=== PATIENT | male | born 1955 | race Caucasian/White ===

== ENCOUNTER 2017-11-06 11:06 | Emergency (ER) | payer OTHER ==
[~2017-11-06] VITALS: Ht 172.7 cm; Wt 99.8 kg
[2017-11-06 11:22] VITALS: BP 114/72
[2017-11-06] MEDS ORDERED: Ketorolac 30mg Inj IM ONE (11:45)
[2017-11-06] MEDS ORDERED: Methocarbamol 750mg tab ORAL ONE (11:45)
[2017-11-06] MEDS ORDERED: ROBAXIN-750750 MG PO (12:21)
[2017-11-06] MEDS ORDERED: IBUPROFEN600 MG ORAL (12:21)
[2017-11-06 12:30] VITALS: BP 113/74
--- NOTE | 2017-11-06 14:11 | Diagnostic Imaging Report ---
Indication: Knee pain Technique: 3 views of the right knee Comparison: None Findings: There are medial osteophytes. Air is minimal degenerative medial compartmental degenerative joint space narrowing. No acute fractures. No dislocations. No suprapatellar effusion. There are vascular calcifications Impression: Minimal degenerative changes. No acute bony trauma
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
== END 2017-11-06 12:42 | disposition home or self-care (01) ==
LOC: EDBD 11:06 → EMR 12:20
DX: S39.012A Strain of muscle, fascia and tendon of lower back, initial encounter (principal); S80.01XA Contusion of right knee, initial encounter; I10 Essential (primary) hypertension; E11.9 Type 2 diabetes mellitus without complications; V79.9XXA Bus occupant (driver) (passenger) injured in unspecified traffic accident, initial encounter; Y92.410 Unspecified street and highway as the place of occurrence of the external cause
CPT/HCPCS: 73562; 96372; 99284; J1885

== ENCOUNTER 2020-01-09 14:44 | Inpatient (IN) | payer MEDICARE, OTHER ==
[~2020-01-09] VITALS: Ht 177.8 cm; Wt 103.9 kg
[~2020-01-09 14:44] MED LIST: IBUPROFEN600 MG ORAL; ROBAXIN-750750 MG PO
--- NOTE | 2020-01-09 15:13 | Emergency Room Report ---
History of Present Illness General Chief Complaint: Chest Pain Source: Patient Present Illness HPI Patient presents with initially complaints of trauma with a fall 2 days ago onto the right side complaining of pain to the right upper chest and lower extremity Patient is relatively a poor historian initially complained mainly of His traumatic injury with a fall However later patient complains of continued shortness of breath and cough Continued swelling to both lower extremities patient now reports that his symptoms have been ongoing for the past month and now seem to have worsened since his fall Patient complaining of right knee and ankle pain as well Reports that he might have remote history of asthma Allergies: Coded Allergies: No Known Allergies (Unverified , 11/06/17) COVID-19 Screening Contact w/high risk pt: No Recent Travel to affected area: No Experienced COVID-19 symptoms?: No COVID-19 Testing performed HUMAN RESOURCES SPECIALIST: No Patient History Past Medical History: see triage record Reviewed Nursing Documentation: PMH: Agreed; PSxH: Agreed Nursing Documentation-PMH Past Medical History: No History, Except For Hx Hypertension: Yes Hx Diabetes: Yes Review of Systems All Other Systems: negative except mentioned in HPI Physical Exam Vital Signs Date Time Temp Pulse Resp B/P (MAP) Pulse Ox O2 Delivery O2 Flow Rate FiO2 01/09/20 14:50 98.1 87 20 130/64 (86) 94 Room Air Sp02 EP Interpretation: reviewed, normal General Appearance: moderate distress - Patient appears short of breath and using accessory muscles upon arrival Head: normocephalic, atraumatic Eyes: bilateral eye PERRL, bilateral eye EOMI ENT: EOM grossly intact, normal pharynx Neck: supple, no meningismus Respiratory: other - Patient is tachypneic and initially showed signs of mild retraction crackles bilaterally Cardiovascular #1: regular rate, rhythm Gastrointestinal: other - Obese with difficult evaluation nontender on lower abdomen Genitourinary: no CVA tenderness Musculoskeletal: other - Significant swelling to the right knee and lower extremity, patient is tender on palpation of that area, also has ecchymosis at the right upper chest but moving both upper extremities equally, Neurologic: alert, oriented Psychiatric: normal inspection Skin: other - As above with obvious traumatic ecchymosis to the right upper chest, swelling to the right knee and edema to the lower ankle region Lymphatic: no adenopathy Procedures Critical Care Time Critical Care Time 50 minutes for initial critical presentation respiratory distress concern for respiratory failure not including any procedural time Medical Decision Making Diagnostic Impression: Primary Impression: Dyspnea Additional Impressions: CHF (congestive heart failure) Sternal fracture Chest wall contusion Knee contusion ER Course Patient is complex with multiple differentials upon arrival Consideration for traumatic injury such as rib fractures, pneumothorax is made Consideration for medical emergencies such as pulmonary embolism, covid-19, CHF patient has multiple imaging and blood work initiated CT does not show any obvious fracture There is no obvious pneumothorax Patient sodium is significantly low There is concern for CHF as well patient provided with diuretic Breathing has improved General surgery and medicine are contacted and patient admitted for further care Labs Test 01/09/20 15:10 01/09/20 15:51 White Blood Count 10.1 K/UL (4.8-10.8) Red Blood Count 4.59 M/UL (4.70-6.10) Hemoglobin 12.8 G/DL (14.2-18.0) Hematocrit 37.4 % (42.0-52.0) Mean Corpuscular Volume 81 FL (80-99) Mean Corpuscular Hemoglobin 27.8 PG (27.0-31.0) Mean Corpuscular Hemoglobin Concent 34.2 G/DL (32.0-36.0) Red Cell Distribution Width 13.7 % (11.6-14.8) Platelet Count 299 K/UL (150-450) Mean Platelet Volume 7.1 FL (6.5-10.1) Neutrophils (%) (Auto) 83.5 % (45.0-75.0) Lymphocytes (%) (Auto) 9.3 % (20.0-45.0) Monocytes (%) (Auto) 4.6 % (1.0-10.0) Eosinophils (%) (Auto) 1.7 % (0.0-3.0) Basophils (%) (Auto) 0.9 % (0.0-2.0) Prothrombin Time 11.5 SEC (9.30-11.50) Prothromb Time International Ratio 1.0 (0.9-1.1) Activated Partial Thromboplast Time 28 SEC (23-33) Sodium Level 120 MMOL/L (136-145) Potassium Level 4.1 MMOL/L (3.5-5.1) Chloride Level 83 MMOL/L (98-107) Carbon Dioxide Level 29 MMOL/L (21-32) Anion Gap 9 mmol/L (5-15) Blood Urea Nitrogen 10 mg/dL (7-18) Creatinine 1.1 MG/DL (0.55-1.30) Estimat Glomerular Filtration Rate > 60 mL/min (>60) Glucose Level 133 MG/DL (74-106) Calcium Level 8.2 MG/DL (8.5-10.1) Total Bilirubin 1.0 MG/DL (0.2-1.0) Aspartate Amino Transf (AST/SGOT) 19 U/L (15-37) Alanine Aminotransferase (ALT/SGPT) 25 U/L (12-78) Alkaline Phosphatase 110 U/L (46-116) Total Creatine Kinase 160 U/L (26-308) Troponin I 0.025 ng/mL (0.000-0.056) Pro-B-Type Natriuretic Peptide 1164 pg/mL (0-125) Total Protein 6.3 G/DL (6.4-8.2) Albumin 3.3 G/DL (3.4-5.0) Globulin 3.0 g/dL Albumin/Globulin Ratio 1.1 (1.0-2.7) Lipase 69 U/L (73-393) Arterial Blood pH 7.417 (7.350-7.450) Arterial Blood Partial Pressure CO2 38.1 mmHg (35.0-45.0) Arterial Blood Partial Pressure O2 64.3 mmHg (75.0-100.0) Arterial Blood HCO3 24.0 mmol/L (22.0-26.0) Arterial Blood Oxygen Saturation 91.5 % (95-100) Arterial Blood Base Excess -0.3 (-2-2) Flash Test Positive EKG Diagnostic Results Rate: normal Rhythm: NSR ST Segments: other - Nonspecific ST and T wave changes Rhythm Strip Diag. Results EP Interpretation: yes Rate: 88 Rhythm: NSR, no PVC's, no ectopy Chest X-Ray Diagnostic Results Chest X-Ray Diagnostic Results : Chest X-Ray Ordered: Yes # of Views/Limited/Complete: 1 View Indication: Chest Pain EP Interpretation: Yes Interpretation: no pneumothorax, other - Cardiomegaly, Other X-Ray Diagnostic Results Other X-Ray Diagnostic Results #1: X-Ray ordered: Right knee # of Views/Limited Vs Complete: 3 View Indication: Pain EP Interpretation: Yes Interpretation: no dislocation, no fractures, other - Tissue swelling Impression: Other - Soft tissue swelling Electronically Signed by: Praveen Looney DO Other X-Ray Diagnostic Results #2: X-Ray ordered: Right ankle # of Views/Limited Vs Complete: 3 View Indication: Pain EP Interpretation: Yes Interpretation: no dislocation, no fractures, other Impression: Other - Soft tissue swelling Electronically Signed by: Praveen Looney DO CT/MRI/US Diagnostic Results CT/MRI/US Diagnostic Results : Impression CT chest abdomen pelvis no contrastIMPRESSION: Limited exam, due to respiratory motion artifact. Apparent buckling of the anterior and posterior mid body sternal cortex. This could be due to respiratory motion artifact, but could be real and represent a fracture. Correlate with clinical findings. No evidence of retrosternal hematoma, but there is some evidence of contusion of the superficial fat Evidence of right chest wall contusion Pulmonary atelectatic changes. Other acute/significant pulmonary pathology impossible to exclude due to the motion artifact. No evidence of pneumothorax. Considerable edema of the abdominal and right flank subcutaneous fat. Suspect that this is hemodynamic in origin, but the asymmetric findings of the right flank could also represent contusion No evidence of solid organ trauma. Note, however, assessment is limited due to lack of IV contrast Borderline cardiomegaly Mildly atrophic left kidney CT angios chestIMPRESSION: 1. Cardiomegaly. 2. Very small bilateral pleural effusions. 3. Clinical correlation is advised to assess for the possibility of incipient congestive heart failure. 4. ASCVD. 5. No central or peripheral pulmonary embolism is detected. 6. Atherosclerotic disease of the thoracic aorta. Last Vital Signs Date Time Temp Pulse Resp B/P (MAP) Pulse Ox O2 Delivery O2 Flow Rate FiO2 01/09/20 14:50 98.1 87 20 130/64 (86) 94 Room Air Status: improved Disposition: ADMITTED INPATIENT Condition: Critical Praveen Looney DO Jan 09, 2020 15:13
[2020-01-09] MEDS ORDERED: Albuterol ud Inhalation HHN ONE (15:15)
--- NOTE | 2020-01-09 15:25 | NUR ---
ED Nurse Note:pt. came from home due to SOB and chest tightness, pt. is ambulatory, A/Ox4 VSS, skin is intact, blood sent to labs
[2020-01-09 15:33] LABS: BASOPHILS % (AUTO) 0.9 % (0.0-2.0); EOSINOPHILS % (AUTO) 1.7 % (0.0-3.0); HEMATOCRIT 37.4 % (42.0-52.0); HEMOGLOBIN 12.8 G/DL (14.2-18.0); LYMPHOCYTES % (AUTO) 9.3 % (20.0-45.0); MEAN CORPUSCULAR VOLUME 81 FL (80-99); MONOCYTES % (AUTO) 4.6 % (1.0-10.0); NEUTROPHILS % (AUTO) 83.5 % (45.0-75.0); PLATELET COUNT 299 K/UL (150-450); RED BLOOD COUNT 4.59 M/UL (4.70-6.10); RED CELL DISTRIBUTION WIDTH 13.7 % (11.6-14.8); WHITE BLOOD COUNT 10.1 K/UL (4.8-10.8)
[2020-01-09 15:41] VITALS: BP 130/64
--- NOTE | 2020-01-09 15:43 | NUR ---
ED Nurse Note:chest x-ray and CT scan done, pt. placed on patient monitor, VSS
[2020-01-09 15:45] LABS: ANION GAP 9 mmol/L (5-15); BLOOD UREA NITROGEN 10 mg/dL (7-18); CALCIUM 8.2 MG/DL (8.5-10.1); CARBON DIOXIDE 29 MMOL/L (21-32); CHLORIDE 83 MMOL/L (98-107); CREATININE 1.1 MG/DL (0.55-1.30); POTASSIUM 4.1 MMOL/L (3.5-5.1); SODIUM 120 MMOL/L (136-145)
[2020-01-09 15:56] LABS: ALANINE AMINOTRANSFERASE 25 U/L (12-78); ALBUMIN 3.3 G/DL (3.4-5.0); ALBUMIN/GLOBULIN RATIO 1.1 (1.0-2.7); ALKALINE PHOSPHATASE 110 U/L (46-116); ASPARTATE AMINO TRANSFERASE 19 U/L (15-37); CREATINE KINASE 160 U/L (26-308)
--- NOTE | 2020-01-09 15:59 | Diagnostic Imaging Report ---
CLINICAL INDICATION:Trauma to chest and abdomen with pain TECHNIQUE: No oral contrast, per emergency room physician request no IV contrast, per referring physician request. Spiral acquisitions obtained through the chest, abdomen, and pelvis. Multiplanar reconstructions were generated. Total dose length product 1715 mGycm. CTDIvol(s) 22 mGy. Radiation dose was minimized using automated exposure control COMPARISON: none FINDINGS Chest: There is considerable image degradation due to respiratory motion. No fractures are demonstrated. There is infiltration of the subcutaneous fat of the right pectoral region. There is some apparent buckling of the cortex of the mid sternal body as well as some overlying contusion changes, although discrete fracture line is not demonstrated. No other acute fractures. The lungs are poorly visualized due to the motion artifact. There are some linear atelectatic changes at the lung bases. There are also posterior dependent atelectatic changes. No definite acute abnormality elsewhere although significant pathology could be missed due to the poor visualization of the lungs. The heart is borderline enlarged. No pericardial effusion. No mediastinal or hilar mass or adenopathy. The included thyroid appears unremarkable. No axillary or chest wall mass or adenopathy. Abdomen pelvis: There is likewise image degradation due to respiratory motion artifact. There is diffuse edema of the subcutaneous fat of the anterior abdominal wall. There is also thickening of the skin. There is considerable edema of the right flank subcutaneous fat which is asymmetric. There is also considerable edema posteriorly. The bones demonstrate degenerative spondylosis changes. No acute fractures. There are are mild degenerative changes of the thoracic and lumbar spine Lack of IV contrast limits assessment of the solid organs. The liver there is mildly hypoattenuating. No evidence of injury. The gallbladder, bile ducts, are unremarkable. The pancreas is atrophic. The spleen is unremarkable. The adrenals are unremarkable. The left kidney is mildly atrophic. No pelvic mass or adenopathy. No evidence of diverticulosis or diverticulitis. The appendix is normal. No small bowel distention. No free or loculated intraperitoneal gas or fluid is evident. The esophagus, stomach, duodenum are all unremarkable. IMPRESSION: Limited exam, due to respiratory motion artifact. Apparent buckling of the anterior and posterior mid body sternal cortex. This could be due to respiratory motion artifact, but could be real and represent a fracture. Correlate with clinical findings. No evidence of retrosternal hematoma, but there is some evidence of contusion of the superficial fat Evidence of right chest wall contusion Pulmonary atelectatic changes. Other acute/significant pulmonary pathology impossible to exclude due to the motion artifact. No evidence of pneumothorax. Considerable edema of the abdominal and right flank subcutaneous fat. Suspect that this is hemodynamic in origin, but the asymmetric findings of the right flank could also represent contusion No evidence of solid organ trauma. Note, however, assessment is limited due to lack of IV contrast Borderline cardiomegaly Mildly atrophic left kidney The CT scanner at [facility] is accredited by the [employer] and the scans are performed using protocols designed to limit radiation exposure to as low as reasonably achievable to attain images of sufficient resolution adequate for diagnostic evaluation.
--- NOTE | 2020-01-09 15:59 | NUR ---
HAND-OFF: Report given to Savage.
--- NOTE | 2020-01-09 16:00 | NUR ---
ED Nurse Note: Received patient from calista alfaro rn. Upon visual inspection patient resting in bed with no acute distress. opens eyes spontaneously and tracks movements with eyes. attached to monitor; vitals stable to baseline. will continue to monitor.
[2020-01-09] MEDS ORDERED: Morphine Sulfate 4mg/ml Inj (IV USE ONLY) IVP ONE ×2 (16:15→16:45)
[2020-01-09 16:30] VITALS: BP 128/64
[2020-01-09] MEDS ORDERED: Solu-MEDROL 125mg Inj IVP ONE (16:30)
[2020-01-09] MEDS ORDERED: Omnipaque 350 100ml vial INJ PRN (16:30)
--- NOTE | 2020-01-09 16:30 | NUR ---
ED Nurse Note: Patient reports pain 10/10; ERMD aware. Medicated patient as prescribed. Patient AO4. nad. aware of pending admission. Patient on placed on NC 2L. audible wheezes noted. abdomen round and distended. IV flushed and patent. belongings list completed with patient.
--- NOTE | 2020-01-09 16:53 | Consultation ---
History of Present Illness General Chief Complaint: Chest Pain Present Illness HPI This is a 64 year old male with the past medical history of hypertension, hld and obesity who presents with severe chest pain s/p fall. He notes that he was walking as he tripped and landed on his chest. He notes severe pain on inspiration. On presentation he was noted to be markedly hyponatremia. Given hypoxia he was placed on bipap with improvement in respiratory status. IMPRESSION: 1. Cardiomegaly. 2. Very small bilateral pleural effusions. 3. Clinical correlation is advised to assess for the possibility of incipient congestive heart failure. 4. ASCVD. 5. No central or peripheral pulmonary embolism is detected. 6. Atherosclerotic disease of the thoracic aorta. Allergies: Coded Allergies: No Known Allergies (Unverified , 11/06/17) Medication History Scheduled Amlodipine Besylate* (Amlodipine Besylate*), 10 MG ORAL DAILY, (Reported) Aspirin* (Aspir 81*), 81 MG ORAL DAILY, (Reported) Atorvastatin Calcium* (Atorvastatin Calcium*), 40 MG ORAL BEDTIME, (Reported) Lisinopril* (Lisinopril*), 40 MG ORAL DAILY, (Reported) Methocarbamol* (Robaxin-750*), 750 MG PO TID Pantoprazole* (Pantoprazole*), 40 MG ORAL DAILY, (Reported) Quetiapine Fumarate* (Quetiapine Fumarate*), 200 MG ORAL DAILY, (Reported) Sertraline Hcl* (Zoloft*), 100 MG PO DAILY, (Reported) Scheduled PRN Ibuprofen (Motrin), 600 MG ORAL Q8H PRN for For Pain Miscellaneous Medications Metformin Hcl (Metformin Hydrochloride), 1,000 GM , (Reported) Patient History Healthcare decision maker Resuscitation status Advanced Directive on File Review of Systems All Other Systems: negative except mentioned in HPI Physical Exam General Appearance: WD/WN, no apparent distress Lines, tubes and drains: peripheral HEENT: normocephalic, atraumatic Neck: non-tender Respiratory/Chest: decreased breath sounds, accessory muscle use, rhonchi - bilaterally, inspiratory wheezing Cardiovascular/Chest: normal peripheral pulses Abdomen: normal bowel sounds, non tender Neurologic: alert, oriented x 3, responsive Last 24 Hour Vital Signs Date Time Temp Pulse Resp B/P (MAP) Pulse Ox O2 Delivery O2 Flow Rate FiO2 01/09/20 16:20 73 18 100 Nasal Cannula 2.0 28 81 19 97 01/09/20 15:41 87 20 Room Air 01/09/20 15:41 98.1 87 20 130/64 97 Room Air 01/09/20 14:50 98.1 87 20 130/64 (86) 94 Room Air Laboratory Tests Test 01/09/20 15:10 01/09/20 15:51 White Blood Count 10.1 K/UL (4.8-10.8) Red Blood Count 4.59 M/UL (4.70-6.10) L Hemoglobin 12.8 G/DL (14.2-18.0) L Hematocrit 37.4 % (42.0-52.0) L Mean Corpuscular Volume 81 FL (80-99) Mean Corpuscular Hemoglobin 27.8 PG (27.0-31.0) Mean Corpuscular Hemoglobin Concent 34.2 G/DL (32.0-36.0) Red Cell Distribution Width 13.7 % (11.6-14.8) Platelet Count 299 K/UL (150-450) Mean Platelet Volume 7.1 FL (6.5-10.1) Neutrophils (%) (Auto) 83.5 % (45.0-75.0) H Lymphocytes (%) (Auto) 9.3 % (20.0-45.0) L Monocytes (%) (Auto) 4.6 % (1.0-10.0) Eosinophils (%) (Auto) 1.7 % (0.0-3.0) Basophils (%) (Auto) 0.9 % (0.0-2.0) Prothrombin Time 11.5 SEC (9.30-11.50) Prothromb Time International Ratio 1.0 (0.9-1.1) Activated Partial Thromboplast Time 28 SEC (23-33) Sodium Level 120 MMOL/L (136-145) L Potassium Level 4.1 MMOL/L (3.5-5.1) Chloride Level 83 MMOL/L (98-107) L Carbon Dioxide Level 29 MMOL/L (21-32) Anion Gap 9 mmol/L (5-15) Blood Urea Nitrogen 10 mg/dL (7-18) Creatinine 1.1 MG/DL (0.55-1.30) Estimat Glomerular Filtration Rate > 60 mL/min (>60) Glucose Level 133 MG/DL (74-106) H Calcium Level 8.2 MG/DL (8.5-10.1) L Total Bilirubin 1.0 MG/DL (0.2-1.0) Aspartate Amino Transf (AST/SGOT) 19 U/L (15-37) Alanine Aminotransferase (ALT/SGPT) 25 U/L (12-78) Alkaline Phosphatase 110 U/L (46-116) Total Creatine Kinase 160 U/L (26-308) Troponin I 0.025 ng/mL (0.000-0.056) Pro-B-Type Natriuretic Peptide 1164 pg/mL (0-125) H Total Protein 6.3 G/DL (6.4-8.2) L Albumin 3.3 G/DL (3.4-5.0) L Globulin 3.0 g/dL Albumin/Globulin Ratio 1.1 (1.0-2.7) Lipase 69 U/L (73-393) L Arterial Blood pH 7.417 (7.350-7.450) Arterial Blood Partial Pressure CO2 38.1 mmHg (35.0-45.0) Arterial Blood Partial Pressure O2 64.3 mmHg (75.0-100.0) L Arterial Blood HCO3 24.0 mmol/L (22.0-26.0) Arterial Blood Oxygen Saturation 91.5 % (95-100) L Arterial Blood Base Excess -0.3 (-2-2) Flash Test Positive Height (Feet): 5 Height (Inches): 10.00 Weight (Pounds): 260 Medications Current Medications Medications (Trade) Dose Ordered Sig/Anjel Route PRN Reason Start Time Stop Time Status Last Admin Dose Admin Iohexol (Omnipaque 350 100ml) 100 ml NOW PRN INJ Radiology Procedure 01/09/20 16:30 01/11/20 16:29 Assessment/Plan Diagnosis [facility] I: #SOB possible CHF #r/o COVID #Hypervolumic hyponatremia #chest pain #HTN #HLD - admit to step down unit - pulm consulted - cardiology consult - lasix 40 Iv BID - 2d echo - check TSH - check am cortisol - Gen surgery consulted - continue lisinopril 40mg daily - amlodipine 10mg daily - monitor BMP, mag and phos daily - replete Jone Tsang M.D. Jan 09, 2020 16:53
[2020-01-09] MEDS ORDERED: PANTOPRAZOLE SO40 MG ORAL (17:24)
[2020-01-09] MEDS ORDERED: ATORVASTATIN CA40 MG ORAL (17:24)
[2020-01-09] MEDS ORDERED: SERTRALINE HCL100 MG PO (17:24)
[2020-01-09] MEDS ORDERED: LISINOPRIL40 MG ORAL (17:24)
[2020-01-09] MEDS ORDERED: QUETIAPINE FUM400 MG ORAL (17:24)
[2020-01-09] MEDS ORDERED: METFORMIN HYD1000 GM MC (17:24)
[2020-01-09] MEDS ORDERED: AMLODIPINE BESY10 MG ORAL (17:26)
[2020-01-09] MEDS ORDERED: ASPIR 8181 MG ORAL (17:26)
--- NOTE | 2020-01-09 17:27 | Diagnostic Imaging Report ---
EXAM: CT Chest With Intravenous Contrast CLINICAL HISTORY: SOB TECHNIQUE: Axial computed tomographic images of the chest with intravenous contrast. CTDI is 138.8 mGy and DLP is 602.9 mGy-cm. One or more of the following dose reduction techniques were used: automated exposure control, adjustment of the mA and/or kV according to patient size, use of iterative reconstruction technique. COMPARISON: 01/09/2020. FINDINGS: Artifacts: Minimal motion artifact which limits evaluation peered Pulmonary arteries: No central pulmonary embolism. Limited evaluation of the peripheral branch of the pulmonary arteries. Aorta: Atherosclerotic disease of the thoracic aorta is noted. No thoracic aortic aneurysm. Lungs: Presumed subsegmental atelectasis posteriorly at the lung bases. The airways patent. No mass. Pleural space: No pneumothorax. No pleural effusion. Tiny bilateral pleural effusions, right side slightly greater than left side. The ribs are grossly unremarkable. Heart: Cardiomegaly and ASCVD. No significant pericardial effusion. No evidence of RV dysfunction. Mediastinum: Small hiatal hernia. Bones/joints: Probable old healed fracture of the sternum. Moderate degenerative disc disease of the thoracic spine. Mild kyphosis. Minimal anterior wedging of midthoracic vertebral body of indeterminate age. No dislocation. Soft tissues: Unremarkable. Lymph nodes: Unremarkable. No enlarged lymph nodes. Liver: Diffuse fatty infiltration of the liver. Other findings: Hypoaeration. IMPRESSION: 1. Cardiomegaly. 2. Very small bilateral pleural effusions. 3. Clinical correlation is advised to assess for the possibility of incipient congestive heart failure. 4. ASCVD. 5. No central or peripheral pulmonary embolism is detected. 6. Atherosclerotic disease of the thoracic aorta.
--- NOTE | 2020-01-09 18:06 | NUR ---
ED Nurse Note: RT at bedside; placed patient on biPAP 07/07 30%
[2020-01-09 18:13] VITALS: BP 117/67
--- NOTE | 2020-01-09 18:44 | Consultation ---
History of Present Illness General Date patient seen: Jan 10, 2020 Time patient seen: 22:58 Chief Complaint: Chest Pain Present Illness HPI 64 year old male poor historian presents with chest pain post fall, cardiology consulted for evaluation, CT scan showed CAD, CXR clear, Echo with normal LV function EKg with no ischemia. Allergies: Coded Allergies: No Known Allergies (Unverified , 11/06/17) Medication History Scheduled Amlodipine Besylate* (Amlodipine Besylate*), 10 MG ORAL DAILY, (Reported) Aspirin* (Aspir 81*), 81 MG ORAL DAILY, (Reported) Atorvastatin Calcium* (Atorvastatin Calcium*), 40 MG ORAL BEDTIME, (Reported) Lisinopril* (Lisinopril*), 40 MG ORAL DAILY, (Reported) Methocarbamol* (Robaxin-750*), 750 MG PO TID Pantoprazole* (Pantoprazole*), 40 MG ORAL DAILY, (Reported) Quetiapine Fumarate* (Quetiapine Fumarate*), 200 MG ORAL DAILY, (Reported) Sertraline Hcl* (Zoloft*), 100 MG PO DAILY, (Reported) Scheduled PRN Ibuprofen (Motrin), 600 MG ORAL Q8H PRN for For Pain Miscellaneous Medications Metformin Hcl (Metformin Hydrochloride), 1,000 GM MC, (Reported) Patient History Healthcare decision maker Resuscitation status Advanced Directive on File Review of Systems Constitutional: Reports: no symptoms Eye: Reports: no symptoms ENT: Reports: no symptoms Respiratory: Reports: no symptoms Cardiovascular: Reports: chest pain Gastrointestinal: Reports: no symptoms Genitourinary: Reports: no symptoms Musculoskeletal: Reports: no symptoms Skin: Reports: no symptoms Psychiatric: Reports: no symptoms Neurological: Reports: no symptoms Endocrine: Reports: no symptoms Hematologic/Lymphatic: Reports: no symptoms Physical Exam General Appearance: no apparent distress, confused Lines, tubes and drains: peripheral HEENT: normocephalic, atraumatic, anicteric, mucous membranes moist, PERRL Neck: normal alignment, supple, abnormal alignment Respiratory/Chest: chest wall non-tender, rhonchi - bilaterally, rhonchi - left Cardiovascular/Chest: normal peripheral pulses, normal rate, regular rhythm Abdomen: non tender, no mass Extremities: non-tender, normal inspection, no calf tenderness Skin Exam: normal pigmentation, warm/dry, cyanotic Neurologic: salt manager II-XII grossly normal, no motor/sensory deficits Last 24 Hour Vital Signs Date Time Temp Pulse Resp B/P (MAP) Pulse Ox O2 Delivery O2 Flow Rate FiO2 01/09/20 18:13 98.1 80 15 117/67 96 Bi-pap 30 01/09/20 18:07 30 01/09/20 18:06 79 15 97 30 01/09/20 17:12 98.1 01/09/20 16:52 98.1 01/09/20 16:30 98.1 83 18 128/64 100 Nasal Cannula 2.0 01/09/20 16:20 73 18 100 Nasal Cannula 2.0 28 81 19 97 01/09/20 15:41 87 20 Room Air 01/09/20 15:41 98.1 87 20 130/64 97 Room Air 01/09/20 14:50 98.1 87 20 130/64 (86) 94 Room Air Laboratory Tests Test 01/09/20 15:10 01/09/20 15:51 White Blood Count 10.1 K/UL (4.8-10.8) Red Blood Count 4.59 M/UL (4.70-6.10) L Hemoglobin 12.8 G/DL (14.2-18.0) L Hematocrit 37.4 % (42.0-52.0) L Mean Corpuscular Volume 81 FL (80-99) Mean Corpuscular Hemoglobin 27.8 PG (27.0-31.0) Mean Corpuscular Hemoglobin Concent 34.2 G/DL (32.0-36.0) Red Cell Distribution Width 13.7 % (11.6-14.8) Platelet Count 299 K/UL (150-450) Mean Platelet Volume 7.1 FL (6.5-10.1) Neutrophils (%) (Auto) 83.5 % (45.0-75.0) H Lymphocytes (%) (Auto) 9.3 % (20.0-45.0) L Monocytes (%) (Auto) 4.6 % (1.0-10.0) Eosinophils (%) (Auto) 1.7 % (0.0-3.0) Basophils (%) (Auto) 0.9 % (0.0-2.0) Prothrombin Time 11.5 SEC (9.30-11.50) Prothromb Time International Ratio 1.0 (0.9-1.1) Activated Partial Thromboplast Time 28 SEC (23-33) Sodium Level 120 MMOL/L (136-145) L Potassium Level 4.1 MMOL/L (3.5-5.1) Chloride Level 83 MMOL/L (98-107) L Carbon Dioxide Level 29 MMOL/L (21-32) Anion Gap 9 mmol/L (5-15) Blood Urea Nitrogen 10 mg/dL (7-18) Creatinine 1.1 MG/DL (0.55-1.30) Estimat Glomerular Filtration Rate > 60 mL/min (>60) Glucose Level 133 MG/DL (74-106) H Calcium Level 8.2 MG/DL (8.5-10.1) L Total Bilirubin 1.0 MG/DL (0.2-1.0) Aspartate Amino Transf (AST/SGOT) 19 U/L (15-37) Alanine Aminotransferase (ALT/SGPT) 25 U/L (12-78) Alkaline Phosphatase 110 U/L (46-116) Total Creatine Kinase 160 U/L (26-308) Troponin I 0.025 ng/mL (0.000-0.056) Pro-B-Type Natriuretic Peptide 1164 pg/mL (0-125) H Total Protein 6.3 G/DL (6.4-8.2) L Albumin 3.3 G/DL (3.4-5.0) L Globulin 3.0 g/dL Albumin/Globulin Ratio 1.1 (1.0-2.7) Lipase 69 U/L (73-393) L Arterial Blood pH 7.417 (7.350-7.450) Arterial Blood Partial Pressure CO2 38.1 mmHg (35.0-45.0) Arterial Blood Partial Pressure O2 64.3 mmHg (75.0-100.0) L Arterial Blood HCO3 24.0 mmol/L (22.0-26.0) Arterial Blood Oxygen Saturation 91.5 % (95-100) L Arterial Blood Base Excess -0.3 (-2-2) Flash Test Positive Height (Feet): 5 Height (Inches): 10.00 Weight (Pounds): 260 Medications Current Medications Medications (Trade) Dose Ordered Sig/Anjel Route PRN Reason Start Time Stop Time Status Last Admin Dose Admin Iohexol (Omnipaque 350 100ml) 100 ml NOW PRN INJ Radiology Procedure 01/09/20 16:30 01/11/20 16:29 Assessment/Plan Status: stable Assessment/Plan: Assessment/Plan Problem List: (1) Contusion, knee ICD Codes: S80.00XA - Contusion of unspecified knee, initial encounter SNOMED: 63731171 (2) CHF (congestive heart failure) ICD Codes: I50.9 - Heart failure, unspecified SNOMED: 09272714 (3) Sternal fracture ICD Codes: S22.20XA - Unspecified fracture of sternum, initial encounter for closed fracture SNOMED: 99891345 (4) Knee contusion ICD Codes: S80.00XA - Contusion of unspecified knee, initial encounter SNOMED: 20383278 (5) Dyspnea ICD Codes: R06.00 - Dyspnea, unspecified SNOMED: 829129173 (6) Chest wall contusion ICD Codes: S20.219A - Contusion of unspecified front wall of thorax, initial encounter SNOMED: 93346308 Status: stable Serial EKG/Troponin Monitor on telemetry Echcoardiogram with normal LV function, no WMA, no significant valvular disease Pain control IV fluids Aspirin Statin therapy Maintain lisinopril Chest pain unlikely ACS - defer fruther cardiac work up at this time, no indication for cath/stress test Otilio Lyn MD Jan 09, 2020 18:44
--- NOTE | 2020-01-09 20:45 | Diagnostic Imaging Report ---
Indication: Chest pain Technique: One view of the chest Comparison: none Findings: Body habitus limits evaluation. The heart is upper limits normal in size. No definite infiltrates, effusions, congestion. There is some atelectasis at both lung bases. Impression: No definite acute process. Findings as noted
--- NOTE | 2020-01-09 21:59 | Diagnostic Imaging Report ---
Indication: Pain, trauma Technique: 3 views of the right knee Comparison: None Findings: There is probably some narrowing of the medial joint compartment. There are medial osteophytes. No acute fractures. No dislocations. No suprapatellar effusion Impression: Degenerative changes. No acute bony trauma
--- NOTE | 2020-01-09 22:00 | Diagnostic Imaging Report ---
Indication: Reason For Exam: TRAUMA Technique: 3 views of the right ankle Comparison: none Findings: No acute fractures. No dislocations. Joint spaces are preserved. Normal mineralization. No radiopaque foreign body. Impression: Negative
--- NOTE | 2020-01-09 22:01 | NUR ---
ED Nurse Note: received report from Coral MCFADDEN. Will continue to monitor patient.
[2020-01-09 22:02] VITALS: BP 159/79
[2020-01-10 00:44] VITALS: BP 151/82
[2020-01-10 01:13] LABS: ANION GAP 6 mmol/L (5-15); BLOOD UREA NITROGEN 12 mg/dL (7-18); CALCIUM 8.6 MG/DL (8.5-10.1); CARBON DIOXIDE 32 MMOL/L (21-32); CHLORIDE 83 MMOL/L (98-107); CREATININE 1.4 MG/DL (0.55-1.30); SODIUM 121 MMOL/L (136-145)
[2020-01-10 03:53] VITALS: BP 119/57
--- NOTE | 2020-01-10 04:00 | NUR ---
ED Nurse Note: pt home med placed in safe. #[id number]
--- NOTE | 2020-01-10 04:14 | NUR ---
ED Nurse Note: GAVE REPORT TO TEMITOPE MCFADDEN.
--- NOTE | 2020-01-10 04:17 | NUR ---
NURSE NOTES: Heriberto GUZMAN RN called to give report. awaiting pt to arrive.
--- NOTE | 2020-01-10 04:30 | NUR ---
TRANSFER TO FLOOR: Patient transferred to [facility] via [facility] in stable condition via transport 19 protocol as ordered, per dr. García. Report given to Fer MCFADDEN. Belongings sent with patient.
--- NOTE | 2020-01-10 04:30 | NUR ---
NURSE NOTES: pt received form Heriberto Sampson RN. pt remains stable. pt is alert and oriented times 4, able to follow commands, no abnormalities to neuro. pt is on BIPAP able to sat at 99%, no further/ acute resp distress. pt is on conveyor monitor showing NSR, no acute cardiac abnormalities noted. pt bed is low, locked, armed, call light within reach, will establish plan of care.
[2020-01-10 04:45] VITALS: BP 148/81
--- NOTE | 2020-01-10 07:40 | NUR ---
HAND-OFF: Report given to María MCFADDEN. Pt remains stable.
--- NOTE | 2020-01-10 07:42 | NUR ---
NURSE NOTES: Received report from Fer Garrison RN.
[2020-01-10 08:00] VITALS: BP 135/77
[2020-01-10] MEDS ORDERED: HYDROcodone/Acetamin 5/325 tab ORAL PRN (08:00)
[2020-01-10] MEDS ORDERED: HYDROcodone/Acetamin 10/325 tab ORAL PRN (08:00)
[2020-01-10] MEDS: Sertraline 100mg tab ORAL SCH (08:53)
[2020-01-10] MEDS: Aspirin EC 81mg tab ORAL SCH (08:53)
[2020-01-10] MEDS ORDERED: Lisinopril 20mg tab ORAL SCH (09:00)
[2020-01-10 09:02] LABS: PHOSPHORUS 4.5 MG/DL (2.5-4.9)
--- NOTE | 2020-01-10 09:13 | NUR ---
NURSE NOTES: Pt. in bed, awake, having 2D echo test at present. No sign of distress. On Bipap 15/2 and Fi O2 of 30%. No grimacing noted. IV at right FA #20g. in placed S.L. Bed in low position, locked. Call light within reach. Will cont. to monitor.
[2020-01-10 09:18] LABS: HEMATOCRIT 34.7 % (42.0-52.0); HEMOGLOBIN 12.9 G/DL (14.2-18.0); MEAN CORPUSCULAR VOLUME 76 FL (80-99); PLATELET COUNT 299 K/UL (150-450); RED BLOOD COUNT 4.55 M/UL (4.70-6.10); RED CELL DISTRIBUTION WIDTH 12.1 % (11.6-14.8); WHITE BLOOD COUNT 9.1 K/UL (4.8-10.8)
[2020-01-10] MEDS: QUEtiapine 200mg tab ORAL SCH (09:35)
[2020-01-10] MEDS: Methocarbamol 750mg tab ORAL SCH ×4 (09:36→19:41)
[2020-01-10] MEDS: NovoLOG Insulin Flexpen SUBQ SCH ×3 (12:37→20:43)
--- NOTE | 2020-01-10 15:25 | History and Physical ---
History of Present Illness General Date patient seen: Jan 10, 2020 Reason for Hospitalization: Chest Pain Present Illness HPI Mr. Anderson is a 64 year old male with no clear PMHx, presenting 2 days after a fall onto his right side, complaining of chest pain. Also reports chronically worsening swelling, SOB. Allergies: Coded Allergies: No Known Allergies (Unverified , 11/06/17) COVID-19 Screening Contact w/high risk pt: No Recent Travel to affected area: No Experienced COVID-19 symptoms?: No COVID-19 symptoms experienced: Shortness of Breath Medication History Scheduled Amlodipine Besylate* (Amlodipine Besylate*), 10 MG ORAL DAILY, (Reported) Aspirin* (Aspir 81*), 81 MG ORAL DAILY, (Reported) Atorvastatin Calcium* (Atorvastatin Calcium*), 40 MG ORAL BEDTIME, (Reported) Lisinopril* (Lisinopril*), 40 MG ORAL DAILY, (Reported) Methocarbamol* (Robaxin-750*), 750 MG PO TID Pantoprazole* (Pantoprazole*), 40 MG ORAL DAILY, (Reported) Quetiapine Fumarate* (Quetiapine Fumarate*), 200 MG ORAL DAILY, (Reported) Sertraline Hcl* (Zoloft*), 100 MG PO DAILY, (Reported) Scheduled PRN Ibuprofen (Motrin), 600 MG ORAL Q8H PRN for For Pain Miscellaneous Medications Metformin Hcl (Metformin Hydrochloride), 1,000 GM MC, (Reported) Patient History Healthcare decision maker Resuscitation status Advanced Directive on File Review of Systems Constitutional: Denies: no symptoms, see HPI, chills, sweats, fever, malaise, weakness, other Eye: Denies: no symptoms, see HPI, eye pain, blurred vision, tearing, double vision, nose pain, nose congestion, acuity changes, discharge, other ENT: Denies: no symptoms, see HPI, ear pain, ear discharge, nose pain, nose congestion, throat pain, throat swelling, mouth pain, hearing loss, nasal discharge, other Respiratory: Reports: cough, shortness of breath Cardiovascular: Denies: no symptoms, see HPI, chest pain, edema, palpitations, syncope, PND, other Gastrointestinal: Denies: no symptoms, see HPI, abdominal pain, constipation, diarrhea, nausea, vomiting, melena, hematemesis, other Genitourinary: Denies: no symptoms, see HPI, discharge, dysuria, frequency, hematuria, pain, retention, incontinence, urgency, vag bleed/dc, other Musculoskeletal: Reports: other - sternal pain Skin: Denies: no symptoms, see HPI, rash, change in color, change in hair/nails , dryness, lesions, other Psychiatric: Denies: no symptoms, see HPI, prior hx, anxiety, depressed feelings, emotional problems, SI, HI, hallucinations, other Neurological: Denies: no symptoms, see HPI, headache, numbness, paresthesia, seizure, tingling, tremors, focal weakness, syncope, dizziness, other Endocrine: Denies: no symptoms, see HPI, excessive sweating, flushing, intolerance to temperature, increased thirst, increased urine, unexplained weight loss, other Hematologic/Lymphatic: Denies: no symptoms, see HPI, anemia, blood clots, easy bleeding, easy bruising, swollen glands, diathesis, other Physical Exam General Appearance: no apparent distress, alert HEENT: normocephalic, atraumatic Neck: supple Cardiovascular/Chest: normal rate, regular rhythm Abdomen: non tender, soft Extremities: moderate edema Last 24 Hour Vital Signs Date Time Temp Pulse Resp B/P (MAP) Pulse Ox O2 Delivery O2 Flow Rate FiO2 01/10/20 12:00 2.0 01/10/20 12:00 Bi-pap 01/10/20 11:58 86 01/10/20 11:01 95 Nasal Cannula 4.0 36 01/10/20 11:00 95 01/10/20 09:35 87 135/77 01/10/20 08:00 Bi-pap 01/10/20 08:00 87 01/10/20 08:00 97.7 84 18 135/77 (96) 96 01/10/20 08:00 30 01/10/20 08:00 97.7 84 18 135/77 (96) 96 01/10/20 07:22 89 23 98 30 01/10/20 04:45 98.4 92 23 148/81 (103) 97 01/10/20 04:42 Bi-Pap 01/10/20 04:30 98.6 82 20 119/57 95 Bi-pap 2.0 30 74 01/10/20 03:53 98.6 74 20 119/57 95 Bi-pap 01/10/20 03:24 82 14 95 30 01/10/20 00:44 82 20 151/82 96 Bi-pap 01/10/20 00:07 85 20 96 30 01/09/20 22:02 98.3 83 16 159/79 96 Bi-pap 01/09/20 21:09 74 16 96 30 01/09/20 18:13 98.1 80 15 117/67 96 Bi-pap 30 01/09/20 18:07 30 01/09/20 18:06 79 15 97 30 01/09/20 17:12 98.1 01/09/20 16:52 98.1 01/09/20 16:30 98.1 83 18 128/64 100 Nasal Cannula 2.0 01/09/20 16:20 73 18 100 Nasal Cannula 2.0 28 81 19 97 01/09/20 15:41 87 20 Room Air 01/09/20 15:41 98.1 87 20 130/64 97 Room Air Laboratory Tests Test 01/09/20 15:51 01/09/20 20:05 01/10/20 00:30 01/10/20 05:00 Arterial Blood pH 7.417 (7.350-7.450) 7.342 (7.350-7.450) Arterial Blood Partial Pressure CO2 38.1 mmHg (35.0-45.0) 50.2 mmHg (35.0-45.0) H Arterial Blood Partial Pressure O2 64.3 mmHg (75.0-100.0) L 66.6 mmHg (75.0-100.0) L Arterial Blood HCO3 24.0 mmol/L (22.0-26.0) 26.5 mmol/L (22.0-26.0) H Arterial Blood Oxygen Saturation 91.5 % (95-100) L 91.6 % (95-100) L Arterial Blood Base Excess -0.3 (-2-2) 0.2 (-2-2) Flash Test Positive Positive Sodium Level 121 MMOL/L (136-145) L Potassium Level 4.0 MMOL/L (3.5-5.1) Chloride Level 83 MMOL/L (98-107) L Carbon Dioxide Level 32 MMOL/L (21-32) Anion Gap 6 mmol/L (5-15) Blood Urea Nitrogen 12 mg/dL (7-18) Creatinine 1.4 MG/DL (0.55-1.30) H Estimat Glomerular Filtration Rate 50.7 mL/min (>60) Glucose Level 198 MG/DL (74-106) H Osmolality 264 mOsm/kg (297-317) L Calcium Level 8.6 MG/DL (8.5-10.1) Thyroid Stimulating Hormone (TSH) 2.944 uiU/mL (0.358-3.740) Cortisol AM Sample Pending Urine Osmolality 266 mOsm/kg (429-449) L Urine Random Sodium < 20 mmol/L (20-110) L Test 01/10/20 08:25 01/10/20 08:30 White Blood Count 9.1 K/UL (4.8-10.8) Red Blood Count 4.55 M/UL (4.70-6.10) L Hemoglobin 12.9 G/DL (14.2-18.0) L Hematocrit 34.7 % (42.0-52.0) L Mean Corpuscular Volume 76 FL (80-99) L Mean Corpuscular Hemoglobin 28.2 PG (27.0-31.0) Mean Corpuscular Hemoglobin Concent 37.0 G/DL (32.0-36.0) H Red Cell Distribution Width 12.1 % (11.6-14.8) Platelet Count 299 K/UL (150-450) Mean Platelet Volume 5.9 FL (6.5-10.1) L Neutrophils (%) (Auto) % (45.0-75.0) Lymphocytes (%) (Auto) % (20.0-45.0) Monocytes (%) (Auto) % (1.0-10.0) Eosinophils (%) (Auto) % (0.0-3.0) Basophils (%) (Auto) % (0.0-2.0) Differential Total Cells Counted 100 Neutrophils % (Manual) 93 % (45-75) H Lymphocytes % (Manual) 6 % (20-45) L Monocytes % (Manual) 1 % (1-10) Eosinophils % (Manual) 0 % (0-3) Basophils % (Manual) 0 % (0-2) Band Neutrophils 0 % (0-8) Platelet Estimate Adequate Platelet Morphology Normal Red Blood Cell Morphology Normal Phosphorus Level 4.5 MG/DL (2.5-4.9) Magnesium Level 1.5 MG/DL (1.8-2.4) L Pro-B-Type Natriuretic Peptide 1258 pg/mL (0-125) H Arterial Blood pH 7.375 (7.350-7.450) Arterial Blood Partial Pressure CO2 48.7 mmHg (35.0-45.0) H Arterial Blood Partial Pressure O2 70.7 mmHg (75.0-100.0) L Arterial Blood HCO3 27.8 mmol/L (22.0-26.0) H Arterial Blood Oxygen Saturation 93.0 % (95-100) L Arterial Blood Base Excess 1.9 (-2-2) Flash Test Positive Height (Feet): 5 Height (Inches): 10.00 Weight (Pounds): 260 Medications Current Medications Medications (Trade) Dose Ordered Sig/Anjel Route PRN Reason Start Time Stop Time Status Last Admin Dose Admin Acetaminophen (Tylenol) 650 mg Q6H PRN ORAL For Headache 01/10/20 08:00 02/09/20 07:59 Acetaminophen/ Hydrocodone Bitart ([place] 10/325) 1 tab Q6HR PRN ORAL Severe Pain (Pain Scale 7-10) 01/10/20 08:00 01/17/20 07:59 Acetaminophen/ Hydrocodone Bitart ([place] 5/325) 1 tab Q6H PRN ORAL Moderate Pain (Pain Scale 4-6) 01/10/20 08:00 01/17/20 07:59 Amlodipine Besylate (Norvasc) 10 mg DAILY ORAL 01/10/20 09:00 02/09/20 08:59 01/10/20 09:35 Aspirin (Ecotrin) 81 mg DAILY ORAL 01/10/20 09:00 02/24/20 08:59 01/10/20 08:53 Atorvastatin Calcium (Lipitor) 40 mg BEDTIME ORAL 01/10/20 21:00 04/09/20 20:59 Dextrose (Dextrose 50%) 25 ml Q30M PRN IV Hypoglycemia 01/10/20 08:00 04/09/20 07:59 Dextrose (Dextrose 50%) 50 ml Q30M PRN IV Hypoglycemia 01/10/20 08:00 04/09/20 07:59 Ibuprofen (Motrin) 600 mg Q8H PRN ORAL For Pain 01/10/20 08:00 02/09/20 07:59 Insulin Aspart (NovoLOG) BEFORE MEALS AND HS SUBQ 01/10/20 11:30 04/09/20 11:29 01/10/20 12:37 Iohexol (Omnipaque 350 100ml) 100 ml NOW PRN INJ Radiology Procedure 01/09/20 16:30 01/11/20 16:29 Magnesium Sulfate 100 ml @ 100 mls/hr Q1H IVPB 01/10/20 13:30 01/10/20 16:29 01/10/20 14:12 Methocarbamol (Robaxin) 750 mg TID ORAL 01/10/20 09:00 02/09/20 08:59 01/10/20 12:37 Pantoprazole (Protonix) 40 mg DAILY ORAL 01/10/20 09:00 02/09/20 08:59 01/10/20 08:53 Quetiapine Fumarate (SEROqueL) 200 mg DAILY ORAL 01/10/20 09:00 02/24/20 08:59 01/10/20 09:35 Sertraline HCl (Zoloft) 100 mg DAILY ORAL 01/10/20 09:00 02/09/20 08:59 01/10/20 08:53 Assessment/Plan Problem List: (1) Contusion, knee ICD Codes: S80.00XA - Contusion of unspecified knee, initial encounter SNOMED: 37243223 (2) CHF (congestive heart failure) ICD Codes: I50.9 - Heart failure, unspecified SNOMED: 56443655 (3) Sternal fracture ICD Codes: S22.20XA - Unspecified fracture of sternum, initial encounter for closed fracture SNOMED: 46121856 (4) Knee contusion ICD Codes: S80.00XA - Contusion of unspecified knee, initial encounter SNOMED: 05141686 (5) Dyspnea ICD Codes: R06.00 - Dyspnea, unspecified SNOMED: 495371470 (6) Chest wall contusion ICD Codes: S20.219A - Contusion of unspecified front wall of thorax, initial encounter SNOMED: 12200800 Status: stable Assessment/Plan: Mr. Anderson is a 64 year old male with unclear PMHx, here with 2 days of chest pain after fall, and chronic swelling, SOB #S/p fall #Suspected sternal fracture -imaging likely + for sternal fx. -pain control. #Severe hyponatremia #Metabolic acidosis #PAULINE -nephro following -IVF -BMP #Swelling #SOB #Suspected CHF #HTN -cardiology on board -contionue lisinopril -s/p TTE, pending read -pneindg COVID #Hypomagnesemina -s/p repletion Time spent on encounter 71 mins, 37 mins spent on counbseling and coordination of care Extra 32 mins spent on chart review of EMR records, including physician documentation, labs, imaging, medications. Time of note doesn't reflect time of encounter. Marcel Ortiz MD Jan 10, 2020 15:25
[2020-01-10 16:00] VITALS: BP 104/66
--- NOTE | 2020-01-10 16:44 | NUR ---
INTERQUAL CRITERIA MET
--- NOTE | 2020-01-10 16:45 | Consultation ---
DATE OF CONSULTATION: 01/10/2020 PULMONARY CONSULTATION CONSULTING PHYSICIAN: Delfin Degroot MD. HISTORY OF PRESENT ILLNESS: This is a 64-year-old male who came to the hospital with complaining of chest pain. Apparently, he had a fall several days ago. He is a poor historian. He reports currently he is also short of breath as well. The patient reports a history of asthma. PAST MEDICAL HISTORY: Notable for hypertension, diabetes mellitus, asthma, and recent fall. CURRENT MEDICATIONS: Include Tylenol, Norvasc, aspirin, Lipitor, [place], Motrin, Robaxin, and Seroquel. REVIEW OF SYSTEMS: Denies any headaches, hematemesis, melena, hematochezia, night sweats, or weight loss. PHYSICAL EXAMINATION: GENERAL: Reveals a 64-year-old male. VITAL SIGNS: Blood pressure is 130/60, heart rate 82, respirations 18, he is afebrile, and O2 saturation 96% on 30% FiO2. He is currently on BiPAP. CHEST: Decreased breath sounds bilaterally with normal heart sounds. ABDOMEN: Soft. EXTREMITIES: There is no edema. LABORATORY AND DIAGNOSTIC DATA: The patient underwent a CT of chest yesterday, which shows cardiomegaly, small bilateral effusions. Other lab testing is notable for hemoglobin of 12.9, otherwise normal CBC and BMP. Sodium is notably low at 121. ABG shows pH 7.37, pCO2 of 48, pO2 of 70; this is on 30% FiO2 on BiPAP. IMPRESSION: 1. Respiratory acidosis/respiratory failure. 2. Status post fall/chest wall trauma. 3. Mild pulmonary edema. 4. Asthma. 5. Hypertension. 6. Diabetes. DISCUSSION: Admit to the hospital. We will wean off BiPAP. Continue current medications and care. Correction of hyponatremia. Exclude SIADH. We will follow carefully. Priscilla Rivas JOB#: [id number] CC:
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
--- NOTE | 2020-01-10 17:32 | NUR ---
CASE MANAGEMENT: REVIEW 64 YEAR OLD MALE PRESENTED TO ED FROM HOME CC: CHEST PAIN . RIGHT FOOT PAIN X2 DAYS S/P FALL SI: CHF . RIGHT KNEE CONTUSION . CHEST WALL CONTUSION . STERNAL FRACTURE T 98.1 HR 87 RR 20 BP 130/64 SAT 97% NC/2L H/H 12.8/37.4 NEUT 83.5 LYMPH 9.3 IS: MORPHINE IV X1 SOLU MEDROL IV X1 ZOFRAN IV X1 LASIX 60MG IV X1 ALBUTEROL HHN X1 PATIENT ADMITTED TO STEP DOWN UNIT 01/09/2020 DCP: PATIENT IS FROM HOME
--- NOTE | 2020-01-10 19:21 | NUR ---
HAND-OFF: Report given to Fer Llanes RN. Pt. remain stable. Cont. to collect 24hrs. urine.
--- NOTE | 2020-01-10 19:25 | NUR ---
NURSE NOTES: Pt report received from María MCFADDEN. pt remains stable. pt is alert and oriented times 4, able to follow to commands. pt is on science analyst showing NSR, no acute signs symptoms of cardiac abnormalities noted. pt is on nasal canula sating at 99% O2, no acute signs symptoms of acute resp distress noted. pt bed is low, locked, armed, call light within reach, will follow plan of care.
--- NOTE | 2020-01-10 19:32 | Nephrology Progress Note ---
Assessment/Plan Plan #SOB possible CHF #r/o COVID #Hypervolumic hyponatremia #chest pain #HTN #HLD - admit to step down unit - pulm consulted - cardiology consult - lasix 40 Iv BID - 2d echo - check TSH - check am cortisol - Gen surgery consulted - continue lisinopril 40mg daily - amlodipine 10mg daily - monitor BMP, mag and phos daily - replete lytes Subjective ROS Limited/Unobtainable: No Subjective weaned off bipap chest pain controlled sodium 121 overnight Objective Objective Last 24 Hour Vital Signs Date Time Temp Pulse Resp B/P (MAP) Pulse Ox O2 Delivery O2 Flow Rate FiO2 01/10/20 19:15 100 Nasal Cannula 4.0 36 01/10/20 16:00 Bi-pap 01/10/20 16:00 97.7 87 20 104/66 (79) 99 01/10/20 16:00 2.0 01/10/20 15:42 93 01/10/20 15:30 94 01/10/20 12:00 2.0 01/10/20 12:00 Bi-pap 01/10/20 11:58 86 01/10/20 11:01 95 Nasal Cannula 4.0 36 01/10/20 11:00 95 01/10/20 09:35 87 135/77 01/10/20 08:00 Bi-pap 01/10/20 08:00 87 01/10/20 08:00 97.7 84 18 135/77 (96) 96 01/10/20 08:00 30 01/10/20 08:00 97.7 84 18 135/77 (96) 96 01/10/20 07:22 89 23 98 30 01/10/20 04:45 98.4 92 23 148/81 (103) 97 01/10/20 04:42 Bi-Pap 01/10/20 04:30 98.6 82 20 119/57 95 Bi-pap 2.0 30 74 01/10/20 03:53 98.6 74 20 119/57 95 Bi-pap 01/10/20 03:24 82 14 95 30 01/10/20 00:44 82 20 151/82 96 Bi-pap 01/10/20 00:07 85 20 96 30 01/09/20 22:02 98.3 83 16 159/79 96 Bi-pap 01/09/20 21:09 74 16 96 30 Intake and Output 01/09/20 01/10/20 19:00 07:00 # Voids 1 Laboratory Tests 01/09/20 20:05: Arterial Blood pH 7.342L, Arterial Blood Partial Pressure CO2 50.2H, Arterial Blood Partial Pressure O2 66.6L, Arterial Blood HCO3 26.5H, Arterial Blood Oxygen Saturation 91.6L, Arterial Blood Base Excess 0.2, Flash Test Positive 01/10/20 00:30: Sodium Level 121L, Potassium Level 4.0, Chloride Level 83L, Carbon Dioxide Level 32, Anion Gap 6, Blood Urea Nitrogen 12, Creatinine 1.4H, Estimat Glomerular Filtration Rate 50.7, Glucose Level 198H, Osmolality 264L, Calcium Level 8.6, Thyroid Stimulating Hormone (TSH) 2.944, Cortisol AM Sample [Pending] 01/10/20 05:00: Urine Osmolality 266L, Urine Random Sodium < 20L 01/10/20 08:25: White Blood Count 9.1, Red Blood Count 4.55L, Hemoglobin 12.9L, Hematocrit 34.7L , Mean Corpuscular Volume 76L, Mean Corpuscular Hemoglobin 28.2, Mean Corpuscular Hemoglobin Concent 37.0H, Red Cell Distribution Width 12.1, Platelet Count 299, Mean Platelet Volume 5.9L, Neutrophils (%) (Auto) , Lymphocytes (%) (Auto) , Monocytes (%) (Auto) , Eosinophils (%) (Auto) , Basophils (%) (Auto) , Differential Total Cells Counted 100, Neutrophils % ( Manual) 93H, Lymphocytes % (Manual) 6L, Monocytes % (Manual) 1, Eosinophils % ( Manual) 0, Basophils % (Manual) 0, Band Neutrophils 0, Platelet Estimate Adequate, Platelet Morphology Normal, Red Blood Cell Morphology Normal, Phosphorus Level 4.5, Magnesium Level 1.5L, Pro-B-Type Natriuretic Peptide 1258H 01/10/20 08:30: Arterial Blood pH 7.375, Arterial Blood Partial Pressure CO2 48.7H, Arterial Blood Partial Pressure O2 70.7L, Arterial Blood HCO3 27.8H, Arterial Blood Oxygen Saturation 93.0L, Arterial Blood Base Excess 1.9, Flash Test Positive Height (Feet): 5 Height (Inches): 10.00 Weight (Pounds): 260 General Appearance: no apparent distress EENT: PERRL/EOMI Neck: non-tender Cardiovascular: normal peripheral pulses Respiratory/Chest: crackles/rales Abdomen: normal bowel sounds, non tender, soft Extremities: non-tender Neurologic: alert, oriented x 3 Jone García M.D. Jan 10, 2020 19:32
[2020-01-10 20:00] VITALS: BP 125/70
[2020-01-10] MEDS: Atorvastatin 20mg tab ORAL SCH (20:46)
[2020-01-10 21:31] LABS: ANION GAP 6 mmol/L (5-15); BLOOD UREA NITROGEN 22 mg/dL (7-18); CALCIUM 8.3 MG/DL (8.5-10.1); CARBON DIOXIDE 31 MMOL/L (21-32); CHLORIDE 86 MMOL/L (98-107); CREATININE 1.8 MG/DL (0.55-1.30); POTASSIUM 4.1 MMOL/L (3.5-5.1); SODIUM 123 MMOL/L (136-145)
--- NOTE | 2020-01-10 23:22 | NUR ---
NURSE NOTES: called Doctor Rodriguez, stated pt has been on A FIB since 4PM, pt is asymptomatic, vital signs are stable. doctor Michael stated to continue to monitor pt. he will review pts chart for new orders. will continue to monitor pt.
[2020-01-11] VITALS: BP 112/63
[2020-01-11 04:00] VITALS: BP 119/72
--- NOTE | 2020-01-11 05:10 | NUR ---
NURSE NOTES: Pts 24 hr urine collect sent down to lab.
[2020-01-11 06:10] LABS: BASOPHILS % (AUTO) 0.6 % (0.0-2.0); EOSINOPHILS % (AUTO) 0.7 % (0.0-3.0); HEMATOCRIT 33.7 % (42.0-52.0); HEMOGLOBIN 12.5 G/DL (14.2-18.0); MEAN CORPUSCULAR VOLUME 78 FL (80-99); MONOCYTES % (AUTO) 5.7 % (1.0-10.0); NEUTROPHILS % (AUTO) 81.1 % (45.0-75.0); PLATELET COUNT 294 K/UL (150-450); RED BLOOD COUNT 4.35 M/UL (4.70-6.10); RED CELL DISTRIBUTION WIDTH 12.6 % (11.6-14.8); WHITE BLOOD COUNT 10.9 K/UL (4.8-10.8)
[2020-01-11] MEDS: NovoLOG Insulin Flexpen SUBQ SCH ×4 (06:22→21:00)
[2020-01-11 06:46] LABS: PHOSPHORUS 3.6 MG/DL (2.5-4.9)
--- NOTE | 2020-01-11 07:28 | NUR ---
HAND-OFF: endorsed plan of care to Jewell MCFADDEN. Pt remains stable.
--- NOTE | 2020-01-11 07:29 | NUR ---
NURSE NOTES: Received patient in bed. Awake, verbal, able to make needs known. In no apparent distress. Call light within reach. Bed in lowest position. Bed Alarm on. Fall risk implemented. Re-educated patient not to get up by himself. Contact and droplet isolation observed. Will continue plan of care.
[2020-01-11 08:00] VITALS: BP 127/67
--- NOTE | 2020-01-11 08:21 | NUR ---
NURSE NOTES: Dr. García at bedside.
[2020-01-11 08:36] LABS: ANION GAP 8 mmol/L (5-15); BLOOD UREA NITROGEN 24 mg/dL (7-18); CALCIUM 8.2 MG/DL (8.5-10.1); CARBON DIOXIDE 30 MMOL/L (21-32); CHLORIDE 86 MMOL/L (98-107); CREATININE 1.6 MG/DL (0.55-1.30); POTASSIUM 3.7 MMOL/L (3.5-5.1); SODIUM 124 MMOL/L (136-145)
[2020-01-11] MEDS: guaiFENesin w/Codeine 5ml Liq ud ORAL PRN ×2 (09:32→17:48)
[2020-01-11] MEDS: Aspirin EC 81mg tab ORAL SCH (09:33)
[2020-01-11] MEDS: QUEtiapine 200mg tab ORAL SCH (09:33)
[2020-01-11] MEDS: Methocarbamol 750mg tab ORAL SCH ×3 (09:33→17:48)
[2020-01-11] MEDS: Sertraline 100mg tab ORAL SCH (09:34)
[2020-01-11] MEDS: Heparin 5000 units/ml inj SUBQ SCH ×2 (09:42→22:00)
--- NOTE | 2020-01-11 10:31 | NUR ---
NURSE NOTES: Informed Dr. García made aware regarding BMP results today via telephone. No new order at this time.
--- NOTE | 2020-01-11 10:57 | Pulmonology Progress Note ---
Subjective ROS Limited/Unobtainable: No Interval Events: None new Constitutional: Reports: no symptoms HEENT: Repors: no symptoms Respiratory: Reports: no symptoms Cardiovascular: Reports: no symptoms Gastrointestinal/Abdominal: Reports: no symptoms Allergies: Coded Allergies: No Known Allergies (Unverified , 11/06/17) Objective Last 24 Hour Vital Signs Date Time Temp Pulse Resp B/P (MAP) Pulse Ox O2 Delivery O2 Flow Rate FiO2 01/11/20 09:34 82 127/67 01/11/20 08:16 84 01/11/20 08:00 97.0 82 25 127/67 (87) 95 01/11/20 08:00 Nasal Cannula 5.0 01/11/20 07:46 99 Nasal Cannula 4.0 36 01/11/20 04:00 Nasal Cannula 3.0 01/11/20 04:00 98.0 89 23 119/72 (88) 99 01/11/20 04:00 2.0 01/11/20 04:00 81 01/11/20 00:00 89 01/11/20 00:00 Nasal Cannula 3.0 01/11/20 00:00 97.5 94 20 112/63 (79) 99 01/11/20 00:00 2.0 01/10/20 20:00 Nasal Cannula 3.0 01/10/20 20:00 2.0 01/10/20 20:00 89 01/10/20 20:00 98.7 90 20 125/70 (88) 99 01/10/20 19:15 100 Nasal Cannula 4.0 36 01/10/20 16:00 Bi-pap 01/10/20 16:00 97.7 87 20 104/66 (79) 99 01/10/20 16:00 2.0 01/10/20 15:42 93 01/10/20 15:30 94 01/10/20 12:00 2.0 01/10/20 12:00 Bi-pap 01/10/20 11:58 86 01/10/20 11:01 95 Nasal Cannula 4.0 36 01/10/20 11:00 95 Intake and Output 01/10/20 01/11/20 19:00 07:00 Intake Total 1000 ml Output Total 800 ml Balance 200 ml Intake Oral 1000 ml Output Urine Total 800 ml General Appearance: no acute distress HEENT: normocephalic Respiratory: chest wall non-tender, lungs clear Cardiovascular: normal peripheral pulses Abdomen: normal bowel sounds Microbiology Date/Time Source Procedure Growth Status 01/09/20 16:30 Nasopharynx Coronavirus COVID-19 PCR ([facility]) - Final Complete Laboratory Tests 01/10/20 21:00: Sodium Level 123L, Potassium Level 4.1, Chloride Level 86L, Carbon Dioxide Level 31, Anion Gap 6, Blood Urea Nitrogen 22H, Creatinine 1.8H, Estimat Glomerular Filtration Rate 37.9, Glucose Level 141H, Calcium Level 8.3L 01/11/20 05:40: Sodium Level 124L, Potassium Level 3.7, Chloride Level 86L, Carbon Dioxide Level 30, Anion Gap 8, Blood Urea Nitrogen 24H, Creatinine 1.6H, Estimat Glomerular Filtration Rate 43.5, Glucose Level 152H, Calcium Level 8.2L, White Blood Count 10.9H, Red Blood Count 4.35L, Hemoglobin 12.5L, Hematocrit 33.7L, Mean Corpuscular Volume 78L, Mean Corpuscular Hemoglobin 28.6, Mean Corpuscular Hemoglobin Concent 36.9H, Red Cell Distribution Width 12.6, Platelet Count 294, Mean Platelet Volume 5.4L, Neutrophils (%) (Auto) 81.1H, Lymphocytes (%) (Auto) 12.0L, Monocytes (%) (Auto) 5.7, Eosinophils (%) (Auto) 0.7, Basophils (%) (Auto ) 0.6, Phosphorus Level 3.6, Magnesium Level 2.2, Pro-B-Type Natriuretic Peptide 1015H Current Medications Medications (Trade) Dose Ordered Sig/Anjel Route PRN Reason Start Time Stop Time Status Last Admin Dose Admin Acetaminophen (Tylenol) 650 mg Q6H PRN ORAL For Headache 01/10/20 08:00 02/09/20 07:59 Acetaminophen/ Hydrocodone Bitart ([place] 10/325) 1 tab Q6HR PRN ORAL Severe Pain (Pain Scale 7-10) 01/10/20 08:00 01/17/20 07:59 Acetaminophen/ Hydrocodone Bitart ([place] 5/325) 1 tab Q6H PRN ORAL Moderate Pain (Pain Scale 4-6) 01/10/20 08:00 01/17/20 07:59 01/11/20 02:26 Amlodipine Besylate (Norvasc) 10 mg DAILY ORAL 01/10/20 09:00 02/09/20 08:59 01/11/20 09:34 Aspirin (Ecotrin) 81 mg DAILY ORAL 01/10/20 09:00 02/24/20 08:59 01/11/20 09:33 Atorvastatin Calcium (Lipitor) 40 mg BEDTIME ORAL 01/10/20 21:00 04/09/20 20:59 01/10/20 20:46 Dextrose (Dextrose 50%) 25 ml Q30M PRN IV Hypoglycemia 01/10/20 08:00 04/09/20 07:59 Dextrose (Dextrose 50%) 50 ml Q30M PRN IV Hypoglycemia 01/10/20 08:00 04/09/20 07:59 Furosemide (Lasix) 40 mg EVERY 12 HOURS IV 01/11/20 09:00 02/10/20 08:59 01/11/20 09:33 Guaifenesin/ Codeine Phosphate (Robitussin with codeine) 5 ml Q6H PRN ORAL For Cough 01/11/20 08:30 02/10/20 08:29 01/11/20 09:32 Heparin Sodium (Porcine) (Heparin 5000 units/ml) 5,000 units EVERY 12 HOURS SUBQ 01/11/20 09:00 02/25/20 08:59 01/11/20 09:42 Ibuprofen (Motrin) 600 mg Q8H PRN ORAL For Pain 01/10/20 08:00 02/09/20 07:59 Insulin Aspart (NovoLOG) BEFORE MEALS AND HS SUBQ 01/10/20 11:30 04/09/20 11:29 01/11/20 06:22 Iohexol (Omnipaque 350 100ml) 100 ml NOW PRN INJ Radiology Procedure 01/09/20 16:30 01/11/20 16:29 Methocarbamol (Robaxin) 750 mg TID ORAL 01/10/20 09:00 02/09/20 08:59 01/11/20 09:33 Pantoprazole (Protonix) 40 mg DAILY ORAL 01/10/20 09:00 02/09/20 08:59 01/11/20 09:34 Quetiapine Fumarate (SEROqueL) 200 mg DAILY ORAL 01/10/20 09:00 02/24/20 08:59 01/11/20 09:33 Sertraline HCl (Zoloft) 100 mg DAILY ORAL 01/10/20 09:00 02/09/20 08:59 01/11/20 09:34 Assessment/Plan Assessment/Plan IMPRESSION: 1. Respiratory acidosis/respiratory failure. 2. Status post fall/chest wall trauma. 3. Mild pulmonary edema. 4. Asthma. 5. Hypertension. 6. Diabetes. DISCUSSION: Doing well on nasal O2 Continue current medications and care. Correction of hyponatremia. Exclude SIADH. I will follow carefully. Priscilla Rivas Omar Syed MD Jan 11, 2020 10:57
[2020-01-11 12:00] VITALS: BP 93/65
--- NOTE | 2020-01-11 12:00 | NUR ---
CASE MANAGEMENT: REVIEW SI: CHF . RIGHT KNEE & CHEST WALL CONTUSION . STERNAL FRACTURE . r/o COVID ISOLATION PRECAUTIONS T 97.0 HR 82 RR 25 BP 112/63 SAT 95% NC/5L WBC 10.9 H/H 12.5/33.7 NA 124 CHLORIDE 86 BUN 24 CR 1.6 2D ECHO PENDING IS: LASIX IV Q12HR HEPARIN SUBQ Q12HR NOVOLOG SUBQ AC+HR GUAIFENESIN w/CODEINE Q6HR PRN WEANED OFF BIPAP STEP DOWN UNIT STATUS DCP: PATIENT IS FROM HOME
--- NOTE | 2020-01-11 13:53 | Infectious Diseases Prog Note ---
Assessment/Plan Assessment/Plan Asked by Dr. García to see patient for possible covid-19 infection with sob A) 1) sob, no fevers, covid testing negative x 1 2) clinically doubt pna 3) imaging noted P) 1) 2nd covid-19 test ordered - if negative then remove isolation 2) monitor labs 3) d/w RN 4) thank you Subjective Allergies: Coded Allergies: No Known Allergies (Unverified , 11/06/17) Objective Vital Signs Last 24 Hour Vital Signs Date Time Temp Pulse Resp B/P (MAP) Pulse Ox O2 Delivery O2 Flow Rate FiO2 01/11/20 12:00 97.5 86 21 93/65 (74) 94 01/11/20 12:00 Nasal Cannula 5.0 01/11/20 11:36 82 01/11/20 09:34 82 127/67 01/11/20 08:16 84 01/11/20 08:00 97.0 82 25 127/67 (87) 95 01/11/20 08:00 Nasal Cannula 5.0 01/11/20 07:46 99 Nasal Cannula 4.0 36 01/11/20 04:00 Nasal Cannula 3.0 01/11/20 04:00 98.0 89 23 119/72 (88) 99 01/11/20 04:00 2.0 01/11/20 04:00 81 01/11/20 00:00 89 01/11/20 00:00 Nasal Cannula 3.0 01/11/20 00:00 97.5 94 20 112/63 (79) 99 01/11/20 00:00 2.0 01/10/20 20:00 Nasal Cannula 3.0 01/10/20 20:00 2.0 01/10/20 20:00 89 01/10/20 20:00 98.7 90 20 125/70 (88) 99 01/10/20 19:15 100 Nasal Cannula 4.0 36 01/10/20 16:00 Bi-pap 01/10/20 16:00 97.7 87 20 104/66 (79) 99 01/10/20 16:00 2.0 01/10/20 15:42 93 01/10/20 15:30 94 Height (Feet): 5 Height (Inches): 10.00 Weight (Pounds): 229 Microbiology Date/Time Source Procedure Growth Status 01/09/20 16:30 Nasopharynx Coronavirus COVID-19 PCR ([facility]) - Final Complete Laboratory Tests Test 01/10/20 21:00 01/11/20 05:40 Sodium Level 123 MMOL/L (136-145) L 124 MMOL/L (136-145) L Potassium Level 4.1 MMOL/L (3.5-5.1) 3.7 MMOL/L (3.5-5.1) Chloride Level 86 MMOL/L (98-107) L 86 MMOL/L (98-107) L Carbon Dioxide Level 31 MMOL/L (21-32) 30 MMOL/L (21-32) Anion Gap 6 mmol/L (5-15) 8 mmol/L (5-15) Blood Urea Nitrogen 22 mg/dL (7-18) H 24 mg/dL (7-18) H Creatinine 1.8 MG/DL (0.55-1.30) H 1.6 MG/DL (0.55-1.30) H Estimat Glomerular Filtration Rate 37.9 mL/min (>60) 43.5 mL/min (>60) Glucose Level 141 MG/DL (74-106) H 152 MG/DL (74-106) H Calcium Level 8.3 MG/DL (8.5-10.1) L 8.2 MG/DL (8.5-10.1) L White Blood Count 10.9 K/UL (4.8-10.8) H Red Blood Count 4.35 M/UL (4.70-6.10) L Hemoglobin 12.5 G/DL (14.2-18.0) L Hematocrit 33.7 % (42.0-52.0) L Mean Corpuscular Volume 78 FL (80-99) L Mean Corpuscular Hemoglobin 28.6 PG (27.0-31.0) Mean Corpuscular Hemoglobin Concent 36.9 G/DL (32.0-36.0) H Red Cell Distribution Width 12.6 % (11.6-14.8) Platelet Count 294 K/UL (150-450) Mean Platelet Volume 5.4 FL (6.5-10.1) L Neutrophils (%) (Auto) 81.1 % (45.0-75.0) H Lymphocytes (%) (Auto) 12.0 % (20.0-45.0) L Monocytes (%) (Auto) 5.7 % (1.0-10.0) Eosinophils (%) (Auto) 0.7 % (0.0-3.0) Basophils (%) (Auto) 0.6 % (0.0-2.0) Phosphorus Level 3.6 MG/DL (2.5-4.9) Magnesium Level 2.2 MG/DL (1.8-2.4) Pro-B-Type Natriuretic Peptide 1015 pg/mL (0-125) H Current Medications Medications (Trade) Dose Ordered Sig/Anjel Route PRN Reason Start Time Stop Time Status Last Admin Dose Admin Acetaminophen (Tylenol) 650 mg Q6H PRN ORAL For Headache 01/10/20 08:00 02/09/20 07:59 Acetaminophen/ Hydrocodone Bitart ([place] 10/325) 1 tab Q6HR PRN ORAL Severe Pain (Pain Scale 7-10) 01/10/20 08:00 01/17/20 07:59 Acetaminophen/ Hydrocodone Bitart ([place] 5/325) 1 tab Q6H PRN ORAL Moderate Pain (Pain Scale 4-6) 01/10/20 08:00 01/17/20 07:59 01/11/20 02:26 Amlodipine Besylate (Norvasc) 10 mg DAILY ORAL 01/10/20 09:00 02/09/20 08:59 01/11/20 09:34 Aspirin (Ecotrin) 81 mg DAILY ORAL 01/10/20 09:00 02/24/20 08:59 01/11/20 09:33 Atorvastatin Calcium (Lipitor) 40 mg BEDTIME ORAL 01/10/20 21:00 04/09/20 20:59 01/10/20 20:46 Dextrose (Dextrose 50%) 25 ml Q30M PRN IV Hypoglycemia 01/10/20 08:00 04/09/20 07:59 Dextrose (Dextrose 50%) 50 ml Q30M PRN IV Hypoglycemia 01/10/20 08:00 04/09/20 07:59 Furosemide (Lasix) 40 mg EVERY 12 HOURS IV 01/11/20 09:00 02/10/20 08:59 01/11/20 09:33 Guaifenesin/ Codeine Phosphate (Robitussin with codeine) 5 ml Q6H PRN ORAL For Cough 01/11/20 08:30 02/10/20 08:29 01/11/20 09:32 Heparin Sodium (Porcine) (Heparin 5000 units/ml) 5,000 units EVERY 12 HOURS SUBQ 01/11/20 09:00 02/25/20 08:59 01/11/20 09:42 Ibuprofen (Motrin) 600 mg Q8H PRN ORAL For Pain 01/10/20 08:00 02/09/20 07:59 Insulin Aspart (NovoLOG) BEFORE MEALS AND HS SUBQ 01/10/20 11:30 04/09/20 11:29 01/11/20 12:41 Iohexol (Omnipaque 350 100ml) 100 ml NOW PRN INJ Radiology Procedure 01/09/20 16:30 01/11/20 16:29 Methocarbamol (Robaxin) 750 mg TID ORAL 01/10/20 09:00 02/09/20 08:59 01/11/20 12:41 Pantoprazole (Protonix) 40 mg DAILY ORAL 01/10/20 09:00 02/09/20 08:59 01/11/20 09:34 Quetiapine Fumarate (SEROqueL) 200 mg DAILY ORAL 01/10/20 09:00 02/24/20 08:59 01/11/20 09:33 Sertraline HCl (Zoloft) 100 mg DAILY ORAL 01/10/20 09:00 02/09/20 08:59 01/11/20 09:34 Rodrigo Raygoza MD Jan 11, 2020 13:52
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
--- NOTE | 2020-01-11 14:57 | General Progress Note ---
Assessment/Plan Problem List: (1) Contusion, knee ICD Codes: S80.00XA - Contusion of unspecified knee, initial encounter SNOMED: 43030364 (2) CHF (congestive heart failure) ICD Codes: I50.9 - Heart failure, unspecified SNOMED: 42971170 (3) Sternal fracture ICD Codes: S22.20XA - Unspecified fracture of sternum, initial encounter for closed fracture SNOMED: 43970231 (4) Knee contusion ICD Codes: S80.00XA - Contusion of unspecified knee, initial encounter SNOMED: 40655768 (5) Dyspnea ICD Codes: R06.00 - Dyspnea, unspecified SNOMED: 233081541 (6) Chest wall contusion ICD Codes: S20.219A - Contusion of unspecified front wall of thorax, initial encounter SNOMED: 71356642 Status: stable Assessment/Plan: Mr. Anderson is a 64 year old male with unclear PMHx, here with 2 days of chest pain after fall, and chronic swelling, SOB #S/p fall #Suspected sternal fracture -imaging likely + for sternal fx. -appreciate surgery input. -pain control. #Severe hyponatremia #Metabolic acidosis #PAULINE -nephro following -IVF -BMP #Swelling #SOB #Suspected CHF #HTN -cardiology on board -contionue lisinopril -s/p TTE, pending read -pneindg COVID #Hypomagnesemina -s/p repletion Time spent on encounter 37 mins, 20mins on counseling, coordination of care. Time of note doesn't reflect time of encounter. Subjective Date patient seen: Jan 11, 2020 ROS Limited/Unobtainable: No Constitutional: Denies: no symptoms, chills, diaphoresis, fever, malaise, weakness, other HEENT: Denies: no symptoms, eye pain, blurred vision, tearing, double vision, ear pain, ear discharge, nose pain, nose congestion, throat pain, throat swelling, mouth pain, mouth swelling, other Cardiovascular: Denies: no symptoms, chest pain, edema, irregular heart rate, lightheadedness, palpitations, syncope, other Respiratory: Reports: no symptoms, cough, orthopnea, shortness of breath, SOB with excertion, SOB at rest, sputum, stridor, wheezing, other Gastrointestinal/Abdominal: Denies: no symptoms, abdomen distended, abdominal pain, black stools, tarry stools, blood in stool, constipated, diarrhea, difficulty swallowing, nausea, poor appetite, poor fluid intake, rectal bleeding , vomiting, other Genitourinary: Denies: no symptoms, burning, discharge, frequency, flank pain, hematuria, incontinence, pain, urgency, other Neurologic/Psychiatric: Denies: no symptoms, anxiety, depressed, emotional problems, headache, numbness, paresthesia, pre-existing deficit, seizure, tingling, tremors, weakness, other Endocrine: Denies: no symptoms, excessive sweating, flushing, intolerance to cold, intolerance to heat, increased hunger, increased thirst, increased urine, unexplained weight gain, unexplained weight loss, other Hematologic/Lymphatic: Denies: no symptoms, anemia, easy bleeding, easy bruising, other Allergies: Coded Allergies: No Known Allergies (Unverified , 11/06/17) Subjective resting in bed. SOB, leg swelling better. chest pain from sternal fx still there. Objective Last 24 Hour Vital Signs Date Time Temp Pulse Resp B/P (MAP) Pulse Ox O2 Delivery O2 Flow Rate FiO2 01/11/20 12:00 97.5 86 21 93/65 (74) 94 01/11/20 12:00 Nasal Cannula 5.0 01/11/20 11:36 82 01/11/20 09:34 82 127/67 01/11/20 08:16 84 01/11/20 08:00 97.0 82 25 127/67 (87) 95 01/11/20 08:00 Nasal Cannula 5.0 01/11/20 07:46 99 Nasal Cannula 4.0 36 01/11/20 04:00 Nasal Cannula 3.0 01/11/20 04:00 98.0 89 23 119/72 (88) 99 01/11/20 04:00 2.0 01/11/20 04:00 81 01/11/20 00:00 89 01/11/20 00:00 Nasal Cannula 3.0 01/11/20 00:00 97.5 94 20 112/63 (79) 99 01/11/20 00:00 2.0 01/10/20 20:00 Nasal Cannula 3.0 01/10/20 20:00 2.0 01/10/20 20:00 89 01/10/20 20:00 98.7 90 20 125/70 (88) 99 01/10/20 19:15 100 Nasal Cannula 4.0 36 01/10/20 16:00 Bi-pap 01/10/20 16:00 97.7 87 20 104/66 (79) 99 01/10/20 16:00 2.0 01/10/20 15:42 93 01/10/20 15:30 94 Intake and Output 01/10/20 01/11/20 19:00 07:00 Intake Total 1000 ml Output Total 800 ml Balance 200 ml Intake Oral 1000 ml Output Urine Total 800 ml Laboratory Tests 01/10/20 21:00: Sodium Level 123L, Potassium Level 4.1, Chloride Level 86L, Carbon Dioxide Level 31, Anion Gap 6, Blood Urea Nitrogen 22H, Creatinine 1.8H, Estimat Glomerular Filtration Rate 37.9, Glucose Level 141H, Calcium Level 8.3L 01/11/20 05:40: Sodium Level 124L, Potassium Level 3.7, Chloride Level 86L, Carbon Dioxide Level 30, Anion Gap 8, Blood Urea Nitrogen 24H, Creatinine 1.6H, Estimat Glomerular Filtration Rate 43.5, Glucose Level 152H, Calcium Level 8.2L, White Blood Count 10.9H, Red Blood Count 4.35L, Hemoglobin 12.5L, Hematocrit 33.7L, Mean Corpuscular Volume 78L, Mean Corpuscular Hemoglobin 28.6, Mean Corpuscular Hemoglobin Concent 36.9H, Red Cell Distribution Width 12.6, Platelet Count 294, Mean Platelet Volume 5.4L, Neutrophils (%) (Auto) 81.1H, Lymphocytes (%) (Auto) 12.0L, Monocytes (%) (Auto) 5.7, Eosinophils (%) (Auto) 0.7, Basophils (%) (Auto ) 0.6, Phosphorus Level 3.6, Magnesium Level 2.2, Pro-B-Type Natriuretic Peptide 1015H Height (Feet): 5 Height (Inches): 10.00 Weight (Pounds): 229 General Appearance: no apparent distress, alert, obese EENT: PERRL/EOMI Neck: supple Cardiovascular: normal rate, regular rhythm Respiratory/Chest: lungs clear, normal breath sounds Abdomen: non tender, soft Edema: moderate edema Neurologic: alert, oriented x 3 Marcel Ortiz MD Jan 11, 2020 14:57
--- NOTE | 2020-01-11 15:00 | NUR ---
NURSE NOTES: Bed bath provided. Patient cooperate with ADL's. Assisted to get up from bed. Kept clean and dry. Remains on nasal cannula at 5LPM.
--- NOTE | 2020-01-11 15:29 | Cardiology Progress Note ---
Assessment/Plan Status: stable Assessment/Plan Assessment/Plan Problem List: (1) Contusion, knee ICD Codes: S80.00XA - Contusion of unspecified knee, initial encounter SNOMED: 87646167 (2) CHF (congestive heart failure) ICD Codes: I50.9 - Heart failure, unspecified SNOMED: 70939231 (3) Sternal fracture ICD Codes: S22.20XA - Unspecified fracture of sternum, initial encounter for closed fracture SNOMED: 47131773 (4) Knee contusion ICD Codes: S80.00XA - Contusion of unspecified knee, initial encounter SNOMED: 32930607 (5) Dyspnea ICD Codes: R06.00 - Dyspnea, unspecified SNOMED: 309789620 (6) Chest wall contusion ICD Codes: S20.219A - Contusion of unspecified front wall of thorax, initial encounter SNOMED: 70790600 Status: stable Serial EKG/Troponin Monitor on telemetry Echcoardiogram with normal LV function, no WMA, no significant valvular disease Pain control IV fluids Aspirin Statin therapy Maintain lisinopril Chest pain unlikely ACS - defer fruther cardiac work up at this time, no indication for cath/stress test Subjective Cardiovascular: Reports: no symptoms Respiratory: Reports: no symptoms Gastrointestinal/Abdominal: Reports: no symptoms Genitourinary: Reports: no symptoms Subjective No acute events, pain controlled, poor historian, no acute events TTE with normal LV function Objective Last 24 Hour Vital Signs Date Time Temp Pulse Resp B/P (MAP) Pulse Ox O2 Delivery O2 Flow Rate FiO2 01/11/20 12:00 97.5 86 21 93/65 (74) 94 01/11/20 12:00 Nasal Cannula 5.0 01/11/20 11:36 82 01/11/20 09:34 82 127/67 01/11/20 08:16 84 01/11/20 08:00 97.0 82 25 127/67 (87) 95 01/11/20 08:00 Nasal Cannula 5.0 01/11/20 07:46 99 Nasal Cannula 4.0 36 01/11/20 04:00 Nasal Cannula 3.0 01/11/20 04:00 98.0 89 23 119/72 (88) 99 01/11/20 04:00 2.0 01/11/20 04:00 81 01/11/20 00:00 89 01/11/20 00:00 Nasal Cannula 3.0 01/11/20 00:00 97.5 94 20 112/63 (79) 99 01/11/20 00:00 2.0 01/10/20 20:00 Nasal Cannula 3.0 01/10/20 20:00 2.0 01/10/20 20:00 89 01/10/20 20:00 98.7 90 20 125/70 (88) 99 01/10/20 19:15 100 Nasal Cannula 4.0 36 01/10/20 16:00 Bi-pap 01/10/20 16:00 97.7 87 20 104/66 (79) 99 01/10/20 16:00 2.0 01/10/20 15:42 93 01/10/20 15:30 94 General Appearance: no apparent distress, alert EENT: PERRL/EOMI, TMs normal, pharynx normal Neck: non-tender, normal alignment, supple, no JVD Rhythm: NSR Cardiovascular: normal peripheral pulses, normal rate Respiratory/Chest: chest wall non-tender, lungs clear, normal breath sounds Abdomen: normal bowel sounds, non tender, soft, no organomegaly Extremities: normal range of motion, non-tender, normal inspection, no calf tenderness, no swelling 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 grossly normal, no motor/sensory deficits Intake and Output 01/10/20 01/11/20 19:00 07:00 Intake Total 1000 ml Output Total 800 ml Balance 200 ml Intake Oral 1000 ml Output Urine Total 800 ml Laboratory Tests Test 01/10/20 21:00 01/11/20 05:40 Sodium Level 123 MMOL/L (136-145) L 124 MMOL/L (136-145) L Potassium Level 4.1 MMOL/L (3.5-5.1) 3.7 MMOL/L (3.5-5.1) Chloride Level 86 MMOL/L (98-107) L 86 MMOL/L (98-107) L Carbon Dioxide Level 31 MMOL/L (21-32) 30 MMOL/L (21-32) Anion Gap 6 mmol/L (5-15) 8 mmol/L (5-15) Blood Urea Nitrogen 22 mg/dL (7-18) H 24 mg/dL (7-18) H Creatinine 1.8 MG/DL (0.55-1.30) H 1.6 MG/DL (0.55-1.30) H Estimat Glomerular Filtration Rate 37.9 mL/min (>60) 43.5 mL/min (>60) Glucose Level 141 MG/DL (74-106) H 152 MG/DL (74-106) H Calcium Level 8.3 MG/DL (8.5-10.1) L 8.2 MG/DL (8.5-10.1) L White Blood Count 10.9 K/UL (4.8-10.8) H Red Blood Count 4.35 M/UL (4.70-6.10) L Hemoglobin 12.5 G/DL (14.2-18.0) L Hematocrit 33.7 % (42.0-52.0) L Mean Corpuscular Volume 78 FL (80-99) L Mean Corpuscular Hemoglobin 28.6 PG (27.0-31.0) Mean Corpuscular Hemoglobin Concent 36.9 G/DL (32.0-36.0) H Red Cell Distribution Width 12.6 % (11.6-14.8) Platelet Count 294 K/UL (150-450) Mean Platelet Volume 5.4 FL (6.5-10.1) L Neutrophils (%) (Auto) 81.1 % (45.0-75.0) H Lymphocytes (%) (Auto) 12.0 % (20.0-45.0) L Monocytes (%) (Auto) 5.7 % (1.0-10.0) Eosinophils (%) (Auto) 0.7 % (0.0-3.0) Basophils (%) (Auto) 0.6 % (0.0-2.0) Phosphorus Level 3.6 MG/DL (2.5-4.9) Magnesium Level 2.2 MG/DL (1.8-2.4) Pro-B-Type Natriuretic Peptide 1015 pg/mL (0-125) H Microbiology Date/Time Source Procedure Growth Status 01/09/20 16:30 Nasopharynx Coronavirus COVID-19 PCR ([facility]) - Final Complete Filsoof,Otilio Langford MD Jan 11, 2020 15:29
[2020-01-11 16:00] VITALS: BP 101/67
[2020-01-11] MEDS ORDERED: Tubing IV Secondary IV ONE (18:40)
[2020-01-11] MEDS ORDERED: NS 275ml ONE (18:40)
--- NOTE | 2020-01-11 19:04 | NUR ---
HAND-OFF: Report given to William Guidry RN. Second Covid-19 swab order received from Dr. Raygoza. William Guidry RN made aware and will swab patient. Patient remains in stable condition. No signs and symptoms of hypoglycemia. Kept Clean and dry. Bed in lowest position, Bed alarm on. Fall risk implemented and endorsed.
--- NOTE | 2020-01-11 19:05 | NUR ---
NURSE NOTES: Received patient from BOGDAN Corcoran. Patient is aaox4, vss, with no acute distress. Patient is cooperative, clean, on a campus monitor and stands with a steady gait to use the urinal. Patient tolerates a 4L nasal canula saturating at 98%. Iv sites are left forearm 20g, left hand 22g, and right hand 20g all patent with no signs of infection. Bed is at its lowest position, bed is locked, call light in reach, and x3 bed rails are up. Will continue to monitor.
[2020-01-11 20:00] VITALS: BP 137/76
--- NOTE | 2020-01-11 20:33 | Nephrology Progress Note ---
Assessment/Plan Plan #SOB possible CHF #r/o COVID #Hypervolumic hyponatremia #chest pain #HTN #HLD - pulm consulted - cardiology consult - lasix 40 Iv BID - 2d echo - check TSH - check am cortisol - Gen surgery consulted - continue lisinopril 40mg daily - amlodipine 10mg daily - monitor BMP, mag and phos daily - replete lytes Subjective ROS Limited/Unobtainable: No Constitutional: Denies: no symptoms, chills, diaphoresis, fever, malaise, weakness, other HEENT: Denies: no symptoms, eye pain, blurred vision, tearing, double vision, ear pain, ear discharge, nose pain, nose congestion, throat pain, throat swelling, mouth pain, mouth swelling, other Genitourinary: Denies: no symptoms, burning, discharge, frequency, flank pain, hematuria, incontinence, pain, urgency, other Neurologic/Psychiatric: Denies: no symptoms, anxiety, depressed, emotional problems, headache, numbness, paresthesia, pre-existing deficit, seizure, tingling, tremors, weakness, other Subjective breathing improving chest pain controlled sodium 123 today Objective Objective Last 24 Hour Vital Signs Date Time Temp Pulse Resp B/P (MAP) Pulse Ox O2 Delivery O2 Flow Rate FiO2 01/11/20 20:00 98.2 86 22 137/76 (96) 96 01/11/20 18:48 97 Nasal Cannula 4.0 36 01/11/20 16:00 Nasal Cannula 5.0 01/11/20 16:00 97.5 85 22 101/67 (78) 96 01/11/20 15:24 98 01/11/20 12:00 97.5 86 21 93/65 (74) 94 01/11/20 12:00 Nasal Cannula 5.0 01/11/20 11:36 82 01/11/20 09:34 82 127/67 01/11/20 08:16 84 01/11/20 08:00 97.0 82 25 127/67 (87) 95 01/11/20 08:00 Nasal Cannula 5.0 01/11/20 07:46 99 Nasal Cannula 4.0 36 01/11/20 04:00 Nasal Cannula 3.0 01/11/20 04:00 98.0 89 23 119/72 (88) 99 01/11/20 04:00 2.0 01/11/20 04:00 81 01/11/20 00:00 89 01/11/20 00:00 Nasal Cannula 3.0 01/11/20 00:00 97.5 94 20 112/63 (79) 99 01/11/20 00:00 2.0 Intake and Output 01/10/20 01/11/20 19:00 07:00 Intake Total 1000 ml Output Total 800 ml Balance 200 ml Intake Oral 1000 ml Output Urine Total 800 ml Laboratory Tests 01/10/20 21:00: Sodium Level 123L, Potassium Level 4.1, Chloride Level 86L, Carbon Dioxide Level 31, Anion Gap 6, Blood Urea Nitrogen 22H, Creatinine 1.8H, Estimat Glomerular Filtration Rate 37.9, Glucose Level 141H, Calcium Level 8.3L 01/11/20 05:40: Sodium Level 124L, Potassium Level 3.7, Chloride Level 86L, Carbon Dioxide Level 30, Anion Gap 8, Blood Urea Nitrogen 24H, Creatinine 1.6H, Estimat Glomerular Filtration Rate 43.5, Glucose Level 152H, Calcium Level 8.2L, White Blood Count 10.9H, Red Blood Count 4.35L, Hemoglobin 12.5L, Hematocrit 33.7L, Mean Corpuscular Volume 78L, Mean Corpuscular Hemoglobin 28.6, Mean Corpuscular Hemoglobin Concent 36.9H, Red Cell Distribution Width 12.6, Platelet Count 294, Mean Platelet Volume 5.4L, Neutrophils (%) (Auto) 81.1H, Lymphocytes (%) (Auto) 12.0L, Monocytes (%) (Auto) 5.7, Eosinophils (%) (Auto) 0.7, Basophils (%) (Auto ) 0.6, Phosphorus Level 3.6, Magnesium Level 2.2, Pro-B-Type Natriuretic Peptide 1015H Height (Feet): 5 Height (Inches): 10.00 Weight (Pounds): 229 General Appearance: WD/WN, no apparent distress EENT: PERRL/EOMI Neck: non-tender, normal alignment Cardiovascular: normal peripheral pulses, normal rate, regular rhythm Respiratory/Chest: chest wall non-tender, lungs clear, normal breath sounds, crackles/rales Abdomen: normal bowel sounds, non tender Extremities: non-tender Neurologic: alert, oriented x 3, responsive Jone García M.D. 10, 2020 20:33
[2020-01-11 21:35] LABS: ANION GAP 4 mmol/L (5-15); BLOOD UREA NITROGEN 23 mg/dL (7-18); CARBON DIOXIDE 33 MMOL/L (21-32); CHLORIDE 89 MMOL/L (98-107); CREATININE 1.4 MG/DL (0.55-1.30); POTASSIUM 3.7 MMOL/L (3.5-5.1); SODIUM 126 MMOL/L (136-145)
[2020-01-11] MEDS: Atorvastatin 20mg tab ORAL SCH (21:59)
[2020-01-12] VITALS: BP 140/81
[2020-01-12 04:00] VITALS: BP 120/74
[2020-01-12 05:02] LABS: BASOPHILS % (AUTO) 0.7 % (0.0-2.0); EOSINOPHILS % (AUTO) 0.6 % (0.0-3.0); HEMATOCRIT 35.5 % (42.0-52.0); MEAN CORPUSCULAR VOLUME 78 FL (80-99); MONOCYTES % (AUTO) 5.2 % (1.0-10.0); NEUTROPHILS % (AUTO) 82.5 % (45.0-75.0); PLATELET COUNT 345 K/UL (150-450); RED BLOOD COUNT 4.56 M/UL (4.70-6.10); RED CELL DISTRIBUTION WIDTH 12.5 % (11.6-14.8); WHITE BLOOD COUNT 11.4 K/UL (4.8-10.8)
[2020-01-12 05:38] LABS: ANION GAP 6 mmol/L (5-15); BLOOD UREA NITROGEN 22 mg/dL (7-18); CALCIUM 8.4 MG/DL (8.5-10.1); CARBON DIOXIDE 32 MMOL/L (21-32); CHLORIDE 87 MMOL/L (98-107); CREATININE 1.5 MG/DL (0.55-1.30); PHOSPHORUS 3.5 MG/DL (2.5-4.9); POTASSIUM 3.8 MMOL/L (3.5-5.1); SODIUM 125 MMOL/L (136-145)
[2020-01-12] MEDS: NovoLOG Insulin Flexpen SUBQ SCH ×4 (05:47→20:58)
--- NOTE | 2020-01-12 07:10 | NUR ---
NURSE NOTES: Received handoff report from William MCFADDEN. Patient AxO x 4, no s/s of of acute distress. Patient on the electronic device monitor, urinal at bedside. On nasal canula at 4L O2 sat of 97%. Patient IV in left forearm 20 g, left hand 22 g. Bed lock in lowest position, bed alarm on, call light within reach. Will continue to monitor
--- NOTE | 2020-01-12 07:22 | NUR ---
HAND-OFF: Report given to BOGDAN Mcleod.
[2020-01-12 08:00] VITALS: BP 118/70
[2020-01-12] MEDS: Heparin 5000 units/ml inj SUBQ SCH ×2 (09:00→20:58)
--- NOTE | 2020-01-12 09:26 | NUR ---
NURSE NOTES: Patient c/o constipation. Received verbal order from Dr García for Miralax 17 g QD and Docusate 100 mg BID. Confirmed orders by read-back.
[2020-01-12] MEDS ORDERED: Miralax 17gm pkt ORAL PRN (09:30)
[2020-01-12] MEDS: Aspirin EC 81mg tab ORAL SCH (09:53)
[2020-01-12] MEDS: QUEtiapine 200mg tab ORAL SCH (09:53)
[2020-01-12] MEDS: Sertraline 100mg tab ORAL SCH (09:54)
[2020-01-12] MEDS: Methocarbamol 750mg tab ORAL SCH ×3 (09:54→18:44)
--- NOTE | 2020-01-12 10:33 | Pulmonology Progress Note ---
Subjective ROS Limited/Unobtainable: No Interval Events: None new Constitutional: Reports: no symptoms HEENT: Repors: no symptoms Respiratory: Reports: no symptoms Cardiovascular: Reports: no symptoms Gastrointestinal/Abdominal: Reports: no symptoms Allergies: Coded Allergies: No Known Allergies (Unverified , 11/06/17) Objective Last 24 Hour Vital Signs Date Time Temp Pulse Resp B/P (MAP) Pulse Ox O2 Delivery O2 Flow Rate FiO2 01/12/20 09:55 87 118/70 01/12/20 08:30 96 Nasal Cannula 4.0 36 01/12/20 04:00 97.7 94 22 120/74 (89) 94 01/12/20 03:47 Nasal Cannula 5.0 01/12/20 03:32 81 01/12/20 00:00 97.7 90 20 140/81 (100) 98 01/12/20 00:00 75 01/12/20 00:00 Nasal Cannula 5.0 01/11/20 20:00 98.2 86 22 137/76 (96) 96 01/11/20 20:00 Nasal Cannula 5.0 01/11/20 19:33 87 01/11/20 18:48 97 Nasal Cannula 4.0 36 01/11/20 16:00 Nasal Cannula 5.0 01/11/20 16:00 97.5 85 22 101/67 (78) 96 01/11/20 15:24 98 01/11/20 12:00 97.5 86 21 93/65 (74) 94 01/11/20 12:00 Nasal Cannula 5.0 01/11/20 11:36 82 Intake and Output 01/11/20 01/12/20 19:00 07:00 Intake Total 850 ml Output Total 1050 ml 1400 ml Balance -200 ml -1400 ml Intake Oral 850 ml Output Urine Total 1050 ml 1400 ml # Voids 5 # Bowel Movements 2 General Appearance: no acute distress HEENT: normocephalic Respiratory: chest wall non-tender, lungs clear Cardiovascular: normal peripheral pulses Abdomen: normal bowel sounds Microbiology Date/Time Source Procedure Growth Status 01/09/20 16:30 Nasopharynx Coronavirus COVID-19 PCR ([facility]) - Final Complete Laboratory Tests 01/11/20 21:12: Sodium Level 126L, Potassium Level 3.7, Chloride Level 89L, Carbon Dioxide Level 33H, Anion Gap 4L, Blood Urea Nitrogen 23H, Creatinine 1.4H, Estimat Glomerular Filtration Rate 50.7, Glucose Level 143H, Calcium Level 8.0L 01/12/20 02:45: Sodium Level 125L, Potassium Level 3.8, Chloride Level 87L, Carbon Dioxide Level 32, Anion Gap 6, Blood Urea Nitrogen 22H, Creatinine 1.5H, Estimat Glomerular Filtration Rate 46.8, Glucose Level 153H, Calcium Level 8.4L, White Blood Count 11.4H, Red Blood Count 4.56L, Hemoglobin 13.0L, Hematocrit 35.5L, Mean Corpuscular Volume 78L, Mean Corpuscular Hemoglobin 28.6, Mean Corpuscular Hemoglobin Concent 36.8H, Red Cell Distribution Width 12.5, Platelet Count 345, Mean Platelet Volume 5.4L, Neutrophils (%) (Auto) 82.5H, Lymphocytes (%) (Auto) 11.0L, Monocytes (%) (Auto) 5.2, Eosinophils (%) (Auto) 0.6, Basophils (%) (Auto ) 0.7, Phosphorus Level 3.5, Magnesium Level 1.9 Current Medications Medications (Trade) Dose Ordered Sig/Anjel Route PRN Reason Start Time Stop Time Status Last Admin Dose Admin Acetaminophen (Tylenol) 650 mg Q6H PRN ORAL For Headache 01/10/20 08:00 02/09/20 07:59 Acetaminophen/ Hydrocodone Bitart ([place] 10/325) 1 tab Q6HR PRN ORAL Severe Pain (Pain Scale 7-10) 01/10/20 08:00 01/17/20 07:59 Acetaminophen/ Hydrocodone Bitart ([place] 5/325) 1 tab Q6H PRN ORAL Moderate Pain (Pain Scale 4-6) 01/10/20 08:00 01/17/20 07:59 01/11/20 02:26 Amlodipine Besylate (Norvasc) 10 mg DAILY ORAL 01/10/20 09:00 02/09/20 08:59 01/12/20 09:55 Aspirin (Ecotrin) 81 mg DAILY ORAL 01/10/20 09:00 02/24/20 08:59 01/12/20 09:53 Atorvastatin Calcium (Lipitor) 40 mg BEDTIME ORAL 01/10/20 21:00 04/09/20 20:59 01/11/20 21:59 Dextrose (Dextrose 50%) 25 ml Q30M PRN IV Hypoglycemia 01/10/20 08:00 04/09/20 07:59 Dextrose (Dextrose 50%) 50 ml Q30M PRN IV Hypoglycemia 01/10/20 08:00 04/09/20 07:59 Docusate Sodium (Colace) 100 mg TWICE A DAY ORAL 01/12/20 18:00 02/11/20 17:59 Furosemide (Lasix) 40 mg EVERY 12 HOURS IV 01/11/20 09:00 02/10/20 08:59 01/12/20 09:55 Guaifenesin/ Codeine Phosphate (Robitussin with codeine) 5 ml Q6H PRN ORAL For Cough 01/11/20 08:30 02/10/20 08:29 01/11/20 17:48 Heparin Sodium (Porcine) (Heparin 5000 units/ml) 5,000 units EVERY 12 HOURS SUBQ 01/11/20 09:00 02/25/20 08:59 01/12/20 09:00 Ibuprofen (Motrin) 600 mg Q8H PRN ORAL For Pain 01/10/20 08:00 02/09/20 07:59 Insulin Aspart (NovoLOG) BEFORE MEALS AND HS SUBQ 01/10/20 11:30 04/09/20 11:29 01/12/20 05:47 Methocarbamol (Robaxin) 750 mg TID ORAL 01/10/20 09:00 02/09/20 08:59 01/12/20 09:54 Pantoprazole (Protonix) 40 mg DAILY ORAL 01/10/20 09:00 02/09/20 08:59 01/12/20 09:55 Polyethylene Glycol (Miralax) 17 gm DAILY PRN ORAL Constipation 01/12/20 09:30 02/11/20 09:29 Quetiapine Fumarate (SEROqueL) 200 mg DAILY ORAL 01/10/20 09:00 02/24/20 08:59 01/12/20 09:53 Sertraline HCl (Zoloft) 100 mg DAILY ORAL 01/10/20 09:00 02/09/20 08:59 01/12/20 09:54 Assessment/Plan Assessment/Plan IMPRESSION: 1. Respiratory acidosis/respiratory failure. Much improved 2. Status post fall/chest wall trauma. 3. Mild pulmonary edema. 4. Asthma. 5. Hypertension. 6. Diabetes. DISCUSSION: Doing well on nasal O2; SaO2 96% on 4L/min Continue current medications and care. I will follow carefully. Delfin Degroot M.D. Delfin Degroot MD Jan 12, 2020 10:33
--- NOTE | 2020-01-12 11:07 | Cardiology Progress Note ---
Assessment/Plan Status: stable Assessment/Plan Assessment/Plan Problem List: (1) Contusion, knee ICD Codes: S80.00XA - Contusion of unspecified knee, initial encounter SNOMED: 20352341 (2) CHF (congestive heart failure) ICD Codes: I50.9 - Heart failure, unspecified SNOMED: 21854395 (3) Sternal fracture ICD Codes: S22.20XA - Unspecified fracture of sternum, initial encounter for closed fracture SNOMED: 45684042 (4) Knee contusion ICD Codes: S80.00XA - Contusion of unspecified knee, initial encounter SNOMED: 76036827 (5) Dyspnea ICD Codes: R06.00 - Dyspnea, unspecified SNOMED: 959166449 (6) Chest wall contusion ICD Codes: S20.219A - Contusion of unspecified front wall of thorax, initial encounter SNOMED: 50996476 Status: stable Serial EKG/Troponin Monitor on telemetry Echcoardiogram with normal LV function, no WMA, no significant valvular disease Pain control IV fluids Aspirin Statin therapy Maintain lisinopril Chest pain unlikely ACS - defer fruther cardiac work up at this time, no indication for cath/stress test Subjective Cardiovascular: Reports: no symptoms Respiratory: Reports: no symptoms Gastrointestinal/Abdominal: Reports: no symptoms Genitourinary: Reports: no symptoms Subjective No acute events, pain controlled, poor historian, no acute events TTE with normal LV function Stable on minimal oxygen, SOB improved Objective Last 24 Hour Vital Signs Date Time Temp Pulse Resp B/P (MAP) Pulse Ox O2 Delivery O2 Flow Rate FiO2 01/12/20 09:55 87 118/70 01/12/20 08:30 96 Nasal Cannula 4.0 36 01/12/20 08:00 97.9 90 26 118/70 (86) 97 01/12/20 04:00 97.7 94 22 120/74 (89) 94 01/12/20 03:47 Nasal Cannula 5.0 01/12/20 03:32 81 01/12/20 00:00 97.7 90 20 140/81 (100) 98 01/12/20 00:00 75 01/12/20 00:00 Nasal Cannula 5.0 01/11/20 20:00 98.2 86 22 137/76 (96) 96 01/11/20 20:00 Nasal Cannula 5.0 01/11/20 19:33 87 01/11/20 18:48 97 Nasal Cannula 4.0 36 01/11/20 16:00 Nasal Cannula 5.0 01/11/20 16:00 97.5 85 22 101/67 (78) 96 01/11/20 15:24 98 01/11/20 12:00 97.5 86 21 93/65 (74) 94 01/11/20 12:00 Nasal Cannula 5.0 01/11/20 11:36 82 General Appearance: no apparent distress, alert EENT: PERRL/EOMI, normal ENT inspection, TMs normal Neck: non-tender, normal alignment, supple Rhythm: NSR Cardiovascular: normal peripheral pulses, normal rate, regular rhythm Respiratory/Chest: chest wall non-tender, lungs clear, normal breath sounds, no respiratory distress, no accessory muscle use Abdomen: normal bowel sounds, non tender, soft Extremities: normal range of motion, non-tender, normal inspection, no calf tenderness 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, no motor/sensory deficits Intake and Output 01/11/20 01/12/20 19:00 07:00 Intake Total 850 ml Output Total 1050 ml 1400 ml Balance -200 ml -1400 ml Intake Oral 850 ml Output Urine Total 1050 ml 1400 ml # Voids 5 # Bowel Movements 2 Laboratory Tests Test 01/11/20 21:12 01/12/20 02:45 Sodium Level 126 MMOL/L (136-145) L 125 MMOL/L (136-145) L Potassium Level 3.7 MMOL/L (3.5-5.1) 3.8 MMOL/L (3.5-5.1) Chloride Level 89 MMOL/L (98-107) L 87 MMOL/L (98-107) L Carbon Dioxide Level 33 MMOL/L (21-32) H 32 MMOL/L (21-32) Anion Gap 4 mmol/L (5-15) L 6 mmol/L (5-15) Blood Urea Nitrogen 23 mg/dL (7-18) H 22 mg/dL (7-18) H Creatinine 1.4 MG/DL (0.55-1.30) H 1.5 MG/DL (0.55-1.30) H Estimat Glomerular Filtration Rate 50.7 mL/min (>60) 46.8 mL/min (>60) Glucose Level 143 MG/DL (74-106) H 153 MG/DL (74-106) H Calcium Level 8.0 MG/DL (8.5-10.1) L 8.4 MG/DL (8.5-10.1) L White Blood Count 11.4 K/UL (4.8-10.8) H Red Blood Count 4.56 M/UL (4.70-6.10) L Hemoglobin 13.0 G/DL (14.2-18.0) L Hematocrit 35.5 % (42.0-52.0) L Mean Corpuscular Volume 78 FL (80-99) L Mean Corpuscular Hemoglobin 28.6 PG (27.0-31.0) Mean Corpuscular Hemoglobin Concent 36.8 G/DL (32.0-36.0) H Red Cell Distribution Width 12.5 % (11.6-14.8) Platelet Count 345 K/UL (150-450) Mean Platelet Volume 5.4 FL (6.5-10.1) L Neutrophils (%) (Auto) 82.5 % (45.0-75.0) H Lymphocytes (%) (Auto) 11.0 % (20.0-45.0) L Monocytes (%) (Auto) 5.2 % (1.0-10.0) Eosinophils (%) (Auto) 0.6 % (0.0-3.0) Basophils (%) (Auto) 0.7 % (0.0-2.0) Phosphorus Level 3.5 MG/DL (2.5-4.9) Magnesium Level 1.9 MG/DL (1.8-2.4) Microbiology Date/Time Source Procedure Growth Status 01/09/20 16:30 Nasopharynx Coronavirus COVID-19 PCR ([facility]) - Final Complete Filsoof,Otilio Langford MD Jan 12, 2020 11:07
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
[2020-01-12 11:47] VITALS: BP 128/65
--- NOTE | 2020-01-12 13:03 | General Progress Note ---
Assessment/Plan Problem List: (1) Contusion, knee ICD Codes: S80.00XA - Contusion of unspecified knee, initial encounter SNOMED: 92925899 (2) CHF (congestive heart failure) ICD Codes: I50.9 - Heart failure, unspecified SNOMED: 24822143 (3) Sternal fracture ICD Codes: S22.20XA - Unspecified fracture of sternum, initial encounter for closed fracture SNOMED: 89663219 (4) Knee contusion ICD Codes: S80.00XA - Contusion of unspecified knee, initial encounter SNOMED: 28295077 (5) Dyspnea ICD Codes: R06.00 - Dyspnea, unspecified SNOMED: 086046121 (6) Chest wall contusion ICD Codes: S20.219A - Contusion of unspecified front wall of thorax, initial encounter SNOMED: 62848251 Status: stable Assessment/Plan: Mr. Anderson is a 64 year old male with unclear PMHx, here with 2 days of chest pain after fall, and chronic swelling, SOB #S/p fall #Suspected sternal fracture -imaging likely + for sternal fx. -appreciate surgery input. -pain control. #Severe hyponatremia #Metabolic acidosis #PAULINE - improving #?CKD -nephro following -IVF -BMP #Swelling #SOB #Suspected CHF #HTN #Acute hypoxic respiratory failure -cardiology on board -contionue lisinopril -s/p TTE. -pneindg COVID repeat. first one negative. -may need O2 on d/c. -H&H entered #Hypomagnesemina -s/p repletion Time spent on encounter 40 mins, 20mins on counseling, coordination of care, d/ w RN, CM, consultants. Time of note doesn't reflect time of encounter. Subjective Date patient seen: Jan 12, 2020 ROS Limited/Unobtainable: No Constitutional: Denies: no symptoms, chills, diaphoresis, fever, malaise, weakness, other HEENT: Denies: no symptoms, eye pain, blurred vision, tearing, double vision, ear pain, ear discharge, nose pain, nose congestion, throat pain, throat swelling, mouth pain, mouth swelling, other Cardiovascular: Denies: no symptoms, chest pain, edema, irregular heart rate, lightheadedness, palpitations, syncope, other Respiratory: Reports: orthopnea, shortness of breath, SOB with excertion Gastrointestinal/Abdominal: Denies: no symptoms, abdomen distended, abdominal pain, black stools, tarry stools, blood in stool, constipated, diarrhea, difficulty swallowing, nausea, poor appetite, poor fluid intake, rectal bleeding , vomiting, other Genitourinary: Denies: no symptoms, burning, discharge, frequency, flank pain, hematuria, incontinence, pain, urgency, other Neurologic/Psychiatric: Denies: no symptoms, anxiety, depressed, emotional problems, headache, numbness, paresthesia, pre-existing deficit, seizure, tingling, tremors, weakness, other Endocrine: Denies: no symptoms, excessive sweating, flushing, intolerance to cold, intolerance to heat, increased hunger, increased thirst, increased urine, unexplained weight gain, unexplained weight loss, other Hematologic/Lymphatic: Denies: no symptoms, anemia, easy bleeding, easy bruising, other Allergies: Coded Allergies: No Known Allergies (Unverified , 11/06/17) Subjective resting in bed, still short of breath and legs swollen, but improved. wants to go home Objective Last 24 Hour Vital Signs Date Time Temp Pulse Resp B/P (MAP) Pulse Ox O2 Delivery O2 Flow Rate FiO2 01/12/20 12:00 Nasal Cannula 4.0 01/12/20 11:47 97.8 90 24 128/65 (86) 96 01/12/20 09:55 87 118/70 01/12/20 08:30 96 Nasal Cannula 4.0 36 01/12/20 08:00 97.9 90 26 118/70 (86) 97 01/12/20 08:00 90 01/12/20 08:00 Nasal Cannula 5.0 01/12/20 04:00 97.7 94 22 120/74 (89) 94 01/12/20 03:47 Nasal Cannula 5.0 01/12/20 03:32 81 01/12/20 00:00 97.7 90 20 140/81 (100) 98 01/12/20 00:00 75 01/12/20 00:00 Nasal Cannula 5.0 01/11/20 20:00 98.2 86 22 137/76 (96) 96 01/11/20 20:00 Nasal Cannula 5.0 01/11/20 19:33 87 01/11/20 18:48 97 Nasal Cannula 4.0 36 01/11/20 16:00 Nasal Cannula 5.0 01/11/20 16:00 97.5 85 22 101/67 (78) 96 01/11/20 15:24 98 Intake and Output 01/11/20 01/12/20 19:00 07:00 Intake Total 850 ml Output Total 1050 ml 1400 ml Balance -200 ml -1400 ml Intake Oral 850 ml Output Urine Total 1050 ml 1400 ml # Voids 5 # Bowel Movements 2 Laboratory Tests 01/11/20 21:12: Sodium Level 126L, Potassium Level 3.7, Chloride Level 89L, Carbon Dioxide Level 33H, Anion Gap 4L, Blood Urea Nitrogen 23H, Creatinine 1.4H, Estimat Glomerular Filtration Rate 50.7, Glucose Level 143H, Calcium Level 8.0L 01/12/20 02:45: Sodium Level 125L, Potassium Level 3.8, Chloride Level 87L, Carbon Dioxide Level 32, Anion Gap 6, Blood Urea Nitrogen 22H, Creatinine 1.5H, Estimat Glomerular Filtration Rate 46.8, Glucose Level 153H, Calcium Level 8.4L, White Blood Count 11.4H, Red Blood Count 4.56L, Hemoglobin 13.0L, Hematocrit 35.5L, Mean Corpuscular Volume 78L, Mean Corpuscular Hemoglobin 28.6, Mean Corpuscular Hemoglobin Concent 36.8H, Red Cell Distribution Width 12.5, Platelet Count 345, Mean Platelet Volume 5.4L, Neutrophils (%) (Auto) 82.5H, Lymphocytes (%) (Auto) 11.0L, Monocytes (%) (Auto) 5.2, Eosinophils (%) (Auto) 0.6, Basophils (%) (Auto ) 0.7, Phosphorus Level 3.5, Magnesium Level 1.9 Height (Feet): 5 Height (Inches): 10.00 Weight (Pounds): 229 General Appearance: no apparent distress, alert EENT: PERRL/EOMI Neck: supple Cardiovascular: normal rate, regular rhythm Respiratory/Chest: lungs clear, normal breath sounds Abdomen: non tender, soft Edema: moderate edema Neurologic: alert, oriented x 3 Marcel Ortiz MD Jan 12, 2020 13:03
--- NOTE | 2020-01-12 14:11 | Nephrology Progress Note ---
Assessment/Plan Plan #SOB possible CHF #r/o COVID #Hypervolumic hyponatremia #chest pain #HTN #HLD - pulm consulted - cardiology consult - lasix 40 Iv BID - hold NSAID - check am cortisol - Gen surgery consulted - hold lisinopril 40mg daily - amlodipine 10mg daily - monitor BMP, mag and phos daily - replete lytes Subjective ROS Limited/Unobtainable: No Constitutional: Denies: no symptoms, chills, diaphoresis, fever, malaise, weakness, other HEENT: Denies: no symptoms, eye pain, blurred vision, tearing, double vision, ear pain, ear discharge, nose pain, nose congestion, throat pain, throat swelling, mouth pain, mouth swelling, other Genitourinary: Denies: no symptoms, burning, discharge, frequency, flank pain, hematuria, incontinence, pain, urgency, other Neurologic/Psychiatric: Denies: no symptoms, anxiety, depressed, emotional problems, headache, numbness, paresthesia, pre-existing deficit, seizure, tingling, tremors, weakness, other Subjective breathing improving chest pain controlled sodium slowly improving DC motrin holding lisinopril Objective Objective Last 24 Hour Vital Signs Date Time Temp Pulse Resp B/P (MAP) Pulse Ox O2 Delivery O2 Flow Rate FiO2 01/12/20 12:00 Nasal Cannula 4.0 01/12/20 12:00 78 01/12/20 11:47 97.8 90 24 128/65 (86) 96 01/12/20 09:55 87 118/70 01/12/20 08:30 96 Nasal Cannula 4.0 36 01/12/20 08:00 97.9 90 26 118/70 (86) 97 01/12/20 08:00 90 01/12/20 08:00 Nasal Cannula 5.0 01/12/20 04:00 97.7 94 22 120/74 (89) 94 01/12/20 03:47 Nasal Cannula 5.0 01/12/20 03:32 81 01/12/20 00:00 97.7 90 20 140/81 (100) 98 01/12/20 00:00 75 01/12/20 00:00 Nasal Cannula 5.0 01/11/20 20:00 98.2 86 22 137/76 (96) 96 01/11/20 20:00 Nasal Cannula 5.0 01/11/20 19:33 87 01/11/20 18:48 97 Nasal Cannula 4.0 36 01/11/20 16:00 Nasal Cannula 5.0 01/11/20 16:00 97.5 85 22 101/67 (78) 96 01/11/20 15:24 98 Intake and Output 01/11/20 01/12/20 19:00 07:00 Intake Total 850 ml Output Total 1050 ml 1400 ml Balance -200 ml -1400 ml Intake Oral 850 ml Output Urine Total 1050 ml 1400 ml # Voids 5 # Bowel Movements 2 Laboratory Tests 01/11/20 21:12: Sodium Level 126L, Potassium Level 3.7, Chloride Level 89L, Carbon Dioxide Level 33H, Anion Gap 4L, Blood Urea Nitrogen 23H, Creatinine 1.4H, Estimat Glomerular Filtration Rate 50.7, Glucose Level 143H, Calcium Level 8.0L 01/12/20 02:45: Sodium Level 125L, Potassium Level 3.8, Chloride Level 87L, Carbon Dioxide Level 32, Anion Gap 6, Blood Urea Nitrogen 22H, Creatinine 1.5H, Estimat Glomerular Filtration Rate 46.8, Glucose Level 153H, Calcium Level 8.4L, White Blood Count 11.4H, Red Blood Count 4.56L, Hemoglobin 13.0L, Hematocrit 35.5L, Mean Corpuscular Volume 78L, Mean Corpuscular Hemoglobin 28.6, Mean Corpuscular Hemoglobin Concent 36.8H, Red Cell Distribution Width 12.5, Platelet Count 345, Mean Platelet Volume 5.4L, Neutrophils (%) (Auto) 82.5H, Lymphocytes (%) (Auto) 11.0L, Monocytes (%) (Auto) 5.2, Eosinophils (%) (Auto) 0.6, Basophils (%) (Auto ) 0.7, Phosphorus Level 3.5, Magnesium Level 1.9 Height (Feet): 5 Height (Inches): 10.00 Weight (Pounds): 229 Jone García M.D. Jan 12, 2020 14:11
--- NOTE | 2020-01-12 14:45 | NUR ---
DISCHARGE PLANNING PATIENT REFERRED TO [facility] T:[phone] F:[phone] CM WILL F/U
[2020-01-12 16:00] VITALS: BP 125/64
--- NOTE | 2020-01-12 16:31 | NUR ---
FACE BURLER NOTE SW met w/ pt and assessed home safety evaluation. Pt presents as A&O 4x and cooperative. PT resides alone at [address] [address], [place], [id number]. Pt is single, never and has no children. Pt has no family/friend in contact. PT's apartment is located on the first floor. Pt uses a walker. Pt reports he is independent w/ ADLs and IADLs. Pt also reports he takes bath very slowly without shower chair or grab bars. SW addressed possible fall risk. Pt shares he fell once last month and has hx of multiple falls. SW recommended shower chair and grab bars. PT does not want to consider SNF placement. Pt wants to return home upon DC. Pt provided consent to contact his building carpenter helper, Troy Golden [phone] SW spoke w/ Ms. Golden and confirmed that she checks on him every day. Pt has a small dog and she is taking care of pt's dog at this time. Ms. Golden reports his neighbors are also checking on him. Ms. Golden did not share any safety concern/needs of pt. Home Health referral has been made. HH can further evaluate pt's safety.
[2020-01-12] MEDS: Docusate 100mg cap ORAL SCH (18:44)
--- NOTE | 2020-01-12 19:04 | NUR ---
HAND-OFF: Report given to William MCFADDEN. Patient VSS. Titrated down to 1L O2, tolerating well. Plan of care communicated.
--- NOTE | 2020-01-12 19:05 | NUR ---
NURSE NOTES: Received patient from BOGDAN Zuluaga. Patient is aaox4, vss, with no acute distress. Patient is cooperative, clean, on a surveillance monitor and stands with a steady gait to use the urinal. Reeducated patient on the need to call a nurse before ambulation. Patient stated that he understood. Patient tolerates a 1L nasal canula saturating at 94%. Iv sites are left forearm 20g, and left hand 22g; all sites are patent with no signs of infection. Bed is at its lowest position, bed is locked, call light in reach, and x3 bed rails are up. Will continue to monitor.
--- NOTE | 2020-01-12 19:06 | Infectious Diseases Prog Note ---
Assessment/Plan Assessment/Plan Full consult dictated: A) 1) sob, no fevers, covid testing negative x 1, mild leukocytosis 2) clinically doubt pna 3) imaging noted P) 1) await 2nd covid-19 test - if negative then remove isolation 2) monitor labs 3) monitor wbc 4) will f/u Subjective Allergies: Coded Allergies: No Known Allergies (Unverified , 11/06/17) Objective Vital Signs Last 24 Hour Vital Signs Date Time Temp Pulse Resp B/P (MAP) Pulse Ox O2 Delivery O2 Flow Rate FiO2 01/12/20 16:00 85 01/12/20 16:00 Nasal Cannula 1.0 01/12/20 16:00 97.9 80 22 125/64 (84) 96 01/12/20 12:00 Nasal Cannula 4.0 01/12/20 12:00 78 01/12/20 11:47 97.8 90 24 128/65 (86) 96 01/12/20 09:55 87 118/70 01/12/20 08:30 96 Nasal Cannula 4.0 36 01/12/20 08:00 97.9 90 26 118/70 (86) 97 01/12/20 08:00 90 01/12/20 08:00 Nasal Cannula 5.0 01/12/20 04:00 97.7 94 22 120/74 (89) 94 01/12/20 03:47 Nasal Cannula 5.0 01/12/20 03:32 81 01/12/20 00:00 97.7 90 20 140/81 (100) 98 01/12/20 00:00 75 01/12/20 00:00 Nasal Cannula 5.0 01/11/20 20:00 98.2 86 22 137/76 (96) 96 01/11/20 20:00 Nasal Cannula 5.0 01/11/20 19:33 87 Height (Feet): 5 Height (Inches): 10.00 Weight (Pounds): 229 Laboratory Tests Test 01/11/20 21:12 01/12/20 02:45 Sodium Level 126 MMOL/L (136-145) L 125 MMOL/L (136-145) L Potassium Level 3.7 MMOL/L (3.5-5.1) 3.8 MMOL/L (3.5-5.1) Chloride Level 89 MMOL/L (98-107) L 87 MMOL/L (98-107) L Carbon Dioxide Level 33 MMOL/L (21-32) H 32 MMOL/L (21-32) Anion Gap 4 mmol/L (5-15) L 6 mmol/L (5-15) Blood Urea Nitrogen 23 mg/dL (7-18) H 22 mg/dL (7-18) H Creatinine 1.4 MG/DL (0.55-1.30) H 1.5 MG/DL (0.55-1.30) H Estimat Glomerular Filtration Rate 50.7 mL/min (>60) 46.8 mL/min (>60) Glucose Level 143 MG/DL (74-106) H 153 MG/DL (74-106) H Calcium Level 8.0 MG/DL (8.5-10.1) L 8.4 MG/DL (8.5-10.1) L White Blood Count 11.4 K/UL (4.8-10.8) H Red Blood Count 4.56 M/UL (4.70-6.10) L Hemoglobin 13.0 G/DL (14.2-18.0) L Hematocrit 35.5 % (42.0-52.0) L Mean Corpuscular Volume 78 FL (80-99) L Mean Corpuscular Hemoglobin 28.6 PG (27.0-31.0) Mean Corpuscular Hemoglobin Concent 36.8 G/DL (32.0-36.0) H Red Cell Distribution Width 12.5 % (11.6-14.8) Platelet Count 345 K/UL (150-450) Mean Platelet Volume 5.4 FL (6.5-10.1) L Neutrophils (%) (Auto) 82.5 % (45.0-75.0) H Lymphocytes (%) (Auto) 11.0 % (20.0-45.0) L Monocytes (%) (Auto) 5.2 % (1.0-10.0) Eosinophils (%) (Auto) 0.6 % (0.0-3.0) Basophils (%) (Auto) 0.7 % (0.0-2.0) Phosphorus Level 3.5 MG/DL (2.5-4.9) Magnesium Level 1.9 MG/DL (1.8-2.4) Current Medications Medications (Trade) Dose Ordered Sig/Anjel Route PRN Reason Start Time Stop Time Status Last Admin Dose Admin Acetaminophen (Tylenol) 650 mg Q6H PRN ORAL For Headache 01/10/20 08:00 02/09/20 07:59 Acetaminophen/ Hydrocodone Bitart ([place] 10/325) 1 tab Q6HR PRN ORAL Severe Pain (Pain Scale 7-10) 01/10/20 08:00 01/17/20 07:59 Acetaminophen/ Hydrocodone Bitart ([place] 5/325) 1 tab Q6H PRN ORAL Moderate Pain (Pain Scale 4-6) 01/10/20 08:00 01/17/20 07:59 01/11/20 02:26 Amlodipine Besylate (Norvasc) 10 mg DAILY ORAL 01/10/20 09:00 02/09/20 08:59 01/12/20 09:55 Aspirin (Ecotrin) 81 mg DAILY ORAL 01/10/20 09:00 02/24/20 08:59 01/12/20 09:53 Atorvastatin Calcium (Lipitor) 40 mg BEDTIME ORAL 01/10/20 21:00 04/09/20 20:59 01/11/20 21:59 Dextrose (Dextrose 50%) 25 ml Q30M PRN IV Hypoglycemia 01/10/20 08:00 04/09/20 07:59 Dextrose (Dextrose 50%) 50 ml Q30M PRN IV Hypoglycemia 01/10/20 08:00 04/09/20 07:59 Docusate Sodium (Colace) 100 mg TWICE A DAY ORAL 01/12/20 18:00 02/11/20 17:59 01/12/20 18:44 Furosemide (Lasix) 40 mg EVERY 12 HOURS IV 01/11/20 09:00 02/10/20 08:59 01/12/20 09:55 Guaifenesin/ Codeine Phosphate (Robitussin with codeine) 5 ml Q6H PRN ORAL For Cough 01/11/20 08:30 02/10/20 08:29 01/11/20 17:48 Heparin Sodium (Porcine) (Heparin 5000 units/ml) 5,000 units EVERY 12 HOURS SUBQ 01/11/20 09:00 02/25/20 08:59 01/12/20 09:00 Insulin Aspart (NovoLOG) BEFORE MEALS AND HS SUBQ 01/10/20 11:30 04/09/20 11:29 01/12/20 16:52 Methocarbamol (Robaxin) 750 mg TID ORAL 01/10/20 09:00 02/09/20 08:59 01/12/20 18:44 Pantoprazole (Protonix) 40 mg DAILY ORAL 01/10/20 09:00 02/09/20 08:59 01/12/20 09:55 Polyethylene Glycol (Miralax) 17 gm DAILY PRN ORAL Constipation 01/12/20 09:30 02/11/20 09:29 01/12/20 13:49 Quetiapine Fumarate (SEROqueL) 200 mg DAILY ORAL 01/10/20 09:00 02/24/20 08:59 01/12/20 09:53 Sertraline HCl (Zoloft) 100 mg DAILY ORAL 01/10/20 09:00 02/09/20 08:59 01/12/20 09:54 Rodrigo Raygoza MD Jan 12, 2020 19:06
[2020-01-12 20:00] VITALS: BP 121/69
[2020-01-12] MEDS: Atorvastatin 20mg tab ORAL SCH (20:56)
--- NOTE | 2020-01-12 22:30 | Consultation ---
DATE OF CONSULTATION: 01/12/2020 INFECTIOUS DISEASE CONSULTATION CONSULTING PHYSICIAN: Rodrigo Raygoza MD. ATTENDING PHYSICIAN: Jone García MD. REFERRING PHYSICIAN: Jone García MD. REASON FOR CONSULTATION: Possible COVID-19 virus infection. Patient with shortness of breath, mild leukocytosis. CHIEF COMPLAINT: Patient's chief complaint into the hospital is dyspnea and chest contusion. HISTORY OF PRESENT ILLNESS: This is a very pleasant 64-year-old male who comes in with cough, congestion, and dyspnea to [facility]. Patient had a CT scan of the chest and thorax and CT angio, which showed effusions, but no guillaume pneumonia. Patient has been afebrile. He has a mild leukocytosis. COVID testing is negative x1. He also has hyponatremia. Infectious Disease consultation requested for the possibly patient could have COVID infection. Patient is under investigation with 1 negative test by PCR. Followup nasopharyngeal testing is pending. He currently is in COVID-19 virus isolation. Again, he has no fevers at this time. Imaging showed no obvious pneumonia. MAR was noted. Orders were noted. Notes and records reviewed. He has had symptoms for at least several days. REVIEW OF SYSTEMS: CONSTITUTIONAL: Patient is in isolation for COVID-19 virus infection. Patient has currently no fever, chills, or night sweats. HEAD AND NECK: No head pain or neck pain. CARDIAC: No chest pain at this time. GASTROINTESTINAL: No nausea, vomiting, or diarrhea. GENITOURINARY: No CVA tenderness. He does have a Quinones catheter. PULMONARY: He came in with congestion, shortness of breath, but no congestion or shortness of breath currently. SKIN: No rash. EXTREMITIES: No pain. NEUROLOGIC: No seizures. Denies fatigue. No focal weakness. PAST MEDICAL HISTORY: Patient has a past medical history of following. Patient has a past medical history looks like hypertension and hyperlipidemia. He has history of CHF. Looks like he also has diabetes. He has elevated creatinine. He has hyponatremia, anemia. ALLERGIES: No known drug allergies. No antibiotic allergies. SOCIAL HISTORY: Negative for smoking, alcohol, or drug abuse. FAMILY HISTORY: Noncontributory. Negative for exposure to tuberculosis or cancer. MEDICATIONS: Upon reviewing the MAR, he is on following medications. He is on docusate, heparin, furosemide, atorvastatin, insulin, amlodipine, aspirin, methocarbamol, pantoprazole, quetiapine, sertraline, acetaminophen, hydrocodone. Outside medications reviewed and reconciliated. PHYSICAL EXAMINATION: VITAL SIGNS: Temperature 97.9, pulse rate 80, respiratory rate 22, blood pressure 125/64, saturation 96%. He was on 4 liters, now he is on 1 liter O2. GENERAL: Alert, responsive. No distress. He said he has less shortness of breath. HEAD AND NECK: Oral exam, no thrush. Eye exam, no icterus. Normocephalic. Neck is supple. No JVD. HEART: Regular. Possible gallop. No obvious friction rub. No murmur. ABDOMEN: Soft. Positive bowel sounds. Nontender. LUNGS: Bilateral rhonchi. Possible crackles. No obvious rales. SKIN: No rash. MUSCULOSKELETAL: No effusion. Legs are without cellulitis. PERIPHERAL VASCULAR: No cyanosis. No gangrene. No septic arthritis. GENITOURINARY: He has a Quinones. Urine is clear. No CVA tenderness. LINE SITES: Without phlebitis. NEUROLOGIC: Intact, nonfocal. Alert and oriented. LABORATORY DATA: As follows. Patient had a CT angio, which showed no pulmonary embolism. Showed no obvious consolidation. Chest x-ray showed no acute disease. No acute process. CT scan of the abdomen and pelvis showed atelectasis as well as chest CT showed atelectasis. No abscess mentioned. COVID PCR testing is negative x1 from nasopharyngeal. I believe a followup nasopharyngeal testing is pending at this time. Urinalysis not done. ASSESSMENT AND PLAN: 1. Possible COVID-19 virus infection with dyspnea. Clinically does not seem to have COVID-19 virus infections. His nasopharyngeal swab for PCR is -x1. Continue isolation for COVID-19 virus infection and check second nasopharyngeal test. If negative, then remove isolation. Because of clinical suspicion, I believe 2 tests should be sufficient if negative to remove isolation. Patient does have mild leukocytosis. We will monitor cultures. 2. Elevated creatinine. 3. Anemia. 4. Diabetes. 5. Hypertension. 6. Blood sugar and blood pressure treatment per primary care team for diabetes and hypertension. 7. Hyperlipidemia. 8. CHF. 9. Continue treatment per primary consultants. 10. No known drug allergies. 11. Social history negative. 12. Family history noncontributory. 13. MAR was noted. 14. Case discussed with RN. 15. BONILLA care. 16. COVID-19 isolation. Rodrigo Raygoza M.D. DR: MYRANDA JOB#: [id number] CC:
[2020-01-13] VITALS: BP 125/74
--- NOTE | 2020-01-13 02:13 | NUR ---
NURSE NOTES: Patient needs continuous education on fall risks and personal hygiene. Patient refuses bed bath and linen changes. Will attempt to bath later.
[2020-01-13 04:00] VITALS: BP 122/76
[2020-01-13] MEDS: NovoLOG Insulin Flexpen SUBQ SCH ×4 (05:35→21:00)
[2020-01-13 05:51] LABS: BASOPHILS % (AUTO) 0.8 % (0.0-2.0); EOSINOPHILS % (AUTO) 1.9 % (0.0-3.0); HEMATOCRIT 36.6 % (42.0-52.0); HEMOGLOBIN 12.9 G/DL (14.2-18.0); LYMPHOCYTES % (AUTO) 13.6 % (20.0-45.0); MEAN CORPUSCULAR VOLUME 83 FL (80-99); MONOCYTES % (AUTO) 5.5 % (1.0-10.0); NEUTROPHILS % (AUTO) 78.2 % (45.0-75.0); PLATELET COUNT 275 K/UL (150-450); RED CELL DISTRIBUTION WIDTH 11.9 % (11.6-14.8); WHITE BLOOD COUNT 10.7 K/UL (4.8-10.8)
[2020-01-13 06:03] LABS: ALANINE AMINOTRANSFERASE 28 U/L (12-78); ALBUMIN 3.3 G/DL (3.4-5.0); ALKALINE PHOSPHATASE 101 U/L (46-116); ANION GAP 7 mmol/L (5-15); ASPARTATE AMINO TRANSFERASE 23 U/L (15-37); BILIRUBIN,TOTAL 0.8 MG/DL (0.2-1.0); BLOOD UREA NITROGEN 25 mg/dL (7-18); CALCIUM 8.5 MG/DL (8.5-10.1); CARBON DIOXIDE 33 MMOL/L (21-32); CHLORIDE 85 MMOL/L (98-107); CREATININE 1.8 MG/DL (0.55-1.30); POTASSIUM 3.4 MMOL/L (3.5-5.1); SODIUM 125 MMOL/L (136-145)
[2020-01-13 06:08] LABS: PHOSPHORUS 3.9 MG/DL (2.5-4.9)
--- NOTE | 2020-01-13 07:00 | NUR ---
NURSE NOTES: 0700 Received report BOGDAN Thomas patient on 2 L NC breathing eating,sitting side bed,verbalize feeling better not short of breath,eating breakfast
--- NOTE | 2020-01-13 07:00 | NUR ---
HAND-OFF: Report given to BOGDAN Galicia.
[2020-01-13 08:00] VITALS: BP 133/81
[2020-01-13] MEDS: Docusate 100mg cap ORAL SCH ×2 (08:27→18:25)
[2020-01-13] MEDS: QUEtiapine 200mg tab ORAL SCH (08:29)
[2020-01-13] MEDS: Methocarbamol 750mg tab ORAL SCH ×3 (08:32→18:25)
[2020-01-13] MEDS: Sertraline 100mg tab ORAL SCH ×2 (08:33→18:25)
[2020-01-13] MEDS: Aspirin EC 81mg tab ORAL SCH (08:35)
[2020-01-13] MEDS: Heparin 5000 units/ml inj SUBQ SCH ×2 (08:37→21:18)
--- NOTE | 2020-01-13 09:00 | NUR ---
NURSE NOTES: Patient denies shortness breath,no pain,on tolerating 2 liters nasal cannula tolerating,gets short of breath on exertion,and room air,and while on 1 L nasal cannula,took medications without problem,refused colace -had BM previous shift,refuse zoloft-takes it at night,makes sleepy,called pharmacist to change schedule this PM
--- NOTE | 2020-01-13 10:02 | Diagnostic Imaging Report ---
Indication: Shortness of breath Technique: One view of the chest Comparison: 01/09/2020 Findings: Body habitus limits evaluation. There is mild interstitial prominence, probably exaggerated by body habitus. The heart is borderline enlarged. No infiltrates. No definite effusions Impression: Equivocal mild interstitial congestion. Correlate with clinical findings. No acute process otherwise
--- NOTE | 2020-01-13 10:35 | NUR ---
RADIOLOGY DEPT., CHEST X-RAY DONE.-P.DYE
--- NOTE | 2020-01-13 11:16 | Pulmonology Progress Note ---
Subjective ROS Limited/Unobtainable: No Interval Events: None new Constitutional: Reports: no symptoms HEENT: Repors: no symptoms Respiratory: Reports: no symptoms Cardiovascular: Reports: no symptoms Gastrointestinal/Abdominal: Reports: no symptoms Allergies: Coded Allergies: No Known Allergies (Unverified , 11/06/17) Objective Last 24 Hour Vital Signs Date Time Temp Pulse Resp B/P (MAP) Pulse Ox O2 Delivery O2 Flow Rate FiO2 01/13/20 08:45 22 91 01/13/20 08:36 95 133/81 01/13/20 08:30 22 87 01/13/20 08:00 97.7 95 23 133/81 (98) 95 01/13/20 06:50 97 Nasal Cannula 1.0 24 01/13/20 04:00 Nasal Cannula 1.0 01/13/20 04:00 97.9 85 24 122/76 (91) 92 01/13/20 03:53 97 01/13/20 00:00 79 01/13/20 00:00 97.5 80 22 125/74 (91) 94 01/13/20 00:00 Nasal Cannula 1.0 01/12/20 20:05 92 Nasal Cannula 1.0 24 01/12/20 20:00 Nasal Cannula 1.0 01/12/20 20:00 97.7 73 18 121/69 (86) 93 01/12/20 19:38 77 01/12/20 16:00 85 01/12/20 16:00 Nasal Cannula 1.0 01/12/20 16:00 97.9 80 22 125/64 (84) 96 01/12/20 12:00 Nasal Cannula 4.0 01/12/20 12:00 78 01/12/20 11:47 97.8 90 24 128/65 (86) 96 Intake and Output 01/12/20 01/13/20 19:00 07:00 Intake Total 850 ml Output Total 1000 ml 1300 ml Balance -150 ml -1300 ml Intake Oral 850 ml Output Urine Total 1000 ml 1300 ml # Voids 7 # Bowel Movements 2 7 General Appearance: no acute distress HEENT: normocephalic Respiratory: chest wall non-tender, lungs clear Cardiovascular: normal peripheral pulses Abdomen: normal bowel sounds Microbiology Date/Time Source Procedure Growth Status 01/11/20 22:00 Nasopharynx Coronavirus COVID-19 PCR ([facility]) - Final Complete Laboratory Tests 01/13/20 02:40: White Blood Count 10.7, Red Blood Count 4.40L, Hemoglobin 12.9L, Hematocrit 36.6L, Mean Corpuscular Volume 83, Mean Corpuscular Hemoglobin 29.3, Mean Corpuscular Hemoglobin Concent 35.2, Red Cell Distribution Width 11.9, Platelet Count 275, Mean Platelet Volume 6.1L, Neutrophils (%) (Auto) 78.2H, Lymphocytes (%) (Auto) 13.6L, Monocytes (%) (Auto) 5.5, Eosinophils (%) (Auto) 1.9, Basophils (%) (Auto) 0.8, Sodium Level 125L, Potassium Level 3.4L, Chloride Level 85L, Carbon Dioxide Level 33H, Anion Gap 7, Blood Urea Nitrogen 25H, Creatinine 1.8H, Estimat Glomerular Filtration Rate 37.9, Glucose Level 199H, Calcium Level 8.5, Phosphorus Level 3.9, Magnesium Level 1.7L, Total Bilirubin 0.8, Aspartate Amino Transf (AST/SGOT) 23, Alanine Aminotransferase (ALT/SGPT) 28, Alkaline Phosphatase 101, Total Protein 6.5, Albumin 3.3L, Globulin 3.2, Albumin/Globulin Ratio 1.0 Current Medications Medications (Trade) Dose Ordered Sig/Anjel Route PRN Reason Start Time Stop Time Status Last Admin Dose Admin Acetaminophen (Tylenol) 650 mg Q6H PRN ORAL For Headache 01/10/20 08:00 02/09/20 07:59 Acetaminophen/ Hydrocodone Bitart ([place] 10/325) 1 tab Q6HR PRN ORAL Severe Pain (Pain Scale 7-10) 01/10/20 08:00 01/17/20 07:59 Acetaminophen/ Hydrocodone Bitart ([place] 5/325) 1 tab Q6H PRN ORAL Moderate Pain (Pain Scale 4-6) 01/10/20 08:00 01/17/20 07:59 01/11/20 02:26 Amlodipine Besylate (Norvasc) 10 mg DAILY ORAL 01/10/20 09:00 02/09/20 08:59 01/13/20 08:36 Aspirin (Ecotrin) 81 mg DAILY ORAL 01/10/20 09:00 02/24/20 08:59 01/13/20 08:35 Atorvastatin Calcium (Lipitor) 40 mg BEDTIME ORAL 01/10/20 21:00 04/09/20 20:59 01/12/20 20:56 Dextrose (Dextrose 50%) 25 ml Q30M PRN IV Hypoglycemia 01/10/20 08:00 04/09/20 07:59 Dextrose (Dextrose 50%) 50 ml Q30M PRN IV Hypoglycemia 01/10/20 08:00 04/09/20 07:59 Docusate Sodium (Colace) 100 mg TWICE A DAY ORAL 01/12/20 18:00 02/11/20 17:59 01/12/20 18:44 Furosemide (Lasix) 40 mg EVERY 12 HOURS IV 01/11/20 09:00 02/10/20 08:59 01/13/20 08:27 Guaifenesin/ Codeine Phosphate (Robitussin with codeine) 5 ml Q6H PRN ORAL For Cough 01/11/20 08:30 02/10/20 08:29 01/11/20 17:48 Heparin Sodium (Porcine) (Heparin 5000 units/ml) 5,000 units EVERY 12 HOURS SUBQ 01/11/20 09:00 02/25/20 08:59 01/13/20 08:37 Insulin Aspart (NovoLOG) BEFORE MEALS AND HS SUBQ 01/10/20 11:30 04/09/20 11:29 01/13/20 05:35 Methocarbamol (Robaxin) 750 mg TID ORAL 01/10/20 09:00 02/09/20 08:59 01/13/20 08:32 Pantoprazole (Protonix) 40 mg DAILY ORAL 01/10/20 09:00 02/09/20 08:59 01/13/20 08:29 Polyethylene Glycol (Miralax) 17 gm DAILY PRN ORAL Constipation 01/12/20 09:30 02/11/20 09:29 01/12/20 13:49 Quetiapine Fumarate (SEROqueL) 200 mg DAILY ORAL 01/10/20 09:00 02/24/20 08:59 01/13/20 08:29 Sertraline HCl (Zoloft) 100 mg DAILY@1800 ORAL 01/13/20 18:00 02/12/20 17:59 Assessment/Plan Assessment/Plan IMPRESSION: 1. Respiratory acidosis/respiratory failure. Much improved 2. Status post fall/chest wall trauma. 3. Mild pulmonary edema. 4. Asthma. 5. Hypertension. 6. Diabetes. DISCUSSION: Doing well on nasal O2; SaO2 96% on 1L/min Continue current medications and care. I will follow carefully. Priscilla Rivas Omar Syed MD Jan 13, 2020 11:16
[2020-01-13 11:30] VITALS: BP 112/74
--- NOTE | 2020-01-13 11:35 | NUR ---
NURSE NOTES: 1100 Patient notified for transfer to telemetry 1135 Transferred to telemetry by bed stable,sleeping but arousable ,on 2 liters nasal cannula,high fowlers position
--- NOTE | 2020-01-13 11:45 | NUR ---
NURSE NOTES: Belongings and Money-counted with Stuart telemarketer supervisor Report Given to Stuart
--- NOTE | 2020-01-13 12:29 | NUR ---
CASE MANAGEMENT: REVIEW 01/13/2020 SI:Respiratory acidosis/respiratory failure VS: T 97.7 HR 95 RR 22 B/P 133/81 SATS 97% ON 1L/NC LABS: NA 125 K 3.4 CL 85 CO2 33 BUN 25 CR 1.8 GLU 199 MG 1.7 IS:LASIX IV Q12H LIPITOR PO QHS NORVASC PO QD ASA PO QD INSULIN ASPART SUBQ AC/HS TELE PLAN OF CARE: DOWNGRADED FROM SDU
--- NOTE | 2020-01-13 12:37 | NUR ---
DISCHARGE PLANNING: NOTE S/W YUDITH OF [facility] SHE IS ACCEPTING THIS PATIENT INTO SERVICE UPON [facility] T:[phone] F:[phone] Addendum: 01/13/20 at 1606 by Barbara Dorman CM PT IS SATTING 97% ON RA- NURSING TO DOCUMENT NA 125 DC PENDING
[2020-01-13] MEDS ORDERED: HYDROcodone/Acetamin 10/325 tab ORAL PRN (13:00)
[2020-01-13] MEDS ORDERED: guaiFENesin w/Codeine 5ml Liq ud ORAL PRN (13:00)
[2020-01-13] MEDS ORDERED: Miralax 17gm pkt ORAL PRN (13:00)
[2020-01-13] MEDS ORDERED: HYDROcodone/Acetamin 5/325 tab ORAL PRN (13:00)
--- NOTE | 2020-01-13 13:04 | Cardiology Progress Note ---
Assessment/Plan Status: progressing Assessment/Plan Assessment/Plan Problem List: (1) Contusion, knee ICD Codes: S80.00XA - Contusion of unspecified knee, initial encounter SNOMED: 42227489 (2) CHF (congestive heart failure) ICD Codes: I50.9 - Heart failure, unspecified SNOMED: 14240558 (3) Sternal fracture ICD Codes: S22.20XA - Unspecified fracture of sternum, initial encounter for closed fracture SNOMED: 83752489 (4) Knee contusion ICD Codes: S80.00XA - Contusion of unspecified knee, initial encounter SNOMED: 01678280 (5) Dyspnea ICD Codes: R06.00 - Dyspnea, unspecified SNOMED: 735086911 (6) Chest wall contusion ICD Codes: S20.219A - Contusion of unspecified front wall of thorax, initial encounter SNOMED: 92972635 Status: stable Serial EKG/Troponin Monitor on telemetry Echcoardiogram with normal LV function, no WMA, no significant valvular disease Pain control IV fluids Aspirin Statin therapy Maintain lisinopril Chest pain unlikely ACS - defer further cardiac work up at this time, no indication for cath/stress test Subjective Cardiovascular: Reports: no symptoms Respiratory: Reports: no symptoms Gastrointestinal/Abdominal: Reports: no symptoms Genitourinary: Reports: no symptoms Subjective No acute events, pain controlled, poor historian, no acute events TTE with normal LV function Stable on minimal oxygen, SOB improved Objective Last 24 Hour Vital Signs Date Time Temp Pulse Resp B/P (MAP) Pulse Ox O2 Delivery O2 Flow Rate FiO2 01/13/20 11:30 97.8 86 20 112/74 (87) 95 01/13/20 08:45 22 91 01/13/20 08:36 95 133/81 01/13/20 08:30 94 01/13/20 08:30 Nasal Cannula 2.0 01/13/20 08:30 22 87 01/13/20 08:00 97.7 95 23 133/81 (98) 95 01/13/20 06:50 97 Nasal Cannula 1.0 24 01/13/20 04:00 Nasal Cannula 1.0 01/13/20 04:00 97.9 85 24 122/76 (91) 92 01/13/20 03:53 97 01/13/20 00:00 79 01/13/20 00:00 97.5 80 22 125/74 (91) 94 01/13/20 00:00 Nasal Cannula 1.0 01/12/20 20:05 92 Nasal Cannula 1.0 24 01/12/20 20:00 Nasal Cannula 1.0 01/12/20 20:00 97.7 73 18 121/69 (86) 93 01/12/20 19:38 77 01/12/20 16:00 85 01/12/20 16:00 Nasal Cannula 1.0 01/12/20 16:00 97.9 80 22 125/64 (84) 96 General Appearance: no apparent distress, alert EENT: PERRL/EOMI, normal ENT inspection, TMs normal, pharynx normal Neck: non-tender, normal alignment, supple, normal inspection Rhythm: NSR Cardiovascular: normal peripheral pulses, normal rate Respiratory/Chest: chest wall non-tender, normal breath sounds Abdomen: normal bowel sounds, non tender, soft Extremities: normal range of motion, non-tender, normal inspection, no calf tenderness, no swelling 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, no motor/sensory deficits Intake and Output 01/12/20 01/13/20 18:59 06:59 Intake Total 850 ml Output Total 1000 ml 1300 ml Balance -150 ml -1300 ml Intake Oral 850 ml Output Urine Total 1000 ml 1300 ml # Voids 7 # Bowel Movements 2 7 Laboratory Tests Test 01/13/20 02:40 White Blood Count 10.7 K/UL (4.8-10.8) Red Blood Count 4.40 M/UL (4.70-6.10) L Hemoglobin 12.9 G/DL (14.2-18.0) L Hematocrit 36.6 % (42.0-52.0) L Mean Corpuscular Volume 83 FL (80-99) Mean Corpuscular Hemoglobin 29.3 PG (27.0-31.0) Mean Corpuscular Hemoglobin Concent 35.2 G/DL (32.0-36.0) Red Cell Distribution Width 11.9 % (11.6-14.8) Platelet Count 275 K/UL (150-450) Mean Platelet Volume 6.1 FL (6.5-10.1) L Neutrophils (%) (Auto) 78.2 % (45.0-75.0) H Lymphocytes (%) (Auto) 13.6 % (20.0-45.0) L Monocytes (%) (Auto) 5.5 % (1.0-10.0) Eosinophils (%) (Auto) 1.9 % (0.0-3.0) Basophils (%) (Auto) 0.8 % (0.0-2.0) Sodium Level 125 MMOL/L (136-145) L Potassium Level 3.4 MMOL/L (3.5-5.1) L Chloride Level 85 MMOL/L (98-107) L Carbon Dioxide Level 33 MMOL/L (21-32) H Anion Gap 7 mmol/L (5-15) Blood Urea Nitrogen 25 mg/dL (7-18) H Creatinine 1.8 MG/DL (0.55-1.30) H Estimat Glomerular Filtration Rate 37.9 mL/min (>60) Glucose Level 199 MG/DL (74-106) H Calcium Level 8.5 MG/DL (8.5-10.1) Phosphorus Level 3.9 MG/DL (2.5-4.9) Magnesium Level 1.7 MG/DL (1.8-2.4) L Total Bilirubin 0.8 MG/DL (0.2-1.0) Aspartate Amino Transf (AST/SGOT) 23 U/L (15-37) Alanine Aminotransferase (ALT/SGPT) 28 U/L (12-78) Alkaline Phosphatase 101 U/L (46-116) Total Protein 6.5 G/DL (6.4-8.2) Albumin 3.3 G/DL (3.4-5.0) L Globulin 3.2 g/dL Albumin/Globulin Ratio 1.0 (1.0-2.7) Microbiology Date/Time Source Procedure Growth Status 01/11/20 22:00 Nasopharynx Coronavirus COVID-19 PCR ([facility]) - Final Complete Filsoof,Otilio Langford MD Jan 13, 2020 13:04
--- NOTE | 2020-01-13 14:29 | Nephrology Progress Note ---
Assessment/Plan Plan #SOB possible CHF #r/o COVID #Hypervolumic hyponatremia #chest pain #HTN #HLD - pulm consulted - cardiology consult - lasix 40 Iv daily - hold NSAID - Gen surgery consulted - hold lisinopril 40mg daily - amlodipine 10mg daily - monitor BMP, mag and phos daily - replete lytes Subjective ROS Limited/Unobtainable: No Constitutional: Denies: no symptoms, chills, diaphoresis, fever, malaise, weakness, other HEENT: Denies: no symptoms, eye pain, blurred vision, tearing, double vision, ear pain, ear discharge, nose pain, nose congestion, throat pain, throat swelling, mouth pain, mouth swelling, other Genitourinary: Denies: no symptoms, burning, discharge, frequency, flank pain, hematuria, incontinence, pain, urgency, other Neurologic/Psychiatric: Denies: no symptoms, anxiety, depressed, emotional problems, headache, numbness, paresthesia, pre-existing deficit, seizure, tingling, tremors, weakness, other Subjective breathing improving chest pain controlled sodium slowly improving holding lisinopril Objective Objective Last 24 Hour Vital Signs Date Time Temp Pulse Resp B/P (MAP) Pulse Ox O2 Delivery O2 Flow Rate FiO2 01/13/20 12:00 83 01/13/20 11:30 97.8 86 20 112/74 (87) 95 01/13/20 08:45 22 91 01/13/20 08:36 95 133/81 01/13/20 08:30 94 01/13/20 08:30 Nasal Cannula 2.0 01/13/20 08:30 22 87 01/13/20 08:00 97.7 95 23 133/81 (98) 95 01/13/20 06:50 97 Nasal Cannula 1.0 24 01/13/20 04:00 Nasal Cannula 1.0 01/13/20 04:00 97.9 85 24 122/76 (91) 92 01/13/20 03:53 97 01/13/20 00:00 79 01/13/20 00:00 97.5 80 22 125/74 (91) 94 01/13/20 00:00 Nasal Cannula 1.0 01/12/20 20:05 92 Nasal Cannula 1.0 24 01/12/20 20:00 Nasal Cannula 1.0 01/12/20 20:00 97.7 73 18 121/69 (86) 93 01/12/20 19:38 77 01/12/20 16:00 85 01/12/20 16:00 Nasal Cannula 1.0 01/12/20 16:00 97.9 80 22 125/64 (84) 96 Intake and Output 01/12/20 01/13/20 19:00 07:00 Intake Total 850 ml Output Total 1000 ml 1300 ml Balance -150 ml -1300 ml Intake Oral 850 ml Output Urine Total 1000 ml 1300 ml # Voids 7 # Bowel Movements 2 7 Laboratory Tests 01/13/20 02:40: White Blood Count 10.7, Red Blood Count 4.40L, Hemoglobin 12.9L, Hematocrit 36.6L, Mean Corpuscular Volume 83, Mean Corpuscular Hemoglobin 29.3, Mean Corpuscular Hemoglobin Concent 35.2, Red Cell Distribution Width 11.9, Platelet Count 275, Mean Platelet Volume 6.1L, Neutrophils (%) (Auto) 78.2H, Lymphocytes (%) (Auto) 13.6L, Monocytes (%) (Auto) 5.5, Eosinophils (%) (Auto) 1.9, Basophils (%) (Auto) 0.8, Sodium Level 125L, Potassium Level 3.4L, Chloride Level 85L, Carbon Dioxide Level 33H, Anion Gap 7, Blood Urea Nitrogen 25H, Creatinine 1.8H, Estimat Glomerular Filtration Rate 37.9, Glucose Level 199H, Calcium Level 8.5, Phosphorus Level 3.9, Magnesium Level 1.7L, Total Bilirubin 0.8, Aspartate Amino Transf (AST/SGOT) 23, Alanine Aminotransferase (ALT/SGPT) 28, Alkaline Phosphatase 101, Total Protein 6.5, Albumin 3.3L, Globulin 3.2, Albumin/Globulin Ratio 1.0 Height (Feet): 5 Height (Inches): 10.00 Weight (Pounds): 229 Jone García M.D. Jan 13, 2020 14:29
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
--- NOTE | 2020-01-13 15:36 | General Progress Note ---
Assessment/Plan Problem List: (1) Contusion, knee ICD Codes: S80.00XA - Contusion of unspecified knee, initial encounter SNOMED: 86589703 (2) CHF (congestive heart failure) ICD Codes: I50.9 - Heart failure, unspecified SNOMED: 18399527 (3) Sternal fracture ICD Codes: S22.20XA - Unspecified fracture of sternum, initial encounter for closed fracture SNOMED: 45425685 (4) Knee contusion ICD Codes: S80.00XA - Contusion of unspecified knee, initial encounter SNOMED: 67057307 (5) Dyspnea ICD Codes: R06.00 - Dyspnea, unspecified SNOMED: 873116855 (6) Chest wall contusion ICD Codes: S20.219A - Contusion of unspecified front wall of thorax, initial encounter SNOMED: 98936220 Status: progressing Assessment/Plan: Mr. Anderson is a 64 year old male with unclear PMHx, here with 2 days of chest pain after fall, and chronic swelling, SOB #S/p fall #Suspected sternal fracture -imaging likely + for sternal fx. -appreciate surgery input. -pain control. #Severe hyponatremia #Metabolic acidosis #PAULINE - improving #?CKD -nephro following -Diuresis as below -BMP #Swelling #SOB #Acute on chronic diastolic CHF #HTN #Acute hypoxic respiratory failure -cardiology on board -contionue lisinopril -s/p TTE, EF 55-60%, did not comment on diastolic dysfunction. Clinically meets criteria for CHF. -pneindg COVID repeat. first one negative. -may need O2 on d/c, pending titration. currently satting high 80's on RA. -H&H entered #Hypomagnesemina -s/p repletion Time spent on encounter 40 mins, 20mins on counseling, coordination of care, d/ w RN, CM, consultants. Time of note doesn't reflect time of encounter. Subjective Date patient seen: Jan 13, 2020 ROS Limited/Unobtainable: No Constitutional: Denies: no symptoms, chills, diaphoresis, fever, malaise, weakness, other HEENT: Denies: no symptoms, eye pain, blurred vision, tearing, double vision, ear pain, ear discharge, nose pain, nose congestion, throat pain, throat swelling, mouth pain, mouth swelling, other Cardiovascular: Denies: no symptoms, chest pain, edema, irregular heart rate, lightheadedness, palpitations, syncope, other Respiratory: Reports: cough, shortness of breath Gastrointestinal/Abdominal: Denies: no symptoms, abdomen distended, abdominal pain, black stools, tarry stools, blood in stool, constipated, diarrhea, difficulty swallowing, nausea, poor appetite, poor fluid intake, rectal bleeding , vomiting, other Genitourinary: Denies: no symptoms, burning, discharge, frequency, flank pain, hematuria, incontinence, pain, urgency, other Neurologic/Psychiatric: Denies: no symptoms, anxiety, depressed, emotional problems, headache, numbness, paresthesia, pre-existing deficit, seizure, tingling, tremors, weakness, other Endocrine: Denies: no symptoms, excessive sweating, flushing, intolerance to cold, intolerance to heat, increased hunger, increased thirst, increased urine, unexplained weight gain, unexplained weight loss, other Hematologic/Lymphatic: Denies: no symptoms, anemia, easy bleeding, easy bruising, other Allergies: Coded Allergies: No Known Allergies (Unverified , 11/06/17) Subjective resting in bed, still short of breath and legs swollen, improved. wants to go home. Objective Last 24 Hour Vital Signs Date Time Temp Pulse Resp B/P (MAP) Pulse Ox O2 Delivery O2 Flow Rate FiO2 01/13/20 12:00 83 01/13/20 11:30 97.8 86 20 112/74 (87) 95 01/13/20 08:45 22 91 01/13/20 08:36 95 133/81 01/13/20 08:30 94 01/13/20 08:30 Nasal Cannula 2.0 01/13/20 08:30 22 87 01/13/20 08:00 97.7 95 23 133/81 (98) 95 01/13/20 06:50 97 Nasal Cannula 1.0 24 01/13/20 04:00 Nasal Cannula 1.0 01/13/20 04:00 97.9 85 24 122/76 (91) 92 01/13/20 03:53 97 01/13/20 00:00 79 01/13/20 00:00 97.5 80 22 125/74 (91) 94 01/13/20 00:00 Nasal Cannula 1.0 01/12/20 20:05 92 Nasal Cannula 1.0 24 01/12/20 20:00 Nasal Cannula 1.0 01/12/20 20:00 97.7 73 18 121/69 (86) 93 01/12/20 19:38 77 01/12/20 16:00 85 01/12/20 16:00 Nasal Cannula 1.0 01/12/20 16:00 97.9 80 22 125/64 (84) 96 Intake and Output 01/12/20 01/13/20 19:00 07:00 Intake Total 850 ml Output Total 1000 ml 1300 ml Balance -150 ml -1300 ml Intake Oral 850 ml Output Urine Total 1000 ml 1300 ml # Voids 7 # Bowel Movements 2 7 Laboratory Tests 01/13/20 02:40: White Blood Count 10.7, Red Blood Count 4.40L, Hemoglobin 12.9L, Hematocrit 36.6L, Mean Corpuscular Volume 83, Mean Corpuscular Hemoglobin 29.3, Mean Corpuscular Hemoglobin Concent 35.2, Red Cell Distribution Width 11.9, Platelet Count 275, Mean Platelet Volume 6.1L, Neutrophils (%) (Auto) 78.2H, Lymphocytes (%) (Auto) 13.6L, Monocytes (%) (Auto) 5.5, Eosinophils (%) (Auto) 1.9, Basophils (%) (Auto) 0.8, Sodium Level 125L, Potassium Level 3.4L, Chloride Level 85L, Carbon Dioxide Level 33H, Anion Gap 7, Blood Urea Nitrogen 25H, Creatinine 1.8H, Estimat Glomerular Filtration Rate 37.9, Glucose Level 199H, Calcium Level 8.5, Phosphorus Level 3.9, Magnesium Level 1.7L, Total Bilirubin 0.8, Aspartate Amino Transf (AST/SGOT) 23, Alanine Aminotransferase (ALT/SGPT) 28, Alkaline Phosphatase 101, Total Protein 6.5, Albumin 3.3L, Globulin 3.2, Albumin/Globulin Ratio 1.0 Height (Feet): 5 Height (Inches): 10.00 Weight (Pounds): 229 General Appearance: no apparent distress, alert EENT: PERRL/EOMI Neck: supple Cardiovascular: normal rate, regular rhythm Respiratory/Chest: lungs clear, normal breath sounds Abdomen: soft Edema: moderate edema Neurologic: alert, oriented x 3 Marcel Ortiz MD Jan 13, 2020 15:36
[2020-01-13 16:00] VITALS: BP 131/69
[2020-01-13] MEDS ORDERED: Sertraline 100mg tab ORAL SCH (18:00)
--- NOTE | 2020-01-13 19:10 | NUR ---
NURSE NOTES: Received hand-off report from BOGDAN Davidson. Patient is resting in bed, semi-fowlers position on RA. No acute signs of distress noted, patient in stable condition. Provided stand-by assist while patient ambulated safely to the toilet. Assisted patient back to the bed safely. IV site is clean, dry, intact, flushing well, no redness, no swelling, no leaking, running prescribed fluids at prescribed rate. Patient is resting in semi-fowlers, cardiac leads in place, slasher operator working, bed in lowest and locked position, bed alarm activated, call light within reach. Discarded 200 mL of urine from the urinal into the toilet. Urine is yellow and clear.
[2020-01-13 20:00] VITALS: BP 136/69
[2020-01-13] MEDS: Atorvastatin 20mg tab ORAL SCH (21:17)
[2020-01-14] VITALS: BP 142/74
--- NOTE | 2020-01-14 03:06 | Diagnostic Imaging Report ---
EXAM: US Duplex Bilateral Lower Extremities Veins CLINICAL HISTORY: Images Study Description: VENOUS DUPLEX SCAN BILAT LEG BOTH LEFT AND RIGHT Body Part: <none> r/o dvt TECHNIQUE: Real-time duplex ultrasound scan of the bilateral lower extremity veins integrating B-mode two-dimensional vascular structure, Doppler spectral analysis, color flow Doppler imaging and compression. COMPARISON: None. FINDINGS: Right deep veins: Imaging of the lower extremity venous systems reveals no deep venous thrombosis including the common femoral veins, superficial femoral veins, the popliteal veins, and the calf veins. Right superficial veins: Unremarkable. No thrombus in the visualized right great saphenous vein. Left deep veins: See above. Left superficial veins: Unremarkable. No thrombus in the visualized left great saphenous vein. Soft tissues: Soft tissues are unremarkable. No popliteal cyst. IMPRESSION: No deep venous thrombosis either lower extremity deep venous system.
[2020-01-14 04:00] VITALS: BP 149/73
[2020-01-14 05:49] LABS: ANION GAP 4 mmol/L (5-15); BLOOD UREA NITROGEN 25 mg/dL (7-18); CALCIUM 8.3 MG/DL (8.5-10.1); CARBON DIOXIDE 36 MMOL/L (21-32); CHLORIDE 88 MMOL/L (98-107); CREATININE 1.6 MG/DL (0.55-1.30); PHOSPHORUS 3.3 MG/DL (2.5-4.9); POTASSIUM 3.2 MMOL/L (3.5-5.1); SODIUM 128 MMOL/L (136-145)
[2020-01-14] MEDS: NovoLOG Insulin Flexpen SUBQ SCH ×4 (06:01→21:00)
--- NOTE | 2020-01-14 07:01 | Pulmonology Progress Note ---
Subjective ROS Limited/Unobtainable: No Interval Events: None new Constitutional: Reports: no symptoms HEENT: Repors: no symptoms Respiratory: Reports: no symptoms Cardiovascular: Reports: no symptoms Gastrointestinal/Abdominal: Reports: no symptoms Allergies: Coded Allergies: No Known Allergies (Unverified , 11/06/17) Objective Last 24 Hour Vital Signs Date Time Temp Pulse Resp B/P (MAP) Pulse Ox O2 Delivery O2 Flow Rate FiO2 01/14/20 04:00 97.5 89 20 149/73 (98) 94 01/14/20 04:00 89 01/14/20 00:00 97.9 79 20 142/74 (96) 95 01/14/20 00:00 79 01/13/20 21:00 Room Air 01/13/20 20:00 75 01/13/20 20:00 97.6 80 18 136/69 (91) 98 01/13/20 19:28 97 Nasal Cannula 1.0 24 01/13/20 16:00 75 01/13/20 16:00 97.7 75 20 131/69 (89) 93 01/13/20 12:00 83 01/13/20 11:30 97.8 86 20 112/74 (87) 95 01/13/20 08:45 22 91 01/13/20 08:36 95 133/81 01/13/20 08:30 94 01/13/20 08:30 Nasal Cannula 2.0 01/13/20 08:30 22 87 01/13/20 08:00 97.7 95 23 133/81 (98) 95 Intake and Output 01/13/20 01/14/20 19:00 07:00 Intake Total 700 ml 650 ml Output Total 500 ml Balance 700 ml 150 ml Intake Oral 700 ml 650 ml Output Urine Total 500 ml # Voids 4 2 # Bowel Movements 3 4 General Appearance: no acute distress HEENT: normocephalic Respiratory: chest wall non-tender, lungs clear Cardiovascular: normal peripheral pulses Abdomen: normal bowel sounds Microbiology Date/Time Source Procedure Growth Status 01/11/20 22:00 Nasopharynx Coronavirus COVID-19 PCR ([facility]) - Final Complete Laboratory Tests 01/14/20 05:02: Sodium Level 128L, Potassium Level 3.2L, Chloride Level 88L, Carbon Dioxide Level 36H, Anion Gap 4L, Blood Urea Nitrogen 25H, Creatinine 1.6H, Estimat Glomerular Filtration Rate 43.5, Glucose Level 162H, Calcium Level 8.3L, Phosphorus Level 3.3, Magnesium Level 1.9 Current Medications Medications (Trade) Dose Ordered Sig/Anjel Route PRN Reason Start Time Stop Time Status Last Admin Dose Admin Acetaminophen (Tylenol) 650 mg Q6H PRN ORAL For Headache 01/13/20 13:00 02/09/20 12:59 Acetaminophen/ Hydrocodone Bitart ([place] 10/325) 1 tab Q6H PRN ORAL Severe Pain (Pain Scale 7-10) 01/13/20 13:00 01/20/20 12:59 Acetaminophen/ Hydrocodone Bitart ([place] 5/325) 1 tab Q6H PRN ORAL Moderate Pain (Pain Scale 4-6) 01/13/20 13:00 01/17/20 12:59 Amlodipine Besylate (Norvasc) 10 mg DAILY ORAL 01/14/20 09:00 02/09/20 08:59 Aspirin (Ecotrin) 81 mg DAILY ORAL 01/14/20 09:00 02/24/20 08:59 Atorvastatin Calcium (Lipitor) 40 mg BEDTIME ORAL 01/13/20 21:00 04/09/20 20:59 01/13/20 21:17 Dextrose (Dextrose 50%) 25 ml Q30M PRN IV Hypoglycemia 01/13/20 12:30 04/09/20 07:59 Dextrose (Dextrose 50%) 50 ml Q30M PRN IV Hypoglycemia 01/13/20 12:30 04/09/20 07:59 Docusate Sodium (Colace) 100 mg TWICE A DAY ORAL 01/13/20 18:00 02/11/20 17:59 01/13/20 18:25 Guaifenesin/ Codeine Phosphate (Robitussin with codeine) 5 ml Q6H PRN ORAL For Cough 01/13/20 13:00 02/10/20 12:59 Heparin Sodium (Porcine) (Heparin 5000 units/ml) 5,000 units EVERY 12 HOURS SUBQ 01/13/20 21:00 02/25/20 08:59 01/13/20 21:18 Insulin Aspart (NovoLOG) BEFORE MEALS AND HS SUBQ 01/13/20 16:30 04/09/20 11:29 01/13/20 16:46 Methocarbamol (Robaxin) 750 mg TID ORAL 01/13/20 13:00 02/09/20 08:59 01/13/20 18:25 Pantoprazole (Protonix) 40 mg DAILY ORAL 01/14/20 09:00 02/09/20 08:59 Polyethylene Glycol (Miralax) 17 gm DAILYPRN PRN ORAL Constipation 01/13/20 13:00 02/12/20 12:59 Quetiapine Fumarate (SEROqueL) 200 mg DAILY ORAL 01/14/20 09:00 02/24/20 08:59 Sertraline HCl (Zoloft) 100 mg DAILY@1800 ORAL 01/13/20 18:00 02/12/20 17:59 01/13/20 18:25 Assessment/Plan Assessment/Plan IMPRESSION: 1. Respiratory acidosis/respiratory failure. Much improved 2. Status post fall/chest wall trauma. 3. Mild pulmonary edema. 4. Asthma. 5. Hypertension. 6. Diabetes. DISCUSSION: Doing well on nasal O2; SaO2 96% on 1L/min Continue current medications and care. I will follow carefully. Priscilla Rivas Omar Syed MD Jan 14, 2020 07:01
--- NOTE | 2020-01-14 07:34 | NUR ---
NURSE NOTES: Pt awake/alert in bed, breathing easily on room air, denies SOB denies pain at this time. Vital signs stable with SR 1st deg @ 93 on monitor. IV access RH and RFA, both flushed with 10 ml NS and locked. Bed left in low position, side rails up x 2 and call light left near pt's hand.
[2020-01-14 08:19] VITALS: BP 148/80
[2020-01-14] MEDS: Docusate 100mg cap ORAL SCH ×2 (08:48→18:00)
[2020-01-14] MEDS: QUEtiapine 200mg tab ORAL SCH (08:49)
[2020-01-14] MEDS: Methocarbamol 750mg tab ORAL SCH ×3 (08:49→18:00)
[2020-01-14] MEDS: Heparin 5000 units/ml inj SUBQ SCH ×2 (08:54→22:37)
[2020-01-14] MEDS ORDERED: Aspirin EC 81mg tab ORAL SCH (09:00)
--- NOTE | 2020-01-14 11:06 | Internal Med Progress Note ---
Subjective Physician Name Gabby Nam Attending Physician Jone García M.D. Current Medications Medications (Trade) Dose Ordered Sig/Anjel Route PRN Reason Start Time Stop Time Status Last Admin Dose Admin Acetaminophen (Tylenol) 650 mg Q6H PRN ORAL For Headache 01/13/20 13:00 02/09/20 12:59 Acetaminophen/ Hydrocodone Bitart ([place] 10/325) 1 tab Q6H PRN ORAL Severe Pain (Pain Scale 7-10) 01/13/20 13:00 01/20/20 12:59 Acetaminophen/ Hydrocodone Bitart ([place] 5/325) 1 tab Q6H PRN ORAL Moderate Pain (Pain Scale 4-6) 01/13/20 13:00 01/17/20 12:59 Amlodipine Besylate (Norvasc) 10 mg DAILY ORAL 01/14/20 09:00 02/09/20 08:59 01/14/20 08:49 Aspirin (Ecotrin) 81 mg DAILY ORAL 01/14/20 09:00 02/24/20 08:59 01/14/20 08:48 Atorvastatin Calcium (Lipitor) 40 mg BEDTIME ORAL 01/13/20 21:00 04/09/20 20:59 01/13/20 21:17 Dextrose (Dextrose 50%) 25 ml Q30M PRN IV Hypoglycemia 01/13/20 12:30 04/09/20 07:59 Dextrose (Dextrose 50%) 50 ml Q30M PRN IV Hypoglycemia 01/13/20 12:30 04/09/20 07:59 Docusate Sodium (Colace) 100 mg TWICE A DAY ORAL 01/13/20 18:00 02/11/20 17:59 01/13/20 18:25 Guaifenesin/ Codeine Phosphate (Robitussin with codeine) 5 ml Q6H PRN ORAL For Cough 01/13/20 13:00 02/10/20 12:59 Heparin Sodium (Porcine) (Heparin 5000 units/ml) 5,000 units EVERY 12 HOURS SUBQ 01/13/20 21:00 02/25/20 08:59 01/14/20 08:54 Insulin Aspart (NovoLOG) BEFORE MEALS AND HS SUBQ 01/13/20 16:30 04/09/20 11:29 01/13/20 16:46 Methocarbamol (Robaxin) 750 mg TID ORAL 01/13/20 13:00 02/09/20 08:59 01/14/20 08:49 Pantoprazole (Protonix) 40 mg DAILY ORAL 01/14/20 09:00 02/09/20 08:59 01/14/20 08:49 Polyethylene Glycol (Miralax) 17 gm DAILYPRN PRN ORAL Constipation 01/13/20 13:00 02/12/20 12:59 Quetiapine Fumarate (SEROqueL) 200 mg DAILY ORAL 01/14/20 09:00 02/24/20 08:59 01/14/20 08:49 Sertraline HCl (Zoloft) 100 mg DAILY@1800 ORAL 01/13/20 18:00 02/12/20 17:59 01/13/20 18:25 Allergies: Coded Allergies: No Known Allergies (Unverified , 11/06/17) Objective Last Vital Signs Date Time Temp Pulse Resp B/P (MAP) Pulse Ox O2 Delivery O2 Flow Rate FiO2 01/14/20 08:49 97 148/80 01/14/20 08:31 Room Air 01/14/20 08:19 96.6 20 91 01/13/20 19:28 1.0 24 Laboratory Tests Test 01/14/20 05:02 Sodium Level 128 MMOL/L (136-145) L Potassium Level 3.2 MMOL/L (3.5-5.1) L Chloride Level 88 MMOL/L (98-107) L Carbon Dioxide Level 36 MMOL/L (21-32) H Anion Gap 4 mmol/L (5-15) L Blood Urea Nitrogen 25 mg/dL (7-18) H Creatinine 1.6 MG/DL (0.55-1.30) H Estimat Glomerular Filtration Rate 43.5 mL/min (>60) Glucose Level 162 MG/DL (74-106) H Calcium Level 8.3 MG/DL (8.5-10.1) L Phosphorus Level 3.3 MG/DL (2.5-4.9) Magnesium Level 1.9 MG/DL (1.8-2.4) Microbiology Date/Time Source Procedure Growth Status 01/11/20 22:00 Nasopharynx Coronavirus COVID-19 PCR ([facility]) - Final Complete Intake and Output 01/13/20 01/14/20 19:00 07:00 Intake Total 700 ml 650 ml Output Total 500 ml Balance 700 ml 150 ml Intake Oral 700 ml 650 ml Output Urine Total 500 ml # Voids 4 2 # Bowel Movements 3 4 Assessment/Plan Assessment/Plan Assessment #Sternal Fx , no surgical intervention #Systolic CHF w/ Pulmonary Congestion #Hypervolemic Hyponatremia #PAULINE on CKD Gabby Nam D.O. Jan 14, 2020 11:06
[2020-01-14 11:57] VITALS: BP 143/85
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
--- NOTE | 2020-01-14 13:59 | Cardiology Progress Note ---
Assessment/Plan Status: stable Assessment/Plan Assessment/Plan Problem List: (1) Contusion, knee ICD Codes: S80.00XA - Contusion of unspecified knee, initial encounter SNOMED: 85939836 (2) CHF (congestive heart failure) ICD Codes: I50.9 - Heart failure, unspecified SNOMED: 01824143 (3) Sternal fracture ICD Codes: S22.20XA - Unspecified fracture of sternum, initial encounter for closed fracture SNOMED: 23312171 (4) Knee contusion ICD Codes: S80.00XA - Contusion of unspecified knee, initial encounter SNOMED: 19866786 (5) Dyspnea ICD Codes: R06.00 - Dyspnea, unspecified SNOMED: 071997201 (6) Chest wall contusion ICD Codes: S20.219A - Contusion of unspecified front wall of thorax, initial encounter SNOMED: 63962899 Status: stable Serial EKG/Troponin Monitor on telemetry Echcoardiogram with normal LV function, no WMA, no significant valvular disease Pain control IV fluids Aspirin Statin therapy Maintain lisinopril Chest pain unlikely ACS - defer further cardiac work up at this time, no indication for cath/stress test Subjective Cardiovascular: Reports: no symptoms Respiratory: Reports: no symptoms Gastrointestinal/Abdominal: Reports: no symptoms Genitourinary: Reports: no symptoms Subjective No acute events, pain controlled, poor historian, no acute events TTE with normal LV function Stable on minimal oxygen, SOB improved Objective Last 24 Hour Vital Signs Date Time Temp Pulse Resp B/P (MAP) Pulse Ox O2 Delivery O2 Flow Rate FiO2 01/14/20 12:00 79 01/14/20 11:57 96.9 96 18 143/85 (104) 92 01/14/20 08:49 97 148/80 01/14/20 08:43 97 01/14/20 08:31 Room Air 01/14/20 08:19 96.6 98 20 148/80 (102) 91 01/14/20 04:00 97.5 89 20 149/73 (98) 94 01/14/20 04:00 89 01/14/20 00:00 97.9 79 20 142/74 (96) 95 01/14/20 00:00 79 01/13/20 21:00 Room Air 01/13/20 20:00 75 01/13/20 20:00 97.6 80 18 136/69 (91) 98 01/13/20 19:28 97 Nasal Cannula 1.0 24 01/13/20 16:00 75 01/13/20 16:00 97.7 75 20 131/69 (89) 93 General Appearance: no apparent distress, alert EENT: PERRL/EOMI, normal ENT inspection, TMs normal Neck: non-tender, normal alignment, supple Rhythm: NSR Cardiovascular: normal peripheral pulses, normal rate, regular rhythm Respiratory/Chest: chest wall non-tender, lungs clear, no respiratory distress Abdomen: normal bowel sounds, non tender Extremities: normal range of motion, non-tender, normal inspection, no calf tenderness, no swelling Neurologic: implementation director II-XII grossly normal, no motor/sensory deficits Intake and Output 01/13/20 01/14/20 19:00 07:00 Intake Total 700 ml 650 ml Output Total 500 ml Balance 700 ml 150 ml Intake Oral 700 ml 650 ml Output Urine Total 500 ml # Voids 4 2 # Bowel Movements 3 4 Laboratory Tests Test 01/14/20 05:02 Sodium Level 128 MMOL/L (136-145) L Potassium Level 3.2 MMOL/L (3.5-5.1) L Chloride Level 88 MMOL/L (98-107) L Carbon Dioxide Level 36 MMOL/L (21-32) H Anion Gap 4 mmol/L (5-15) L Blood Urea Nitrogen 25 mg/dL (7-18) H Creatinine 1.6 MG/DL (0.55-1.30) H Estimat Glomerular Filtration Rate 43.5 mL/min (>60) Glucose Level 162 MG/DL (74-106) H Calcium Level 8.3 MG/DL (8.5-10.1) L Phosphorus Level 3.3 MG/DL (2.5-4.9) Magnesium Level 1.9 MG/DL (1.8-2.4) Microbiology Date/Time Source Procedure Growth Status 01/11/20 22:00 Nasopharynx Coronavirus COVID-19 PCR ([facility]) - Final Complete Filsoof,Otilio Langford MD Jan 14, 2020 13:59
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
[2020-01-14 15:41] VITALS: BP 141/76
--- NOTE | 2020-01-14 16:33 | Internal Med Progress Note ---
Subjective Date of Service: Jan 14, 2020 Physician Name Gabby Nam Attending Physician Jone García M.D. Current Medications Medications (Trade) Dose Ordered Sig/Anjel Route PRN Reason Start Time Stop Time Status Last Admin Dose Admin Acetaminophen (Tylenol) 650 mg Q6H PRN ORAL For Headache 01/13/20 13:00 02/09/20 12:59 Acetaminophen/ Hydrocodone Bitart ([place] 10/325) 1 tab Q6H PRN ORAL Severe Pain (Pain Scale 7-10) 01/13/20 13:00 01/20/20 12:59 Acetaminophen/ Hydrocodone Bitart ([place] 5/325) 1 tab Q6H PRN ORAL Moderate Pain (Pain Scale 4-6) 01/13/20 13:00 01/17/20 12:59 Amlodipine Besylate (Norvasc) 10 mg DAILY ORAL 01/14/20 09:00 02/09/20 08:59 01/14/20 08:49 Aspirin (Ecotrin) 81 mg DAILY ORAL 01/14/20 09:00 02/24/20 08:59 01/14/20 08:48 Atorvastatin Calcium (Lipitor) 40 mg BEDTIME ORAL 01/13/20 21:00 04/09/20 20:59 01/13/20 21:17 Dextrose (Dextrose 50%) 25 ml Q30M PRN IV Hypoglycemia 01/13/20 12:30 04/09/20 07:59 Dextrose (Dextrose 50%) 50 ml Q30M PRN IV Hypoglycemia 01/13/20 12:30 04/09/20 07:59 Docusate Sodium (Colace) 100 mg TWICE A DAY ORAL 01/13/20 18:00 02/11/20 17:59 01/13/20 18:25 Guaifenesin/ Codeine Phosphate (Robitussin with codeine) 5 ml Q6H PRN ORAL For Cough 01/13/20 13:00 02/10/20 12:59 Heparin Sodium (Porcine) (Heparin 5000 units/ml) 5,000 units EVERY 12 HOURS SUBQ 01/13/20 21:00 02/25/20 08:59 01/14/20 08:54 Insulin Aspart (NovoLOG) BEFORE MEALS AND HS SUBQ 01/13/20 16:30 04/09/20 11:29 01/14/20 11:30 Methocarbamol (Robaxin) 750 mg TID ORAL 01/13/20 13:00 02/09/20 08:59 01/14/20 12:34 Pantoprazole (Protonix) 40 mg DAILY ORAL 01/14/20 09:00 02/09/20 08:59 01/14/20 08:49 Polyethylene Glycol (Miralax) 17 gm DAILYPRN PRN ORAL Constipation 01/13/20 13:00 02/12/20 12:59 Quetiapine Fumarate (SEROqueL) 200 mg DAILY ORAL 01/14/20 09:00 02/24/20 08:59 01/14/20 08:49 Sertraline HCl (Zoloft) 100 mg DAILY@1800 ORAL 01/13/20 18:00 02/12/20 17:59 01/13/20 18:25 Allergies: Coded Allergies: No Known Allergies (Unverified , 11/06/17) Subjective Patient visited at bedside; sleeping and in no acute distress. He was completely nude, stating he wanted to be left along and sleep. Labs and Vitals reviewed. 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 normal Skin: other - Right upper chest bruising Laboratory Tests Test 01/14/20 05:02 Sodium Level 128 MMOL/L (136-145) L Potassium Level 3.2 MMOL/L (3.5-5.1) L Chloride Level 88 MMOL/L (98-107) L Carbon Dioxide Level 36 MMOL/L (21-32) H Anion Gap 4 mmol/L (5-15) L Blood Urea Nitrogen 25 mg/dL (7-18) H Creatinine 1.6 MG/DL (0.55-1.30) H Estimat Glomerular Filtration Rate 43.5 mL/min (>60) Glucose Level 162 MG/DL (74-106) H Calcium Level 8.3 MG/DL (8.5-10.1) L Phosphorus Level 3.3 MG/DL (2.5-4.9) Magnesium Level 1.9 MG/DL (1.8-2.4) Microbiology Date/Time Source Procedure Growth Status 01/11/20 22:00 Nasopharynx Coronavirus COVID-19 PCR ([facility]) - Final Complete Intake and Output 01/13/20 01/14/20 19:00 07:00 Intake Total 700 ml 650 ml Output Total 500 ml Balance 700 ml 150 ml Intake Oral 700 ml 650 ml Output Urine Total 500 ml # Voids 4 2 # Bowel Movements 3 4 Assessment/Plan Assessment/Plan Assessment #Sternal Fx , no surgical intervention, supportive care #Systolic CHF w/ Pulmonary Congestion, EF 55% #Hypoxia 2/2 pulmonary edema , 1st COVID negative #Hypervolemic Hyponatremia #PAULINE on CKD Plan Appreciate Attending and Consultants Diuretic has been discontinued Continue Norvasc, Atorvastatin, ASA Monitor on NC; ween Supportive measures, pain control Diet as tolerated 01/13: Today patient appears to have contraction alkalosis w/ low sodium. Will continue to monitor off diuretics. Gabby Nam D.O. Jan 14, 2020 16:33
[2020-01-14] MEDS: Sertraline 100mg tab ORAL SCH (18:00)
[2020-01-14 20:00] VITALS: BP 138/85
--- NOTE | 2020-01-14 20:15 | Nephrology Progress Note ---
Assessment/Plan Plan #SOB possible CHF #r/o COVID #Hypervolumic hyponatremia #chest pain #HTN #HLD - pulm consulted - cardiology consult - lasix 40 Iv daily - hold NSAID - Gen surgery consulted - hold lisinopril 40mg daily - amlodipine 10mg daily - monitor BMP, mag and phos daily - replete lytes Subjective Subjective breathing improving chest pain controlled sodium slowly improving holding lisinopril Objective Objective Last 24 Hour Vital Signs Date Time Temp Pulse Resp B/P (MAP) Pulse Ox O2 Delivery O2 Flow Rate FiO2 01/14/20 19:32 97 Nasal Cannula 1.0 24 01/14/20 15:41 96.6 93 18 141/76 (97) 93 01/14/20 15:39 95 01/14/20 12:00 79 01/14/20 11:57 96.9 96 18 143/85 (104) 92 01/14/20 08:49 97 148/80 01/14/20 08:43 97 01/14/20 08:31 Room Air 01/14/20 08:19 96.6 98 20 148/80 (102) 91 01/14/20 04:00 97.5 89 20 149/73 (98) 94 01/14/20 04:00 89 01/14/20 00:00 97.9 79 20 142/74 (96) 95 01/14/20 00:00 79 01/13/20 21:00 Room Air Intake and Output 01/13/20 01/14/20 19:00 07:00 Intake Total 700 ml 650 ml Output Total 500 ml Balance 700 ml 150 ml Intake Oral 700 ml 650 ml Output Urine Total 500 ml # Voids 4 2 # Bowel Movements 3 4 Laboratory Tests 01/14/20 05:02: Sodium Level 128L, Potassium Level 3.2L, Chloride Level 88L, Carbon Dioxide Level 36H, Anion Gap 4L, Blood Urea Nitrogen 25H, Creatinine 1.6H, Estimat Glomerular Filtration Rate 43.5, Glucose Level 162H, Calcium Level 8.3L, Phosphorus Level 3.3, Magnesium Level 1.9 Height (Feet): 5 Height (Inches): 10.00 Weight (Pounds): 229 Jone García M.D. Jan 14, 2020 20:15
[2020-01-14] MEDS: Atorvastatin 20mg tab ORAL SCH (22:35)
[2020-01-15 04:00] VITALS: BP 131/75
[2020-01-15] MEDS: NovoLOG Insulin Flexpen SUBQ SCH (06:29)
--- NOTE | 2020-01-15 07:27 | NUR ---
NURSE NOTES: Pt awake/alert sitting naked at edge of bed, breathing easily on room air, denies SOB denies pain at this time. Vital signs stable with SR 1st deg @ 89 on monitor. IV access RH and RFA, both flushed with 10 ml NS and locked. Bed left in low position, side rails up x 2 and call light left near pt's hand.
[2020-01-15 08:27] VITALS: BP 156/64
[2020-01-15] MEDS: Docusate 100mg cap ORAL SCH (08:36)
[2020-01-15] MEDS: QUEtiapine 200mg tab ORAL SCH (08:37)
[2020-01-15 08:53] LABS: BASOPHILS % (AUTO) 0.8 % (0.0-2.0); EOSINOPHILS % (AUTO) 2.7 % (0.0-3.0); HEMATOCRIT 40.6 % (42.0-52.0); HEMOGLOBIN 13.5 G/DL (14.2-18.0); LYMPHOCYTES % (AUTO) 10.3 % (20.0-45.0); MEAN CORPUSCULAR VOLUME 86 FL (80-99); MONOCYTES % (AUTO) 4.1 % (1.0-10.0); NEUTROPHILS % (AUTO) 82.1 % (45.0-75.0); PLATELET COUNT 336 K/UL (150-450); RED BLOOD COUNT 4.73 M/UL (4.70-6.10); RED CELL DISTRIBUTION WIDTH 13.7 % (11.6-14.8); WHITE BLOOD COUNT 9.2 K/UL (4.8-10.8)
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
--- NOTE | 2020-01-15 09:29 | NUR ---
NURSE NOTES: Pt sts he is tired of waiting for the Dr to discharge him and wants to go home. Pt alert/oriented moving all extremities well. IV access, ID band and monitor removed. Pt signed AMA and belongings form. Pt escorted down to parking lot to help locate his car/ found. Pr instructed to come back to ER for any difficulty breathing. Pt sts understands. Dr García contacted re: AMA message left on voice mail.
[2020-01-15 09:35] LABS: ALANINE AMINOTRANSFERASE 33 U/L (12-78); ALBUMIN 3.3 G/DL (3.4-5.0); ALKALINE PHOSPHATASE 100 U/L (46-116); ANION GAP 9 mmol/L (5-15); ASPARTATE AMINO TRANSFERASE 24 U/L (15-37); BLOOD UREA NITROGEN 15 mg/dL (7-18); CALCIUM 8.2 MG/DL (8.5-10.1); CARBON DIOXIDE 31 MMOL/L (21-32); CHLORIDE 86 MMOL/L (98-107); CREATININE 1.2 MG/DL (0.55-1.30); PHOSPHORUS 2.4 MG/DL (2.5-4.9); POTASSIUM 3.7 MMOL/L (3.5-5.1); SODIUM 126 MMOL/L (136-145)
[2020-01-15] MEDS ORDERED: NS 275ml ONE (09:35)
[2020-01-15] MEDS ORDERED: Tubing IV Secondary IV ONE (09:35)
--- NOTE | 2020-01-15 10:23 | Nephrology Progress Note ---
Assessment/Plan Plan #SOB possible CHF #r/o COVID #Hypervolumic hyponatremia #chest pain #HTN #HLD - pulm consulted - cardiology consult - lasix 40 Iv daily - hold NSAID - Gen surgery consulted - hold lisinopril 40mg daily - amlodipine 10mg daily - monitor BMP, mag and phos daily - replete lytes Subjective ROS Limited/Unobtainable: No Constitutional: Denies: no symptoms, chills, diaphoresis, fever, malaise, weakness, other HEENT: Denies: no symptoms, eye pain, blurred vision, tearing, double vision, ear pain, ear discharge, nose pain, nose congestion, throat pain, throat swelling, mouth pain, mouth swelling, other Genitourinary: Denies: no symptoms, burning, discharge, frequency, flank pain, hematuria, incontinence, pain, urgency, other Neurologic/Psychiatric: Denies: no symptoms, anxiety, depressed, emotional problems, headache, numbness, paresthesia, pre-existing deficit, seizure, tingling, tremors, weakness, other Subjective breathing improving chest pain controlled sodium slowly improving holding lisinopril Objective Objective Last 24 Hour Vital Signs Date Time Temp Pulse Resp B/P (MAP) Pulse Ox O2 Delivery O2 Flow Rate FiO2 01/15/20 08:32 Room Air 01/15/20 08:29 81 01/15/20 08:27 100.5 71 18 156/64 (94) 97 01/15/20 04:00 80 01/15/20 04:00 98.6 84 19 131/75 (93) 94 01/15/20 00:00 77 01/14/20 21:00 Room Air 01/14/20 20:00 97.5 90 19 138/85 (102) 95 01/14/20 20:00 74 01/14/20 19:32 97 Nasal Cannula 1.0 24 01/14/20 15:41 96.6 93 18 141/76 (97) 93 01/14/20 15:39 95 01/14/20 12:00 79 01/14/20 11:57 96.9 96 18 143/85 (104) 92 Intake and Output 01/14/20 01/15/20 19:00 07:00 Intake Total 840 ml 1000 ml Output Total 1000 ml 900 ml Balance -160 ml 100 ml Intake Oral 840 ml 1000 ml Output Urine Total 1000 ml 900 ml # Bowel Movements 1 Laboratory Tests 01/15/20 07:55: White Blood Count 9.2, Red Blood Count 4.73, Hemoglobin 13.5L, Hematocrit 40.6L , Mean Corpuscular Volume 86, Mean Corpuscular Hemoglobin 28.5, Mean Corpuscular Hemoglobin Concent 33.3, Red Cell Distribution Width 13.7, Platelet Count 336, Mean Platelet Volume 6.2L, Neutrophils (%) (Auto) 82.1H, Lymphocytes (%) (Auto) 10.3L, Monocytes (%) (Auto) 4.1, Eosinophils (%) (Auto) 2.7, Basophils (%) (Auto) 0.8, Sodium Level 126L, Potassium Level 3.7, Chloride Level 86L, Carbon Dioxide Level 31, Anion Gap 9, Blood Urea Nitrogen 15, Creatinine 1.2, Estimat Glomerular Filtration Rate > 60, Glucose Level 218H, Calcium Level 8.2L, Phosphorus Level 2.4L, Magnesium Level 1.6L, Total Bilirubin 1.0, Aspartate Amino Transf (AST/SGOT) 24, Alanine Aminotransferase ( ALT/SGPT) 33, Alkaline Phosphatase 100, Total Protein 6.7, Albumin 3.3L, Globulin 3.4, Albumin/Globulin Ratio 1.0 Height (Feet): 5 Height (Inches): 10.00 Weight (Pounds): 229 Jone García M.D. Jan 15, 2020 10:23
--- NOTE | 2020-01-17 15:31 | Discharge Summary ---
Discharge Summary Discharge Summary _ DATE OF ADMISSION: 01/09/2020 DATE OF DISCHARGE: 01/15/2020 Patient signed AGAINST MEDICAL ADVICE REASON FOR ADMISSION: 64 years old male with no clear past medical history, presented after fall , 2 days ago, on his right side. Patient was complaining of chest pain. He also reported shortness of breath and worsening swelling. Laboratory work-up revealed no leukocytosis , sodium 120 ,chloride 83. Calcium 8.2 Troponin 0.025, pro BNP 1164. Albumin 3.3. Chest x-ray revealed no definite acute process. X-ray of the right knee revealed degenerative changes but no acute bony trauma. CTA of the chest revealed cardiomegaly , very small bilateral pleural effusion. ASCVD. No central or peripheral pulmonary embolism was detected. X-ray of the right ankle revealed no evidence of acute fracture or dislocation. CT scan of the chest ,abdomen ,and pelvis revealed possible findings of sternal fracture. No evidence of retrosternal hematoma. Evidence of right chest wall contusion Pulmonary atelectatic changes. No evidence of solid organ trauma . Borderline cardiomegaly. Mildly atrophic left kidney . Patient subsequently admitted to telemetry floor for further management. CONSULTANTS: ip technology transactions attorney Dr. Lyn pulmonary Dr. Degroot ID specialist Dr. Raygoza customer success manager surgery Dr. Mosley [facility] COURSE: Patient admitted to telemetry floor. Pain management was addressed. Per surgeon , no need for any surgical interventions. Venous duplex bilateral lower extremity revealed no evidence of acute DVT. Follow-up chest x-ray revealed equivocal mild interstitial congestion. SARS COV 2 was negative. Isolation was discontinued. Echocardiogram demonstrated preserved ejection fraction of 55 to 60%. No evidence of wall motion abnormality to the extent visualized. No evidence of left ventricular hypertrophy. Right ventricular systolic pressure of 24. Blood pressure was managed with calcium channel edin and Lasix. Antiplatelet therapy with aspirin and statin continued. Patient was provided with Lasix with close monitoring of volumes and cardiorenal parameters. Per cardiology, chest pain was unlikely acute coronary syndrome . No need for further cardiac work-up at this time. No indication for cardiac catheterization or stress test. DVT and GI prophylaxis provided. Blood sugar was managed with sliding scale of insulin. Bowel regimen instituted. Supplemental oxygen provided and titrated to keep pulse oximetry above 90%. Pulmonary toilet provided. Patient at some point required BiPAP. Automatic Data Processing Planner closely followed. Patient eventually was able to be weaned from the BiPAP and prior to signing AMA , pulse oximetry was stable on room air. Patient provided with IV fluids. Renal parameters and electrolytes were closely monitored. Nephrotoxic's were avoided. Urine studies were done, Instrument Technician closely followed. Hyponatremia was hypervolemic hyponatremia. Patient started on Lasix daily Nonsteroidal inflammatory were hold. Magnesium and phosphorus were replaced. On 01/15 patient decided to leave AGAINST MEDICAL ADVICE. The risks and consequences of signing AGAINST MEDICAL ADVICE were discussed with patient in detail. Patient verbalized understanding, nevertheless signed AMA form and left. FINAL DIAGNOSES: Status post fall Suspected sternal fracture Chest wall contusion Contusion right knee Severe hyponatremia Metabolic acidosis Acute kidney injury Acute hypoxic respiratory failure Electrolyte abnormalities CHF Suspected COVID-19 - ruled out Asthma Mild pulmonary edema Diabetes mellitus Hypertension Hyperlipidemia I have been assigned to dictate discharge summary for this account. I was not involved in the patient's management. Lavonne Damon NP Jan 17, 2020 15:31
== END 2020-01-15 09:36 | disposition left against medical advice (07) | DRG 564 ==
LOC: EMR 15:08 → 2W 16:16 → EDBEDREQSVC 16:35 → EDBEDREQ 16:35 → 2E 01-13 11:35
DX: S22.20XA Unspecified fracture of sternum, initial encounter for closed fracture (principal); J96.01 Acute respiratory failure with hypoxia; I50.33 Acute on chronic diastolic (congestive) heart failure; E87.1 Hypo-osmolality and hyponatremia; E87.2 Acidosis; N17.9 Acute kidney failure, unspecified; S80.01XA Contusion of right knee, initial encounter; S20.211A Contusion of right front wall of thorax, initial encounter; W19.XXXA Unspecified fall, initial encounter; Z79.82 Long term (current) use of aspirin; S80.00XA Contusion of unspecified knee, initial encounter; E83.42 Hypomagnesemia; J45.909 Unspecified asthma, uncomplicated; I11.0 Hypertensive heart disease with heart failure; I50.9 Heart failure, unspecified; E11.9 Type 2 diabetes mellitus without complications; E78.5 Hyperlipidemia, unspecified; I25.10 Atherosclerotic heart disease of native coronary artery without angina pectoris
CPT/HCPCS: 36415; 36600; 71045; 71250; 71275; 74176; 80048; 80053; 82533; 82550; 82803; 82962; 83690; 83735; 83880; 83930; 83935; 84100; 84300; 84443; 84484; 84585; 85007; 85025; 85610; 85730; 93005; 93306; 93970; 94660; 96374; 96375; 99291; J1815; J2405; J8499

== ENCOUNTER 2020-02-13 11:56 | Inpatient (IN) | payer MEDICARE, OTHER ==
[~2020-02-13 11:56] MED LIST changes: +AMLODIPINE BESY10 MG ORAL; +ASPIR 8181 MG ORAL; +ATORVASTATIN CA40 MG ORAL; +LISINOPRIL40 MG ORAL; +METFORMIN HYD1000 GM MC; +PANTOPRAZOLE SO40 MG ORAL; +QUETIAPINE FUM400 MG ORAL; +SERTRALINE HCL100 MG PO
[2020-02-13] MEDS ORDERED: Vancomycin 1.5gm/NS Premix 275 ML IVPB ONE (12:30)
[2020-02-13] MEDS ORDERED: Mylanta II UD 30ml ORAL PRN (14:00)
[2020-02-13] MEDS: NovoLOG Insulin Flexpen SUBQ SCH ×2 (16:58→20:36)
[2020-02-13] MEDS: cefTRIAXone 1 GM in D5W 50 ML IVPB SCH (19:12)
[2020-02-13] MEDS: Docusate 100mg cap ORAL SCH (20:31)
[2020-02-13] MEDS: Atorvastatin 80mg tab ORAL SCH (20:32)
[2020-02-13] MEDS: Heparin 5000 units/ml inj SUBQ SCH (20:35)
[2020-02-13] MEDS ORDERED: Solu-MEDROL 40mg Inj IVP SCH (21:00)
[2020-02-14] MEDS: NovoLOG Insulin Flexpen SUBQ SCH ×4 (05:42→20:04)
[2020-02-14] MEDS: Docusate 100mg cap ORAL SCH ×2 (08:25→20:02)
[2020-02-14] MEDS: Sertraline 100mg tab ORAL SCH (08:25)
[2020-02-14] MEDS: Lisinopril 20mg tab ORAL SCH (08:26)
[2020-02-14] MEDS: Aspirin EC 81mg tab ORAL SCH (08:26)
[2020-02-14] MEDS: Heparin 5000 units/ml inj SUBQ SCH ×2 (08:28→20:05)
[2020-02-14] MEDS ORDERED: Vancomycin 1.5gm/NS Premix IVPB ONE (10:00)
[2020-02-14] MEDS: cefTRIAXone 1 GM in D5W 50 ML IVPB SCH (17:57)
[2020-02-14] MEDS: QUEtiapine 200mg tab ORAL SCH (20:02)
[2020-02-14] MEDS: Atorvastatin 80mg tab ORAL SCH (20:02)
[2020-02-15] MEDS: NovoLOG Insulin Flexpen SUBQ SCH ×4 (05:41→20:16)
[2020-02-15] MEDS: Sertraline 100mg tab ORAL SCH (08:59)
[2020-02-15] MEDS: Aspirin EC 81mg tab ORAL SCH (08:59)
[2020-02-15] MEDS: Docusate 100mg cap ORAL SCH ×2 (09:00→20:11)
[2020-02-15] MEDS: Lisinopril 20mg tab ORAL SCH (09:00)
[2020-02-15] MEDS: Heparin 5000 units/ml inj SUBQ SCH ×2 (09:02→20:15)
[2020-02-15] MEDS ORDERED: Vancomycin 1.5gm/NS Premix IVPB SCH (10:00)
[2020-02-15] MEDS: cefTRIAXone 1 GM in D5W 50 ML IVPB SCH (17:53)
[2020-02-15] MEDS: QUEtiapine 200mg tab ORAL SCH (20:11)
[2020-02-15] MEDS: Atorvastatin 80mg tab ORAL SCH (20:11)
[2020-02-16] MEDS: NovoLOG Insulin Flexpen SUBQ SCH ×4 (05:31→21:04)
[2020-02-16] MEDS: Sertraline 100mg tab ORAL SCH (09:00)
[2020-02-16] MEDS: Heparin 5000 units/ml inj SUBQ SCH ×2 (09:01→20:58)
[2020-02-16] MEDS: Docusate 100mg cap ORAL SCH ×2 (09:02→20:54)
[2020-02-16] MEDS: Aspirin EC 81mg tab ORAL SCH (09:02)
[2020-02-16] MEDS ORDERED: DiphenhydrAMINE & Zinc 28g Cream TOPIC PRN (10:00)
[2020-02-16] MEDS: guaiFENesin /DM 10ml syrup ORAL PRN ×2 (11:20→17:52)
[2020-02-16] MEDS ORDERED: Vancomycin 1.5gm/NS Premix q24h IVPB SCH (12:00)
[2020-02-16] MEDS: cefTRIAXone 1 GM in D5W 50 ML IVPB SCH (17:50)
[2020-02-16] MEDS: Atorvastatin 80mg tab ORAL SCH (20:54)
[2020-02-16] MEDS: QUEtiapine 200mg tab ORAL SCH (20:54)
[2020-02-16] MEDS ORDERED: Tamsulosin 0.4mg cap ORAL SCH (21:00)
[2020-02-17] MEDS: NovoLOG Insulin Flexpen SUBQ SCH ×2 (06:09→11:46)
[2020-02-17] MEDS: Docusate 100mg cap ORAL SCH (08:30)
[2020-02-17] MEDS: Aspirin EC 81mg tab ORAL SCH (08:30)
[2020-02-17] MEDS: Sertraline 100mg tab ORAL SCH (08:30)
[2020-02-17] MEDS: Heparin 5000 units/ml inj SUBQ SCH (08:31)
[2020-02-17] MEDS ORDERED: Vancomycin 1.5gm/NS Premix q24h IVPB SCH (10:00)
[2020-02-17] MEDS: guaiFENesin /DM 10ml syrup ORAL PRN (10:23)
[2020-02-17] MEDS ORDERED: FLOMAX0.4 MG ORAL (14:20)
[2020-02-17] MEDS ORDERED: FUROSEMIDE40 MG ORAL (14:20)
[2020-02-17] MEDS ORDERED: KEFLEX250 MG ORAL (14:20)
[2020-02-17] MEDS ORDERED: DOXYCYCLINE HY100 M2 PO (14:20)
[2020-02-18] MEDS ORDERED: Furosemide 40mg tab ORAL SCH (09:00)
== END 2020-02-17 15:20 | disposition home or self-care (01) | DRG 291 ==
DX: I13.0 Hypertensive heart and chronic kidney disease with heart failure and stage 1 through stage 4 chronic kidney disease, or unspecified chronic kidney disease (principal); I50.33 Acute on chronic diastolic (congestive) heart failure; N17.9 Acute kidney failure, unspecified; Z68.41 Body mass index [BMI] 40.0-44.9, adult; J96.10 Chronic respiratory failure, unspecified whether with hypoxia or hypercapnia; L03.115 Cellulitis of right lower limb; E87.1 Hypo-osmolality and hyponatremia; J44.1 Chronic obstructive pulmonary disease with (acute) exacerbation; L03.311 Cellulitis of abdominal wall; N18.3 Chronic kidney disease, stage 3 (moderate); E66.01 Morbid (severe) obesity due to excess calories; E11.22 Type 2 diabetes mellitus with diabetic chronic kidney disease; E78.5 Hyperlipidemia, unspecified; Z79.84 Long term (current) use of oral hypoglycemic drugs; N43.3 Hydrocele, unspecified; N40.0 Benign prostatic hyperplasia without lower urinary tract symptoms

== ENCOUNTER 2020-03-09 10:34 | Inpatient (IN) | payer MEDICARE, OTHER ==
[~2020-03-09] VITALS: Ht 177.8 cm; Wt 112.7 kg
[~2020-03-09 10:34] MED LIST changes: +DOXYCYCLINE HY100 M2 PO; +FLOMAX0.4 MG ORAL; +FUROSEMIDE40 MG ORAL; +KEFLEX250 MG ORAL
[2020-03-09 10:47] VITALS: BP 132/73
[2020-03-09 11:41] LABS: BASOPHILS % (AUTO) 1.2 % (0.0-2.0); EOSINOPHILS % (AUTO) 3.9 % (0.0-3.0); HEMATOCRIT 41.6 % (42.0-52.0); HEMOGLOBIN 14.1 G/DL (14.2-18.0); LYMPHOCYTES % (AUTO) 17.8 % (20.0-45.0); MEAN CORPUSCULAR VOLUME 82 FL (80-99); MONOCYTES % (AUTO) 4.9 % (1.0-10.0); NEUTROPHILS % (AUTO) 72.3 % (45.0-75.0); PLATELET COUNT 332 K/UL (150-450); RED BLOOD COUNT 5.07 M/UL (4.70-6.10); RED CELL DISTRIBUTION WIDTH 13.1 % (11.6-14.8)
[2020-03-09] MEDS ORDERED: cefTRIAXone 1 GM in NS 55 ML IVPB ONE (11:45)
[2020-03-09] MEDS ORDERED: Vancomycin 1 GM in NS 275 ML IVPB ONE (11:45)
[2020-03-09 11:49] LABS: ANION GAP 6 mmol/L (5-15); BLOOD UREA NITROGEN 17 mg/dL (7-18); CALCIUM 9.1 MG/DL (8.5-10.1); CARBON DIOXIDE 32 MMOL/L (21-32); CHLORIDE 98 MMOL/L (98-107); CREATININE 1.4 MG/DL (0.55-1.30); POTASSIUM 3.7 MMOL/L (3.5-5.1); SODIUM 136 MMOL/L (136-145)
[2020-03-09 11:53] LABS: ALANINE AMINOTRANSFERASE 37 U/L (12-78); ALBUMIN 3.6 G/DL (3.4-5.0); ALKALINE PHOSPHATASE 112 U/L (46-116); APPEARANCE,URINE CLEAR; ASPARTATE AMINO TRANSFERASE 23 U/L (15-37); BILIRUBIN, URINE NEGATIVE (NEGATIVE); BILIRUBIN,TOTAL 0.7 MG/DL (0.2-1.0); COLOR,URINE PALE YELLOW; GLUCOSE, URINE (UA) NEGATIVE (NEGATIVE); KETONES,URINE NEGATIVE (NEGATIVE); LEUKOCYTE ESTERASE ,URINE NEGATIVE (NEGATIVE); NITRITE,URINE NEGATIVE (NEGATIVE); PH,URINE 5 (4.5-8.0); PROTEIN,URINE NEGATIVE (NEGATIVE); UROBILINOGEN,URINE NORMAL MG/DL (0.0-1.0)
--- NOTE | 2020-03-09 12:17 | Emergency Room Report ---
History of Present Illness General Chief Complaint: Skin Rash/Abscess Source: Patient Present Illness HPI 64-year-old male presents from home due to rash to the lower extremity and abdominal wall. Patient has a history of cellulitis in the past. He states that recently admitted here for similar presentation was seen by ID started on broad-spectrum antibiotics. Since discharge approximately 3 weeks ago his rash has returned and gradually worsened. He has a history of hypertension and diabetes. Denies fevers nausea or vomiting. Does report pain in the left right lower extremity.. Allergies: Coded Allergies: No Known Allergies (Unverified , 11/06/17) COVID-19 Screening Contact w/high risk pt: No Recent Travel to affected area: No Experienced COVID-19 symptoms?: No COVID-19 symptoms experienced: Shortness of Breath COVID-19 Testing performed CERTIFIED ORTHOTIST PRACTICE MANAGER: No Patient History Reviewed Nursing Documentation: PMH: Agreed; PSxH: Agreed Nursing Documentation-PMH Hx Cardiac Problems: Yes Hx Hypertension: Yes Hx COPD: Yes Hx Diabetes: Yes Hx Cancer: No Hx Gastrointestinal Problems: No Hx Neurological Problems: No Review of Systems All Other Systems: negative except mentioned in HPI Physical Exam Vital Signs Date Time Temp Pulse Resp B/P (MAP) Pulse Ox O2 Delivery O2 Flow Rate FiO2 03/09/20 10:43 97.9 85 23 132/73 (92) 92 Room Air Sp02 EP Interpretation: reviewed, normal General Appearance: no apparent distress, obese Head: normocephalic, atraumatic Eyes: bilateral eye PERRL, bilateral eye EOMI ENT: hearing grossly normal, moist mucus membranes Neck: full range of motion, supple Respiratory: lungs clear, normal breath sounds, no rhonchi, no respiratory distress, no retraction, no wheezing Cardiovascular #1: normal peripheral pulses, regular rate, rhythm, no murmur Gastrointestinal: non tender, soft, no guarding, other - Abdomen grand with erythema noted to lower abdominal wall and sores noted. Musculoskeletal: swelling - Bilateral lower extremity edema noted, other - Right lower extremity erythematous swollen with mild tenderness noted 2+ pulses noted as well. Supple excoriated lesions noted Neurologic: alert, oriented x3, no focal defects Skin: warm/dry, other - Cellulitic changes to right lower extremity noted Medical Decision Making Diagnostic Impression: Primary Impression: Cellulitis of right lower extremity Additional Impressions: Cellulitis of abdominal wall Bilateral lower extremity edema ER Course MDM: Differential diagnosis included but not limited to recurrent cellulitis, venous insufficiency, chronic kidney disease, pendant edema to name a few. Clinical course-laboratory studies were sent. Patient's exam most consistent with recurrent acute on chronic cellulitis. Recently seen and admitted for the same. Seen by ID and was given vancomycin and Rocephin at that time. Today I will restart vancomycin and Rocephin. Will place patient on the medical floor as I do not think he would benefit from outpatient oral antibiotics as he has tried this recently and failed. Labs - Laboratory Tests Test 03/09/20 11:25 White Blood Count 8.0 K/UL (4.8-10.8) Red Blood Count 5.07 M/UL (4.70-6.10) Hemoglobin 14.1 G/DL (14.2-18.0) L Hematocrit 41.6 % (42.0-52.0) L Mean Corpuscular Volume 82 FL (80-99) Mean Corpuscular Hemoglobin 27.7 PG (27.0-31.0) Mean Corpuscular Hemoglobin Concent 33.8 G/DL (32.0-36.0) Red Cell Distribution Width 13.1 % (11.6-14.8) Platelet Count 332 K/UL (150-450) Mean Platelet Volume 6.8 FL (6.5-10.1) Neutrophils (%) (Auto) 72.3 % (45.0-75.0) Lymphocytes (%) (Auto) 17.8 % (20.0-45.0) L Monocytes (%) (Auto) 4.9 % (1.0-10.0) Eosinophils (%) (Auto) 3.9 % (0.0-3.0) H Basophils (%) (Auto) 1.2 % (0.0-2.0) Urine Color Pale yellow Urine Appearance Clear Urine pH 5 (4.5-8.0) Urine Specific [place] 1.010 (1.005-1.035) Urine Protein Negative (NEGATIVE) Urine Glucose (UA) Negative (NEGATIVE) Urine Ketones Negative (NEGATIVE) Urine Blood Negative (NEGATIVE) Urine Nitrite Negative (NEGATIVE) Urine Bilirubin Negative (NEGATIVE) Urine Urobilinogen Normal MG/DL (0.0-1.0) Urine Leukocyte Esterase Negative (NEGATIVE) Sodium Level 136 MMOL/L (136-145) Potassium Level 3.7 MMOL/L (3.5-5.1) Chloride Level 98 MMOL/L (98-107) Carbon Dioxide Level 32 MMOL/L (21-32) Anion Gap 6 mmol/L (5-15) Blood Urea Nitrogen 17 mg/dL (7-18) Creatinine 1.4 MG/DL (0.55-1.30) H Estimated Glomerular Filtration Rate 50.7 mL/min (>60) Glucose Level 221 MG/DL (74-106) H Lactic Acid Level 1.40 mmol/L (0.4-2.0) Calcium Level 9.1 MG/DL (8.5-10.1) Total Bilirubin 0.7 MG/DL (0.2-1.0) Aspartate Amino Transferase (AST) 23 U/L (15-37) Alanine Aminotransferase (ALT) 37 U/L (12-78) Alkaline Phosphatase 112 U/L (46-116) Total Protein 7.2 G/DL (6.4-8.2) Albumin 3.6 G/DL (3.4-5.0) Globulin 3.6 g/dL Albumin/Globulin Ratio 1.0 (1.0-2.7) Plan is admission to the medical floor Last Vital Signs Date Time Temp Pulse Resp B/P (MAP) Pulse Ox O2 Delivery O2 Flow Rate FiO2 03/09/20 10:47 97.9 85 23 132/73 92 Room Air Disposition: ADMITTED INPATIENT Condition: Serious Referrals: NOT CHOSEN IPA/,REFERRING (PCP) Jeffy Lew M.D. Mar 09, 2020 12:17
[2020-03-09] MEDS ORDERED: NOVOLIN R100 UNIT/1 SUBQ (12:33)
[2020-03-09] MEDS ORDERED: CHLORTHALIDONE25 MG ORAL (12:33)
[2020-03-09] MEDS ORDERED: COMBIVENT RESPIM4 GM IH (12:33)
[2020-03-09 14:26] VITALS: BP 146/80
--- NOTE | 2020-03-09 14:36 | Consultation ---
History of Present Illness General Chief Complaint: Skin Rash/Abscess Present Illness HPI 64 year old man with history of morbid obesity, HTN, HLD, NIDDM type 2, COPD, chronic respiratory failure, chronic hypervolemic hyponatremia who presented to the ED with progressive bilateral lower extremity and abdomen pruritus. He also complains of a burning pain in his left leg, nonradiating, 8/10, and started 3 days ago. Patient was recently admitted 3 weeks prior for CHF exacerbation. States that the itching on his legs and abdomen have worsened. During the hospitalization he completed IV antibiotics and was discharged with p.o. doxycycline and given 1 dose of ivermectin. It is unclear if he completed his p.o. antibiotics. Patient states that the itching is all night and now he is creating redness and scabbing on his abdomen and legs. Patient states that his breathing is not the best but has been compliant with his diuretics. He must sleep upright does not have any PND. Patient denies chest pain, headache, changes in vision, fevers, chills, nausea, vomiting, diarrhea. Patient has had no recent travel. No sick contacts. Allergies: Coded Allergies: No Known Allergies (Unverified , 11/06/17) Medication History Scheduled Amlodipine Besylate* (Amlodipine Besylate*), 10 MG ORAL DAILY, (Reported) Aspirin* (Aspir 81*), 81 MG ORAL DAILY, (Reported) Atorvastatin Calcium* (Atorvastatin Calcium*), 40 MG ORAL BEDTIME, (Reported) Cephalexin* (Keflex*), 500 MG ORAL BID Chlorthalidone* (Chlorthalidone*), 25 MG ORAL DAILY, (Reported) Doxycycline Hyclate (Doxycycline Hyclate), 100 MG PO BID Furosemide* (Lasix*), 40 MG ORAL DAILY Insulin Regular, Human* (Novolin R*), 0 SUBQ .SLIDING SCALE, (Reported) Lisinopril* (Lisinopril*), 40 MG ORAL DAILY, (Reported) Methocarbamol* (Robaxin-750*), 750 MG PO TID Pantoprazole* (Pantoprazole*), 40 MG ORAL DAILY, (Reported) Quetiapine Fumarate* (Quetiapine Fumarate*), 200 MG ORAL DAILY, (Reported) Sertraline Hcl* (Zoloft*), 100 MG PO DAILY, (Reported) Tamsulosin HCl (Flomax), 0.4 MG ORAL BEDTIME Miscellaneous Medications Ipratropium/Albuterol Sulfate (Combivent Respimat Inhal [place]), 4 GM , ( Reported) Metformin Hcl (Metformin Hydrochloride), 1,000 GM , (Reported) Patient History Healthcare decision maker Resuscitation status Advanced Directive on File Physical Exam General Appearance: no apparent distress, alert Lines, tubes and drains: peripheral HEENT: normocephalic Respiratory/Chest: lungs clear, rhonchi - bilaterally Skin Exam: other - erythema of the right leg Neurologic: alert, oriented x 3 Musculoskeletal: other Last 24 Hour Vital Signs Date Time Temp Pulse Resp B/P (MAP) Pulse Ox O2 Delivery O2 Flow Rate FiO2 03/09/20 14:26 97.9 84 20 146/80 95 Room Air 03/09/20 10:47 97.9 85 23 132/73 92 Room Air 03/09/20 10:43 97.9 85 23 132/73 (92) 92 Room Air Laboratory Tests Test 03/09/20 11:25 White Blood Count 8.0 K/UL (4.8-10.8) Red Blood Count 5.07 M/UL (4.70-6.10) Hemoglobin 14.1 G/DL (14.2-18.0) L Hematocrit 41.6 % (42.0-52.0) L Mean Corpuscular Volume 82 FL (80-99) Mean Corpuscular Hemoglobin 27.7 PG (27.0-31.0) Mean Corpuscular Hemoglobin Concent 33.8 G/DL (32.0-36.0) Red Cell Distribution Width 13.1 % (11.6-14.8) Platelet Count 332 K/UL (150-450) Mean Platelet Volume 6.8 FL (6.5-10.1) Neutrophils (%) (Auto) 72.3 % (45.0-75.0) Lymphocytes (%) (Auto) 17.8 % (20.0-45.0) L Monocytes (%) (Auto) 4.9 % (1.0-10.0) Eosinophils (%) (Auto) 3.9 % (0.0-3.0) H Basophils (%) (Auto) 1.2 % (0.0-2.0) Urine Color Pale yellow Urine Appearance Clear Urine pH 5 (4.5-8.0) Urine Specific [place] 1.010 (1.005-1.035) Urine Protein Negative (NEGATIVE) Urine Glucose (UA) Negative (NEGATIVE) Urine Ketones Negative (NEGATIVE) Urine Blood Negative (NEGATIVE) Urine Nitrite Negative (NEGATIVE) Urine Bilirubin Negative (NEGATIVE) Urine Urobilinogen Normal MG/DL (0.0-1.0) Urine Leukocyte Esterase Negative (NEGATIVE) Sodium Level 136 MMOL/L (136-145) Potassium Level 3.7 MMOL/L (3.5-5.1) Chloride Level 98 MMOL/L (98-107) Carbon Dioxide Level 32 MMOL/L (21-32) Anion Gap 6 mmol/L (5-15) Blood Urea Nitrogen 17 mg/dL (7-18) Creatinine 1.4 MG/DL (0.55-1.30) H Estimat Glomerular Filtration Rate 50.7 mL/min (>60) Glucose Level 221 MG/DL (74-106) H Lactic Acid Level 1.40 mmol/L (0.4-2.0) Calcium Level 9.1 MG/DL (8.5-10.1) Total Bilirubin 0.7 MG/DL (0.2-1.0) Aspartate Amino Transf (AST/SGOT) 23 U/L (15-37) Alanine Aminotransferase (ALT/SGPT) 37 U/L (12-78) Alkaline Phosphatase 112 U/L (46-116) Total Protein 7.2 G/DL (6.4-8.2) Albumin 3.6 G/DL (3.4-5.0) Globulin 3.6 g/dL Albumin/Globulin Ratio 1.0 (1.0-2.7) Height (Feet): 5 Height (Inches): 10.00 Weight (Pounds): 250 Assessment/Plan Diagnosis [place] I: #PAULINE on CKD #RLE cellulitis #COPD #acute on chronic CHF #HTN #HLD #BPH - antibiotics per ID - vano and ceftriaxone - lasix 40 IV daily - chlorthalidone 25mg daily - lisinopril 40 daily - flomax 0.4mg daily - replete lytes - monitor renal function - avoid nephrotoxins - daily weights time spent 70 min - greater than 50% in care coordination Jone García M.D. Mar 09, 2020 14:36
[2020-03-09] MEDS ORDERED: Milk of Magnesia 30ml Ud ORAL PRN (15:30)
[2020-03-09] MEDS ORDERED: Mylanta II UD 30ml ORAL PRN (15:30)
[2020-03-09] MEDS ORDERED: Nitroglycerin Subl 0.4mg tab SL PRN (15:30)
--- NOTE | 2020-03-09 16:28 | History and Physical ---
History of Present Illness General Date patient seen: Mar 09, 2020 Time patient seen: 14:00 Reason for Hospitalization: Skin Rash/Abscess Present Illness HPI 64 year old man with history of morbid obesity, HTN, HLD, NIDDM type 2, COPD, chronic respiratory failure, chronic hypervolemic hyponatremia who presented to the ED with progressive bilateral lower extremity and abdomen pruritus. He also complains of a burning pain in his left leg, nonradiating, 8/10, and started 3 days ago. Patient was recently admitted 3 weeks prior for CHF exacerbation. States that the itching on his legs and abdomen have worsened. During the hospitalization he completed IV antibiotics and was discharged with p.o. doxycycline and given 1 dose of ivermectin. It is unclear if he completed his p.o. antibiotics. Patient states that the itching is all night and now he is creating redness and scabbing on his abdomen and legs. Patient states that his breathing is not the best but has been compliant with his diuretics. He must sleep upright does not have any PND. Patient denies chest pain, headache, changes in vision, fevers, chills, nausea, vomiting, diarrhea. Patient has had no recent travel. No sick contacts. Allergies: Coded Allergies: No Known Allergies (Unverified , 11/06/17) COVID-19 Screening Contact w/high risk pt: No Recent Travel to affected area: No Experienced COVID-19 symptoms?: No COVID-19 symptoms experienced: Shortness of Breath Medication History Scheduled Amlodipine Besylate* (Amlodipine Besylate*), 10 MG ORAL DAILY, (Reported) Aspirin* (Aspir 81*), 81 MG ORAL DAILY, (Reported) Atorvastatin Calcium* (Atorvastatin Calcium*), 40 MG ORAL BEDTIME, (Reported) Cephalexin* (Keflex*), 500 MG ORAL BID Chlorthalidone* (Chlorthalidone*), 25 MG ORAL DAILY, (Reported) Doxycycline Hyclate (Doxycycline Hyclate), 100 MG PO BID Furosemide* (Lasix*), 40 MG ORAL DAILY Insulin Regular, Human* (Novolin R*), 0 SUBQ .SLIDING SCALE, (Reported) Lisinopril* (Lisinopril*), 40 MG ORAL DAILY, (Reported) Methocarbamol* (Robaxin-750*), 750 MG PO TID Pantoprazole* (Pantoprazole*), 40 MG ORAL DAILY, (Reported) Quetiapine Fumarate* (Quetiapine Fumarate*), 200 MG ORAL DAILY, (Reported) Sertraline Hcl* (Zoloft*), 100 MG PO DAILY, (Reported) Tamsulosin HCl (Flomax), 0.4 MG ORAL BEDTIME Miscellaneous Medications Ipratropium/Albuterol Sulfate (Combivent Respimat Inhal Craig), 4 GM , ( Reported) Metformin Hcl (Metformin Hydrochloride), 1,000 GM , (Reported) Patient History History Provided By: Patient Healthcare decision maker Resuscitation status Full code Advanced Directive on File Family History Family History: FH: CAD (coronary artery disease) Social History Social History: (1) Smoking history Review of Systems Constitutional: Denies: fever, malaise, weakness Eye: Reports: no symptoms ENT: Reports: no symptoms Respiratory: Reports: orthopnea, shortness of breath, VARNER; Denies: stridor, wheezing, sputum Cardiovascular: Reports: see HPI, edema; Denies: chest pain, palpitations, syncope, PND Gastrointestinal: Reports: no symptoms Genitourinary: Reports: no symptoms Musculoskeletal: Reports: see HPI, muscle pain Skin: Reports: see HPI, rash, change in color, dryness, lesions Psychiatric: Reports: no symptoms Neurological: Reports: no symptoms Endocrine: Reports: no symptoms Physical Exam General Appearance: no apparent distress, alert, morbidly obese, alert oriented x3 Lines, tubes and drains: peripheral HEENT: normocephalic, atraumatic, anicteric Neck: non-tender, normal alignment, supple Respiratory/Chest: chest wall non-tender, lungs clear, normal breath sounds, no respiratory distress Cardiovascular/Chest: normal peripheral pulses, normal rate, regular rhythm, no gallop/murmur, no JVD Abdomen: soft, no organomegaly, no mass, distended Skin Exam: normal pigmentation, warm/dry, rash Neurologic: block placer II-XII grossly normal, alert, oriented x 3, responsive, normal mood/affect Last 24 Hour Vital Signs Date Time Temp Pulse Resp B/P (MAP) Pulse Ox O2 Delivery O2 Flow Rate FiO2 03/09/20 14:26 97.9 84 20 146/80 95 Room Air 03/09/20 10:47 97.9 85 23 132/73 92 Room Air 03/09/20 10:43 97.9 85 23 132/73 (92) 92 Room Air Laboratory Tests Test 03/09/20 11:25 White Blood Count 8.0 K/UL (4.8-10.8) Red Blood Count 5.07 M/UL (4.70-6.10) Hemoglobin 14.1 G/DL (14.2-18.0) L Hematocrit 41.6 % (42.0-52.0) L Mean Corpuscular Volume 82 FL (80-99) Mean Corpuscular Hemoglobin 27.7 PG (27.0-31.0) Mean Corpuscular Hemoglobin Concent 33.8 G/DL (32.0-36.0) Red Cell Distribution Width 13.1 % (11.6-14.8) Platelet Count 332 K/UL (150-450) Mean Platelet Volume 6.8 FL (6.5-10.1) Neutrophils (%) (Auto) 72.3 % (45.0-75.0) Lymphocytes (%) (Auto) 17.8 % (20.0-45.0) L Monocytes (%) (Auto) 4.9 % (1.0-10.0) Eosinophils (%) (Auto) 3.9 % (0.0-3.0) H Basophils (%) (Auto) 1.2 % (0.0-2.0) Urine Color Pale yellow Urine Appearance Clear Urine pH 5 (4.5-8.0) Urine Specific [place] 1.010 (1.005-1.035) Urine Protein Negative (NEGATIVE) Urine Glucose (UA) Negative (NEGATIVE) Urine Ketones Negative (NEGATIVE) Urine Blood Negative (NEGATIVE) Urine Nitrite Negative (NEGATIVE) Urine Bilirubin Negative (NEGATIVE) Urine Urobilinogen Normal MG/DL (0.0-1.0) Urine Leukocyte Esterase Negative (NEGATIVE) Sodium Level 136 MMOL/L (136-145) Potassium Level 3.7 MMOL/L (3.5-5.1) Chloride Level 98 MMOL/L (98-107) Carbon Dioxide Level 32 MMOL/L (21-32) Anion Gap 6 mmol/L (5-15) Blood Urea Nitrogen 17 mg/dL (7-18) Creatinine 1.4 MG/DL (0.55-1.30) H Estimat Glomerular Filtration Rate 50.7 mL/min (>60) Glucose Level 221 MG/DL (74-106) H Lactic Acid Level 1.40 mmol/L (0.4-2.0) Calcium Level 9.1 MG/DL (8.5-10.1) Total Bilirubin 0.7 MG/DL (0.2-1.0) Aspartate Amino Transf (AST/SGOT) 23 U/L (15-37) Alanine Aminotransferase (ALT/SGPT) 37 U/L (12-78) Alkaline Phosphatase 112 U/L (46-116) Total Protein 7.2 G/DL (6.4-8.2) Albumin 3.6 G/DL (3.4-5.0) Globulin 3.6 g/dL Albumin/Globulin Ratio 1.0 (1.0-2.7) Height (Feet): 5 Height (Inches): 10.00 Weight (Pounds): 250 Medications Current Medications Medications (Trade) Dose Ordered Sig/Anjel Route PRN Reason Start Time Stop Time Status Last Admin Dose Admin Al Hydroxide/Mg Hydroxide (Mylanta II) 30 ml Q6H PRN ORAL dyspepsia 03/09/20 15:30 04/08/20 15:29 Amlodipine Besylate (Norvasc) 10 mg DAILY ORAL 03/10/20 09:00 04/09/20 08:59 Aspirin (Ecotrin) 81 mg DAILY ORAL 03/10/20 09:00 04/24/20 08:59 Atorvastatin Calcium (Lipitor) 40 mg BEDTIME ORAL 03/09/20 21:00 06/07/20 20:59 Bisacodyl (Dulcolax) 10 mg HSPRN PRN RECTAL Constipation 03/09/20 15:30 06/07/20 15:29 Ceftriaxone Sodium 1 gm/ Dextrose 55 ml @ 110 mls/hr Q24H IVPB 03/10/20 12:00 03/17/20 11:59 Chlorthalidone (Chlorthalidone) 25 mg DAILY ORAL 03/10/20 09:00 04/09/20 08:59 Dextrose (Dextrose 50%) 25 ml Q30M PRN IV Hypoglycemia 03/09/20 15:30 06/07/20 15:29 Dextrose (Dextrose 50%) 50 ml Q30M PRN IV Hypoglycemia 03/09/20 15:30 06/07/20 15:29 Diphenhydramine HCl (Benadryl) 25 mg Q6H PRN ORAL Itching/Pruritis 03/09/20 15:30 04/08/20 15:29 Furosemide (Lasix) 40 mg DAILY IV 03/09/20 16:00 04/08/20 15:59 Heparin Sodium (Porcine) (Heparin 5000 units/ml) 5,000 units EVERY 12 HOURS SUBQ 03/09/20 21:00 04/23/20 20:59 Ivermectin (StromectoL) 15 mg ONCE ONCE ORAL 03/09/20 16:00 03/09/20 16:01 UNV Lisinopril (PriniviL) 40 mg DAILY ORAL 03/10/20 09:00 04/09/20 08:59 Magnesium Hydroxide (Mom) 30 ml HSPRN PRN ORAL Constipation 03/09/20 15:30 04/08/20 15:29 Methocarbamol (Robaxin) 750 mg TIDPRN PRN ORAL muscle spasm 03/09/20 15:30 04/08/20 15:29 Nitroglycerin (Ntg) 0.4 mg Q5M X 3 DOSES PRN SL Prn Chest Pain 03/09/20 15:30 04/08/20 15:29 Ondansetron HCl (Zofran) 4 mg Q6H PRN IVP Nausea & Vomiting 03/09/20 15:30 04/08/20 15:29 Pantoprazole (Protonix) 40 mg DAILY ORAL 03/10/20 09:00 04/09/20 08:59 Pyrethrins/ Piperonyl Butoxide (Lice Treatment Soln) 1 applic ONCE ONCE TOPIC 03/09/20 16:00 03/09/20 16:01 UNV Quetiapine Fumarate (SEROqueL) 200 mg DAILY ORAL 03/10/20 09:00 04/24/20 08:59 Sertraline HCl (Zoloft) 100 mg DAILY ORAL 03/10/20 09:00 04/09/20 08:59 Tamsulosin HCl (Flomax) 0.4 mg BEDTIME ORAL 03/09/20 21:00 04/08/20 20:59 Assessment/Plan Problem List: (1) Cellulitis of abdominal wall ICD Codes: L03.311 - Cellulitis of abdominal wall SNOMED: 22778447 (2) Bilateral lower extremity edema ICD Codes: R60.0 - Localized edema SNOMED: 172350625, 33411544, 62877269 (3) CHF exacerbation ICD Codes: I50.9 - Heart failure, unspecified SNOMED: 424818607, 82260784768743 (4) Cellulitis of both lower extremities ICD Codes: L03.115 - Cellulitis of right lower limb; L03.116 - Cellulitis of left lower limb SNOMED: 817091259 Assessment/Plan: 64 year old man with history of morbid obesity, HTN, HLD, NIDDM type 2, COPD, chronic respiratory failure, chronic hypervolemic hyponatremia who presented to the ED with progressive bilateral lower extremity and abdominal wall cellulitis. #Bilateral lower extremity cellulitis #Cellulitis of the abdomen #Presumed scabies infection -Continue Vancomycin and Ceftriaxone -Topical Permethrin and PO Ivermectin -Follow up cultures -CBC daily -B/L lower extremity US -Consult to ID #CHF exacerbation #HTN #HLD -Continue home meds -Strict I/os -Daily Weights -Lasix 40 iv Daily #COPD -Duo nebs -Continue home meds -O2 saturation between 88% to 92% #PAULINE on CKD -Monitor electrolytes -limit nephrotoxic medications -Consult to Nephrology #NIDDM -ISS -Carb consistent diet -A1c reviewed -Hypoglycemia protocol I spent 78 min on this admission. I discussed with PCP, consultants, ER, RNs. I did extensive chart review of previous notes, labs and imaging for 35 min. William Anne M.D. Mar 09, 2020 16:28
[2020-03-09] MEDS ORDERED: Lice Treatment Shampoo 4oz Bottle TOPIC SCH ×2 (17:00→20:00)
--- NOTE | 2020-03-09 17:10 | Diagnostic Imaging Report ---
Indication:Leg pain and swelling Technique: Grayscale and duplex Doppler imaging of the veins in both lower extremities performed in real time utilizing compression and augmentation. Comparison: Lower extremity venous Doppler study dated 02/13/2020 Findings: Duplex Doppler interrogation of the veins in both lower extremity is performed from the common femoral vein to the popliteal vein. Normal venous compressibility demonstrated throughout. No thrombus identified. Waveform analysis shows good respiratory phasicity and augmentation. IMPRESSION: No evidence of deep venous thrombosis involving the lower extremities.
[2020-03-09] MEDS: NovoLOG Insulin Flexpen SUBQ SCH ×2 (18:01→20:28)
--- NOTE | 2020-03-09 19:30 | Consultation ---
DATE OF CONSULTATION: 03/09/2020 PULMONARY CONSULTATION HISTORY OF PRESENT ILLNESS: This is a 64-year-old male who presented to the hospital due to lower extremity and abdominal wall rash. The patient has previous cellulitis. He has morbid obesity, hypertension, and diabetes. He likely has underlying ADRIANNA, untreated. At this point, the patient also reports he has COPD. PAST MEDICAL HISTORY: Hypertension, COPD, and diabetes mellitus. REVIEW OF SYSTEMS: Unreliable. PHYSICAL EXAMINATION: GENERAL: Reveals an obese male. VITAL SIGNS: Blood pressure is 140/80, heart rate is 84, respirations 20, O2 sat 100% on room air. HEENT: Unremarkable. LUNGS: breath sounds bilaterally. ABDOMEN: Soft. EXTREMITIES: There is edema. He has cellulitis of right lower extremity. Excoriation noted as well. LABORATORY DATA: Lab testing shows hemoglobin of 14, otherwise normal CBC and BMP. Creatinine 1.4. Urinalysis negative. IMAGING STUDIES: None today. IMPRESSION: 1. Cellulitis. 2. COPD. 3. Hypertension. 4. Diabetes. DISCUSSION: Admit to the hospital. The patient will benefit from broad-spectrum antibiotics. We will follow as registered massage therapist. I ordered oxygen and pulmonary hygiene. Broad-spectrum antibiotics have been given. Delfin Degroot M.D. DR: TUAN JOB#: [id number] CC:
[2020-03-09 20:00] VITALS: BP 127/66
[2020-03-09] MEDS: Atorvastatin 20mg tab ORAL SCH (20:28)
[2020-03-09] MEDS: Tamsulosin 0.4mg cap ORAL SCH (20:28)
[2020-03-09] MEDS: Heparin 5000 units/ml inj SUBQ SCH (20:29)
[2020-03-09] MEDS: QUEtiapine 200mg tab ORAL SCH (21:36)
[2020-03-10] VITALS: BP 131/68
[2020-03-10 04:00] VITALS: BP 120/75
[2020-03-10] MEDS: NovoLOG Insulin Flexpen SUBQ SCH ×4 (05:42→21:00)
[2020-03-10 06:23] LABS: EOSINOPHILS % (AUTO) 5.3 % (0.0-3.0); HEMATOCRIT 39.3 % (42.0-52.0); HEMOGLOBIN 13.2 G/DL (14.2-18.0); LYMPHOCYTES % (AUTO) 18.5 % (20.0-45.0); MEAN CORPUSCULAR VOLUME 83 FL (80-99); MONOCYTES % (AUTO) 5.9 % (1.0-10.0); NEUTROPHILS % (AUTO) 69.3 % (45.0-75.0); PLATELET COUNT 281 K/UL (150-450); RED BLOOD COUNT 4.75 M/UL (4.70-6.10); RED CELL DISTRIBUTION WIDTH 13.3 % (11.6-14.8); WHITE BLOOD COUNT 6.3 K/UL (4.8-10.8)
[2020-03-10 08:00] VITALS: BP 131/58
[2020-03-10] MEDS: Lisinopril 20mg tab ORAL SCH (08:44)
[2020-03-10] MEDS: Methocarbamol 750mg tab ORAL PRN ×2 (08:44→17:45)
[2020-03-10] MEDS: Aspirin EC 81mg tab ORAL SCH (08:45)
[2020-03-10] MEDS: Sertraline 100mg tab ORAL SCH (08:45)
[2020-03-10] MEDS: Heparin 5000 units/ml inj SUBQ SCH ×2 (08:56→20:48)
[2020-03-10] MEDS ORDERED: QUEtiapine 200mg tab ORAL SCH (09:00)
--- NOTE | 2020-03-10 11:00 | General Progress Note ---
Assessment/Plan Problem List: (1) Cellulitis of abdominal wall ICD Codes: L03.311 - Cellulitis of abdominal wall SNOMED: 85338244 (2) Bilateral lower extremity edema ICD Codes: R60.0 - Localized edema SNOMED: 893292669, 64895001, 87785376 (3) CHF exacerbation ICD Codes: I50.9 - Heart failure, unspecified SNOMED: 493759937, 12658661275618 (4) Cellulitis of both lower extremities ICD Codes: L03.115 - Cellulitis of right lower limb; L03.116 - Cellulitis of left lower limb SNOMED: 358339848 (5) Crusted scabies ICD Codes: B86 - Scabies SNOMED: 170808596 Status: stable Assessment/Plan: 64 year old man with history of morbid obesity, HTN, HLD, NIDDM type 2, COPD, chronic respiratory failure, chronic hypervolemic hyponatremia who presented to the ED with progressive bilateral lower extremity and abdominal wall cellulitis. #Bilateral lower extremity cellulitis #Cellulitis of the abdomen #Presumed scabies infection #Right leg pain -Continue Vancomycin and Ceftriaxone -Topical Permethrin and PO Ivermectin -Follow up cultures -CBC daily -B/L lower extremity US reviwed an no DVT -Non Contrast CT of R leg for constant pain. -Consult to ID #CHF exacerbation #HTN #HLD -Continue home meds -Strict I/os -Daily Weights -Lasix 40 iv Daily #COPD -Duo nebs -Continue home meds -O2 saturation between 88% to 92% -Consult to Pulm Dr. Degroot - appreciate recs #PAULINE on CKD -Monitor electrolytes -limit nephrotoxic medications -Consult to Nephrology #NIDDM -ISS -Carb consistent diet -A1c reviewed -Hypoglycemia protocol I spent 36 min on this patient. I discussed consultants, RNs and pharmacist. Reviewed imaging. Subjective Date patient seen: Mar 10, 2020 Time patient seen: 08:00 ROS Limited/Unobtainable: No Constitutional: Reports: no symptoms HEENT: Reports: no symptoms Cardiovascular: Reports: edema; Denies: irregular heart rate, lightheadedness, palpitations Respiratory: Reports: SOB with excertion; Denies: shortness of breath, sputum, wheezing Gastrointestinal/Abdominal: Reports: no symptoms Genitourinary: Reports: no symptoms Neurologic/Psychiatric: Reports: no symptoms Endocrine: Reports: no symptoms Allergies: Coded Allergies: No Known Allergies (Unverified , 11/06/17) Subjective Patienes itch has improved. Wants regular diet. Objective Last 24 Hour Vital Signs Date Time Temp Pulse Resp B/P (MAP) Pulse Ox O2 Delivery O2 Flow Rate FiO2 03/10/20 08:44 131/58 03/10/20 08:43 89 131/58 03/10/20 08:00 97.5 89 20 131/58 (82) 92 03/10/20 04:00 98.1 84 20 120/75 (90) 95 03/10/20 00:00 97.0 79 20 131/68 (89) 94 03/09/20 21:00 Room Air 03/09/20 20:00 97.7 86 20 127/66 (86) 95 03/09/20 17:53 Room Air 03/09/20 15:56 97.9 84 20 146/80 95 Room Air 03/09/20 14:26 97.9 84 20 146/80 95 Room Air 03/09/20 10:47 97.9 85 23 132/73 92 Room Air Intake and Output 03/09/20 03/10/20 19:00 07:00 Intake Total 900 ml Balance 900 ml Intake Oral 900 ml # Voids 2 2 Laboratory Tests 03/09/20 11:25: White Blood Count 8.0, Red Blood Count 5.07, Hemoglobin 14.1L, Hematocrit 41.6L , Mean Corpuscular Volume 82, Mean Corpuscular Hemoglobin 27.7, Mean Corpuscular Hemoglobin Concent 33.8, Red Cell Distribution Width 13.1, Platelet Count 332, Mean Platelet Volume 6.8, Neutrophils (%) (Auto) 72.3, Lymphocytes (% ) (Auto) 17.8L, Monocytes (%) (Auto) 4.9, Eosinophils (%) (Auto) 3.9H, Basophils (%) (Auto) 1.2, Urine Color Pale yellow, Urine Appearance Clear, Urine pH 5, Urine Specific [place] 1.010, Urine Protein Negative, Urine Glucose (UA) Negative, Urine Ketones Negative, Urine Blood Negative, Urine Nitrite Negative, Urine Bilirubin Negative, Urine Urobilinogen Normal, Urine Leukocyte Esterase Negative, Sodium Level 136, Potassium Level 3.7, Chloride Level 98, Carbon Dioxide Level 32, Anion Gap 6, Blood Urea Nitrogen 17, Creatinine 1.4H, Estimat Glomerular Filtration Rate 50.7, Glucose Level 221H, Hemoglobin A1c 8.4H , Lactic Acid Level 1.40, Calcium Level 9.1, Total Bilirubin 0.7, Aspartate Amino Transf (AST/SGOT) 23, Alanine Aminotransferase (ALT/SGPT) 37, Alkaline Phosphatase 112, Total Protein 7.2, Albumin 3.6, Globulin 3.6, Albumin/Globulin Ratio 1.0 03/10/20 05:50: White Blood Count 6.3, Red Blood Count 4.75, Hemoglobin 13.2L, Hematocrit 39.3L , Mean Corpuscular Volume 83, Mean Corpuscular Hemoglobin 27.9, Mean Corpuscular Hemoglobin Concent 33.7, Red Cell Distribution Width 13.3, Platelet Count 281, Mean Platelet Volume 6.6, Neutrophils (%) (Auto) 69.3, Lymphocytes (% ) (Auto) 18.5L, Monocytes (%) (Auto) 5.9, Eosinophils (%) (Auto) 5.3H, Basophils (%) (Auto) 1.0, Magnesium Level 1.4L, Pro-B-Type Natriuretic Peptide 455H Height (Feet): 5 Height (Inches): 10.00 Weight (Pounds): 250 General Appearance: no apparent distress, alert, obese, alert oriented x3 EENT: PERRL/EOMI, normal ENT inspection Neck: normal alignment, supple, normal inspection Cardiovascular: normal peripheral pulses, normal rate, regular rhythm, no gallop/murmur, no JVD Respiratory/Chest: no respiratory distress, no accessory muscle use, decreased breath sounds, crackles/rales Abdomen: non tender, soft, distended, other - skin wounds Edema: 1+ Leg (L), 1+ Leg (R) Edema: mild edema Neurologic: oriented x 3, responsive, normal mood/affect Skin: rash - rash improving, less itching, other William Anne M.D. Mar 10, 2020 11:00
[2020-03-10 11:11] LABS: ALANINE AMINOTRANSFERASE 32 U/L (12-78); ALBUMIN 3.2 G/DL (3.4-5.0); ALKALINE PHOSPHATASE 99 U/L (46-116); ANION GAP 9 mmol/L (5-15); ASPARTATE AMINO TRANSFERASE 22 U/L (15-37); BILIRUBIN,TOTAL 0.6 MG/DL (0.2-1.0); BLOOD UREA NITROGEN 18 mg/dL (7-18); CALCIUM 8.3 MG/DL (8.5-10.1); CARBON DIOXIDE 29 MMOL/L (21-32); CHLORIDE 99 MMOL/L (98-107); CREATININE 1.5 MG/DL (0.55-1.30); POTASSIUM 3.4 MMOL/L (3.5-5.1); SODIUM 137 MMOL/L (136-145)
--- NOTE | 2020-03-10 11:20 | Pulmonology Progress Note ---
Subjective ROS Limited/Unobtainable: No Interval Events: None new Constitutional: Reports: no symptoms HEENT: Repors: no symptoms Respiratory: Reports: dry cough Cardiovascular: Reports: no symptoms Gastrointestinal/Abdominal: Reports: no symptoms Genitourinary: Reports: no symptoms Allergies: Coded Allergies: No Known Allergies (Unverified , 11/06/17) Objective Last 24 Hour Vital Signs Date Time Temp Pulse Resp B/P (MAP) Pulse Ox O2 Delivery O2 Flow Rate FiO2 03/10/20 09:00 Room Air 03/10/20 08:44 131/58 03/10/20 08:43 89 131/58 03/10/20 08:00 97.5 89 20 131/58 (82) 92 03/10/20 04:00 98.1 84 20 120/75 (90) 95 03/10/20 00:00 97.0 79 20 131/68 (89) 94 03/09/20 21:00 Room Air 03/09/20 20:00 97.7 86 20 127/66 (86) 95 03/09/20 17:53 Room Air 03/09/20 15:56 97.9 84 20 146/80 95 Room Air 03/09/20 14:26 97.9 84 20 146/80 95 Room Air Intake and Output 03/09/20 03/10/20 19:00 07:00 Intake Total 900 ml Balance 900 ml Intake Oral 900 ml # Voids 2 2 General Appearance: no acute distress HEENT: normocephalic Respiratory: chest wall non-tender, lungs clear Cardiovascular: normal peripheral pulses, normal rate Abdomen: normal bowel sounds Laboratory Tests 03/09/20 11:25: White Blood Count 8.0, Red Blood Count 5.07, Hemoglobin 14.1L, Hematocrit 41.6L , Mean Corpuscular Volume 82, Mean Corpuscular Hemoglobin 27.7, Mean Corpuscular Hemoglobin Concent 33.8, Red Cell Distribution Width 13.1, Platelet Count 332, Mean Platelet Volume 6.8, Neutrophils (%) (Auto) 72.3, Lymphocytes (% ) (Auto) 17.8L, Monocytes (%) (Auto) 4.9, Eosinophils (%) (Auto) 3.9H, Basophils (%) (Auto) 1.2, Urine Color Pale yellow, Urine Appearance Clear, Urine pH 5, Urine Specific [place] 1.010, Urine Protein Negative, Urine Glucose (UA) Negative, Urine Ketones Negative, Urine Blood Negative, Urine Nitrite Negative, Urine Bilirubin Negative, Urine Urobilinogen Normal, Urine Leukocyte Esterase Negative, Sodium Level 136, Potassium Level 3.7, Chloride Level 98, Carbon Dioxide Level 32, Anion Gap 6, Blood Urea Nitrogen 17, Creatinine 1.4H, Estimat Glomerular Filtration Rate 50.7, Glucose Level 221H, Hemoglobin A1c 8.4H , Lactic Acid Level 1.40, Calcium Level 9.1, Total Bilirubin 0.7, Aspartate Amino Transf (AST/SGOT) 23, Alanine Aminotransferase (ALT/SGPT) 37, Alkaline Phosphatase 112, Total Protein 7.2, Albumin 3.6, Globulin 3.6, Albumin/Globulin Ratio 1.0 03/10/20 05:50: White Blood Count 6.3, Red Blood Count 4.75, Hemoglobin 13.2L, Hematocrit 39.3L , Mean Corpuscular Volume 83, Mean Corpuscular Hemoglobin 27.9, Mean Corpuscular Hemoglobin Concent 33.7, Red Cell Distribution Width 13.3, Platelet Count 281, Mean Platelet Volume 6.6, Neutrophils (%) (Auto) 69.3, Lymphocytes (% ) (Auto) 18.5L, Monocytes (%) (Auto) 5.9, Eosinophils (%) (Auto) 5.3H, Basophils (%) (Auto) 1.0, Sodium Level 137, Potassium Level 3.4L, Chloride Level 99, Carbon Dioxide Level 29, Anion Gap 9, Blood Urea Nitrogen 18, Creatinine 1.5H, Estimat Glomerular Filtration Rate 46.8, Glucose Level 302H, Calcium Level 8.3L, Total Bilirubin 0.6, Aspartate Amino Transf (AST/SGOT) 22, Alanine Aminotransferase (ALT/SGPT) 32, Alkaline Phosphatase 99, Total Protein 6.3L, Albumin 3.2L, Globulin 3.1, Albumin/Globulin Ratio 1.0, Magnesium Level 1.4L, Pro-B-Type Natriuretic Peptide 455H Current Medications Medications (Trade) Dose Ordered Sig/Anjel Route PRN Reason Start Time Stop Time Status Last Admin Dose Admin Al Hydroxide/Mg Hydroxide (Mylanta II) 30 ml Q6H PRN ORAL dyspepsia 03/09/20 15:30 04/08/20 15:29 Amlodipine Besylate (Norvasc) 10 mg DAILY ORAL 8/8/20 09:00 04/09/20 08:59 03/10/20 08:43 Aspirin (Ecotrin) 81 mg DAILY ORAL 03/10/20 09:00 04/24/20 08:59 03/10/20 08:45 Atorvastatin Calcium (Lipitor) 40 mg BEDTIME ORAL 03/09/20 21:00 06/07/20 20:59 03/09/20 20:28 Bisacodyl (Dulcolax) 10 mg HSPRN PRN RECTAL Constipation 03/09/20 15:30 06/07/20 15:29 Ceftriaxone Sodium 1 gm/ Dextrose 55 ml @ 110 mls/hr Q24H IVPB 03/10/20 12:00 03/17/20 11:59 Chlorthalidone (Chlorthalidone) 25 mg DAILY ORAL 03/10/20 09:00 04/09/20 08:59 03/10/20 08:44 Dextrose (Dextrose 50%) 25 ml Q30M PRN IV Hypoglycemia 03/09/20 16:15 06/07/20 16:14 Dextrose (Dextrose 50%) 50 ml Q30M PRN IV Hypoglycemia 03/09/20 16:15 06/07/20 16:14 Diphenhydramine HCl (Benadryl) 25 mg Q6H PRN ORAL Itching/Pruritis 03/09/20 15:30 04/08/20 15:29 Furosemide (Lasix) 40 mg DAILY IV 03/09/20 16:00 04/08/20 15:59 03/10/20 08:43 Heparin Sodium (Porcine) (Heparin 5000 units/ml) 5,000 units EVERY 12 HOURS SUBQ 03/09/20 21:00 04/23/20 20:59 03/10/20 08:56 Insulin Aspart (NovoLOG) BEFORE MEALS AND HS SUBQ 03/09/20 17:00 06/07/20 16:59 03/10/20 05:42 Lisinopril (PriniviL) 40 mg DAILY ORAL 03/10/20 09:00 04/09/20 08:59 03/10/20 08:44 Magnesium Hydroxide (Mom) 30 ml HSPRN PRN ORAL Constipation 03/09/20 15:30 04/08/20 15:29 Methocarbamol (Robaxin) 750 mg TIDPRN PRN ORAL muscle spasm 03/09/20 15:30 04/08/20 15:29 03/10/20 08:44 Nitroglycerin (Ntg) 0.4 mg Q5M X 3 DOSES PRN SL Prn Chest Pain 03/09/20 15:30 04/08/20 15:29 Ondansetron HCl (Zofran) 4 mg Q6H PRN IVP Nausea & Vomiting 03/09/20 15:30 04/08/20 15:29 Pantoprazole (Protonix) 40 mg DAILY ORAL 03/10/20 09:00 04/09/20 08:59 03/10/20 08:44 Quetiapine Fumarate (SEROqueL) 200 mg QHS ORAL 03/09/20 21:15 04/23/20 21:14 03/09/20 21:36 Sertraline HCl (Zoloft) 100 mg DAILY ORAL 03/10/20 09:00 04/09/20 08:59 Tamsulosin HCl (Flomax) 0.4 mg BEDTIME ORAL 03/09/20 21:00 04/08/20 20:59 03/09/20 20:28 Assessment/Plan Assessment/Plan IMPRESSION: 1. Cellulitis. 2. COPD. 3. Hypertension. 4. Diabetes. DISCUSSION: The patient will benefit from broad-spectrum antibiotics. I will follow as hydrocrane operator. I ordered oxygen and pulmonary hygiene. Saturating well on RA Priscilla Rivas Omar Syed MD Mar 10, 2020 11:20
[2020-03-10 12:00] VITALS: BP 127/64
[2020-03-10] MEDS ORDERED: cefTRIAXone 1 GM in D5W 55 ML IVPB SCH (12:15)
[2020-03-10] MEDS: cefTRIAXone 1gm/D5W 55ml IVPB SCH ×2 (13:00)
[2020-03-10] MEDS: Vancomycin 1gm in D5W 275ml IVPB SCH (14:43)
[2020-03-10 16:00] VITALS: BP 135/62
--- NOTE | 2020-03-10 17:56 | Infectious Diseases Prog Note ---
Assessment/Plan Assessment/Plan Full consult dictated: A) 1) bilateral leg cellulitis 2) abdominal wall cellulitis 3) possible scabies P) 1) vancomycin and ceftriaxone 2) ivermectin 3) monitor clinically 4) thank you Subjective Allergies: Coded Allergies: No Known Allergies (Unverified , 11/06/17) Objective Last 24 Hour Vital Signs Date Time Temp Pulse Resp B/P (MAP) Pulse Ox O2 Delivery O2 Flow Rate FiO2 03/10/20 16:00 97.5 98 20 135/62 (86) 95 03/10/20 12:00 96.6 80 18 127/64 (85) 92 03/10/20 09:00 Room Air 03/10/20 08:44 131/58 03/10/20 08:43 89 131/58 03/10/20 08:00 97.5 89 20 131/58 (82) 92 03/10/20 04:00 98.1 84 20 120/75 (90) 95 03/10/20 00:00 97.0 79 20 131/68 (89) 94 03/09/20 21:00 Room Air 03/09/20 20:00 97.7 86 20 127/66 (86) 95 Height (Feet): 5 Height (Inches): 10.00 Weight (Pounds): 250 Laboratory Tests Test 03/10/20 05:50 White Blood Count 6.3 K/UL (4.8-10.8) Red Blood Count 4.75 M/UL (4.70-6.10) Hemoglobin 13.2 G/DL (14.2-18.0) L Hematocrit 39.3 % (42.0-52.0) L Mean Corpuscular Volume 83 FL (80-99) Mean Corpuscular Hemoglobin 27.9 PG (27.0-31.0) Mean Corpuscular Hemoglobin Concent 33.7 G/DL (32.0-36.0) Red Cell Distribution Width 13.3 % (11.6-14.8) Platelet Count 281 K/UL (150-450) Mean Platelet Volume 6.6 FL (6.5-10.1) Neutrophils (%) (Auto) 69.3 % (45.0-75.0) Lymphocytes (%) (Auto) 18.5 % (20.0-45.0) L Monocytes (%) (Auto) 5.9 % (1.0-10.0) Eosinophils (%) (Auto) 5.3 % (0.0-3.0) H Basophils (%) (Auto) 1.0 % (0.0-2.0) Sodium Level 137 MMOL/L (136-145) Potassium Level 3.4 MMOL/L (3.5-5.1) L Chloride Level 99 MMOL/L (98-107) Carbon Dioxide Level 29 MMOL/L (21-32) Anion Gap 9 mmol/L (5-15) Blood Urea Nitrogen 18 mg/dL (7-18) Creatinine 1.5 MG/DL (0.55-1.30) H Estimat Glomerular Filtration Rate 46.8 mL/min (>60) Glucose Level 302 MG/DL (74-106) H Calcium Level 8.3 MG/DL (8.5-10.1) L Magnesium Level 1.4 MG/DL (1.8-2.4) L Total Bilirubin 0.6 MG/DL (0.2-1.0) Aspartate Amino Transf (AST/SGOT) 22 U/L (15-37) Alanine Aminotransferase (ALT/SGPT) 32 U/L (12-78) Alkaline Phosphatase 99 U/L (46-116) Pro-B-Type Natriuretic Peptide 455 pg/mL (0-125) H Total Protein 6.3 G/DL (6.4-8.2) L Albumin 3.2 G/DL (3.4-5.0) L Globulin 3.1 g/dL Albumin/Globulin Ratio 1.0 (1.0-2.7) Current Medications Medications (Trade) Dose Ordered Sig/Anjel Route PRN Reason Start Time Stop Time Status Last Admin Dose Admin Al Hydroxide/Mg Hydroxide (Mylanta II) 30 ml Q6H PRN ORAL dyspepsia 03/09/20 15:30 04/08/20 15:29 Amlodipine Besylate (Norvasc) 10 mg DAILY ORAL 03/10/20 09:00 04/09/20 08:59 03/10/20 08:43 Aspirin (Ecotrin) 81 mg DAILY ORAL 03/10/20 09:00 04/24/20 08:59 03/10/20 08:45 Atorvastatin Calcium (Lipitor) 40 mg BEDTIME ORAL 03/09/20 21:00 06/07/20 20:59 03/09/20 20:28 Bisacodyl (Dulcolax) 10 mg HSPRN PRN RECTAL Constipation 03/09/20 15:30 06/07/20 15:29 Ceftriaxone Sodium 1 gm/ Dextrose 55 ml @ 110 mls/hr Q24H IVPB 03/10/20 12:00 03/17/20 11:59 03/10/20 13:00 Chlorthalidone (Chlorthalidone) 25 mg DAILY ORAL 03/10/20 09:00 04/09/20 08:59 03/10/20 08:44 Dextrose (Dextrose 50%) 25 ml Q30M PRN IV Hypoglycemia 03/09/20 16:15 06/07/20 16:14 Dextrose (Dextrose 50%) 50 ml Q30M PRN IV Hypoglycemia 03/09/20 16:15 06/07/20 16:14 Diphenhydramine HCl (Benadryl) 25 mg Q6H PRN ORAL Itching/Pruritis 03/09/20 15:30 04/08/20 15:29 Furosemide (Lasix) 40 mg DAILY IV 03/09/20 16:00 04/08/20 15:59 03/10/20 08:43 Heparin Sodium (Porcine) (Heparin 5000 units/ml) 5,000 units EVERY 12 HOURS SUBQ 03/09/20 21:00 04/23/20 20:59 03/10/20 08:56 Insulin Aspart (NovoLOG) BEFORE MEALS AND HS SUBQ 03/09/20 17:00 06/07/20 16:59 03/10/20 16:49 Lisinopril (PriniviL) 40 mg DAILY ORAL 03/10/20 09:00 04/09/20 08:59 03/10/20 08:44 Magnesium Hydroxide (Mom) 30 ml HSPRN PRN ORAL Constipation 03/09/20 15:30 04/08/20 15:29 Methocarbamol (Robaxin) 750 mg TIDPRN PRN ORAL muscle spasm 03/09/20 15:30 04/08/20 15:29 03/10/20 17:45 Nitroglycerin (Ntg) 0.4 mg Q5M X 3 DOSES PRN SL Prn Chest Pain 03/09/20 15:30 04/08/20 15:29 Ondansetron HCl (Zofran) 4 mg Q6H PRN IVP Nausea & Vomiting 03/09/20 15:30 04/08/20 15:29 Pantoprazole (Protonix) 40 mg DAILY ORAL 03/10/20 09:00 04/09/20 08:59 03/10/20 08:44 Quetiapine Fumarate (SEROqueL) 200 mg QHS ORAL 03/09/20 21:15 04/23/20 21:14 03/09/20 21:36 Sertraline HCl (Zoloft) 100 mg DAILY ORAL 03/10/20 09:00 04/09/20 08:59 Tamsulosin HCl (Flomax) 0.4 mg BEDTIME ORAL 03/09/20 21:00 04/08/20 20:59 03/09/20 20:28 Vancomycin HCl (Vanco pharmacy to dose) 1 ea DAILY PRN MISC Per rx protocol 03/10/20 12:15 04/09/20 12:14 Vancomycin HCl 1 gm/Dextrose 275 ml @ 183.708 mls/hr Q12H IVPB 03/10/20 14:00 03/15/20 13:59 03/10/20 14:43 Rodrigo Raygoza MD Mar 10, 2020 17:56
[2020-03-10 20:00] VITALS: BP 147/85
--- NOTE | 2020-03-10 20:45 | Consultation ---
DATE OF CONSULTATION: 03/10/2020 INFECTIOUS DISEASE CONSULTATION CONSULTING PHYSICIAN: Rodrigo Raygoza MD. ATTENDING PHYSICIAN: Jone García MD. REFERRING PHYSICIANS: 1. Jone García MD. 2. William Anne MD. REASON FOR CONSULTATION: Bilateral leg cellulitis, abdominal wall cellulitis, scabies. CHIEF COMPLAINT: The patient's chief complaint coming into the hospital is lower extremity cellulitis and abdominal wall cellulitis. HISTORY OF PRESENT ILLNESS: This is a very pleasant 64-year-old male who comes into [facility] with bilateral leg swelling, redness, and also abdominal wall redness and pain, both the abdominal wall and lower extremities. He has had this for at least several days and progressively got worse. The patient has bilateral leg cellulitis and abdominal cellulitis. The patient has been started on vancomycin and Rocephin. He has history of cellulitis in the past. On discussion with the patient, he states he picks at his skin and it could be infection. The patient also has a rash and possible scabies rash. I believe, the patient was given ivermectin for that. Infectious Disease consultation requested for antibiotic management. The patient with bilateral leg and abdominal cellulitis. MAR was noted. Orders were noted. Notes were reviewed. We will continue the patient on vancomycin and Rocephin. REVIEW OF SYSTEMS: CONSTITUTIONAL: The patient has no fever, chills, or night sweats. No weight loss mentioned. HEAD AND NECK: No head pain, neck pain, neck stiffness, thrush, or dysphagia. CARDIAC: No chest pain or palpitations. GASTROINTESTINAL: No nausea, vomiting, or diarrhea. He does have abdominal pain. GENITOURINARY: He has no dysuria or frequency. PULMONARY: No shortness of breath. No hemoptysis or secretions, cough or congestion. SKIN: No rash. EXTREMITIES: Bilateral lower extremities does have leg pain and redness. NEUROLOGICAL: No seizures. Generalized fatigue. No focal weakness. PAST MEDICAL HISTORY: The patient has a past medical history of morbid obesity, hypertension, hyperlipidemia, diabetes type 2, COPD, hyperlipidemia, chronic respiratory failure, hypoxia, and chronic hypovolemic hyponatremia, also history of cellulitis. ALLERGIES: He has no known drug allergies. No antibiotic allergies. SOCIAL HISTORY: Negative for smoking, alcohol, or drug abuse. FAMILY HISTORY: Noncontributory. Negative for tuberculosis or cancer. MEDICATIONS: Upon reviewing MAR, he is on following medications: The patient is on vancomycin and Rocephin. He is on an amlodipine. He is on aspirin, atorvastatin, bisacodyl. He is on chlorthalidone. He is on diphenhydramine, furosemide, heparin, and insulin. Ivermectin was given, vancomycin, and Rocephin. He is on nitroglycerin as needed, Zofran, pantoprazole, quetiapine, and sertraline or Zoloft. Outside medications were noted and reconciliated. PHYSICAL EXAMINATION: VITAL SIGNS: Temperature is 97.5, pulse rate 98, respiratory rate 20, and blood pressure 135/62. Saturation 95% on room air. GENERAL: Alert and responsive, in no acute distress. HEAD AND NECK: Oral exam, no thrush. Eye exam, no icterus. Normocephalic. Neck is supple. No JVD. HEART: No gallop or murmur. ABDOMEN: Soft. Positive bowel sounds. Nontender. He has abdominal wall redness and warmth. LUNGS: Clear bilaterally. No rhonchi or rales. SKIN: No rash. MUSCULOSKELETAL: No effusions. Leg exam, he has bilateral leg redness and warmth. PERIPHERAL VASCULAR: No gangrene, cyanosis, or septic arthritis. NEUROLOGIC: Intact. LINE SITES: Without phlebitis. GENITOURINARY: No Quinones. LABORATORY DATA: UA is negative. Creatinine 1.5. LFTs noted. White count 6.3 and hemoglobin 13.2. UA and cultures, pending. IMAGING: Venous duplex showed no evidence of DVT. ASSESSMENT AND PLAN: 1. The patient has bilateral leg cellulitis, edema, redness, and warmth, and also abdominal wall redness and warmth. Findings are consistent with bilateral leg cellulitis and also abdominal wall cellulitis. At this time, we will continue antibiotics of vancomycin and Rocephin for MRSA and Gram-negative and Streptococcus pyogenes coverage. Continue vancomycin and Rocephin for bilateral leg and abdominal cellulitis. Monitor the patient clinically. This day #2 of antibiotics. I also discussed with the patient to stop picking at his skin or scratching the skin because this could cause the cellulitis to reoccur. 2. Possible scabies rash, status post ivermectin, may need to repeat if this does not improve. 3. Elevated creatinine. 4. Diabetes. 5. Hypertension. 6. Blood sugar and blood pressure treatment per primary care team. 7. COPD. 8. Obesity. 9. History of cellulitis. 10. Chronic respiratory failure. 11. He has a history of hyperlipidemia. 12. No known drug allergies. 13. Social history is negative. 14. Family history is noncontributory. 15. MAR was noted. 16. Case was discussed with RN. 17. Continue treatment per primary consultants. Rodrigo Raygoza M.D. DR: BRADY JOB#: [id number] CC:
[2020-03-10] MEDS: Tamsulosin 0.4mg cap ORAL SCH (20:46)
[2020-03-10] MEDS: QUEtiapine 200mg tab ORAL SCH (20:46)
--- NOTE | 2020-03-10 20:46 | Nephrology Progress Note ---
Assessment/Plan Plan #PAULINE on CKD #RLE cellulitis #COPD #acute on chronic CHF #HTN #HLD #BPH - antibiotics per ID - vano and ceftriaxone - lasix 40 IV daily - chlorthalidone 25mg daily - lisinopril 40 daily - flomax 0.4mg daily - replete lytes - monitor renal function - avoid nephrotoxins - daily weights time spent 70 min - greater than 50% in care coordination Subjective ROS Limited/Unobtainable: No Constitutional: Reports: weakness HEENT: Denies: no symptoms, eye pain, blurred vision, tearing, double vision, ear pain, ear discharge, nose pain, nose congestion, throat pain, throat swelling, mouth pain, mouth swelling, other Genitourinary: Denies: no symptoms, burning, discharge, frequency, flank pain, hematuria, incontinence, pain, urgency, other Neurologic/Psychiatric: Denies: no symptoms, anxiety, depressed, emotional problems, headache, numbness, paresthesia, pre-existing deficit, seizure, tingling, tremors, weakness, other Subjective RLE pain better breathing slightly improved no chest pain Objective Objective Last 24 Hour Vital Signs Date Time Temp Pulse Resp B/P (MAP) Pulse Ox O2 Delivery O2 Flow Rate FiO2 03/10/20 16:00 97.5 98 20 135/62 (86) 95 03/10/20 12:00 96.6 80 18 127/64 (85) 92 03/10/20 09:00 Room Air 03/10/20 08:44 131/58 03/10/20 08:43 89 131/58 03/10/20 08:00 97.5 89 20 131/58 (82) 92 03/10/20 04:00 98.1 84 20 120/75 (90) 95 03/10/20 00:00 97.0 79 20 131/68 (89) 94 03/09/20 21:00 Room Air Intake and Output 03/09/20 03/10/20 19:00 07:00 Intake Total 900 ml Balance 900 ml Intake Oral 900 ml # Voids 2 2 Laboratory Tests 03/10/20 05:50: White Blood Count 6.3, Red Blood Count 4.75, Hemoglobin 13.2L, Hematocrit 39.3L , Mean Corpuscular Volume 83, Mean Corpuscular Hemoglobin 27.9, Mean Corpuscular Hemoglobin Concent 33.7, Red Cell Distribution Width 13.3, Platelet Count 281, Mean Platelet Volume 6.6, Neutrophils (%) (Auto) 69.3, Lymphocytes (% ) (Auto) 18.5L, Monocytes (%) (Auto) 5.9, Eosinophils (%) (Auto) 5.3H, Basophils (%) (Auto) 1.0, Sodium Level 137, Potassium Level 3.4L, Chloride Level 99, Carbon Dioxide Level 29, Anion Gap 9, Blood Urea Nitrogen 18, Creatinine 1.5H, Estimat Glomerular Filtration Rate 46.8, Glucose Level 302H, Calcium Level 8.3L, Magnesium Level 1.4L, Total Bilirubin 0.6, Aspartate Amino Transf (AST/SGOT) 22, Alanine Aminotransferase (ALT/SGPT) 32, Alkaline Phosphatase 99, Pro-B-Type Natriuretic Peptide 455H, Total Protein 6.3L, Albumin 3.2L, Globulin 3.1, Albumin/Globulin Ratio 1.0 Height (Feet): 5 Height (Inches): 10.00 Weight (Pounds): 250 General Appearance: no apparent distress EENT: PERRL/EOMI, normal ENT inspection Neck: non-tender, normal alignment Cardiovascular: normal peripheral pulses, normal rate Respiratory/Chest: chest wall non-tender Abdomen: non tender, soft Genitourinary/Rectal: other - r leg erythema Extremities: non-tender Neurologic: alert, oriented x 3 Jone García M.D. Mar 10, 2020 20:46
[2020-03-10] MEDS: Atorvastatin 20mg tab ORAL SCH (20:47)
[2020-03-11] VITALS: BP 102/54
[2020-03-11] MEDS: Vancomycin 1gm in D5W 275ml IVPB SCH ×2 (02:11→15:16)
[2020-03-11 04:00] VITALS: BP 107/61
[2020-03-11] MEDS: NovoLOG Insulin Flexpen SUBQ SCH ×4 (06:32→21:01)
[2020-03-11 06:40] LABS: BASOPHILS % (AUTO) 0.8 % (0.0-2.0); HEMATOCRIT 40.3 % (42.0-52.0); HEMOGLOBIN 13.8 G/DL (14.2-18.0); LYMPHOCYTES % (AUTO) 21.5 % (20.0-45.0); MEAN CORPUSCULAR VOLUME 83 FL (80-99); MONOCYTES % (AUTO) 5.4 % (1.0-10.0); NEUTROPHILS % (AUTO) 66.3 % (45.0-75.0); PLATELET COUNT 289 K/UL (150-450); RED BLOOD COUNT 4.87 M/UL (4.70-6.10); RED CELL DISTRIBUTION WIDTH 13.4 % (11.6-14.8); WHITE BLOOD COUNT 6.2 K/UL (4.8-10.8)
[2020-03-11 06:56] LABS: ALANINE AMINOTRANSFERASE 33 U/L (12-78); ALBUMIN 3.3 G/DL (3.4-5.0); ALBUMIN/GLOBULIN RATIO 0.9 (1.0-2.7); ALKALINE PHOSPHATASE 114 U/L (46-116); ANION GAP 6 mmol/L (5-15); ASPARTATE AMINO TRANSFERASE 25 U/L (15-37); BILIRUBIN,TOTAL 0.5 MG/DL (0.2-1.0); BLOOD UREA NITROGEN 18 mg/dL (7-18); CALCIUM 8.5 MG/DL (8.5-10.1); CARBON DIOXIDE 31 MMOL/L (21-32); CHLORIDE 94 MMOL/L (98-107); CREATININE 1.6 MG/DL (0.55-1.30); POTASSIUM 3.7 MMOL/L (3.5-5.1); SODIUM 131 MMOL/L (136-145)
[2020-03-11 08:00] VITALS: BP 127/66
--- NOTE | 2020-03-11 08:21 | Nephrology Progress Note ---
Assessment/Plan Plan #PAULINE on CKD #RLE cellulitis #COPD #acute on chronic CHF #HTN #HLD #BPH - antibiotics per ID - vano and ceftriaxone - lasix 40 IV daily - HOLD chlorthalidone 25mg daily - lisinopril 40 daily - flomax 0.4mg daily - replete lytes - monitor renal function - avoid nephrotoxins - daily weights time spent 70 min - greater than 50% in care coordination Subjective ROS Limited/Unobtainable: No Constitutional: Reports: weakness HEENT: Denies: no symptoms, eye pain, blurred vision, tearing, double vision, ear pain, ear discharge, nose pain, nose congestion, throat pain, throat swelling, mouth pain, mouth swelling, other Genitourinary: Denies: no symptoms, burning, discharge, frequency, flank pain, hematuria, incontinence, pain, urgency, other Neurologic/Psychiatric: Denies: no symptoms, anxiety, depressed, emotional problems, headache, numbness, paresthesia, pre-existing deficit, seizure, tingling, tremors, weakness, other Subjective RLE pain better breathing slightly improved no chest pain RLE US: No evidence of deep venous thrombosis involving the lower extremities. Objective Objective Last 24 Hour Vital Signs Date Time Temp Pulse Resp B/P (MAP) Pulse Ox O2 Delivery O2 Flow Rate FiO2 03/11/20 04:00 96.4 80 20 107/61 (76) 93 03/11/20 00:00 96.9 88 20 102/54 (70) 92 03/10/20 21:00 Room Air 03/10/20 20:00 97.5 83 20 147/85 (105) 94 03/10/20 16:00 97.5 98 20 135/62 (86) 95 03/10/20 12:00 96.6 80 18 127/64 (85) 92 03/10/20 09:00 Room Air 03/10/20 08:44 131/58 03/10/20 08:43 89 131/58 Intake and Output 03/10/20 03/11/20 19:00 07:00 Intake Total 1650.000 ml 400 ml Balance 1650.000 ml 400 ml Intake Oral 1220 ml IV Total 430.000 ml Other 400 ml # Voids 3 2 Laboratory Tests 03/11/20 05:35: White Blood Count 6.2, Red Blood Count 4.87, Hemoglobin 13.8L, Hematocrit 40.3L , Mean Corpuscular Volume 83, Mean Corpuscular Hemoglobin 28.3, Mean Corpuscular Hemoglobin Concent 34.1, Red Cell Distribution Width 13.4, Platelet Count 289, Mean Platelet Volume 6.5, Neutrophils (%) (Auto) 66.3, Lymphocytes (% ) (Auto) 21.5, Monocytes (%) (Auto) 5.4, Eosinophils (%) (Auto) 6.0H, Basophils (%) (Auto) 0.8, Sodium Level 131L, Potassium Level 3.7, Chloride Level 94L, Carbon Dioxide Level 31, Anion Gap 6, Blood Urea Nitrogen 18, Creatinine 1.6H, Estimat Glomerular Filtration Rate 43.5, Glucose Level 385H, Calcium Level 8.5, Total Bilirubin 0.5, Aspartate Amino Transf (AST/SGOT) 25, Alanine Aminotransferase (ALT/SGPT) 33, Alkaline Phosphatase 114, Total Protein 6.8, Albumin 3.3L, Globulin 3.5, Albumin/Globulin Ratio 0.9L Height (Feet): 5 Height (Inches): 10.00 Weight (Pounds): 250 Jone García M.D. Mar 11, 2020 08:21
[2020-03-11] MEDS: Aspirin EC 81mg tab ORAL SCH (08:56)
[2020-03-11] MEDS: Lisinopril 20mg tab ORAL SCH (08:57)
[2020-03-11] MEDS: Sertraline 100mg tab ORAL SCH (09:00)
[2020-03-11] MEDS: Heparin 5000 units/ml inj SUBQ SCH ×2 (09:12→21:07)
[2020-03-11] MEDS: Levemir Flexpen SUBQ SCH (10:02)
--- NOTE | 2020-03-11 10:24 | General Progress Note ---
Assessment/Plan Problem List: (1) Cellulitis of abdominal wall ICD Codes: L03.311 - Cellulitis of abdominal wall SNOMED: 66123911 (2) Bilateral lower extremity edema ICD Codes: R60.0 - Localized edema SNOMED: 432214838, 63728436, 01074335 (3) CHF exacerbation ICD Codes: I50.9 - Heart failure, unspecified SNOMED: 753626432, 19078858931924 (4) Cellulitis of both lower extremities ICD Codes: L03.115 - Cellulitis of right lower limb; L03.116 - Cellulitis of left lower limb SNOMED: 902883772 (5) Crusted scabies ICD Codes: B86 - Scabies SNOMED: 366358750 Status: stable Assessment/Plan: 64 year old man with history of morbid obesity, HTN, HLD, NIDDM type 2, COPD, chronic respiratory failure, chronic hypervolemic hyponatremia who presented to the ED with progressive bilateral lower extremity and abdominal wall cellulitis. #Bilateral lower extremity cellulitis #Cellulitis of the abdomen #Presumed scabies infection #Right leg pain -Continue Vancomycin and Ceftriaxone -Topical Permethrin and PO Ivermectin -Follow up cultures -CBC daily -B/L lower extremity US reviewed an no DVT -Non Contrast CT of R leg for constant pain. -Consult to ID #CHF exacerbation #HTN #HLD -Continue home meds -Strict I/os -Daily Weights -Lasix 40 iv Daily #COPD -Duo nebs -Continue home meds -O2 saturation between 88% to 92% -Consult to Pulm Dr. Degroot - appreciate recs #PAULINE on CKD -Monitor electrolytes -limit nephrotoxic medications -Consult to Nephrology #NIDDM -ISS -Carb consistent diet -A1c reviewed -Hypoglycemia protocol I spent 36 min on this patient. I discussed consultants, RNs and pharmacist. Reviewed imaging. Subjective Date patient seen: Mar 11, 2020 Time patient seen: 10:20 Constitutional: Denies: diaphoresis, fever, malaise HEENT: Denies: blurred vision, tearing, double vision Cardiovascular: Reports: edema; Denies: chest pain, lightheadedness, palpitations, syncope Respiratory: Reports: orthopnea, shortness of breath, SOB with excertion, SOB at rest Gastrointestinal/Abdominal: Reports: abdomen distended; Denies: blood in stool , constipated, diarrhea Genitourinary: Reports: frequency; Denies: burning, flank pain, hematuria, incontinence, pain, urgency Neurologic/Psychiatric: Reports: no symptoms; Denies: depressed, emotional problems, tremors Endocrine: Reports: no symptoms; Denies: excessive sweating Hematologic/Lymphatic: Reports: no symptoms Allergies: Coded Allergies: No Known Allergies (Unverified , 11/06/17) Subjective Patienes itch has improved even further. Objective Last 24 Hour Vital Signs Date Time Temp Pulse Resp B/P (MAP) Pulse Ox O2 Delivery O2 Flow Rate FiO2 03/11/20 08:57 127/66 03/11/20 08:57 86 127/66 03/11/20 08:00 96.8 86 18 127/66 (86) 94 03/11/20 04:00 96.4 80 20 107/61 (76) 93 03/11/20 00:00 96.9 88 20 102/54 (70) 92 03/10/20 21:00 Room Air 03/10/20 20:00 97.5 83 20 147/85 (105) 94 03/10/20 16:00 97.5 98 20 135/62 (86) 95 03/10/20 12:00 96.6 80 18 127/64 (85) 92 Intake and Output 03/10/20 03/11/20 19:00 07:00 Intake Total 1650.000 ml 400 ml Balance 1650.000 ml 400 ml Intake Oral 1220 ml IV Total 430.000 ml Other 400 ml # Voids 3 2 Laboratory Tests 03/11/20 05:35: White Blood Count 6.2, Red Blood Count 4.87, Hemoglobin 13.8L, Hematocrit 40.3L , Mean Corpuscular Volume 83, Mean Corpuscular Hemoglobin 28.3, Mean Corpuscular Hemoglobin Concent 34.1, Red Cell Distribution Width 13.4, Platelet Count 289, Mean Platelet Volume 6.5, Neutrophils (%) (Auto) 66.3, Lymphocytes (% ) (Auto) 21.5, Monocytes (%) (Auto) 5.4, Eosinophils (%) (Auto) 6.0H, Basophils (%) (Auto) 0.8, Sodium Level 131L, Potassium Level 3.7, Chloride Level 94L, Carbon Dioxide Level 31, Anion Gap 6, Blood Urea Nitrogen 18, Creatinine 1.6H, Estimat Glomerular Filtration Rate 43.5, Glucose Level 385H, Calcium Level 8.5, Total Bilirubin 0.5, Aspartate Amino Transf (AST/SGOT) 25, Alanine Aminotransferase (ALT/SGPT) 33, Alkaline Phosphatase 114, Total Protein 6.8, Albumin 3.3L, Globulin 3.5, Albumin/Globulin Ratio 0.9L Height (Feet): 5 Height (Inches): 10.00 Weight (Pounds): 250 General Appearance: no apparent distress, alert, morbidly obese, alert oriented x3 EENT: PERRL/EOMI, normal ENT inspection Neck: non-tender, normal alignment, supple Cardiovascular: normal peripheral pulses, normal rate, regular rhythm, no gallop/murmur, JVD Respiratory/Chest: chest wall non-tender, no respiratory distress, no accessory muscle use, crackles/rales Abdomen: soft, distended, other - rash Extremities: normal range of motion, non-tender, normal inspection Edema: 2+ Leg (L), 2+ Leg (R) Edema: moderate edema Neurologic: technical sales representatives II-XII grossly normal, no motor/sensory deficits, oriented x 3 , responsive, normal mood/affect Skin: normal pigmentation, warm/dry, rash, other William Anne M.D. Mar 11, 2020 10:24
--- NOTE | 2020-03-11 11:05 | Pulmonology Progress Note ---
Subjective ROS Limited/Unobtainable: No Interval Events: None new Constitutional: Reports: no symptoms HEENT: Repors: no symptoms Respiratory: Reports: dry cough Cardiovascular: Reports: no symptoms Gastrointestinal/Abdominal: Reports: no symptoms Genitourinary: Reports: no symptoms Allergies: Coded Allergies: No Known Allergies (Unverified , 11/06/17) Objective Last 24 Hour Vital Signs Date Time Temp Pulse Resp B/P (MAP) Pulse Ox O2 Delivery O2 Flow Rate FiO2 03/11/20 09:00 Room Air 03/11/20 08:57 127/66 03/11/20 08:57 86 127/66 03/11/20 08:00 96.8 86 18 127/66 (86) 94 03/11/20 04:00 96.4 80 20 107/61 (76) 93 03/11/20 00:00 96.9 88 20 102/54 (70) 92 03/10/20 21:00 Room Air 03/10/20 20:00 97.5 83 20 147/85 (105) 94 03/10/20 16:00 97.5 98 20 135/62 (86) 95 03/10/20 12:00 96.6 80 18 127/64 (85) 92 Intake and Output 03/10/20 03/11/20 19:00 07:00 Intake Total 1650.000 ml 400 ml Balance 1650.000 ml 400 ml Intake Oral 1220 ml IV Total 430.000 ml Other 400 ml # Voids 3 2 General Appearance: no acute distress HEENT: normocephalic Respiratory: chest wall non-tender, lungs clear Cardiovascular: normal peripheral pulses, normal rate Abdomen: normal bowel sounds Microbiology Date/Time Source Procedure Growth Status 03/09/20 11:25 Blood Blood Culture - Preliminary NO GROWTH AFTER 24 HOURS Resulted 03/09/20 11:25 Blood Blood Culture - Preliminary NO GROWTH AFTER 24 HOURS Resulted Laboratory Tests 03/11/20 05:35: White Blood Count 6.2, Red Blood Count 4.87, Hemoglobin 13.8L, Hematocrit 40.3L , Mean Corpuscular Volume 83, Mean Corpuscular Hemoglobin 28.3, Mean Corpuscular Hemoglobin Concent 34.1, Red Cell Distribution Width 13.4, Platelet Count 289, Mean Platelet Volume 6.5, Neutrophils (%) (Auto) 66.3, Lymphocytes (% ) (Auto) 21.5, Monocytes (%) (Auto) 5.4, Eosinophils (%) (Auto) 6.0H, Basophils (%) (Auto) 0.8, Sodium Level 131L, Potassium Level 3.7, Chloride Level 94L, Carbon Dioxide Level 31, Anion Gap 6, Blood Urea Nitrogen 18, Creatinine 1.6H, Estimat Glomerular Filtration Rate 43.5, Glucose Level 385H, Calcium Level 8.5, Total Bilirubin 0.5, Aspartate Amino Transf (AST/SGOT) 25, Alanine Aminotransferase (ALT/SGPT) 33, Alkaline Phosphatase 114, Total Protein 6.8, Albumin 3.3L, Globulin 3.5, Albumin/Globulin Ratio 0.9L Current Medications Medications (Trade) Dose Ordered Sig/Anjel Route PRN Reason Start Time Stop Time Status Last Admin Dose Admin Al Hydroxide/Mg Hydroxide (Mylanta II) 30 ml Q6H PRN ORAL dyspepsia 03/09/20 15:30 04/08/20 15:29 Amlodipine Besylate (Norvasc) 10 mg DAILY ORAL 03/10/20 09:00 04/09/20 08:59 03/11/20 08:57 Aspirin (Ecotrin) 81 mg DAILY ORAL 03/10/20 09:00 04/24/20 08:59 03/11/20 08:56 Atorvastatin Calcium (Lipitor) 40 mg BEDTIME ORAL 03/09/20 21:00 06/07/20 20:59 03/10/20 20:47 Bisacodyl (Dulcolax) 10 mg HSPRN PRN RECTAL Constipation 03/09/20 15:30 06/07/20 15:29 Ceftriaxone Sodium 1 gm/ Dextrose 55 ml @ 110 mls/hr Q24H IVPB 03/10/20 12:00 03/17/20 11:59 03/10/20 13:00 Dextrose (Dextrose 50%) 25 ml Q30M PRN IV Hypoglycemia 03/09/20 16:15 06/07/20 16:14 Dextrose (Dextrose 50%) 50 ml Q30M PRN IV Hypoglycemia 03/09/20 16:15 06/07/20 16:14 Diphenhydramine HCl (Benadryl) 25 mg Q6H PRN ORAL Itching/Pruritis 03/09/20 15:30 04/08/20 15:29 Furosemide (Lasix) 40 mg DAILY IV 03/09/20 16:00 04/08/20 15:59 03/11/20 08:58 Heparin Sodium (Porcine) (Heparin 5000 units/ml) 5,000 units EVERY 12 HOURS SUBQ 03/09/20 21:00 04/23/20 20:59 03/11/20 09:12 Insulin Aspart (NovoLOG) BEFORE MEALS AND HS SUBQ 03/09/20 17:00 06/07/20 16:59 03/11/20 06:32 Insulin Detemir (Levemir) 23 units Q24H SUBQ 03/11/20 09:00 06/09/20 08:59 03/11/20 10:02 Lisinopril (PriniviL) 40 mg DAILY ORAL 03/10/20 09:00 04/09/20 08:59 03/11/20 08:57 Magnesium Hydroxide (Mom) 30 ml HSPRN PRN ORAL Constipation 03/09/20 15:30 04/08/20 15:29 Methocarbamol (Robaxin) 750 mg TIDPRN PRN ORAL muscle spasm 03/09/20 15:30 04/08/20 15:29 03/10/20 17:45 Nitroglycerin (Ntg) 0.4 mg Q5M X 3 DOSES PRN SL Prn Chest Pain 03/09/20 15:30 04/08/20 15:29 Ondansetron HCl (Zofran) 4 mg Q6H PRN IVP Nausea & Vomiting 03/09/20 15:30 04/08/20 15:29 Pantoprazole (Protonix) 40 mg DAILY ORAL 03/10/20 09:00 04/09/20 08:59 03/11/20 08:56 Quetiapine Fumarate (SEROqueL) 200 mg QHS ORAL 03/09/20 21:15 04/23/20 21:14 03/10/20 20:46 Sertraline HCl (Zoloft) 100 mg DAILY ORAL 03/10/20 09:00 04/09/20 08:59 Tamsulosin HCl (Flomax) 0.4 mg BEDTIME ORAL 03/09/20 21:00 04/08/20 20:59 03/10/20 20:46 Vancomycin HCl (Vanco pharmacy to dose) 1 ea DAILY PRN MISC Per rx protocol 03/10/20 12:15 04/09/20 12:14 Vancomycin HCl 1 gm/Dextrose 275 ml @ 183.708 mls/hr Q12H IVPB 03/10/20 14:00 03/15/20 13:59 03/11/20 02:11 Assessment/Plan Assessment/Plan IMPRESSION: 1. Cellulitis. 2. COPD. 3. Hypertension. 4. Diabetes. DISCUSSION: The patient will benefit from broad-spectrum antibiotics. I will follow as fiscal technician. I ordered oxygen and pulmonary hygiene. Saturating well on RA Priscilla Rivas Omar Syed MD Mar 11, 2020 11:05
[2020-03-11] MEDS: cefTRIAXone 1gm/D5W 55ml IVPB SCH ×2 (11:22)
[2020-03-11 12:00] VITALS: BP 122/66
[2020-03-11 16:00] VITALS: BP 124/60
[2020-03-11 20:00] VITALS: BP 137/81
[2020-03-11] MEDS: Tamsulosin 0.4mg cap ORAL SCH (21:05)
[2020-03-11] MEDS: Atorvastatin 20mg tab ORAL SCH (21:06)
[2020-03-11] MEDS: QUEtiapine 200mg tab ORAL SCH (21:06)
[2020-03-12] VITALS (7 sets, daily range): BP systolic 108–148; BP diastolic 55–80
[2020-03-12] MEDS: Vancomycin 1gm in D5W 275ml IVPB SCH ×2 (02:10→13:00)
[2020-03-12] MEDS: NovoLOG Insulin Flexpen SUBQ SCH ×4 (06:27→20:49)
[2020-03-12] MEDS: Sertraline 100mg tab ORAL SCH (08:25)
[2020-03-12] MEDS: Lisinopril 20mg tab ORAL SCH (08:25)
[2020-03-12] MEDS: Aspirin EC 81mg tab ORAL SCH (08:25)
[2020-03-12] MEDS: Heparin 5000 units/ml inj SUBQ SCH ×2 (08:27→20:48)
[2020-03-12] MEDS: Levemir Flexpen SUBQ SCH (08:30)
[2020-03-12 08:34] LABS: BASOPHILS % (AUTO) 0.8 % (0.0-2.0); EOSINOPHILS % (AUTO) 6.8 % (0.0-3.0); HEMATOCRIT 40.5 % (42.0-52.0); HEMOGLOBIN 13.7 G/DL (14.2-18.0); MEAN CORPUSCULAR VOLUME 82 FL (80-99); MONOCYTES % (AUTO) 5.6 % (1.0-10.0); NEUTROPHILS % (AUTO) 69.9 % (45.0-75.0); PLATELET COUNT 287 K/UL (150-450); RED BLOOD COUNT 4.93 M/UL (4.70-6.10); RED CELL DISTRIBUTION WIDTH 13.3 % (11.6-14.8); WHITE BLOOD COUNT 6.7 K/UL (4.8-10.8)
[2020-03-12 09:18] LABS: ANION GAP 6 mmol/L (5-15); BLOOD UREA NITROGEN 22 mg/dL (7-18); CALCIUM 8.7 MG/DL (8.5-10.1); CARBON DIOXIDE 33 MMOL/L (21-32); CHLORIDE 94 MMOL/L (98-107); CREATININE 1.6 MG/DL (0.55-1.30); PHOSPHORUS 3.5 MG/DL (2.5-4.9); POTASSIUM 3.7 MMOL/L (3.5-5.1); SODIUM 133 MMOL/L (136-145)
--- NOTE | 2020-03-12 10:36 | General Progress Note ---
Assessment/Plan Status: stable Assessment/Plan: 64 year old man with history of morbid obesity, HTN, HLD, NIDDM type 2, COPD, chronic respiratory failure, chronic hypervolemic hyponatremia who presented to the ED with progressive bilateral lower extremity and abdominal wall cellulitis. #Bilateral lower extremity cellulitis #Cellulitis of the abdomen #Presumed scabies infection #Right leg pain -Continue Vancomycin and Ceftriaxone -S/p Permethrin and PO Ivermectin -Follow up cultures -CBC daily -B/L lower extremity US reviewed an no DVT -CT RLE pending -0ID following #Acute on chronic diastolic CHF exacerbation, present on admit #HTN #HLD -Continue home meds -Strict I/os -Daily Weights -cont Lasix 40 iv Daily #COPD -Duo nebs -Continue home meds -O2 saturation between 88% to 92% -Pulm following #PAULINE on CKD -Monitor electrolytes/Creatinine -limit nephrotoxic medications -Renal following #NIDDM -ISS -Carb consistent diet -Hypoglycemia protocol I spent 37 minutes on this patient's case, and 20 minutes was dedicated to counseling and/or care coordination With RN, returned case inspector, consulting MDs I spent an additional 35 minutes on review of medical records including prior outside hospital records, consult notes, progress notes, procedures, imaging, labs, hemodynamics, and other clinical documentation. Subjective Date patient seen: Mar 12, 2020 Time patient seen: 08:00 Constitutional: Denies: chills, fever Cardiovascular: Denies: chest pain Respiratory: Denies: cough Gastrointestinal/Abdominal: Reports: abdomen distended; Denies: abdominal pain Neurologic/Psychiatric: Denies: anxiety, depressed Hematologic/Lymphatic: Denies: anemia Allergies: Coded Allergies: No Known Allergies (Unverified , 11/06/17) Subjective Follow up for recurrent LE and abdominal cellulitis No new complaints Awaiting CT RLE given persistent pain Objective Last 24 Hour Vital Signs Date Time Temp Pulse Resp B/P (MAP) Pulse Ox O2 Delivery O2 Flow Rate FiO2 03/12/20 09:00 Room Air 03/12/20 08:26 83 133/76 03/12/20 08:25 133/76 03/12/20 08:00 97.4 83 20 133/76 (95) 95 03/12/20 04:00 97.5 79 20 108/58 (75) 93 03/12/20 00:00 97.5 80 20 112/55 (74) 94 03/11/20 21:00 Room Air 03/11/20 20:00 97.9 89 20 137/81 (99) 93 03/11/20 16:00 97.5 79 19 124/60 (81) 94 03/11/20 12:00 96.8 82 18 122/66 (84) 93 Intake and Output 03/11/20 03/12/20 19:00 07:00 Intake Total 1530.000 ml 1467.416 ml Balance 1530.000 ml 1467.416 ml Intake Oral 1200 ml 700 ml IV Total 330.000 ml 367.416 ml Other 400 ml # Voids 4 6 Laboratory Tests 03/11/20 12:50: Vancomycin Level Trough 11.6 03/12/20 07:15: White Blood Count 6.7, Red Blood Count 4.93, Hemoglobin 13.7L, Hematocrit 40.5L , Mean Corpuscular Volume 82, Mean Corpuscular Hemoglobin 27.9, Mean Corpuscular Hemoglobin Concent 33.9, Red Cell Distribution Width 13.3, Platelet Count 287, Mean Platelet Volume 7.0, Neutrophils (%) (Auto) 69.9, Lymphocytes (% ) (Auto) 17.0L, Monocytes (%) (Auto) 5.6, Eosinophils (%) (Auto) 6.8H, Basophils (%) (Auto) 0.8, Sodium Level 133L, Potassium Level 3.7, Chloride Level 94L, Carbon Dioxide Level 33H, Anion Gap 6, Blood Urea Nitrogen 22H, Creatinine 1.6H, Estimat Glomerular Filtration Rate 43.5, Glucose Level 347H, Calcium Level 8.7, Phosphorus Level 3.5, Magnesium Level 1.8 Height (Feet): 5 Height (Inches): 10.00 Weight (Pounds): 250 General Appearance: no apparent distress, alert Cardiovascular: normal rate, regular rhythm Respiratory/Chest: lungs clear, normal breath sounds Abdomen: non tender, soft, distended Extremities: non-tender, swelling Lance Lozada MD Mar 12, 2020 10:36
--- NOTE | 2020-03-12 10:40 | Pulmonology Progress Note ---
Subjective ROS Limited/Unobtainable: No Interval Events: None new Constitutional: Reports: no symptoms HEENT: Repors: no symptoms Respiratory: Reports: dry cough Cardiovascular: Reports: no symptoms Gastrointestinal/Abdominal: Reports: no symptoms Genitourinary: Reports: no symptoms Allergies: Coded Allergies: No Known Allergies (Unverified , 11/06/17) Objective Last 24 Hour Vital Signs Date Time Temp Pulse Resp B/P (MAP) Pulse Ox O2 Delivery O2 Flow Rate FiO2 03/12/20 09:00 Room Air 03/12/20 08:26 83 133/76 03/12/20 08:25 133/76 03/12/20 08:00 97.4 83 20 133/76 (95) 95 03/12/20 04:00 97.5 79 20 108/58 (75) 93 03/12/20 00:00 97.5 80 20 112/55 (74) 94 03/11/20 21:00 Room Air 03/11/20 20:00 97.9 89 20 137/81 (99) 93 03/11/20 16:00 97.5 79 19 124/60 (81) 94 03/11/20 12:00 96.8 82 18 122/66 (84) 93 Intake and Output 03/11/20 03/12/20 19:00 07:00 Intake Total 1530.000 ml 1467.416 ml Balance 1530.000 ml 1467.416 ml Intake Oral 1200 ml 700 ml IV Total 330.000 ml 367.416 ml Other 400 ml # Voids 4 6 General Appearance: no acute distress HEENT: normocephalic Respiratory: chest wall non-tender, lungs clear Cardiovascular: normal peripheral pulses, normal rate Abdomen: normal bowel sounds Microbiology Date/Time Source Procedure Growth Status 03/09/20 11:25 Blood Blood Culture - Preliminary NO GROWTH AFTER 48 HOURS Resulted 03/09/20 11:25 Blood Blood Culture - Preliminary NO GROWTH AFTER 48 HOURS Resulted Laboratory Tests 03/11/20 12:50: Vancomycin Level Trough 11.6 03/12/20 07:15: White Blood Count 6.7, Red Blood Count 4.93, Hemoglobin 13.7L, Hematocrit 40.5L , Mean Corpuscular Volume 82, Mean Corpuscular Hemoglobin 27.9, Mean Corpuscular Hemoglobin Concent 33.9, Red Cell Distribution Width 13.3, Platelet Count 287, Mean Platelet Volume 7.0, Neutrophils (%) (Auto) 69.9, Lymphocytes (% ) (Auto) 17.0L, Monocytes (%) (Auto) 5.6, Eosinophils (%) (Auto) 6.8H, Basophils (%) (Auto) 0.8, Sodium Level 133L, Potassium Level 3.7, Chloride Level 94L, Carbon Dioxide Level 33H, Anion Gap 6, Blood Urea Nitrogen 22H, Creatinine 1.6H, Estimat Glomerular Filtration Rate 43.5, Glucose Level 347H, Calcium Level 8.7, Phosphorus Level 3.5, Magnesium Level 1.8 Current Medications Medications (Trade) Dose Ordered Sig/Anjel Route PRN Reason Start Time Stop Time Status Last Admin Dose Admin Al Hydroxide/Mg Hydroxide (Mylanta II) 30 ml Q6H PRN ORAL dyspepsia 03/09/20 15:30 04/08/20 15:29 Amlodipine Besylate (Norvasc) 10 mg DAILY ORAL 03/10/20 09:00 04/09/20 08:59 03/12/20 08:26 Aspirin (Ecotrin) 81 mg DAILY ORAL 03/10/20 09:00 04/24/20 08:59 03/12/20 08:25 Atorvastatin Calcium (Lipitor) 40 mg BEDTIME ORAL 03/09/20 21:00 06/07/20 20:59 03/11/20 21:06 Bisacodyl (Dulcolax) 10 mg HSPRN PRN RECTAL Constipation 03/09/20 15:30 06/07/20 15:29 Ceftriaxone Sodium 1 gm/ Dextrose 55 ml @ 110 mls/hr Q24H IVPB 03/10/20 12:00 03/17/20 11:59 03/11/20 11:22 Dextrose (Dextrose 50%) 25 ml Q30M PRN IV Hypoglycemia 03/09/20 16:15 06/07/20 16:14 Dextrose (Dextrose 50%) 50 ml Q30M PRN IV Hypoglycemia 03/09/20 16:15 06/07/20 16:14 Diphenhydramine HCl (Benadryl) 25 mg Q6H PRN ORAL Itching/Pruritis 03/09/20 15:30 04/08/20 15:29 Furosemide (Lasix) 40 mg DAILY IV 03/09/20 16:00 04/08/20 15:59 03/12/20 08:25 Glipizide (Glucotrol) 5 mg BIAC ORAL 03/12/20 16:30 04/11/20 16:29 Heparin Sodium (Porcine) (Heparin 5000 units/ml) 5,000 units EVERY 12 HOURS SUBQ 03/09/20 21:00 04/23/20 20:59 03/12/20 08:27 Insulin Aspart (NovoLOG) BEFORE MEALS AND HS SUBQ 03/09/20 17:00 06/07/20 16:59 03/12/20 06:27 Insulin Detemir (Levemir) 23 units Q24H SUBQ 03/11/20 09:00 06/09/20 08:59 03/12/20 08:30 Lisinopril (PriniviL) 40 mg DAILY ORAL 03/10/20 09:00 04/09/20 08:59 03/12/20 08:25 Magnesium Hydroxide (Mom) 30 ml HSPRN PRN ORAL Constipation 03/09/20 15:30 04/08/20 15:29 Methocarbamol (Robaxin) 750 mg TIDPRN PRN ORAL muscle spasm 03/09/20 15:30 04/08/20 15:29 03/10/20 17:45 Nitroglycerin (Ntg) 0.4 mg Q5M X 3 DOSES PRN SL Prn Chest Pain 03/09/20 15:30 04/08/20 15:29 Ondansetron HCl (Zofran) 4 mg Q6H PRN IVP Nausea & Vomiting 03/09/20 15:30 04/08/20 15:29 Pantoprazole (Protonix) 40 mg DAILY ORAL 03/10/20 09:00 04/09/20 08:59 03/12/20 08:25 Quetiapine Fumarate (SEROqueL) 200 mg QHS ORAL 03/09/20 21:15 04/23/20 21:14 03/11/20 21:06 Sertraline HCl (Zoloft) 100 mg DAILY ORAL 03/10/20 09:00 04/09/20 08:59 03/12/20 08:25 Tamsulosin HCl (Flomax) 0.4 mg BEDTIME ORAL 03/09/20 21:00 04/08/20 20:59 03/11/20 21:05 Vancomycin HCl (Vanco pharmacy to dose) 1 ea DAILY PRN MISC Per rx protocol 03/10/20 12:15 04/09/20 12:14 Vancomycin HCl 1 gm/Dextrose 275 ml @ 183.708 mls/hr Q12H IVPB 03/10/20 14:00 03/15/20 13:59 03/12/20 02:10 Assessment/Plan Assessment/Plan IMPRESSION: 1. Cellulitis. 2. COPD. 3. Hypertension. 4. Diabetes. DISCUSSION: The patient will benefit from broad-spectrum antibiotics. I will follow as materials director. I ordered oxygen and pulmonary hygiene. Saturating well on RA Priscilla Rivas Omar Syed MD Mar 12, 2020 10:39
[2020-03-12] MEDS: cefTRIAXone 1gm/D5W 55ml IVPB SCH ×2 (11:23)
--- NOTE | 2020-03-12 15:01 | Diagnostic Imaging Report ---
Indication: Right lower extremity pain, right upper thigh pain, numbness, right lower extremity cellulitis Technique: No IV contrast, reason not stated. Spiral acquisitions obtained through the right lower extremity Multiplanar reconstructions were generated. Total dose length product 831 mGycm. CTDIvol(s) 7 mGy. Radiation dose was minimized using automated exposure control Comparison: none Findings: 6.5 cm fluid collection is seen within the scrotum, probably the right hemiscrotum, corresponding to findings reported on recent sonogram. There is also thickening of the scrotal wall. At the level of the ankle, there is circumferential edema of the subcutaneous fat as well as associated thickening of the skin. This also extends into the foot although within the foot is predominantly anterior. More cephalad, the swelling is circumferential up to the level of the proximal lower leg. At and above the knee. The swelling is predominantly anterior, extends to the level of the mid to distal thigh. There is also an area of posterior soft tissue swelling in the proximal thigh. No definite discrete fluid collections are evident, although evaluation for such is somewhat limited in the absence of IV contrast. No discrete mass is demonstrated. No definite joint effusion. There are degenerative changes of the knee, with joint space loss involving the medial and patellofemoral compartments. No osteolytic lesions or unusual periosteal reaction demonstrated. Included pelvic viscera are unremarkable. Impression: Edema of the subcutaneous fat of the right distal thigh, leg, and foot. Given stated clinical history most likely on the basis of cellulitis. Edema of vasogenic/hemodynamic origin also possible. Correlate with clinical findings. No definite abnormality to suggest abscess, although evaluation for such is limited in the absence of IV contrast administration. No definite CT evidence of osteomyelitis, although sensitivity of CT for such is limited 6 cm right hemiscrotal fluid collection, corresponding to abnormality reported on prior scrotal sonogram of 02/14/2020 Degenerative changes, as described The CT scanner at [facility] is accredited by the [employer] and the scans are performed using protocols designed to limit radiation exposure to as low as reasonably achievable to attain images of sufficient resolution adequate for diagnostic evaluation.
[2020-03-12] MEDS: GlipiZIDE 5mg tab ORAL SCH (16:31)
--- NOTE | 2020-03-12 16:56 | Infectious Diseases Prog Note ---
Assessment/Plan Assessment/Plan ASSESSMENT AND PLAN: 1. bilateral leg/abdominal wall cellulitis, CT LE c/w cellulitis - vancomycin and ceftriaxone - day # 3 abx - clinically with less redness - monitor labs 2. possible scabies rash - s/p ivermectin 3. Elevated creatinine. 4. Diabetes. 5. Hypertension. 6. Blood sugar and blood pressure treatment per primary care team. 7. COPD. 8. Obesity. 9. History of cellulitis. 10. Chronic respiratory failure. 11. He has a history of hyperlipidemia. 12. No known drug allergies. 13. Social history is negative. 14. Family history is noncontributory. 15. MAR was noted. 16. Case was discussed with RN. 17. Continue treatment per primary consultants. Subjective Constitutional: Denies: fever HEENT: Denies: congestion Respiratory: Denies: shortness of breath Cardiovascular: Denies: chest pain Gastrointestinal/Abdominal: Denies: nausea, vomiting, diarrhea Genitourinary: Denies: hematuria Neurologic: Denies: headache, numbness Psychiatric: Denies: depression Skin: Reports: rash Endocrine: Denies: feels warm Hematologic: Denies: bleeding Musculoskeletal: Reports: pain - + leg and abdominal pain Allergies: Coded Allergies: No Known Allergies (Unverified , 11/06/17) Objective Last 24 Hour Vital Signs Date Time Temp Pulse Resp B/P (MAP) Pulse Ox O2 Delivery O2 Flow Rate FiO2 03/12/20 12:00 97.0 80 20 114/55 (74) 96 03/12/20 09:00 Room Air 03/12/20 08:26 83 133/76 03/12/20 08:25 133/76 03/12/20 08:00 97.4 83 20 133/76 (95) 95 03/12/20 04:00 97.5 79 20 108/58 (75) 93 03/12/20 00:00 97.5 80 20 112/55 (74) 94 03/11/20 21:00 Room Air 03/11/20 20:00 97.9 89 20 137/81 (99) 93 Height (Feet): 5 Height (Inches): 10.00 Weight (Pounds): 250 General Appearance: no acute distress HEENT: normocephalic, atraumatic, anicteric, mucous membranes moist Respiratory/Chest: lungs clear, normal breath sounds, no respiratory distress, no accessory muscle use Cardiovascular: normal rate, regular rhythm, no gallop/murmur, no JVD Abdomen: normal bowel sounds, soft, non tender, no organomegaly, non distended , other - abdominal wall redness less Genitourinary: other - no dixon Extremities: no cyanosis, other - less bilateral leg redness, some warmth/borges/ swelling Skin: rash - rash stable Neurologic/Psychiatric: forms builder II-XII grossly normal, alert, oriented x 3, responsive Lymphatic: no neck adenopathy Musculoskeletal: no effusion CT lower extremities: Impression: Edema of the subcutaneous fat of the right distal thigh, leg, and foot. Given stated clinical history most likely on the basis of cellulitis. Edema of vasogenic/hemodynamic origin also possible. Correlate with clinical findings. No definite abnormality to suggest abscess, although evaluation for such is limited in the absence of IV contrast administration. No definite CT evidence of osteomyelitis, although sensitivity of CT for such is limited 6 cm right hemiscrotal fluid collection, corresponding to abnormality reported on prior scrotal sonogram of 02/14/2020 Degenerative changes, as described Laboratory Tests Test 03/12/20 07:15 White Blood Count 6.7 K/UL (4.8-10.8) Red Blood Count 4.93 M/UL (4.70-6.10) Hemoglobin 13.7 G/DL (14.2-18.0) L Hematocrit 40.5 % (42.0-52.0) L Mean Corpuscular Volume 82 FL (80-99) Mean Corpuscular Hemoglobin 27.9 PG (27.0-31.0) Mean Corpuscular Hemoglobin Concent 33.9 G/DL (32.0-36.0) Red Cell Distribution Width 13.3 % (11.6-14.8) Platelet Count 287 K/UL (150-450) Mean Platelet Volume 7.0 FL (6.5-10.1) Neutrophils (%) (Auto) 69.9 % (45.0-75.0) Lymphocytes (%) (Auto) 17.0 % (20.0-45.0) L Monocytes (%) (Auto) 5.6 % (1.0-10.0) Eosinophils (%) (Auto) 6.8 % (0.0-3.0) H Basophils (%) (Auto) 0.8 % (0.0-2.0) Sodium Level 133 MMOL/L (136-145) L Potassium Level 3.7 MMOL/L (3.5-5.1) Chloride Level 94 MMOL/L (98-107) L Carbon Dioxide Level 33 MMOL/L (21-32) H Anion Gap 6 mmol/L (5-15) Blood Urea Nitrogen 22 mg/dL (7-18) H Creatinine 1.6 MG/DL (0.55-1.30) H Estimat Glomerular Filtration Rate 43.5 mL/min (>60) Glucose Level 347 MG/DL (74-106) H Calcium Level 8.7 MG/DL (8.5-10.1) Phosphorus Level 3.5 MG/DL (2.5-4.9) Magnesium Level 1.8 MG/DL (1.8-2.4) Current Medications Medications (Trade) Dose Ordered Sig/Anjel Route PRN Reason Start Time Stop Time Status Last Admin Dose Admin Al Hydroxide/Mg Hydroxide (Mylanta II) 30 ml Q6H PRN ORAL dyspepsia 03/09/20 15:30 04/08/20 15:29 Amlodipine Besylate (Norvasc) 10 mg DAILY ORAL 03/10/20 09:00 04/09/20 08:59 03/12/20 08:26 Aspirin (Ecotrin) 81 mg DAILY ORAL 03/10/20 09:00 04/24/20 08:59 03/12/20 08:25 Atorvastatin Calcium (Lipitor) 40 mg BEDTIME ORAL 03/09/20 21:00 06/07/20 20:59 03/11/20 21:06 Bisacodyl (Dulcolax) 10 mg HSPRN PRN RECTAL Constipation 03/09/20 15:30 06/07/20 15:29 Ceftriaxone Sodium 1 gm/ Dextrose 55 ml @ 110 mls/hr Q24H IVPB 03/10/20 12:00 03/17/20 11:59 03/12/20 11:23 Dextrose (Dextrose 50%) 25 ml Q30M PRN IV Hypoglycemia 03/09/20 16:15 06/07/20 16:14 Dextrose (Dextrose 50%) 50 ml Q30M PRN IV Hypoglycemia 03/09/20 16:15 06/07/20 16:14 Diphenhydramine HCl (Benadryl) 25 mg Q6H PRN ORAL Itching/Pruritis 03/09/20 15:30 04/08/20 15:29 03/12/20 12:17 Furosemide (Lasix) 40 mg DAILY IV 03/09/20 16:00 04/08/20 15:59 03/12/20 08:25 Glipizide (Glucotrol) 5 mg BIAC ORAL 03/12/20 16:30 04/11/20 16:29 03/12/20 16:31 Heparin Sodium (Porcine) (Heparin 5000 units/ml) 5,000 units EVERY 12 HOURS SUBQ 03/09/20 21:00 04/23/20 20:59 03/12/20 08:27 Insulin Aspart (NovoLOG) BEFORE MEALS AND HS SUBQ 03/09/20 17:00 06/07/20 16:59 03/12/20 16:33 Insulin Detemir (Levemir) 23 units Q24H SUBQ 03/11/20 09:00 06/09/20 08:59 03/12/20 08:30 Lisinopril (PriniviL) 40 mg DAILY ORAL 03/10/20 09:00 04/09/20 08:59 03/12/20 08:25 Magnesium Hydroxide (Mom) 30 ml HSPRN PRN ORAL Constipation 03/09/20 15:30 04/08/20 15:29 Methocarbamol (Robaxin) 750 mg TIDPRN PRN ORAL muscle spasm 03/09/20 15:30 04/08/20 15:29 03/10/20 17:45 Nitroglycerin (Ntg) 0.4 mg Q5M X 3 DOSES PRN SL Prn Chest Pain 03/09/20 15:30 04/08/20 15:29 Ondansetron HCl (Zofran) 4 mg Q6H PRN IVP Nausea & Vomiting 03/09/20 15:30 04/08/20 15:29 Pantoprazole (Protonix) 40 mg DAILY ORAL 03/10/20 09:00 04/09/20 08:59 03/12/20 08:25 Quetiapine Fumarate (SEROqueL) 200 mg QHS ORAL 03/09/20 21:15 04/23/20 21:14 03/11/20 21:06 Sertraline HCl (Zoloft) 100 mg DAILY ORAL 03/10/20 09:00 04/09/20 08:59 03/12/20 08:25 Tamsulosin HCl (Flomax) 0.4 mg BEDTIME ORAL 03/09/20 21:00 04/08/20 20:59 03/11/20 21:05 Vancomycin HCl (Vanco pharmacy to dose) 1 ea DAILY PRN MISC Per rx protocol 03/10/20 12:15 04/09/20 12:14 Vancomycin HCl 1 gm/Dextrose 275 ml @ 183.708 mls/hr Q12H IVPB 03/10/20 14:00 03/15/20 13:59 03/12/20 13:00 Rodrigo Raygoza MD Mar 12, 2020 16:56
[2020-03-12] MEDS: Tamsulosin 0.4mg cap ORAL SCH (20:47)
[2020-03-12] MEDS: Atorvastatin 20mg tab ORAL SCH (20:48)
[2020-03-12] MEDS: QUEtiapine 200mg tab ORAL SCH (20:48)
[2020-03-13] MEDS: Vancomycin 1gm in D5W 275ml IVPB SCH (01:59)
[2020-03-13 04:00] VITALS: BP 134/69
[2020-03-13] MEDS: NovoLOG Insulin Flexpen SUBQ SCH ×4 (05:36→21:05)
[2020-03-13] MEDS: GlipiZIDE 5mg tab ORAL SCH ×2 (05:36→17:13)
[2020-03-13 08:00] VITALS: BP 130/72
[2020-03-13] MEDS: Aspirin EC 81mg tab ORAL SCH (08:11)
[2020-03-13] MEDS: Sertraline 100mg tab ORAL SCH (08:11)
[2020-03-13] MEDS: Lisinopril 20mg tab ORAL SCH (08:12)
[2020-03-13] MEDS: Heparin 5000 units/ml inj SUBQ SCH ×2 (08:13→21:00)
[2020-03-13] MEDS: Levemir Flexpen SUBQ SCH (08:14)
[2020-03-13 09:12] LABS: BASOPHILS % (AUTO) 0.9 % (0.0-2.0); EOSINOPHILS % (AUTO) 7.3 % (0.0-3.0); HEMATOCRIT 39.8 % (42.0-52.0); HEMOGLOBIN 13.6 G/DL (14.2-18.0); LYMPHOCYTES % (AUTO) 15.9 % (20.0-45.0); MEAN CORPUSCULAR VOLUME 82 FL (80-99); NEUTROPHILS % (AUTO) 70.9 % (45.0-75.0); PLATELET COUNT 284 K/UL (150-450); RED BLOOD COUNT 4.86 M/UL (4.70-6.10); WHITE BLOOD COUNT 7.1 K/UL (4.8-10.8)
[2020-03-13 09:22] LABS: ANION GAP 4 mmol/L (5-15); BLOOD UREA NITROGEN 25 mg/dL (7-18); CALCIUM 8.8 MG/DL (8.5-10.1); CARBON DIOXIDE 33 MMOL/L (21-32); CHLORIDE 97 MMOL/L (98-107); CREATININE 1.6 MG/DL (0.55-1.30); PHOSPHORUS 3.3 MG/DL (2.5-4.9); POTASSIUM 3.8 MMOL/L (3.5-5.1); SODIUM 134 MMOL/L (136-145)
--- NOTE | 2020-03-13 09:44 | General Progress Note ---
Assessment/Plan Status: stable Assessment/Plan: 64 year old man with history of morbid obesity, HTN, HLD, NIDDM type 2, COPD, chronic respiratory failure, chronic hypervolemic hyponatremia who presented to the ED with progressive bilateral lower extremity and abdominal wall cellulitis. #Bilateral lower extremity cellulitis #Cellulitis of the abdomen #Presumed scabies infection #Right leg pain -Continue Vancomycin and Ceftriaxone -S/p Permethrin and PO Ivermectin -Follow up cultures -CBC daily -B/L lower extremity US reviewed and no DVT -CT RLE with swelling only -ID following #Acute on chronic diastolic CHF exacerbation, present on admit #HTN #HLD -Continue home meds -Strict I/os -Daily Weights -cont Lasix 40 iv Daily #COPD -Duo nebs -Continue home meds -O2 saturation between 88% to 92% -Pulm following #PAULINE on CKD -Monitor electrolytes/Creatinine -limit nephrotoxic medications -Renal following #NIDDM -ISS -Carb consistent diet -Hypoglycemia protocol I spent 36 minutes on this patient's case, and 20 minutes was dedicated to counseling and/or care coordination With RN, manager rn case, consulting MDs Subjective Date patient seen: Mar 13, 2020 Time patient seen: 09:15 ROS Limited/Unobtainable: No Constitutional: Denies: chills, fever Cardiovascular: Denies: chest pain Respiratory: Denies: cough Gastrointestinal/Abdominal: Reports: abdomen distended; Denies: abdominal pain Allergies: Coded Allergies: No Known Allergies (Unverified , 11/06/17) Subjective Follow up for recurrent LE and abdominal cellulitis CT RLE without contrast no acute findings such as abscess (limited by lack of contrast) Objective Last 24 Hour Vital Signs Date Time Temp Pulse Resp B/P (MAP) Pulse Ox O2 Delivery O2 Flow Rate FiO2 03/13/20 08:12 130/72 03/13/20 08:11 77 130/72 03/13/20 08:00 98.7 77 19 130/72 (91) 95 03/13/20 04:00 98.5 78 18 134/69 (90) 93 03/12/20 23:53 97.6 88 18 138/69 (92) 97 03/12/20 21:18 Room Air 03/12/20 19:53 97.1 87 18 134/65 (88) 97 03/12/20 16:00 97.3 82 20 148/80 (102) 96 03/12/20 12:00 97.0 80 20 114/55 (74) 96 Intake and Output 03/12/20 03/13/20 19:00 07:00 Intake Total 1290.000 ml 275.000 ml Output Total 350 ml Balance 1290.000 ml -75.000 ml Intake Oral 960 ml IV Total 330.000 ml 275.000 ml Output Urine Total 350 ml # Voids 4 2 Laboratory Tests 03/12/20 11:21: POC Whole Blood Glucose 314H 03/12/20 16:10: POC Whole Blood Glucose 335H 03/12/20 20:20: POC Whole Blood Glucose 254H 03/13/20 05:27: POC Whole Blood Glucose 331H 03/13/20 08:05: POC Whole Blood Glucose 337H 03/13/20 08:50: White Blood Count 7.1, Red Blood Count 4.86, Hemoglobin 13.6L, Hematocrit 39.8L , Mean Corpuscular Volume 82, Mean Corpuscular Hemoglobin 28.1, Mean Corpuscular Hemoglobin Concent 34.3, Red Cell Distribution Width 13.0, Platelet Count 284, Mean Platelet Volume 6.7, Neutrophils (%) (Auto) 70.9, Lymphocytes (% ) (Auto) 15.9L, Monocytes (%) (Auto) 5.0, Eosinophils (%) (Auto) 7.3H, Basophils (%) (Auto) 0.9, Sodium Level 134L, Potassium Level 3.8, Chloride Level 97L, Carbon Dioxide Level 33H, Anion Gap 4L, Blood Urea Nitrogen 25H, Creatinine 1.6H, Estimat Glomerular Filtration Rate 43.5, Glucose Level 326H, Hemoglobin A1c [Pending], Calcium Level 8.8, Phosphorus Level 3.3, Magnesium Level 1.7L Height (Feet): 5 Height (Inches): 10.00 Weight (Pounds): 250 General Appearance: no apparent distress, alert Neck: normal alignment, supple Cardiovascular: normal rate, regular rhythm Respiratory/Chest: lungs clear, normal breath sounds Abdomen: non tender, soft, distended Extremities: swelling - RLE > LLE Lance Lozada MD Mar 13, 2020 09:44
--- NOTE | 2020-03-13 10:29 | Pulmonology Progress Note ---
Subjective ROS Limited/Unobtainable: No Interval Events: None new Constitutional: Denies: fever HEENT: Repors: no symptoms Respiratory: Reports: dry cough Cardiovascular: Reports: no symptoms Gastrointestinal/Abdominal: Denies: nausea, vomiting, diarrhea Genitourinary: Reports: no symptoms Psychiatric: Denies: depression Skin: Reports: rash Musculoskeletal: Reports: pain - + leg and abdominal pain Allergies: Coded Allergies: No Known Allergies (Unverified , 11/06/17) Objective Last 24 Hour Vital Signs Date Time Temp Pulse Resp B/P (MAP) Pulse Ox O2 Delivery O2 Flow Rate FiO2 03/13/20 08:12 130/72 03/13/20 08:11 77 130/72 03/13/20 08:00 98.7 77 19 130/72 (91) 95 03/13/20 04:00 98.5 78 18 134/69 (90) 93 03/12/20 23:53 97.6 88 18 138/69 (92) 97 03/12/20 21:18 Room Air 03/12/20 19:53 97.1 87 18 134/65 (88) 97 03/12/20 16:00 97.3 82 20 148/80 (102) 96 03/12/20 12:00 97.0 80 20 114/55 (74) 96 Intake and Output 03/12/20 03/13/20 19:00 07:00 Intake Total 1290.000 ml 275.000 ml Output Total 350 ml Balance 1290.000 ml -75.000 ml Intake Oral 960 ml IV Total 330.000 ml 275.000 ml Output Urine Total 350 ml # Voids 4 2 General Appearance: no acute distress HEENT: normocephalic Respiratory: chest wall non-tender, lungs clear Cardiovascular: normal peripheral pulses, normal rate Abdomen: normal bowel sounds Laboratory Tests 03/12/20 11:21: POC Whole Blood Glucose 314H 03/12/20 16:10: POC Whole Blood Glucose 335H 03/12/20 20:20: POC Whole Blood Glucose 254H 03/13/20 05:27: POC Whole Blood Glucose 331H 03/13/20 08:05: POC Whole Blood Glucose 337H 03/13/20 08:50: White Blood Count 7.1, Red Blood Count 4.86, Hemoglobin 13.6L, Hematocrit 39.8L , Mean Corpuscular Volume 82, Mean Corpuscular Hemoglobin 28.1, Mean Corpuscular Hemoglobin Concent 34.3, Red Cell Distribution Width 13.0, Platelet Count 284, Mean Platelet Volume 6.7, Neutrophils (%) (Auto) 70.9, Lymphocytes (% ) (Auto) 15.9L, Monocytes (%) (Auto) 5.0, Eosinophils (%) (Auto) 7.3H, Basophils (%) (Auto) 0.9, Sodium Level 134L, Potassium Level 3.8, Chloride Level 97L, Carbon Dioxide Level 33H, Anion Gap 4L, Blood Urea Nitrogen 25H, Creatinine 1.6H, Estimat Glomerular Filtration Rate 43.5, Glucose Level 326H, Hemoglobin A1c 8.5H, Calcium Level 8.8, Phosphorus Level 3.3, Magnesium Level 1.7L Current Medications Medications (Trade) Dose Ordered Sig/Anjel Route PRN Reason Start Time Stop Time Status Last Admin Dose Admin Al Hydroxide/Mg Hydroxide (Mylanta II) 30 ml Q6H PRN ORAL dyspepsia 03/09/20 15:30 04/08/20 15:29 Amlodipine Besylate (Norvasc) 10 mg DAILY ORAL 03/10/20 09:00 04/09/20 08:59 03/13/20 08:11 Aspirin (Ecotrin) 81 mg DAILY ORAL 03/10/20 09:00 04/24/20 08:59 03/13/20 08:11 Atorvastatin Calcium (Lipitor) 40 mg BEDTIME ORAL 03/09/20 21:00 06/07/20 20:59 03/12/20 20:48 Bisacodyl (Dulcolax) 10 mg HSPRN PRN RECTAL Constipation 03/09/20 15:30 06/07/20 15:29 Ceftriaxone Sodium 1 gm/ Dextrose 55 ml @ 110 mls/hr Q24H IVPB 03/10/20 12:00 03/17/20 11:59 03/12/20 11:23 Dextrose (Dextrose 50%) 25 ml Q30M PRN IV Hypoglycemia 03/09/20 16:15 06/07/20 16:14 Dextrose (Dextrose 50%) 50 ml Q30M PRN IV Hypoglycemia 03/09/20 16:15 06/07/20 16:14 Diphenhydramine HCl (Benadryl) 25 mg Q6H PRN ORAL Itching/Pruritis 03/09/20 15:30 04/08/20 15:29 03/12/20 12:17 Furosemide (Lasix) 40 mg DAILY IV 03/09/20 16:00 04/08/20 15:59 03/13/20 08:12 Glipizide (Glucotrol) 5 mg BIAC ORAL 03/12/20 16:30 04/11/20 16:29 03/13/20 05:36 Heparin Sodium (Porcine) (Heparin 5000 units/ml) 5,000 units EVERY 12 HOURS SUBQ 03/09/20 21:00 04/23/20 20:59 03/13/20 08:13 Insulin Aspart (NovoLOG) BEFORE MEALS AND HS SUBQ 03/09/20 17:00 06/07/20 16:59 03/13/20 05:36 Insulin Detemir (Levemir) 23 units Q24H SUBQ 03/11/20 09:00 06/09/20 08:59 03/13/20 08:14 Lisinopril (PriniviL) 40 mg DAILY ORAL 03/10/20 09:00 04/09/20 08:59 03/13/20 08:12 Magnesium Hydroxide (Mom) 30 ml HSPRN PRN ORAL Constipation 03/09/20 15:30 04/08/20 15:29 Methocarbamol (Robaxin) 750 mg TIDPRN PRN ORAL muscle spasm 03/09/20 15:30 04/08/20 15:29 03/10/20 17:45 Nitroglycerin (Ntg) 0.4 mg Q5M X 3 DOSES PRN SL Prn Chest Pain 03/09/20 15:30 04/08/20 15:29 Ondansetron HCl (Zofran) 4 mg Q6H PRN IVP Nausea & Vomiting 03/09/20 15:30 04/08/20 15:29 Pantoprazole (Protonix) 40 mg DAILY ORAL 03/10/20 09:00 04/09/20 08:59 03/13/20 08:11 Quetiapine Fumarate (SEROqueL) 200 mg QHS ORAL 03/09/20 21:15 04/23/20 21:14 03/12/20 20:48 Sertraline HCl (Zoloft) 100 mg DAILY ORAL 03/10/20 09:00 04/09/20 08:59 03/13/20 08:11 Tamsulosin HCl (Flomax) 0.4 mg BEDTIME ORAL 03/09/20 21:00 04/08/20 20:59 03/12/20 20:47 Vancomycin HCl (Vanco pharmacy to dose) 1 ea DAILY PRN MISC Per rx protocol 03/10/20 12:15 04/09/20 12:14 Vancomycin HCl 1 gm/Dextrose 275 ml @ 183.708 mls/hr Q12H IVPB 03/10/20 14:00 03/15/20 13:59 03/13/20 01:59 Assessment/Plan Assessment/Plan IMPRESSION: 1. Cellulitis. 2. COPD. 3. Hypertension. 4. Diabetes. DISCUSSION: The patient will benefit from broad-spectrum antibiotics. I will follow as auto technician. I ordered oxygen and pulmonary hygiene. Saturating well on RA Priscilla Rivas Omar Syed MD Mar 13, 2020 10:29
--- NOTE | 2020-03-13 11:00 | Nephrology Progress Note ---
Assessment/Plan Plan #PAULINE on CKD #RLE cellulitis #COPD #acute on chronic CHF #HTN #HLD #BPH - antibiotics per ID - vano and ceftriaxone - lasix 40 IV daily - HOLD chlorthalidone 25mg daily - lisinopril 40 daily - flomax 0.4mg daily - replete lytes - monitor renal function - avoid nephrotoxins - daily weights time spent 70 min - greater than 50% in care coordination Subjective Subjective RLE pain better breathing slightly improved no chest pain RLE US: No evidence of deep venous thrombosis involving the lower extremities. Objective Objective Last 24 Hour Vital Signs Date Time Temp Pulse Resp B/P (MAP) Pulse Ox O2 Delivery O2 Flow Rate FiO2 03/13/20 09:00 Room Air 03/13/20 08:12 130/72 03/13/20 08:11 77 130/72 03/13/20 08:00 98.7 77 19 130/72 (91) 95 03/13/20 04:00 98.5 78 18 134/69 (90) 93 03/12/20 23:53 97.6 88 18 138/69 (92) 97 03/12/20 21:18 Room Air 03/12/20 19:53 97.1 87 18 134/65 (88) 97 03/12/20 16:00 97.3 82 20 148/80 (102) 96 03/12/20 12:00 97.0 80 20 114/55 (74) 96 Intake and Output 03/12/20 03/13/20 19:00 07:00 Intake Total 1290.000 ml 275.000 ml Output Total 350 ml Balance 1290.000 ml -75.000 ml Intake Oral 960 ml IV Total 330.000 ml 275.000 ml Output Urine Total 350 ml # Voids 4 2 Laboratory Tests 03/12/20 11:21: POC Whole Blood Glucose 314H 03/12/20 16:10: POC Whole Blood Glucose 335H 03/12/20 20:20: POC Whole Blood Glucose 254H 03/13/20 05:27: POC Whole Blood Glucose 331H 03/13/20 08:05: POC Whole Blood Glucose 337H 03/13/20 08:50: White Blood Count 7.1, Red Blood Count 4.86, Hemoglobin 13.6L, Hematocrit 39.8L , Mean Corpuscular Volume 82, Mean Corpuscular Hemoglobin 28.1, Mean Corpuscular Hemoglobin Concent 34.3, Red Cell Distribution Width 13.0, Platelet Count 284, Mean Platelet Volume 6.7, Neutrophils (%) (Auto) 70.9, Lymphocytes (% ) (Auto) 15.9L, Monocytes (%) (Auto) 5.0, Eosinophils (%) (Auto) 7.3H, Basophils (%) (Auto) 0.9, Sodium Level 134L, Potassium Level 3.8, Chloride Level 97L, Carbon Dioxide Level 33H, Anion Gap 4L, Blood Urea Nitrogen 25H, Creatinine 1.6H, Estimat Glomerular Filtration Rate 43.5, Glucose Level 326H, Hemoglobin A1c 8.5H, Calcium Level 8.8, Phosphorus Level 3.3, Magnesium Level 1.7L Height (Feet): 5 Height (Inches): 10.00 Weight (Pounds): 250 Jone García M.D. Mar 13, 2020 11:00
[2020-03-13 12:00] VITALS: BP 135/81
[2020-03-13] MEDS: cefTRIAXone 1gm/D5W 55ml IVPB SCH ×2 (12:20)
[2020-03-13] MEDS ORDERED: Vancomycin 750mg/NS 275ml IVPB SCH ×2 (15:00)
[2020-03-13 16:00] VITALS: BP 132/66
[2020-03-13] MEDS: Vancomycin 750mg/NS 275ml IVPB SCH ×2 (17:24)
[2020-03-13 20:00] VITALS: BP 135/66
[2020-03-13] MEDS: Atorvastatin 20mg tab ORAL SCH (21:01)
[2020-03-13] MEDS: QUEtiapine 200mg tab ORAL SCH (21:01)
[2020-03-13] MEDS: Tamsulosin 0.4mg cap ORAL SCH (21:01)
[2020-03-14] VITALS: BP 102/55
[2020-03-14 04:00] VITALS: BP 119/51
[2020-03-14] MEDS: Vancomycin 750mg/NS 275ml IVPB SCH ×2 (05:00)
[2020-03-14] MEDS: GlipiZIDE 5mg tab ORAL SCH (05:33)
[2020-03-14] MEDS: NovoLOG Insulin Flexpen SUBQ SCH (05:59)
[2020-03-14 08:00] VITALS: BP 118/56
--- NOTE | 2020-03-14 08:14 | Nephrology Progress Note ---
Assessment/Plan Plan #PAULINE on CKD #RLE cellulitis #COPD #acute on chronic CHF #HTN #HLD #BPH - antibiotics per ID - vano and ceftriaxone - lasix 40 IV daily - HOLD chlorthalidone 25mg daily - lisinopril 40 daily - flomax 0.4mg daily - replete lytes - monitor renal function - avoid nephrotoxins - daily weights time spent 70 min - greater than 50% in care coordination Subjective ROS Limited/Unobtainable: No Constitutional: Reports: weakness HEENT: Denies: no symptoms, eye pain, blurred vision, tearing, double vision, ear pain, ear discharge, nose pain, nose congestion, throat pain, throat swelling, mouth pain, mouth swelling, other Neurologic/Psychiatric: Denies: no symptoms, anxiety, depressed, emotional problems, headache, numbness, paresthesia, pre-existing deficit, seizure, tingling, tremors, weakness, other Subjective RLE pain better breathing slightly improved no chest pain RLE US: No evidence of deep venous thrombosis involving the lower extremities. Objective Objective Last 24 Hour Vital Signs Date Time Temp Pulse Resp B/P (MAP) Pulse Ox O2 Delivery O2 Flow Rate FiO2 03/14/20 04:00 97.5 77 19 119/51 (73) 95 03/14/20 00:00 98.6 82 19 102/55 (71) 96 03/13/20 21:00 Room Air 03/13/20 20:00 98.3 80 19 135/66 (89) 95 03/13/20 16:00 98.0 78 19 132/66 (88) 95 03/13/20 12:00 98.8 80 20 135/81 (99) 96 03/13/20 09:00 Room Air Intake and Output 03/13/20 03/14/20 19:00 07:00 Intake Total 800 ml 650 ml Balance 800 ml 650 ml Intake Oral 800 ml 650 ml # Voids 3 2 # Bowel Movements 1 Laboratory Tests 03/13/20 08:50: White Blood Count 7.1, Red Blood Count 4.86, Hemoglobin 13.6L, Hematocrit 39.8L , Mean Corpuscular Volume 82, Mean Corpuscular Hemoglobin 28.1, Mean Corpuscular Hemoglobin Concent 34.3, Red Cell Distribution Width 13.0, Platelet Count 284, Mean Platelet Volume 6.7, Neutrophils (%) (Auto) 70.9, Lymphocytes (% ) (Auto) 15.9L, Monocytes (%) (Auto) 5.0, Eosinophils (%) (Auto) 7.3H, Basophils (%) (Auto) 0.9, Sodium Level 134L, Potassium Level 3.8, Chloride Level 97L, Carbon Dioxide Level 33H, Anion Gap 4L, Blood Urea Nitrogen 25H, Creatinine 1.6H, Estimat Glomerular Filtration Rate 43.5, Glucose Level 326H, Hemoglobin A1c 8.5H, Calcium Level 8.8, Phosphorus Level 3.3, Magnesium Level 1.7L 03/13/20 11:12: POC Whole Blood Glucose 298H 03/13/20 13:10: Vancomycin Level Trough 17.8H 03/13/20 17:14: POC Whole Blood Glucose 324H 03/14/20 07:54: POC Whole Blood Glucose 355H Height (Feet): 5 Height (Inches): 10.00 Weight (Pounds): 248 Jone García M.D. Mar 14, 2020 08:14
[2020-03-14] MEDS: Levemir Flexpen SUBQ SCH (08:16)
[2020-03-14] MEDS ORDERED: CEFUROXIME250 MG PO (08:43)
[2020-03-14] MEDS ORDERED: ANTI-ITCH28 GM TOPIC (08:43)
--- NOTE | 2020-03-14 08:48 | Discharge Summary ---
Discharge Summary Hospital Course Date of Admission Mar 09, 2020 at 11:40 Date of Discharge 03/14/20 Admitting Diagnosis Cellulitis LLE, Abdominal Wall HPI Zaire Anderson is a 64 year old male who was admitted on Mar 09, 2020 at 11:40 for Cellulitis Lower Left Extremity,Abdominal Wall Consultations ID,Nephrology Procedures None Hospital Course 64 year old man with history of morbid obesity, HTN, HLD, NIDDM type 2, COPD, chronic respiratory failure, chronic hypervolemic hyponatremia who presented to the ED with progressive bilateral lower extremity and abdominal wall cellulitis , treated with broad spectrum IV antibiotics with gradual improvement in erythema. Given permethrin and ivermectin for scabies infestation. CT RLE was negative for abscess or fluid collection. Patient also with acute on chronic diastolic CHF, PAULINE on CKD, uncontrolled DM. On 03/14 he stated the he wanted to leave, I explained that he was not quite ready for discharge given elevated blood glucose levels but patient was adamant about going home, risks and benefits explained to patient who still did not wish to stay. Prescription for oral Ceftin and topical hydrocortisone sent to his pharmacy, instructed to follow up with his PCP next week. Strict return to ED instructions given #Bilateral lower extremity cellulitis #Cellulitis of the abdomen #Presumed scabies infection #Right leg pain #Acute on chronic diastolic CHF exacerbation, present on admit #HTN #HLD #COPD #PAULINE on CKD #NIDDM I spent 38 minutes on this patient's case, and 20 minutes was dedicated to counseling and/or care coordination With RN, embedded case manager, consulting MDs Discharge Medications New Medications: Cefuroxime Axetil* (Cefuroxime*) 250 Mg Tablet 250 MG PO Q12HR for 5 Days, #10 TAB Hydrocortisone Acetate (Anti-Itch) 28 Gm Oint...g. 1 APPLIC TOPIC TWICE A DAY, #1 TUBE Apply to the affected area for 7 days Continued Medications: Amlodipine Besylate* (Amlodipine Besylate*) 10 Mg Tablet 10 MG ORAL DAILY for BP, TAB (This prescription has been renewed) Aspirin* (Aspir 81*) 81 Mg Tablet.dr 81 MG ORAL DAILY for UNK, TAB (This prescription has been renewed) Atorvastatin Calcium* (Atorvastatin Calcium*) 40 Mg Tablet 40 MG ORAL BEDTIME for UNK, TAB (This prescription has been renewed) Chlorthalidone* (Chlorthalidone*) 25 Mg Tablet 25 MG ORAL DAILY for HTN, TAB (This prescription has been renewed) Furosemide* (Lasix*) 40 Mg Tablet 40 MG ORAL DAILY for 7 Days, #7 TAB Insulin Regular, Human* (Novolin R*) 100 Unit/1 Ml Vial 0 SUBQ .SLIDING SCALE for DM, UNITS (This prescription has been renewed) Ipratropium/Albuterol Sulfate (Combivent Respimat Inhal [place]) 4 Gm Mist.inhal 4 GM IH for SOB, GM (This prescription has been renewed) Lisinopril* (Lisinopril*) 40 Mg Tablet 40 MG ORAL DAILY for UNK, TAB (This prescription has been renewed) Metformin Hcl (Metformin Hydrochloride) 1,000 Gm Powder 1000 GM MC for DM, GM (This prescription has been renewed) Methocarbamol* (Robaxin-750*) 750 Mg Tablet 750 MG PO TID, #21 TAB 0 Refills Pantoprazole* (Pantoprazole*) 40 Mg Tablet.dr 40 MG ORAL DAILY for ST, TAB (This prescription has been renewed) Quetiapine Fumarate* (Quetiapine Fumarate*) 400 Mg Tablet 200 MG ORAL DAILY for UNK, TAB (This prescription has been renewed) Sertraline Hcl* (Zoloft*) 100 Mg Tablet 100 MG PO DAILY for UNK, TAB (This prescription has been renewed) Tamsulosin HCl (Flomax) 0.4 Mg Cap.er.24h 0.4 MG ORAL BEDTIME for 30 Days, #30 CAP Discontinued Medications: Cephalexin* (Keflex*) 250 Mg Capsule 500 MG ORAL BID for 5 Days, #10 CAP 0 Refills Doxycycline Hyclate (Doxycycline Hyclate) 100 Mg Capsule 100 MG PO BID for 5 Days, #10 CAP Discharge Discharge Vital Signs Last Vital Signs Date Time Temp Pulse Resp B/P (MAP) Pulse Ox O2 Delivery O2 Flow Rate FiO2 03/14/20 08:00 97.3 86 18 118/56 (76) 98 03/13/20 21:00 Room Air Discharge Disposition Patient signed out AMA Discharge Diagnoses: (1) Cellulitis of both lower extremities (2) CHF exacerbation (3) Crusted scabies Lance Lozada MD Mar 14, 2020 08:48
[2020-03-14 09:00] VITALS: BP 118/56
[2020-03-14] MEDS: Aspirin EC 81mg tab ORAL SCH (09:00)
[2020-03-14] MEDS: Sertraline 100mg tab ORAL SCH (09:00)
[2020-03-14] MEDS: Lisinopril 20mg tab ORAL SCH (09:00)
[2020-03-14] MEDS: Heparin 5000 units/ml inj SUBQ SCH (09:00)
--- NOTE | 2020-03-14 10:28 | Pulmonology Progress Note ---
Subjective ROS Limited/Unobtainable: No Interval Events: None new Constitutional: Denies: fever HEENT: Repors: no symptoms Respiratory: Reports: dry cough Cardiovascular: Reports: no symptoms Gastrointestinal/Abdominal: Denies: nausea, vomiting, diarrhea Genitourinary: Reports: no symptoms Psychiatric: Denies: depression Skin: Reports: rash Musculoskeletal: Reports: pain - + leg and abdominal pain Allergies: Coded Allergies: No Known Allergies (Unverified , 11/06/17) Objective Last 24 Hour Vital Signs Date Time Temp Pulse Resp B/P (MAP) Pulse Ox O2 Delivery O2 Flow Rate FiO2 03/14/20 09:00 118/56 03/14/20 09:00 86 118/56 03/14/20 08:00 97.3 86 18 118/56 (76) 98 03/14/20 04:00 97.5 77 19 119/51 (73) 95 03/14/20 00:00 98.6 82 19 102/55 (71) 96 03/13/20 21:00 Room Air 03/13/20 20:00 98.3 80 19 135/66 (89) 95 03/13/20 16:00 98.0 78 19 132/66 (88) 95 03/13/20 12:00 98.8 80 20 135/81 (99) 96 Intake and Output 03/13/20 03/14/20 19:00 07:00 Intake Total 800 ml 650 ml Balance 800 ml 650 ml Intake Oral 800 ml 650 ml # Voids 3 2 # Bowel Movements 1 General Appearance: no acute distress HEENT: normocephalic Respiratory: chest wall non-tender, lungs clear Cardiovascular: normal peripheral pulses, normal rate Abdomen: normal bowel sounds Laboratory Tests 03/13/20 11:12: POC Whole Blood Glucose 298H 03/13/20 13:10: Vancomycin Level Trough 17.8H 03/13/20 17:14: POC Whole Blood Glucose 324H 03/14/20 07:54: POC Whole Blood Glucose 355H Current Medications Medications (Trade) Dose Ordered Sig/Anjel Route PRN Reason Start Time Stop Time Status Last Admin Dose Admin Al Hydroxide/Mg Hydroxide (Mylanta II) 30 ml Q6H PRN ORAL dyspepsia 03/09/20 15:30 04/08/20 15:29 Amlodipine Besylate (Norvasc) 10 mg DAILY ORAL 03/10/20 09:00 04/09/20 08:59 03/13/20 08:11 Aspirin (Ecotrin) 81 mg DAILY ORAL 03/10/20 09:00 04/24/20 08:59 03/13/20 08:11 Atorvastatin Calcium (Lipitor) 40 mg BEDTIME ORAL 03/09/20 21:00 06/07/20 20:59 03/13/20 21:01 Bisacodyl (Dulcolax) 10 mg HSPRN PRN RECTAL Constipation 03/09/20 15:30 06/07/20 15:29 Ceftriaxone Sodium 1 gm/ Dextrose 55 ml @ 110 mls/hr Q24H IVPB 03/10/20 12:00 03/17/20 11:59 03/13/20 12:20 Dextrose (Dextrose 50%) 25 ml Q30M PRN IV Hypoglycemia 03/09/20 16:15 06/07/20 16:14 Dextrose (Dextrose 50%) 50 ml Q30M PRN IV Hypoglycemia 03/09/20 16:15 06/07/20 16:14 Diphenhydramine HCl (Benadryl) 25 mg Q6H PRN ORAL Itching/Pruritis 03/09/20 15:30 04/08/20 15:29 03/12/20 12:17 Furosemide (Lasix) 40 mg DAILY IV 03/09/20 16:00 04/08/20 15:59 03/13/20 08:12 Glipizide (Glucotrol) 5 mg BIAC ORAL 03/12/20 16:30 04/11/20 16:29 03/13/20 17:13 Heparin Sodium (Porcine) (Heparin 5000 units/ml) 5,000 units EVERY 12 HOURS SUBQ 03/09/20 21:00 04/23/20 20:59 03/13/20 08:13 Insulin Aspart (NovoLOG) BEFORE MEALS AND HS SUBQ 03/09/20 17:00 06/07/20 16:59 03/14/20 05:59 Insulin Detemir (Levemir) 23 units Q24H SUBQ 03/11/20 09:00 06/09/20 08:59 03/14/20 08:16 Lisinopril (PriniviL) 40 mg DAILY ORAL 03/10/20 09:00 04/09/20 08:59 03/13/20 08:12 Magnesium Hydroxide (Mom) 30 ml HSPRN PRN ORAL Constipation 03/09/20 15:30 04/08/20 15:29 Methocarbamol (Robaxin) 750 mg TIDPRN PRN ORAL muscle spasm 03/09/20 15:30 04/08/20 15:29 03/10/20 17:45 Nitroglycerin (Ntg) 0.4 mg Q5M X 3 DOSES PRN SL Prn Chest Pain 03/09/20 15:30 04/08/20 15:29 Ondansetron HCl (Zofran) 4 mg Q6H PRN IVP Nausea & Vomiting 03/09/20 15:30 04/08/20 15:29 Pantoprazole (Protonix) 40 mg DAILY ORAL 03/10/20 09:00 04/09/20 08:59 03/13/20 08:11 Quetiapine Fumarate (SEROqueL) 200 mg QHS ORAL 03/09/20 21:15 04/23/20 21:14 03/13/20 21:01 Sertraline HCl (Zoloft) 100 mg DAILY ORAL 03/10/20 09:00 04/09/20 08:59 03/13/20 08:11 Tamsulosin HCl (Flomax) 0.4 mg BEDTIME ORAL 03/09/20 21:00 04/08/20 20:59 03/13/20 21:01 Vancomycin HCl (Vanco pharmacy to dose) 1 ea DAILY PRN MISC Per rx protocol 03/10/20 12:15 04/09/20 12:14 Vancomycin HCl 750 mg/Sodium Chloride 275 ml @ 183.333 mls/hr Q12HR@0500,1700 IVPB 03/13/20 17:00 03/18/20 16:59 03/13/20 17:24 Assessment/Plan Assessment/Plan IMPRESSION: 1. Cellulitis. 2. COPD. 3. Hypertension. 4. Diabetes. DISCUSSION: The patient will benefit from broad-spectrum antibiotics. I will follow as level glass vial filler. I ordered oxygen and pulmonary hygiene. Saturating well on RA Delfin Degroot M.D. Dlefin Degroot MD Mar 14, 2020 10:28
== END 2020-03-14 10:49 | disposition left against medical advice (07) | DRG 602 ==
LOC: EMR 11:10 → 4E 11:40 → EDBEDREQ 14:36
DX: L03.311 Cellulitis of abdominal wall (principal); I50.33 Acute on chronic diastolic (congestive) heart failure; L03.116 Cellulitis of left lower limb; N17.9 Acute kidney failure, unspecified; I13.0 Hypertensive heart and chronic kidney disease with heart failure and stage 1 through stage 4 chronic kidney disease, or unspecified chronic kidney disease; L03.115 Cellulitis of right lower limb; J96.10 Chronic respiratory failure, unspecified whether with hypoxia or hypercapnia; N18.9 Chronic kidney disease, unspecified; E11.22 Type 2 diabetes mellitus with diabetic chronic kidney disease; J44.9 Chronic obstructive pulmonary disease, unspecified; B86 Scabies; E78.5 Hyperlipidemia, unspecified; M79.604 Pain in right leg; N40.0 Benign prostatic hyperplasia without lower urinary tract symptoms
CPT/HCPCS: 36415; 80048; 80053; 80202; 81003; 82962; 83036; 83605; 83735; 83880; 84100; 85025; 87040; 93970; 96365; 96367; 99285; J1815; J8499; S5561

== ENCOUNTER 2020-07-12 10:52 | Inpatient (IN) | payer MEDICARE, OTHER ==
[~2020-07-12] VITALS: Ht 177.8 cm; Wt 108.9 kg
[~2020-07-12 10:52] MED LIST changes: +ANTI-ITCH28 GM TOPIC; +CEFUROXIME250 MG PO; +CHLORTHALIDONE25 MG ORAL; +COMBIVENT RESPIM4 GM IH; +NOVOLIN R100 UNIT/1 SUBQ
[2020-07-12 11:00] VITALS: BP 142/69
[2020-07-12 11:54] LABS: BASOPHILS % (AUTO) 0.9 % (0.0-2.0); EOSINOPHILS % (AUTO) 2.6 % (0.0-3.0); HEMATOCRIT 36.3 % (42.0-52.0); HEMOGLOBIN 12.9 G/DL (14.2-18.0); LYMPHOCYTES % (AUTO) 16.6 % (20.0-45.0); MEAN CORPUSCULAR VOLUME 83 FL (80-99); MONOCYTES % (AUTO) 4.2 % (1.0-10.0); NEUTROPHILS % (AUTO) 75.7 % (45.0-75.0); PLATELET COUNT 277 K/UL (150-450); RED BLOOD COUNT 4.36 M/UL (4.70-6.10); RED CELL DISTRIBUTION WIDTH 13.7 % (11.6-14.8); WHITE BLOOD COUNT 7.3 K/UL (4.8-10.8)
[2020-07-12 12:18] LABS: CALCIUM 7.6 MG/DL (8.5-10.1); CREATININE 1.3 MG/DL (0.55-1.30); POTASSIUM 3.8 MMOL/L (3.5-5.1)
[2020-07-12 12:32] LABS: ALBUMIN 3.1 G/DL (3.4-5.0); ALBUMIN/GLOBULIN RATIO 0.9 (1.0-2.7); BILIRUBIN,TOTAL 0.5 MG/DL (0.2-1.0); CKMB 2.5 NG/ML (0.0-3.6)
[2020-07-12 13:00] VITALS: BP 138/75
--- NOTE | 2020-07-12 13:21 | Emergency Room Report ---
History of Present Illness General Chief Complaint: Dyspnea/Respdistress Source: Patient, Medical Record Present Illness HPI 64-year-old male with a history of CHF and hypertension here with shortness of breath. Patient says that over the past several days he has been acutely short of breath. Says that he cannot walk more than a few steps without having to stop and catch his breath. He is on home oxygen 2 L chronically but despite this he is feeling worsening shortness of breath. No known sick contacts. No fevers, chills, chest pain, palpitations, back pain, abdominal pain, nausea, vomiting, diarrhea, dysuria. Has had a dry cough. Also suffering from ce llulitis of his abdomen for which she is currently taking antibiotics. 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 COVID-19 Screening: Negative COVID-19 COVID-19 Testing Source: 1 month ago Nursing Documentation-H Past Medical History: No History, Except For Hx Cardiac Problems: Yes - CHF Hx Hypertension: Yes Hx COPD: Yes Hx Diabetes: Yes Hx Cancer: No Hx Gastrointestinal Problems: No Hx Neurological Problems: No Review of Systems All Other Systems: negative except mentioned in HPI Physical Exam Vital Signs Date Time Temp Pulse Resp B/P (MAP) Pulse Ox O2 Delivery O2 Flow Rate FiO2 07/12/20 10:57 98.4 100 20 162/73 (102) 91 Room Air 07/12/20 11:00 2.0 96 Sp02 EP Interpretation: reviewed, normal General Appearance: no apparent distress, alert, non-toxic Head: normocephalic, atraumatic Eyes: bilateral eye normal inspection, bilateral eye PERRL ENT: hearing grossly normal, normal pharynx, no angioedema, normal voice Neck: full range of motion, supple/symm/no masses Respiratory: chest non-tender, normal breath sounds, speaking full sentences, other - Rales in all lung [place] Cardiovascular #1: regular rate, rhythm, no edema Cardiovascular #2: 2+ carotid (R), 2+ carotid (L), 2+ radial (R), 2+ radial (L), 2+ dorsalis pedis (R), 2+ dorsalis pedis (L) Gastrointestinal: normal bowel sounds, non tender, soft, non-distended, no guarding, no rebound Rectal: deferred Genitourinary: normal inspection, no CVA tenderness Musculoskeletal: back normal, normal range of motion, gait/station normal, non- tender, other - Unilateral swelling of the right lower extremity with overlying erythema diffusely Neurologic: alert, motor strength/tone normal, oriented x3, sensory intact, responsive, speech normal Psychiatric: judgement/insight normal, memory normal, mood/affect normal, no suicidal/homicidal ideation Skin: other - Diffuse erythema and induration and punctate regions of bleeding of the abdominal wall in the right lower extremity Lymphatic: no adenopathy Medical Decision Making Diagnostic Impression: Primary Impression: CHF exacerbation Additional Impressions: Cellulitis Obesity Respiratory distress ER Course Laboratory Tests Test 07/12/20 11:25 07/12/20 11:56 07/12/20 13:22 White Blood Count 7.3 K/UL (4.8-10.8) Red Blood Count 4.36 M/UL (4.70-6.10) L Hemoglobin 12.9 G/DL (14.2-18.0) L Hematocrit 36.3 % (42.0-52.0) L Mean Corpuscular Volume 83 FL (80-99) Mean Corpuscular Hemoglobin 29.5 PG (27.0-31.0) Mean Corpuscular Hemoglobin Concent 35.5 G/DL (32.0-36.0) Red Cell Distribution Width 13.7 % (11.6-14.8) Platelet Count 277 K/UL (150-450) Mean Platelet Volume 7.8 FL (6.5-10.1) Neutrophils (%) (Auto) 75.7 % (45.0-75.0) H Lymphocytes (%) (Auto) 16.6 % (20.0-45.0) L Monocytes (%) (Auto) 4.2 % (1.0-10.0) Eosinophils (%) (Auto) 2.6 % (0.0-3.0) Basophils (%) (Auto) 0.9 % (0.0-2.0) Prothrombin Time 11.4 SEC (9.30-11.50) Prothrombin Time INR 1.0 (0.9-1.1) Activated Partial Thromboplast Time 26 SEC (23-33) D-Dimer 0.43 mg/L FEU (0.00-0.49) Sodium Level 134 MMOL/L (136-145) L Potassium Level 3.8 MMOL/L (3.5-5.1) Chloride Level 98 MMOL/L (98-107) Carbon Dioxide Level 32 MMOL/L (21-32) Anion Gap 4 mmol/L (5-15) L Blood Urea Nitrogen 15 mg/dL (7-18) Creatinine 1.3 MG/DL (0.55-1.30) Estimated Glomerular Filtration Rate 55.2 mL/min (>60) Glucose Level 351 MG/DL (74-106) H Lactic Acid Level 1.70 mmol/L (0.4-2.0) Calcium Level 7.6 MG/DL (8.5-10.1) L Magnesium Level 1.7 MG/DL (1.8-2.4) L Ferritin 76 NG/ML (8-388) Total Bilirubin 0.5 MG/DL (0.2-1.0) Aspartate Amino Transferase (AST) 19 U/L (15-37) Alanine Aminotransferase (ALT) 30 U/L (12-78) Alkaline Phosphatase 108 U/L (46-116) Lactate Dehydrogenase 156 U/L (81-234) Total Creatine Kinase 75 U/L (26-308) Creatine Kinase MB 2.5 NG/ML (0.0-3.6) Creatine Kinase MB Relative Index 3.3 Troponin I 0.021 ng/mL (0.000-0.056) C-Reactive Protein, Quantitative 1.9 mg/dL (0.00-0.90) H Pro-B-Type Natriuretic Peptide 738 pg/mL (0-125) H Total Protein 6.4 G/DL (6.4-8.2) Albumin 3.1 G/DL (3.4-5.0) L Globulin 3.3 g/dL Albumin/Globulin Ratio 0.9 (1.0-2.7) L Lipase 85 U/L (73-393) Arterial Blood pH 7.357 (7.350-7.450) Arterial Blood Partial Pressure CO2 55.0 mmHg (35.0-45.0) H Arterial Blood Partial Pressure O2 71.4 mmHg (75.0-100.0) L Arterial Blood HCO3 30.2 mmol/L (22.0-26.0) H Arterial Blood Oxygen Saturation 93.9 % (95-100) L Arterial Blood Base Excess 3.4 (-2-2) H Flash Test Positive Urine Color Yellow Urine Appearance Clear Urine pH 6 (4.5-8.0) Urine Specific [place] 1.015 (1.005-1.035) Urine Protein Negative (NEGATIVE) Urine Glucose (UA) 4+ (NEGATIVE) H Urine Ketones Negative (NEGATIVE) Urine Blood Negative (NEGATIVE) Urine Nitrite Negative (NEGATIVE) Urine Bilirubin Negative (NEGATIVE) Urine Urobilinogen Normal MG/DL (0.0-1.0) Urine Leukocyte Esterase 2+ (NEGATIVE) H Urine RBC Pending Urine WBC Pending Urine Squamous Epithelial Cells Pending Urine Bacteria Pending Microbiology Date/Time Source Procedure Growth Status 07/12/20 11:25 Nasopharynx SARS-CoV-2 RdRp Gene Assay - Final Complete Chest x-ray: Pulmonary vascular congestion diffusely. No focal consolidation. No pleural effusion. No preoperative diaphragm. No bony abnormalities. EKG: Sinus rhythm. Prolonged QTC 532. Left anterior fascicular block. No acute ST or T wave abnormalities. No ectopy. Chest or shortness of breath. Patient had evidence of CHF on his chest x-ray with pulmonary vascular congestion. He also had elevated BNP of around 800. Normal troponin. He was given 40 mg of Lasix IV. He initially had a low oxygen saturation of around 85% on room air but then had normal oxygen saturation on 4 L nasal cannula with no evidence of respiratory distress. He had evidence of cellulitis of his abdomen as well as his right lower extremity. Ultrasound the right lower extremity was negative for DVT. He was given a dose of vancomycin. Admitted to telemetry. Last Vital Signs Date Time Temp Pulse Resp B/P (MAP) Pulse Ox O2 Delivery O2 Flow Rate FiO2 07/12/20 11:00 98.4 116 29 142/69 96 Nasal Cannula 2.0 07/12/20 11:00 96 Referrals: Jone García M.D. (PCP) Miguelito Jack M.D. Jul 12, 2020 13:21
[2020-07-12] MEDS ORDERED: Vancomycin 1 GM in NS 275 ML IVPB ONE (13:30)
[2020-07-12] MEDS ORDERED: METFORMIN HCL500 M1 ORAL (13:56)
[2020-07-12 13:57] LABS: APPEARANCE,URINE CLEAR; BILIRUBIN, URINE NEGATIVE (NEGATIVE); GLUCOSE, URINE (UA) 4+ (NEGATIVE); KETONES,URINE NEGATIVE (NEGATIVE); LEUKOCYTE ESTERASE ,URINE 2+ (NEGATIVE); NITRITE,URINE NEGATIVE (NEGATIVE); PH,URINE 6 (4.5-8.0); PROTEIN,URINE NEGATIVE (NEGATIVE); UROBILINOGEN,URINE NORMAL MG/DL (0.0-1.0)
[2020-07-12] MEDS ORDERED: CETIRIZINE HCL10 M1 PO (14:00)
[2020-07-12] MEDS ORDERED: MAGNESIUM OXID400 M1 ORAL (14:00)
[2020-07-12] MEDS ORDERED: FUROSEMIDE40 MG ORAL (14:00)
[2020-07-12] MEDS ORDERED: CEPHALEXIN500 MG ORAL (14:00)
[2020-07-12] MEDS ORDERED: COMBIVENT RESPIM4 GM IH (14:00)
[2020-07-12 14:01] LABS: COLOR,URINE YELLOW
--- NOTE | 2020-07-12 14:23 | Diagnostic Imaging Report ---
Indication: Reason For Exam: SOB Technique: Single AP view of the chest. Comparison: Chest radiograph dated 02/13/2020 Findings: The cardiomediastinal silhouette is unchanged in appearance with persistent cardiomegaly. There is moderate pulmonary edema. No pneumothorax. Likely trace bilateral pleural effusions. There is biapical scarring. No acute osseous abnormality. IMPRESSION: Moderate pulmonary edema. Possibility of superimposed pneumonia should be excluded clinically.
--- NOTE | 2020-07-12 14:34 | Diagnostic Imaging Report ---
Indication:Leg pain and swelling Technique: Grayscale and duplex Doppler imaging of the veins in right lower extremity performed in real time utilizing compression and augmentation. Comparison: Lower extremity venous Doppler study dated 02/13/2020 and 03/09/2020 Findings: Duplex Doppler interrogation of the veins in right lower extremity is performed from the common femoral vein to the popliteal vein. Normal venous compressibility demonstrated throughout. No thrombus identified. Waveform analysis shows good respiratory phasicity and augmentation. IMPRESSION: No evidence of deep venous thrombosis involving the right lower extremity.
[2020-07-12 16:38] VITALS: BP 135/72
[2020-07-12] MEDS ORDERED: Albuterol/Ipratropium 3ml neb HHN PRN (18:00)
[2020-07-12] MEDS ORDERED: Levemir Flexpen SUBQ SCH (18:30)
--- NOTE | 2020-07-12 19:04 | History and Physical ---
History of Present Illness General Reason for Hospitalization: Dyspnea/Respdistress Present Illness HPI 64M with PMHx of CHF, Hypertension, DM2 presented with SOB. Patient states that he has been short of breath for a few months now, but that the shortness of breath has been increasing. He uses oxygen at home - 2L Oxygen and his oxygen tank is finished. He says that he gets short of breath just walking from his door to his car and needs to sit for a few minutes to catch his breath. He had a recent skin soft tissue infection for which he had been taking PO antibiotics. He had also seen a coal hiker recently for increased redness and itching of his abdomen. He denies any fever, chills, n/v, or active chest pain. He used to smoke 1ppd but quite 20yr ago. He drinks 1beer/week. He lives alone. Allergies: Coded Allergies: No Known Allergies (Unverified , 11/06/17) COVID-19 Screening Contact w/high risk pt: No Recent Travel to affected area: No Experienced COVID-19 symptoms?: Yes Coronavirus symptoms experienc: Shortness of Breath Medication History Scheduled Amlodipine Besylate* (Amlodipine Besylate*), 10 MG ORAL DAILY, (Reported) Aspirin* (Aspir 81*), 81 MG ORAL DAILY, (Reported) Atorvastatin Calcium* (Atorvastatin Calcium*), 40 MG ORAL BEDTIME, (Reported) Cefuroxime Axetil* (Cefuroxime*), 250 MG PO Q12HR Cephalexin* (Keflex*), 500 MG ORAL THREE TIMES A DAY, (Reported) Cetirizine Hcl (ZyrTEC*), 10 MG PO DAILY, (Reported) Chlorthalidone* (Chlorthalidone*), 25 MG ORAL DAILY, (Reported) Furosemide* (Lasix*), 40 MG ORAL DAILY Furosemide* (Lasix*), 40 MG ORAL TWICE A DAY, (Reported) Hydrocortisone Acetate (Anti-Itch), 1 APPLIC TOPIC TWICE A DAY Insulin Regular, Human* (Novolin R*), 0 SUBQ .SLIDING SCALE, (Reported) Lisinopril* (Lisinopril*), 40 MG ORAL DAILY, (Reported) Magnesium Oxide (Magnesium Oxide), 400 MG ORAL DAILY, (Reported) Metformin Hcl (Metformin Hydrochloride), 1,000 GM MC TWICE A DAY, (Reported) Metformin Hcl* (Metformin Hcl*), 1,000 MG ORAL TWICE A DAY, (Reported) Methocarbamol* (Robaxin-750*), 750 MG PO TID Pantoprazole* (Pantoprazole*), 40 MG ORAL DAILY, (Reported) Quetiapine Fumarate* (Quetiapine Fumarate*), 200 MG ORAL DAILY, (Reported) Sertraline Hcl* (Zoloft*), 100 MG PO DAILY, (Reported) Tamsulosin HCl (Flomax), 0.4 MG ORAL BEDTIME Miscellaneous Medications Ipratropium/Albuterol Sulfate (Combivent Respimat Inhal Blairs), 4 GM IH, (Reported) Ipratropium/Albuterol Sulfate (Combivent Respimat Inhal Blairs), 4 GM IH, (Reported) Patient History History Provided By: Patient Healthcare decision maker N Resuscitation status Advanced Directive on File Past Medical/Surgical History Past Medical/Surgical History: (1) Cellulitis (2) CHF (congestive heart failure) (3) Smoking history (4) Cellulitis of right lower extremity (5) Dyspnea Family History Family History: FH: CAD (coronary artery disease) Review of Systems Constitutional: Reports: see HPI; Denies: no symptoms, chills, sweats, fever, malaise, weakness, other Eye: Reports: see HPI; Denies: no symptoms, eye pain, blurred vision, tearing, double vision, nose pain, nose congestion, acuity changes, discharge, other ENT: Reports: see HPI; Denies: no symptoms, ear pain, ear discharge, nose pain, nose congestion, throat pain, throat swelling, mouth pain, hearing loss, nasal discharge, other Respiratory: Reports: see HPI, shortness of breath Cardiovascular: Denies: no symptoms, see HPI, chest pain, edema, palpitations, syncope, PND, other Gastrointestinal: Denies: no symptoms, see HPI, abdominal pain, constipation, diarrhea, nausea, vomiting, melena, hematemesis, other Genitourinary: Denies: no symptoms, see HPI, discharge, dysuria, frequency, hematuria, pain, retention, incontinence, urgency, vag bleed/dc, other Musculoskeletal: Denies: no symptoms, see HPI, back pain, gout, joint pain, joint swelling, muscle pain, muscle stiffness, other Skin: Denies: no symptoms, see HPI, rash, change in color, change in hair/nails, dryness, lesions, other Psychiatric: Denies: no symptoms, see HPI, prior hx, anxiety, depressed feelings, emotional problems, SI, HI, hallucinations, other Neurological: Denies: no symptoms, see HPI, headache, numbness, paresthesia, seizure, tingling, tremors, focal weakness, syncope, dizziness, other Endocrine: Denies: no symptoms, see HPI, excessive sweating, flushing, intolerance to temperature, increased thirst, increased urine, unexplained weight loss, other Hematologic/Lymphatic: Denies: no symptoms, see HPI, anemia, blood clots, easy bleeding, easy bruising, swollen glands, diathesis, other Physical Exam General Appearance: no apparent distress, alert HEENT: normocephalic, atraumatic Neck: supple Respiratory/Chest: other - diminshed breath sounds at the bases Abdomen: non tender, soft Extremities: normal range of motion Skin Exam: warm/dry, other - Circular lesions across abdomen, redness of right leg 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, oriented x 3 Last 24 Hour Vital Signs Date Time Temp Pulse Resp B/P (MAP) Pulse Ox O2 Delivery O2 Flow Rate FiO2 07/12/20 18:23 Nasal Cannula 2.0 07/12/20 16:42 98.4 89 16 135/72 100 Nasal Cannula 2.0 07/12/20 16:38 98.4 89 16 135/72 100 Nasal Cannula 2.0 07/12/20 13:00 98.4 92 21 138/75 96 Nasal Cannula 2.0 07/12/20 11:00 98.4 116 29 142/69 96 Nasal Cannula 2.0 07/12/20 11:00 100 20 Nasal Cannula 2.0 96 07/12/20 10:57 98.4 100 20 162/73 (102) 91 Room Air Laboratory Tests Test 07/12/20 11:25 07/12/20 11:56 07/12/20 13:22 White Blood Count 7.3 K/UL (4.8-10.8) Red Blood Count 4.36 M/UL (4.70-6.10) L Hemoglobin 12.9 G/DL (14.2-18.0) L Hematocrit 36.3 % (42.0-52.0) L Mean Corpuscular Volume 83 FL (80-99) Mean Corpuscular Hemoglobin 29.5 PG (27.0-31.0) Mean Corpuscular Hemoglobin Concent 35.5 G/DL (32.0-36.0) Red Cell Distribution Width 13.7 % (11.6-14.8) Platelet Count 277 K/UL (150-450) Mean Platelet Volume 7.8 FL (6.5-10.1) Neutrophils (%) (Auto) 75.7 % (45.0-75.0) H Lymphocytes (%) (Auto) 16.6 % (20.0-45.0) L Monocytes (%) (Auto) 4.2 % (1.0-10.0) Eosinophils (%) (Auto) 2.6 % (0.0-3.0) Basophils (%) (Auto) 0.9 % (0.0-2.0) Prothrombin Time 11.4 SEC (9.30-11.50) Prothromb Time International Ratio 1.0 (0.9-1.1) Activated Partial Thromboplast Time 26 SEC (23-33) D-Dimer 0.43 mg/L FEU (0.00-0.49) Sodium Level 134 MMOL/L (136-145) L Potassium Level 3.8 MMOL/L (3.5-5.1) Chloride Level 98 MMOL/L (98-107) Carbon Dioxide Level 32 MMOL/L (21-32) Anion Gap 4 mmol/L (5-15) L Blood Urea Nitrogen 15 mg/dL (7-18) Creatinine 1.3 MG/DL (0.55-1.30) Estimat Glomerular Filtration Rate 55.2 mL/min (>60) Glucose Level 351 MG/DL (74-106) H Lactic Acid Level 1.70 mmol/L (0.4-2.0) Calcium Level 7.6 MG/DL (8.5-10.1) L Magnesium Level 1.7 MG/DL (1.8-2.4) L Ferritin 76 NG/ML (8-388) Total Bilirubin 0.5 MG/DL (0.2-1.0) Aspartate Amino Transf (AST/SGOT) 19 U/L (15-37) Alanine Aminotransferase (ALT/SGPT) 30 U/L (12-78) Alkaline Phosphatase 108 U/L (46-116) Lactate Dehydrogenase 156 U/L (81-234) Total Creatine Kinase 75 U/L (26-308) Creatine Kinase MB 2.5 NG/ML (0.0-3.6) Creatine Kinase MB Relative Index 3.3 Troponin I 0.021 ng/mL (0.000-0.056) C-Reactive Protein, Quantitative 1.9 mg/dL (0.00-0.90) H Pro-B-Type Natriuretic Peptide 738 pg/mL (0-125) H Total Protein 6.4 G/DL (6.4-8.2) Albumin 3.1 G/DL (3.4-5.0) L Globulin 3.3 g/dL Albumin/Globulin Ratio 0.9 (1.0-2.7) L Lipase 85 U/L (73-393) Arterial Blood pH 7.357 (7.350-7.450) Arterial Blood Partial Pressure CO2 55.0 mmHg (35.0-45.0) H Arterial Blood Partial Pressure O2 71.4 mmHg (75.0-100.0) L Arterial Blood HCO3 30.2 mmol/L (22.0-26.0) H Arterial Blood Oxygen Saturation 93.9 % (95-100) L Arterial Blood Base Excess 3.4 (-2-2) H Flash Test Positive Urine Color Yellow Urine Appearance Clear Urine pH 6 (4.5-8.0) Urine Specific [place] 1.015 (1.005-1.035) Urine Protein Negative (NEGATIVE) Urine Glucose (UA) 4+ (NEGATIVE) H Urine Ketones Negative (NEGATIVE) Urine Blood Negative (NEGATIVE) Urine Nitrite Negative (NEGATIVE) Urine Bilirubin Negative (NEGATIVE) Urine Urobilinogen Normal MG/DL (0.0-1.0) Urine Leukocyte Esterase 2+ (NEGATIVE) H Urine RBC 0 /HPF (0 - 0) Urine WBC 2-4 /HPF (0 - 0) Urine Squamous Epithelial Cells Occasional /LPF Urine Bacteria Occasional /HPF (NONE) Urine Yeast Occasional /HPF (NONE) H Microbiology Date/Time Source Procedure Growth Status 07/12/20 11:25 Nasopharynx SARS-CoV-2 RdRp Gene Assay - Final Complete Height (Feet): 5 Height (Inches): 10.00 Weight (Pounds): 240 Medications Current Medications Medications (Trade) Dose Ordered Sig/Anjel Route PRN Reason Start Time Stop Time Status Last Admin Dose Admin Albuterol/ Ipratropium (Albuterol/ Ipratropium) 3 ml Q4H PRN HHN Shortness of Breath 07/12/20 18:00 07/17/20 17:59 Amlodipine Besylate (Norvasc) 10 mg DAILY ORAL 07/13/20 09:00 08/12/20 08:59 Aspirin (Ecotrin) 81 mg DAILY ORAL 07/13/20 09:00 08/27/20 08:59 Atorvastatin Calcium (Lipitor) 40 mg BEDTIME ORAL 07/12/20 21:00 10/10/20 20:59 Chlorthalidone (Chlorthalidone) 25 mg DAILY ORAL 07/13/20 09:00 08/12/20 08:59 Heparin Sodium (Porcine) (Heparin 5000 units/ml) 5,000 units EVERY 12 HOURS SUBQ 07/12/20 21:00 08/26/20 20:59 Hydrocortisone (Hydrocortisone) 1 applic TWICE A DAY TOPIC 07/12/20 20:00 10/10/20 19:59 Insulin Detemir (Levemir) 7 units ONCE SUBQ 07/12/20 18:30 07/12/20 21:00 Methocarbamol (Robaxin) 750 mg TID ORAL 07/12/20 18:00 08/11/20 17:59 Pantoprazole (Protonix) 40 mg DAILY ORAL 07/13/20 09:00 08/12/20 08:59 Quetiapine Fumarate (SEROqueL) 200 mg DAILY ORAL 07/13/20 09:00 08/27/20 08:59 Sertraline HCl (Zoloft) 100 mg DAILY ORAL 07/13/20 09:00 08/12/20 08:59 Tamsulosin HCl (Flomax) 0.4 mg BEDTIME ORAL 07/12/20 21:00 08/11/20 20:59 Assessment/Plan Status: stable Assessment/Plan: #Dyspnea #Hypoxia #Elevated BNP Patient presenting with dyspnea likely 2' CHF exacerbation. - CXR with vascular congestion - BNP elevated - EKG NSR - Covid negative - Troponin - Lasix x1 - Continue Diuresis - Strict I&O - Echo Pending - Cardiology Consult #PAULINE #Lactic Acidosis Unclear of Creatinine baseline. - Continue Diuresis - UA wnl - Nephrology consulted #Hx of Cellulitis - Previously on PO keflex as outpatient - Vancomycin x1 - Continue abx - ID consult - WC if needed #DM2 - 7U Levemir x1 - Monitor BG and add ISS as needed #HTn - Resume chlorthalidone - Lasix #HLD - Resume statin #Depression - Continue Sertraline and Seroquel Heparin Sq Carb Consistent Diet Full Code Time spent is 75 minutes with approx 31 minutes with counseling and care coordination. D/w consultants and nurse. Time of note does not reflect time of [facility]. Molly Leon M.D. Jul 12, 2020 19:04
--- NOTE | 2020-07-12 19:06 | General Progress Note ---
Advance Care Planning Advance Care Planning Advance Care Planning [facility] An independent Hospitalist group, where every patient is our [facility] Internal Medicine Hospitalist Advanced Care Planning Note Please contact us at Date of Discussion: A [id number] discussion with the patient regarding the patient's advanced care planning took place during this hospitalization on the above date. The discussion included the explanation and discussion of advance directives and associated forms/documents, as well as the patient's current code status. We also discussed at length the patient's medical conditions (both acute and chroni c), general prognosis, treatment options, and goals of care. The following summarizes the discussion: Patient would like full resuscitation with CPR, electric shocks and intubation with mechanical ventilation. Advance Care Planning/Goals of Care: - Will attempt to fill out an AD and/or POLST with the patient prior to discharge, if not already completed - Continue current evaluation and management of any acute and chronic medical issues - Will continue to support the patient/family - Will continue to discuss both short- and long-term goals of care DPOA-HC/Surrogate Decision Maker: None currently appointed Patient stated after a bit of time that he would allow Emilie Golden (Friend) to make decisions for him. Code Status: Full Code Advanced Care Planning Forms/Documents Completed: Deferred until later encounter/visit A total of 18 minutes was spent on this discussion, including counseling, answering questions, and completing, if any, pertinent advanced care planning forms/documents. Time of note may not reflect time of encounter. Molly Leon M.D. Jul 12, 2020 19:06
[2020-07-12 20:00] VITALS: BP 139/76
[2020-07-12] MEDS: Hydrocortisone 1% Oint TOPIC SCH (20:00)
[2020-07-12] MEDS: Methocarbamol 750mg tab ORAL SCH (20:37)
[2020-07-12] MEDS: Tamsulosin 0.4mg cap ORAL SCH (20:38)
[2020-07-12] MEDS: Heparin 5000 units/ml inj SUBQ SCH (20:38)
[2020-07-12] MEDS: Atorvastatin 20mg tab ORAL SCH (20:38)
[2020-07-12] MEDS ORDERED: QUEtiapine 200mg tab ORAL SCH (21:15)
[2020-07-12] MEDS: QUEtiapine 200mg tab ORAL SCH (22:18)
--- NOTE | 2020-07-12 23:07 | Infectious Diseases Prog Note ---
Assessment/Plan Assessment/Plan Full consult to follow: A) 1) abdominal wall cellulitis, bilateral leg cellulitis, ? infected wounds/scabs 2) pmh noted 3) hi P) 1) vancomycin and cefepime 2) check wound culture 3) monitor labs 4) thank you Subjective Allergies: Coded Allergies: No Known Allergies (Unverified , 11/06/17) Objective Last 24 Hour Vital Signs Date Time Temp Pulse Resp B/P (MAP) Pulse Ox O2 Delivery O2 Flow Rate FiO2 07/12/20 18:23 Nasal Cannula 2.0 07/12/20 16:42 98.4 89 16 135/72 100 Nasal Cannula 2.0 07/12/20 16:38 98.4 89 16 135/72 100 Nasal Cannula 2.0 07/12/20 13:00 98.4 92 21 138/75 96 Nasal Cannula 2.0 07/12/20 11:00 98.4 116 29 142/69 96 Nasal Cannula 2.0 07/12/20 11:00 100 20 Nasal Cannula 2.0 96 07/12/20 10:57 98.4 100 20 162/73 (102) 91 Room Air Height (Feet): 5 Height (Inches): 10.00 Weight (Pounds): 240 Microbiology Date/Time Source Procedure Growth Status 07/12/20 11:25 Nasopharynx SARS-CoV-2 RdRp Gene Assay - Final Complete Laboratory Tests Test 07/12/20 11:25 07/12/20 11:56 07/12/20 13:22 07/12/20 19:17 White Blood Count 7.3 K/UL (4.8-10.8) Red Blood Count 4.36 M/UL (4.70-6.10) L Hemoglobin 12.9 G/DL (14.2-18.0) L Hematocrit 36.3 % (42.0-52.0) L Mean Corpuscular Volume 83 FL (80-99) Mean Corpuscular Hemoglobin 29.5 PG (27.0-31.0) Mean Corpuscular Hemoglobin Concent 35.5 G/DL (32.0-36.0) Red Cell Distribution Width 13.7 % (11.6-14.8) Platelet Count 277 K/UL (150-450) Mean Platelet Volume 7.8 FL (6.5-10.1) Neutrophils (%) (Auto) 75.7 % (45.0-75.0) H Lymphocytes (%) (Auto) 16.6 % (20.0-45.0) L Monocytes (%) (Auto) 4.2 % (1.0-10.0) Eosinophils (%) (Auto) 2.6 % (0.0-3.0) Basophils (%) (Auto) 0.9 % (0.0-2.0) Prothrombin Time 11.4 SEC (9.30-11.50) Prothromb Time International Ratio 1.0 (0.9-1.1) Activated Partial Thromboplast Time 26 SEC (23-33) D-Dimer 0.43 mg/L FEU (0.00-0.49) Sodium Level 134 MMOL/L (136-145) L Potassium Level 3.8 MMOL/L (3.5-5.1) Chloride Level 98 MMOL/L (98-107) Carbon Dioxide Level 32 MMOL/L (21-32) Anion Gap 4 mmol/L (5-15) L Blood Urea Nitrogen 15 mg/dL (7-18) Creatinine 1.3 MG/DL (0.55-1.30) Estimat Glomerular Filtration Rate 55.2 mL/min (>60) Glucose Level 351 MG/DL (74-106) H Lactic Acid Level 1.70 mmol/L (0.4-2.0) Calcium Level 7.6 MG/DL (8.5-10.1) L Magnesium Level 1.7 MG/DL (1.8-2.4) L Ferritin 76 NG/ML (8-388) Total Bilirubin 0.5 MG/DL (0.2-1.0) Aspartate Amino Transf (AST/SGOT) 19 U/L (15-37) Alanine Aminotransferase (ALT/SGPT) 30 U/L (12-78) Alkaline Phosphatase 108 U/L (46-116) Lactate Dehydrogenase 156 U/L (81-234) Total Creatine Kinase 75 U/L (26-308) Creatine Kinase MB 2.5 NG/ML (0.0-3.6) Creatine Kinase MB Relative Index 3.3 Troponin I 0.021 ng/mL (0.000-0.056) C-Reactive Protein, Quantitative 1.9 mg/dL (0.00-0.90) H Pro-B-Type Natriuretic Peptide 738 pg/mL (0-125) H Total Protein 6.4 G/DL (6.4-8.2) Albumin 3.1 G/DL (3.4-5.0) L Globulin 3.3 g/dL Albumin/Globulin Ratio 0.9 (1.0-2.7) L Lipase 85 U/L (73-393) Arterial Blood pH 7.357 (7.350-7.450) Arterial Blood Partial Pressure CO2 55.0 mmHg (35.0-45.0) H Arterial Blood Partial Pressure O2 71.4 mmHg (75.0-100.0) L Arterial Blood HCO3 30.2 mmol/L (22.0-26.0) H Arterial Blood Oxygen Saturation 93.9 % (95-100) L Arterial Blood Base Excess 3.4 (-2-2) H Flash Test Positive Urine Color Yellow Urine Appearance Clear Urine pH 6 (4.5-8.0) Urine Specific [place] 1.015 (1.005-1.035) Urine Protein Negative (NEGATIVE) Urine Glucose (UA) 4+ (NEGATIVE) H Urine Ketones Negative (NEGATIVE) Urine Blood Negative (NEGATIVE) Urine Nitrite Negative (NEGATIVE) Urine Bilirubin Negative (NEGATIVE) Urine Urobilinogen Normal MG/DL (0.0-1.0) Urine Leukocyte Esterase 2+ (NEGATIVE) H Urine RBC 0 /HPF (0 - 0) Urine WBC 2-4 /HPF (0 - 0) Urine Squamous Epithelial Cells Occasional /LPF Urine Bacteria Occasional /HPF (NONE) Urine Yeast Occasional /HPF (NONE) H POC Whole Blood Glucose 349 MG/DL (74-106) H Current Medications Medications (Trade) Dose Ordered Sig/Anjel Route PRN Reason Start Time Stop Time Status Last Admin Dose Admin Albuterol/ Ipratropium (Albuterol/ Ipratropium) 3 ml Q4H PRN HHN Shortness of Breath 07/12/20 18:00 07/17/20 17:59 Amlodipine Besylate (Norvasc) 10 mg DAILY ORAL 07/13/20 09:00 08/12/20 08:59 Aspirin (Ecotrin) 81 mg DAILY ORAL 07/13/20 09:00 08/27/20 08:59 Atorvastatin Calcium (Lipitor) 40 mg BEDTIME ORAL 07/12/20 21:00 10/10/20 20:59 07/12/20 20:38 Chlorthalidone (Chlorthalidone) 25 mg DAILY ORAL 07/13/20 09:00 08/12/20 08:59 Dextrose (Dextrose 50%) 25 ml Q30M PRN IV Hypoglycemia 07/12/20 21:30 10/10/20 21:29 Dextrose (Dextrose 50%) 50 ml Q30M PRN IV Hypoglycemia 07/12/20 21:30 10/10/20 21:29 Heparin Sodium (Porcine) (Heparin 5000 units/ml) 5,000 units EVERY 12 HOURS SUBQ 07/12/20 21:00 08/26/20 20:59 07/12/20 20:38 Hydrocortisone (Hydrocortisone) 1 applic TWICE A DAY TOPIC 07/12/20 20:00 10/10/20 19:59 Insulin Aspart (NovoLOG) BEFORE MEALS AND HS SUBQ 07/12/20 22:00 10/10/20 21:59 Methocarbamol (Robaxin) 750 mg TID ORAL 07/12/20 18:00 08/11/20 17:59 07/12/20 20:37 Pantoprazole (Protonix) 40 mg DAILY ORAL 07/13/20 09:00 08/12/20 08:59 Quetiapine Fumarate (SEROqueL) 200 mg QHS ORAL 07/12/20 21:30 08/26/20 21:29 07/12/20 22:18 Sertraline HCl (Zoloft) 100 mg DAILY ORAL 07/13/20 09:00 08/12/20 08:59 Tamsulosin HCl (Flomax) 0.4 mg BEDTIME ORAL 07/12/20 21:00 08/11/20 20:59 07/12/20 20:38 Rodrigo Raygoza MD Jul 12, 2020 23:07
[2020-07-13] VITALS: BP 123/84
[2020-07-13] MEDS: NovoLOG Insulin Flexpen SUBQ SCH ×5 (00:10→20:08)
[2020-07-13] MEDS: Vancomycin 1gm in D5W 275ml IVPB SCH ×2 (01:40→12:38)
[2020-07-13 04:00] VITALS: BP 133/65
[2020-07-13 08:00] VITALS: BP 143/65
[2020-07-13 08:00] LABS: BASOPHILS % (AUTO) 1.1 % (0.0-2.0); EOSINOPHILS % (AUTO) 3.6 % (0.0-3.0); HEMATOCRIT 34.8 % (42.0-52.0); HEMOGLOBIN 12.7 G/DL (14.2-18.0); LYMPHOCYTES % (AUTO) 17.2 % (20.0-45.0); MEAN CORPUSCULAR VOLUME 82 FL (80-99); MONOCYTES % (AUTO) 4.7 % (1.0-10.0); NEUTROPHILS % (AUTO) 73.5 % (45.0-75.0); PLATELET COUNT 277 K/UL (150-450); RED BLOOD COUNT 4.27 M/UL (4.70-6.10); RED CELL DISTRIBUTION WIDTH 14.2 % (11.6-14.8); WHITE BLOOD COUNT 6.5 K/UL (4.8-10.8)
[2020-07-13 08:19] LABS: ALBUMIN 2.9 G/DL (3.4-5.0); ALBUMIN/GLOBULIN RATIO 0.9 (1.0-2.7); BILIRUBIN,TOTAL 0.6 MG/DL (0.2-1.0); CALCIUM 7.8 MG/DL (8.5-10.1); CREATININE 1.4 MG/DL (0.55-1.30); POTASSIUM 3.4 MMOL/L (3.5-5.1)
[2020-07-13] MEDS: Sertraline 100mg tab ORAL SCH ×2 (09:00→09:13)
[2020-07-13] MEDS ORDERED: QUEtiapine 200mg tab ORAL SCH (09:00)
[2020-07-13] MEDS: Hydrocortisone 1% Oint TOPIC SCH ×2 (09:02→17:56)
[2020-07-13] MEDS: Methocarbamol 750mg tab ORAL SCH ×3 (09:03→17:56)
[2020-07-13] MEDS: Aspirin EC 81mg tab ORAL SCH (09:03)
[2020-07-13] MEDS: Heparin 5000 units/ml inj SUBQ SCH ×2 (09:09→20:07)
--- NOTE | 2020-07-13 10:08 | Consultation ---
History of Present Illness General Chief Complaint: Dyspnea/Respdistress Reason for Consultation: PAULINE Present Illness HPI 64M with PMHx of CHF, Hypertension, DM2 presented with SOB. Patient states that he has been short of breath for a few months now, but that the shortness of breath has been increasing. He uses oxygen at home - 2L Oxygen and his oxygen tank is finished. He says that he gets short of breath just walking from his door to his car and needs to sit for a few minutes to catch his breath. He had a recent skin soft tissue infection for which he had been taking PO antibiotics. He had also seen a rerecording mixer recently for increased redness and itching of his abdomen. He denies any fever, chills, n/v, or active chest pain. He used to smoke 1ppd but quite 20yr ago. He drinks 1beer/week. He lives alone. Allergies: Coded Allergies: No Known Allergies (Unverified , 11/06/17) Medication History Scheduled Amlodipine Besylate* (Amlodipine Besylate*), 10 MG ORAL DAILY, (Reported) Aspirin* (Aspir 81*), 81 MG ORAL DAILY, (Reported) Atorvastatin Calcium* (Atorvastatin Calcium*), 40 MG ORAL BEDTIME, (Reported) Cefuroxime Axetil* (Cefuroxime*), 250 MG PO Q12HR Cephalexin* (Keflex*), 500 MG ORAL THREE TIMES A DAY, (Reported) Cetirizine Hcl (ZyrTEC*), 10 MG PO DAILY, (Reported) Chlorthalidone* (Chlorthalidone*), 25 MG ORAL DAILY, (Reported) Furosemide* (Lasix*), 40 MG ORAL DAILY Furosemide* (Lasix*), 40 MG ORAL TWICE A DAY, (Reported) Hydrocortisone Acetate (Anti-Itch), 1 APPLIC TOPIC TWICE A DAY Insulin Regular, Human* (Novolin R*), 0 SUBQ .SLIDING SCALE, (Reported) Lisinopril* (Lisinopril*), 40 MG ORAL DAILY, (Reported) Magnesium Oxide (Magnesium Oxide), 400 MG ORAL DAILY, (Reported) Metformin Hcl (Metformin Hydrochloride), 1,000 GM MC TWICE A DAY, (Reported) Metformin Hcl* (Metformin Hcl*), 1,000 MG ORAL TWICE A DAY, (Reported) Methocarbamol* (Robaxin-750*), 750 MG PO TID Pantoprazole* (Pantoprazole*), 40 MG ORAL DAILY, (Reported) Quetiapine Fumarate* (Quetiapine Fumarate*), 200 MG ORAL DAILY, (Reported) Sertraline Hcl* (Zoloft*), 100 MG PO DAILY, (Reported) Tamsulosin HCl (Flomax), 0.4 MG ORAL BEDTIME Miscellaneous Medications Ipratropium/Albuterol Sulfate (Combivent Respimat Inhal [place]), 4 GM IH, (Reported) Ipratropium/Albuterol Sulfate (Combivent Respimat Inhal [place]), 4 GM IH, (Reported) Patient History Healthcare decision maker N Resuscitation status Advanced Directive on File Review of Systems All Other Systems: negative except mentioned in HPI Physical Exam General Appearance: alert, moderate distress Lines, tubes and drains: peripheral HEENT: normocephalic, atraumatic Neck: non-tender, normal alignment, supple Respiratory/Chest: chest wall non-tender, rhonchi - bilaterally Cardiovascular/Chest: normal peripheral pulses, normal rate, regular rhythm Abdomen: normal bowel sounds, non tender Extremities: normal range of motion, pitting Neurologic: alert, oriented x 3 Last 24 Hour Vital Signs Date Time Temp Pulse Resp B/P (MAP) Pulse Ox O2 Delivery O2 Flow Rate FiO2 07/13/20 09:03 98 143/65 07/13/20 08:00 91 07/13/20 08:00 96.8 98 22 143/65 (91) 96 07/13/20 04:00 98.0 78 20 133/65 (87) 95 07/13/20 04:00 83 07/13/20 00:00 97.5 98 22 123/84 (97) 95 07/13/20 00:00 115 07/12/20 21:00 Nasal Cannula 2.0 07/12/20 20:00 97.5 95 20 139/76 (97) 96 07/12/20 20:00 98 07/12/20 18:23 Nasal Cannula 2.0 07/12/20 16:42 98.4 89 16 135/72 100 Nasal Cannula 2.0 07/12/20 16:38 98.4 89 16 135/72 100 Nasal Cannula 2.0 07/12/20 13:00 98.4 92 21 138/75 96 Nasal Cannula 2.0 07/12/20 11:00 98.4 116 29 142/69 96 Nasal Cannula 2.0 07/12/20 11:00 100 20 Nasal Cannula 2.0 96 07/12/20 10:57 98.4 100 20 162/73 (102) 91 Room Air Intake and Output 07/12/20 07/13/20 19:00 07:00 Intake Total 275 ml 350 ml Balance 275 ml 350 ml Intake Oral 350 ml IV Total 275 ml # Voids 4 3 Laboratory Tests Test 07/12/20 11:25 07/12/20 11:56 07/12/20 13:22 07/12/20 19:17 White Blood Count 7.3 K/UL (4.8-10.8) Red Blood Count 4.36 M/UL (4.70-6.10) L Hemoglobin 12.9 G/DL (14.2-18.0) L Hematocrit 36.3 % (42.0-52.0) L Mean Corpuscular Volume 83 FL (80-99) Mean Corpuscular Hemoglobin 29.5 PG (27.0-31.0) Mean Corpuscular Hemoglobin Concent 35.5 G/DL (32.0-36.0) Red Cell Distribution Width 13.7 % (11.6-14.8) Platelet Count 277 K/UL (150-450) Mean Platelet Volume 7.8 FL (6.5-10.1) Neutrophils (%) (Auto) 75.7 % (45.0-75.0) H Lymphocytes (%) (Auto) 16.6 % (20.0-45.0) L Monocytes (%) (Auto) 4.2 % (1.0-10.0) Eosinophils (%) (Auto) 2.6 % (0.0-3.0) Basophils (%) (Auto) 0.9 % (0.0-2.0) Prothrombin Time 11.4 SEC (9.30-11.50) Prothromb Time International Ratio 1.0 (0.9-1.1) Activated Partial Thromboplast Time 26 SEC (23-33) D-Dimer 0.43 mg/L FEU (0.00-0.49) Sodium Level 134 MMOL/L (136-145) L Potassium Level 3.8 MMOL/L (3.5-5.1) Chloride Level 98 MMOL/L (98-107) Carbon Dioxide Level 32 MMOL/L (21-32) Anion Gap 4 mmol/L (5-15) L Blood Urea Nitrogen 15 mg/dL (7-18) Creatinine 1.3 MG/DL (0.55-1.30) Estimat Glomerular Filtration Rate 55.2 mL/min (>60) Glucose Level 351 MG/DL (74-106) H Lactic Acid Level 1.70 mmol/L (0.4-2.0) Calcium Level 7.6 MG/DL (8.5-10.1) L Magnesium Level 1.7 MG/DL (1.8-2.4) L Ferritin 76 NG/ML (8-388) Total Bilirubin 0.5 MG/DL (0.2-1.0) Aspartate Amino Transf (AST/SGOT) 19 U/L (15-37) Alanine Aminotransferase (ALT/SGPT) 30 U/L (12-78) Alkaline Phosphatase 108 U/L (46-116) Lactate Dehydrogenase 156 U/L (81-234) Total Creatine Kinase 75 U/L (26-308) Creatine Kinase MB 2.5 NG/ML (0.0-3.6) Creatine Kinase MB Relative Index 3.3 Troponin I 0.021 ng/mL (0.000-0.056) C-Reactive Protein, Quantitative 1.9 mg/dL (0.00-0.90) H Pro-B-Type Natriuretic Peptide 738 pg/mL (0-125) H Total Protein 6.4 G/DL (6.4-8.2) Albumin 3.1 G/DL (3.4-5.0) L Globulin 3.3 g/dL Albumin/Globulin Ratio 0.9 (1.0-2.7) L Lipase 85 U/L (73-393) Arterial Blood pH 7.357 (7.350-7.450) Arterial Blood Partial Pressure CO2 55.0 mmHg (35.0-45.0) H Arterial Blood Partial Pressure O2 71.4 mmHg (75.0-100.0) L Arterial Blood HCO3 30.2 mmol/L (22.0-26.0) H Arterial Blood Oxygen Saturation 93.9 % (95-100) L Arterial Blood Base Excess 3.4 (-2-2) H Flash Test Positive Urine Color Yellow Urine Appearance Clear Urine pH 6 (4.5-8.0) Urine Specific [place] 1.015 (1.005-1.035) Urine Protein Negative (NEGATIVE) Urine Glucose (UA) 4+ (NEGATIVE) H Urine Ketones Negative (NEGATIVE) Urine Blood Negative (NEGATIVE) Urine Nitrite Negative (NEGATIVE) Urine Bilirubin Negative (NEGATIVE) Urine Urobilinogen Normal MG/DL (0.0-1.0) Urine Leukocyte Esterase 2+ (NEGATIVE) H Urine RBC 0 /HPF (0 - 0) Urine WBC 2-4 /HPF (0 - 0) Urine Squamous Epithelial Cells Occasional /LPF Urine Bacteria Occasional /HPF (NONE) Urine Yeast Occasional /HPF (NONE) H POC Whole Blood Glucose 349 MG/DL (74-106) H Test 07/13/20 05:33 07/13/20 06:40 POC Whole Blood Glucose 322 MG/DL (74-106) H White Blood Count 6.5 K/UL (4.8-10.8) Red Blood Count 4.27 M/UL (4.70-6.10) L Hemoglobin 12.7 G/DL (14.2-18.0) L Hematocrit 34.8 % (42.0-52.0) L Mean Corpuscular Volume 82 FL (80-99) Mean Corpuscular Hemoglobin 29.7 PG (27.0-31.0) Mean Corpuscular Hemoglobin Concent 36.4 G/DL (32.0-36.0) H Red Cell Distribution Width 14.2 % (11.6-14.8) Platelet Count 277 K/UL (150-450) Mean Platelet Volume 8.2 FL (6.5-10.1) Neutrophils (%) (Auto) 73.5 % (45.0-75.0) Lymphocytes (%) (Auto) 17.2 % (20.0-45.0) L Monocytes (%) (Auto) 4.7 % (1.0-10.0) Eosinophils (%) (Auto) 3.6 % (0.0-3.0) H Basophils (%) (Auto) 1.1 % (0.0-2.0) Sodium Level 137 MMOL/L (136-145) Potassium Level 3.4 MMOL/L (3.5-5.1) L Chloride Level 100 MMOL/L (98-107) Carbon Dioxide Level 32 MMOL/L (21-32) Anion Gap 5 mmol/L (5-15) Blood Urea Nitrogen 15 mg/dL (7-18) Creatinine 1.4 MG/DL (0.55-1.30) H Estimat Glomerular Filtration Rate 50.7 mL/min (>60) Glucose Level 266 MG/DL (74-106) H Calcium Level 7.8 MG/DL (8.5-10.1) L Total Bilirubin 0.6 MG/DL (0.2-1.0) Aspartate Amino Transf (AST/SGOT) 21 U/L (15-37) Alanine Aminotransferase (ALT/SGPT) 30 U/L (12-78) Alkaline Phosphatase 103 U/L (46-116) Total Protein 6.3 G/DL (6.4-8.2) L Albumin 2.9 G/DL (3.4-5.0) L Globulin 3.4 g/dL Albumin/Globulin Ratio 0.9 (1.0-2.7) L Microbiology Date/Time Source Procedure Growth Status 07/12/20 13:22 Urine,Clean Catch Urine Culture - Preliminary NO GROWTH Resulted 07/12/20 11:25 Nasopharynx SARS-CoV-2 RdRp Gene Assay - Final Complete Height (Feet): 5 Height (Inches): 10.00 Weight (Pounds): 240 Medications Current Medications Medications (Trade) Dose Ordered Sig/Anjel Route PRN Reason Start Time Stop Time Status Last Admin Dose Admin Albuterol/ Ipratropium (Albuterol/ Ipratropium) 3 ml Q4H PRN HHN Shortness of Breath 07/12/20 18:00 07/17/20 17:59 Amlodipine Besylate (Norvasc) 10 mg DAILY ORAL 07/13/20 09:00 08/12/20 08:59 07/13/20 09:03 Aspirin (Ecotrin) 81 mg DAILY ORAL 07/13/20 09:00 08/27/20 08:59 07/13/20 09:03 Atorvastatin Calcium (Lipitor) 40 mg BEDTIME ORAL 07/12/20 21:00 10/10/20 20:59 07/12/20 20:38 Cefepime HCl 2 gm/ Dextrose 50 ml @ 100 mls/hr DAILY IVPB 07/13/20 09:00 07/20/20 08:59 07/13/20 09:05 Chlorthalidone (Chlorthalidone) 25 mg DAILY ORAL 07/13/20 09:00 08/12/20 08:59 07/13/20 09:03 Dextrose (Dextrose 50%) 25 ml Q30M PRN IV Hypoglycemia 07/12/20 21:30 10/10/20 21:29 Dextrose (Dextrose 50%) 50 ml Q30M PRN IV Hypoglycemia 07/12/20 21:30 10/10/20 21:29 Heparin Sodium (Porcine) (Heparin 5000 units/ml) 5,000 units EVERY 12 HOURS SUBQ 07/12/20 21:00 08/26/20 20:59 07/13/20 09:09 Hydrocortisone (Hydrocortisone) 1 applic TWICE A DAY TOPIC 07/12/20 20:00 10/10/20 19:59 07/13/20 09:02 Insulin Aspart (NovoLOG) BEFORE MEALS AND HS SUBQ 07/12/20 22:00 10/10/20 21:59 07/13/20 05:35 Magnesium Oxide (Mag-Ox 400mg) 400 mg BID ORAL 07/13/20 09:45 08/12/20 09:44 Methocarbamol (Robaxin) 750 mg TID ORAL 07/12/20 18:00 08/11/20 17:59 07/13/20 09:03 Pantoprazole (Protonix) 40 mg DAILY ORAL 07/13/20 09:00 08/12/20 08:59 07/13/20 09:02 Potassium Chloride (K-Dur) 40 meq ONCE ORAL 07/13/20 09:45 07/13/20 12:00 Quetiapine Fumarate (SEROqueL) 200 mg QHS ORAL 07/12/20 21:30 08/26/20 21:29 07/12/20 22:18 Sertraline HCl (Zoloft) 100 mg DAILY ORAL 07/13/20 09:00 08/12/20 08:59 Tamsulosin HCl (Flomax) 0.4 mg BEDTIME ORAL 07/12/20 21:00 08/11/20 20:59 07/12/20 20:38 Vancomycin HCl (Vanco pharmacy to dose) 1 ea DAILY PRN MISC Per rx protocol 07/12/20 23:15 08/11/20 23:14 Vancomycin HCl 1 gm/Dextrose 275 ml @ 184 mls/hr Q12H IVPB 07/13/20 01:00 07/18/20 00:59 07/13/20 01:40 Assessment/Plan Diagnosis Hardy I: #Acute hypoxemic respiratory failure due to COPD Exacerbation and CHF #LE cellulitis #HTN #HLD #DM #BPH - admit to tele - cardiology eval - ID eval - pulm eval - breathing tx - laix 40 IV daily - amlodipine 10mg daily - monitor UOP - daily weight - monitor electrolytes - monitor renal function - avoid nephroxins - resume home med Time spent 65 mn Jone García M.D. Jul 13, 2020 10:08
[2020-07-13] MEDS: Magnesium Oxide 400mg tab ORAL SCH ×2 (10:19→17:56)
[2020-07-13 12:00] VITALS: BP 140/83
--- NOTE | 2020-07-13 12:33 | General Progress Note ---
Subjective Date patient seen: Jul 13, 2020 Time patient seen: 09:56 Constitutional: Denies: no symptoms, chills, diaphoresis, fever, malaise, weakness, other HEENT: Denies: no symptoms, eye pain, blurred vision, tearing, double vision, ear pain, ear discharge, nose pain, nose congestion, throat pain, throat swelling, mouth pain, mouth swelling, other Cardiovascular: Denies: no symptoms, chest pain, edema, irregular heart rate, lightheadedness, palpitations, syncope, other Respiratory: Denies: no symptoms, cough, orthopnea, shortness of breath, SOB with excertion, SOB at rest, sputum, stridor, wheezing, other Gastrointestinal/Abdominal: Denies: no symptoms, abdomen distended, abdominal pain, black stools, tarry stools, blood in stool, constipated, diarrhea, difficulty swallowing, nausea, poor appetite, poor fluid intake, rectal bleeding, vomiting, other Genitourinary: Denies: no symptoms, burning, discharge, frequency, flank pain, hematuria, incontinence, pain, urgency, other Neurologic/Psychiatric: Denies: no symptoms, anxiety, depressed, emotional problems, headache, numbness, paresthesia, pre-existing deficit, seizure, tingling, tremors, weakness, other Endocrine: Denies: no symptoms, excessive sweating, flushing, intolerance to cold, intolerance to heat, increased hunger, increased thirst, increased urine, unexplained weight gain, unexplained weight loss, other Hematologic/Lymphatic: Denies: no symptoms, anemia, easy bleeding, easy bruising, other Allergies: Coded Allergies: No Known Allergies (Unverified , 11/06/17) Subjective Per patient sob has improved greatly On 2L NC as per baseline at home Still a bit sob with talking Objective Last 24 Hour Vital Signs Date Time Temp Pulse Resp B/P (MAP) Pulse Ox O2 Delivery O2 Flow Rate FiO2 07/13/20 09:03 98 143/65 07/13/20 09:00 Nasal Cannula 2.0 07/13/20 08:00 91 07/13/20 08:00 96.8 98 22 143/65 (91) 96 07/13/20 04:00 98.0 78 20 133/65 (87) 95 07/13/20 04:00 83 07/13/20 00:00 97.5 98 22 123/84 (97) 95 07/13/20 00:00 115 07/12/20 21:00 Nasal Cannula 2.0 07/12/20 20:00 97.5 95 20 139/76 (97) 96 07/12/20 20:00 98 07/12/20 18:23 Nasal Cannula 2.0 07/12/20 16:42 98.4 89 16 135/72 100 Nasal Cannula 2.0 07/12/20 16:38 98.4 89 16 135/72 100 Nasal Cannula 2.0 07/12/20 13:00 98.4 92 21 138/75 96 Nasal Cannula 2.0 Intake and Output 07/12/20 07/13/20 19:00 07:00 Intake Total 275 ml 350 ml Balance 275 ml 350 ml Intake Oral 350 ml IV Total 275 ml # Voids 4 3 Laboratory Tests 07/12/20 13:22: Urine Color Yellow, Urine Appearance Clear, Urine pH 6, Urine Specific [place] 1.015, Urine Protein Negative, Urine Glucose (UA) 4+H, Urine Ketones Negative, Urine Blood Negative, Urine Nitrite Negative, Urine Bilirubin Negative, Urine Urobilinogen Normal, Urine Leukocyte Esterase 2+H, Urine RBC 0, Urine WBC 2-4, Urine Squamous Epithelial Cells Occasional, Urine Bacteria Occasional, Urine Yeast OccasionalH 07/12/20 19:17: POC Whole Blood Glucose 349H 07/13/20 05:33: POC Whole Blood Glucose 322H 07/13/20 06:40: White Blood Count 6.5, Red Blood Count 4.27L, Hemoglobin 12.7L, Hematocrit 34.8L , Mean Corpuscular Volume 82, Mean Corpuscular Hemoglobin 29.7, Mean Corpuscular Hemoglobin Concent 36.4H, Red Cell Distribution Width 14.2, Platelet Count 277, Mean Platelet Volume 8.2, Neutrophils (%) (Auto) 73.5, Lymphocytes (%) (Auto) 17.2L, Monocytes (%) (Auto) 4.7, Eosinophils (%) (Auto) 3.6H, Basophils (%) (Auto) 1.1, Sodium Level 137, Potassium Level 3.4L, Chloride Level 100, Carbon Dioxide Level 32, Anion Gap 5, Blood Urea Nitrogen 15, Creatinine 1.4H, Estimat Glomerular Filtration Rate 50.7, Glucose Level 266H, Calcium Level 7.8L, Total Bilirubin 0.6, Aspartate Amino Transf (AST/SGOT) 21, Alanine Aminotransferase (ALT/SGPT) 30, Alkaline Phosphatase 103, Total Protein 6.3L, Albumin 2.9L, Globulin 3.4, Albumin/Globulin Ratio 0.9L 07/13/20 11:27: POC Whole Blood Glucose 275H Height (Feet): 5 Height (Inches): 10.00 Weight (Pounds): 240 General Appearance: no apparent distress, alert, overweight Neck: supple Cardiovascular: normal rate, regular rhythm Respiratory/Chest: lungs clear, normal breath sounds Abdomen: non tender, soft Extremities: normal range of motion Neurologic: preparer samples and repairs II-XII grossly normal, alert Skin: warm/dry, other - Circular lesions on abdomen with redness and redness on right leg Assessment/Plan Status: stable Assessment/Plan: #Dyspnea - improving #Hypoxia #Elevated BNP Patient presenting with dyspnea likely 2' CHF exacerbation. - CXR with vascular congestion - BNP elevated - EKG NSR - Covid negative - Continue Diuresis with lasix - Strict I&O - Echo Pending - Cardiology Consult #PAULINE #Lactic Acidosis Unclear of Creatinine baseline. - Continue Diuresis - UA wnl - Lytes repleted - Nephrology consulted #Hx of Cellulitis #Lesions on abdomen and right LE with erythema - Previously on PO keflex as outpatient - Vancomycin and Cefepime (07/13 - ) - WC pending - Continue abx - ID consult, appreciate recs #DM2 - Achs - Monitor BG and add ISS as needed #HTn - Resume chlorthalidone - Lasix #HLD - Resume statin #Depression - Continue Sertraline and Seroquel Heparin Sq Carb Consistent Diet Full Code Time spent is 35 minutes with approx 19 minutes with counseling and care coordination. D/w consultants and nurse. Time of note does not reflect time of encounter. Molly Leon M.D. Jul 13, 2020 12:33
[2020-07-13 16:00] VITALS: BP 130/64
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
[2020-07-13 20:00] VITALS: BP 137/81
[2020-07-13] MEDS: Atorvastatin 20mg tab ORAL SCH (20:06)
[2020-07-13] MEDS: QUEtiapine 200mg tab ORAL SCH (20:06)
[2020-07-13] MEDS: Tamsulosin 0.4mg cap ORAL SCH (20:06)
--- NOTE | 2020-07-13 22:45 | Consultation ---
DATE OF CONSULTATION: 07/13/2020 PULMONARY CONSULTATION CONSULTING PHYSICIAN: Delfin Degroot M.D. This is a referral from Dr. Jone García. REASON FOR CONSULTATION: Pulmonary edema. HISTORY OF PRESENT ILLNESS: This is a 64-year-old male with a history of CHF and hypertension. He presented to the hospital with shortness of breath, he states for the last 3 to 4 days. He was also dyspneic on walking and had to stop . The patient is currently on home oxygen, but feels that he is feeling worse. There are no sick contacts and no contact recently with anybody with COVID-19. PAST MEDICAL HISTORY: Congestive heart failure, COPD, and diabetes mellitus. MEDICATIONS: His current list of medications include amlodipine, aspirin, Lipitor, cefepime, chlorthalidone, heparin subcutaneous, insulin sliding scale, magnesium oxide, Robaxin, Protonix, Seroquel, Zoloft, Flomax, and vancomycin. REVIEW OF SYSTEMS: Denies any headaches, hematemesis, melena, hematochezia, night sweats, or weight loss. PHYSICAL EXAMINATION: GENERAL: This is an obese male. HEENT: Unremarkable. LUNGS: Clear breath sounds bilaterally. ABDOMEN: Soft. EXTREMITIES: There is no edema. VITAL SIGNS: Blood pressure is 130/60, heart rate is 94, respirations 18, O2 saturation 99% on 2 liters of oxygen. LABORATORY DATA: Lab testing shows hemoglobin 12.7, white count 6.5. Potassium 3.4, glucose 266. ABG, pH 7.35, pCO2 55, pO2 71. Coags unremarkable. IMAGING STUDIES: X-ray of chest was obtained, which shows marked pulmonary edema. IMPRESSION: 1. Pulmonary edema. 2. CHF. 3. COPD. 4. Obesity. DISCUSSION: Continue with diuresis. He may be a candidate for BiPAP. We will discuss with the patient. He at this time is reluctant to initiate BiPAP therapy. Broad-spectrum antibiotics for cellulitis. Diabetes monitoring and blood pressure control. We will follow carefully. Delfin Degroot M.D. DR: OT/GA JOB#: [id number] CC:
[2020-07-14] VITALS: BP 118/68
[2020-07-14] MEDS: Vancomycin 1gm in D5W 275ml IVPB SCH ×2 (00:38→13:04)
[2020-07-14 04:00] VITALS: BP 121/72
[2020-07-14] MEDS: NovoLOG Insulin Flexpen SUBQ SCH ×6 (06:00→21:08)
[2020-07-14 06:58] LABS: BASOPHILS % (AUTO) 1.1 % (0.0-2.0); EOSINOPHILS % (AUTO) 3.3 % (0.0-3.0); HEMATOCRIT 36.3 % (42.0-52.0); LYMPHOCYTES % (AUTO) 17.8 % (20.0-45.0); MEAN CORPUSCULAR VOLUME 81 FL (80-99); NEUTROPHILS % (AUTO) 72.9 % (45.0-75.0); PLATELET COUNT 256 K/UL (150-450); RED BLOOD COUNT 4.46 M/UL (4.70-6.10); RED CELL DISTRIBUTION WIDTH 14.2 % (11.6-14.8); WHITE BLOOD COUNT 6.5 K/UL (4.8-10.8)
[2020-07-14 07:15] LABS: ALBUMIN/GLOBULIN RATIO 0.8 (1.0-2.7); BILIRUBIN,TOTAL 0.7 MG/DL (0.2-1.0); CREATININE 1.4 MG/DL (0.55-1.30); POTASSIUM 3.8 MMOL/L (3.5-5.1)
[2020-07-14 08:00] VITALS: BP 142/66
[2020-07-14] MEDS: Magnesium Oxide 400mg tab ORAL SCH ×2 (08:16→17:07)
[2020-07-14] MEDS: Sertraline 100mg tab ORAL SCH (08:16)
[2020-07-14] MEDS: Aspirin EC 81mg tab ORAL SCH (08:17)
[2020-07-14] MEDS: Methocarbamol 750mg tab ORAL SCH ×3 (08:17→17:08)
[2020-07-14] MEDS: Heparin 5000 units/ml inj SUBQ SCH ×2 (08:21→21:06)
[2020-07-14] MEDS: Hydrocortisone 1% Oint TOPIC SCH ×2 (08:53→17:08)
[2020-07-14] MEDS: Nystatin Powder 100,000 units/gm 15gm TOPIC SCH ×3 (11:42→17:08)
[2020-07-14 12:00] VITALS: BP 140/84
--- NOTE | 2020-07-14 13:23 | Nephrology Progress Note ---
Assessment/Plan Plan #Acute hypoxemic respiratory failure due to COPD Exacerbation and CHF #LE cellulitis #HTN #HLD #DM #BPH - admit to tele - cardiology eval - ID eval - pulm eval - breathing tx - laix 40 IV daily - amlodipine 10mg daily - monitor UOP - daily weight - monitor electrolytes - monitor renal function - avoid nephroxins - resume home med Time spent 65 mn Subjective ROS Limited/Unobtainable: No Objective Objective Last 24 Hour Vital Signs Date Time Temp Pulse Resp B/P (MAP) Pulse Ox O2 Delivery O2 Flow Rate FiO2 07/14/20 12:00 97.9 75 18 140/84 (102) 98 07/14/20 12:00 91 07/14/20 08:24 Nasal Cannula 2.0 07/14/20 08:17 86 142/66 07/14/20 08:00 76 07/14/20 08:00 97.5 86 18 142/66 (91) 95 07/14/20 04:00 98.0 99 22 121/72 (88) 94 07/14/20 04:00 101 07/14/20 00:00 97.9 67 24 118/68 (85) 93 07/14/20 00:00 133 07/13/20 21:00 Nasal Cannula 2.0 07/13/20 20:00 82 07/13/20 20:00 96.1 84 19 137/81 (99) 96 07/13/20 16:00 104 07/13/20 16:00 97.7 93 18 130/64 (86) 98 Intake and Output 07/13/20 07/14/20 19:00 07:00 Intake Total 360 ml 250 ml Output Total 400 ml Balance 360 ml -150 ml Intake Oral 360 ml 250 ml Output Urine Total 400 ml # Voids 6 Laboratory Tests 07/13/20 16:07: POC Whole Blood Glucose 288H 07/14/20 05:52: White Blood Count 6.5, Red Blood Count 4.46L, Hemoglobin 13.0L, Hematocrit 36.3L , Mean Corpuscular Volume 81, Mean Corpuscular Hemoglobin 29.2, Mean Corpuscular Hemoglobin Concent 35.9, Red Cell Distribution Width 14.2, Platelet Count 256, Mean Platelet Volume 7.6, Neutrophils (%) (Auto) 72.9, Lymphocytes (%) (Auto) 17.8L, Monocytes (%) (Auto) 5.0, Eosinophils (%) (Auto) 3.3H, Basophils (%) (Auto) 1.1, Erythrocyte Sedimentation Rate 18, Sodium Level 134L, Potassium Level 3.8, Chloride Level 97L, Carbon Dioxide Level 31, Anion Gap 6, Blood Urea Nitrogen 19H, Creatinine 1.4H, Estimat Glomerular Filtration Rate 50.7, Glucose Level 323H, Calcium Level 8.0L, Total Bilirubin 0.7, Aspartate Amino Transf (AST/SGOT) 23, Alanine Aminotransferase (ALT/SGPT) 30, Alkaline Phosphatase 110, C-Reactive Protein, Quantitative 2.3H, Total Protein 6.6, Albumin 3.0L, Globulin 3.6, Albumin/Globulin Ratio 0.8L, Thyroid Stimulating Hormone (TSH) 4.082H 07/14/20 11:41: POC Whole Blood Glucose [Pending] 07/14/20 12:22: Vancomycin Level Trough 13.3H Height (Feet): 5 Height (Inches): 10.00 Weight (Pounds): 240 General Appearance: no apparent distress EENT: PERRL/EOMI Neck: non-tender, normal alignment Cardiovascular: normal peripheral pulses, normal rate, regular rhythm Respiratory/Chest: chest wall non-tender, lungs clear Abdomen: normal bowel sounds Extremities: pitting Neurologic: alert, oriented x 3 Jone García M.D. Jul 14, 2020 13:23
--- NOTE | 2020-07-14 13:59 | General Progress Note ---
Subjective Date patient seen: Jul 14, 2020 Constitutional: Denies: no symptoms, chills, diaphoresis, fever, malaise, weakness, other HEENT: Denies: no symptoms, eye pain, blurred vision, tearing, double vision, ear pain, ear discharge, nose pain, nose congestion, throat pain, throat swelling, mouth pain, mouth swelling, other Cardiovascular: Denies: no symptoms, chest pain, edema, irregular heart rate, lightheadedness, palpitations, syncope, other Respiratory: Denies: no symptoms, cough, orthopnea, shortness of breath, SOB with excertion, SOB at rest, sputum, stridor, wheezing, other Gastrointestinal/Abdominal: Denies: no symptoms, abdomen distended, abdominal pain, black stools, tarry stools, blood in stool, constipated, diarrhea, difficulty swallowing, nausea, poor appetite, poor fluid intake, rectal bleeding, vomiting, other Genitourinary: Denies: no symptoms, burning, discharge, frequency, flank pain, hematuria, incontinence, pain, urgency, other Neurologic/Psychiatric: Denies: no symptoms, anxiety, depressed, emotional problems, headache, numbness, paresthesia, pre-existing deficit, seizure, tingling, tremors, weakness, other Endocrine: Denies: no symptoms, excessive sweating, flushing, intolerance to cold, intolerance to heat, increased hunger, increased thirst, increased urine, unexplained weight gain, unexplained weight loss, other Hematologic/Lymphatic: Denies: no symptoms, anemia, easy bleeding, easy bruising, other Allergies: Coded Allergies: No Known Allergies (Unverified , 11/06/17) Subjective Per patient sob has improved greatly On 2L NC as per baseline at home Pulm to discuss bipap overnight, however patient is not amenable at this time Subjective complaints of increased redness near pannus groin folds Objective Last 24 Hour Vital Signs Date Time Temp Pulse Resp B/P (MAP) Pulse Ox O2 Delivery O2 Flow Rate FiO2 07/14/20 12:00 97.9 75 18 140/84 (102) 98 07/14/20 12:00 91 07/14/20 08:24 Nasal Cannula 2.0 07/14/20 08:17 86 142/66 07/14/20 08:00 76 07/14/20 08:00 97.5 86 18 142/66 (91) 95 07/14/20 04:00 98.0 99 22 121/72 (88) 94 07/14/20 04:00 101 07/14/20 00:00 97.9 67 24 118/68 (85) 93 07/14/20 00:00 133 07/13/20 21:00 Nasal Cannula 2.0 07/13/20 20:00 82 07/13/20 20:00 96.1 84 19 137/81 (99) 96 07/13/20 16:00 104 07/13/20 16:00 97.7 93 18 130/64 (86) 98 Intake and Output 07/13/20 07/14/20 19:00 07:00 Intake Total 360 ml 250 ml Output Total 400 ml Balance 360 ml -150 ml Intake Oral 360 ml 250 ml Output Urine Total 400 ml # Voids 6 Laboratory Tests 07/13/20 16:07: POC Whole Blood Glucose 288H 07/14/20 05:52: White Blood Count 6.5, Red Blood Count 4.46L, Hemoglobin 13.0L, Hematocrit 36.3L , Mean Corpuscular Volume 81, Mean Corpuscular Hemoglobin 29.2, Mean Corpuscular Hemoglobin Concent 35.9, Red Cell Distribution Width 14.2, Platelet Count 256, Mean Platelet Volume 7.6, Neutrophils (%) (Auto) 72.9, Lymphocytes (%) (Auto) 17.8L, Monocytes (%) (Auto) 5.0, Eosinophils (%) (Auto) 3.3H, Basophils (%) (Auto) 1.1, Erythrocyte Sedimentation Rate 18, Sodium Level 134L, Potassium Level 3.8, Chloride Level 97L, Carbon Dioxide Level 31, Anion Gap 6, Blood Urea Nitrogen 19H, Creatinine 1.4H, Estimat Glomerular Filtration Rate 50.7, Glucose Level 323H, Calcium Level 8.0L, Total Bilirubin 0.7, Aspartate Amino Transf (AST/SGOT) 23, Alanine Aminotransferase (ALT/SGPT) 30, Alkaline Phosphatase 110, C-Reactive Protein, Quantitative 2.3H, Total Protein 6.6, Albumin 3.0L, Globulin 3.6, Albumin/Globulin Ratio 0.8L, Thyroid Stimulating Hormone (TSH) 4.082H 07/14/20 11:41: POC Whole Blood Glucose [Pending] 07/14/20 12:22: Vancomycin Level Trough 13.3H Height (Feet): 5 Height (Inches): 10.00 Weight (Pounds): 240 General Appearance: no apparent distress, alert, obese EENT: PERRL/EOMI Neck: supple Cardiovascular: normal rate, regular rhythm Respiratory/Chest: lungs clear, normal breath sounds Abdomen: non tender, soft Extremities: normal range of motion Neurologic: health care law specialist II-XII grossly normal, alert, oriented x 3 Skin: other - circular indurated wounds on abdomen, increasing redness along groin folds with malodor Assessment/Plan Status: stable Assessment/Plan: #Acute on Chronic CHFpEF #Dyspnea - improving #Hypoxia Patient presenting with dyspnea likely 2' CHF exacerbation. - CXR with vascular congestion - EKG NSR - Covid negative - Continue Diuresis - Strict I&O - Echo - EF 60%, - Cardiology Consult, appreciate recs #PAULINE #Lactic Acidosis Unclear of Creatinine baseline. - Continue Diuresis - UA wnl - Lytes repleted - Nephrology consulted #Hx of Cellulitis #Concern for abdominal cellulitis #Cellulitis of RLE - Previously on PO keflex as outpatient - Vancomycin and Cefepime (07/13 - ) - WC ngtd - BC ngtd - Continue abx - ID consult, appreciate recs #Likely candidal skin infection of groin folds - Nystatin powder TID #DM2 - Levemir 8U qhs - 3U TID novolog with meals - Achs BG #HTn - Resume chlorthalidone - Lasix #HLD - Resume statin #Depression - Continue Sertraline and Seroquel Heparin Sq Carb Consistent Diet Full Code Dispo - Home in 2 days, patients needs Home Oxygen to be resumed. CM to assist. Time spent is 33 minutes with approx 17 minutes with counseling and care coordination. D/w consultants and nurse. Time of note does not reflect time of encounter. Molly Leon M.D. Jul 14, 2020 13:59
--- NOTE | 2020-07-14 14:49 | Pulmonology Progress Note ---
Subjective ROS Limited/Unobtainable: No Constitutional: Reports: no symptoms HEENT: Repors: no symptoms Respiratory: Reports: shortness of breath, dyspnea at rest, dyspnea on exertion ; Denies: sputum, wheezing Cardiovascular: Reports: no symptoms Gastrointestinal/Abdominal: Reports: no symptoms Allergies: Coded Allergies: No Known Allergies (Unverified , 11/06/17) Objective Last 24 Hour Vital Signs Date Time Temp Pulse Resp B/P (MAP) Pulse Ox O2 Delivery O2 Flow Rate FiO2 07/14/20 12:00 97.9 75 18 140/84 (102) 98 07/14/20 12:00 91 07/14/20 08:24 Nasal Cannula 2.0 07/14/20 08:17 86 142/66 07/14/20 08:00 76 07/14/20 08:00 97.5 86 18 142/66 (91) 95 07/14/20 04:00 98.0 99 22 121/72 (88) 94 07/14/20 04:00 101 07/14/20 00:00 97.9 67 24 118/68 (85) 93 07/14/20 00:00 133 07/13/20 21:00 Nasal Cannula 2.0 07/13/20 20:00 82 07/13/20 20:00 96.1 84 19 137/81 (99) 96 07/13/20 16:00 104 07/13/20 16:00 97.7 93 18 130/64 (86) 98 Intake and Output 07/13/20 07/14/20 19:00 07:00 Intake Total 360 ml 250 ml Output Total 400 ml Balance 360 ml -150 ml Intake Oral 360 ml 250 ml Output Urine Total 400 ml # Voids 6 Objective 07/14/2020 sitting up in bed leaning on a side table; saturating well on 2 lpm NC; NAD General Appearance: WD/WN, no acute distress, other - obese HEENT: normocephalic, atraumatic Respiratory: other - rales Cardiovascular: normal rate, regular rhythm Abdomen: soft, non tender Microbiology Date/Time Source Procedure Growth Status 07/13/20 13:26 Leg Right Gram Stain - Final Resulted 07/13/20 13:26 Leg Right Wound Culture - Preliminary NO GROWTH Resulted 07/12/20 13:22 Urine,Clean Catch Urine Culture - Preliminary YEAST Resulted 07/12/20 11:25 Nasopharynx SARS-CoV-2 RdRp Gene Assay - Final Complete 07/12/20 11:25 Blood Blood Culture - Preliminary NO GROWTH AFTER 24 HOURS Resulted 07/12/20 11:10 Blood Blood Culture - Preliminary NO GROWTH AFTER 24 HOURS Resulted Laboratory Tests 07/13/20 16:07: POC Whole Blood Glucose 288H 07/14/20 05:52: White Blood Count 6.5, Red Blood Count 4.46L, Hemoglobin 13.0L, Hematocrit 36.3L , Mean Corpuscular Volume 81, Mean Corpuscular Hemoglobin 29.2, Mean Corpuscular Hemoglobin Concent 35.9, Red Cell Distribution Width 14.2, Platelet Count 256, Mean Platelet Volume 7.6, Neutrophils (%) (Auto) 72.9, Lymphocytes (%) (Auto) 17.8L, Monocytes (%) (Auto) 5.0, Eosinophils (%) (Auto) 3.3H, Basophils (%) (Auto) 1.1, Erythrocyte Sedimentation Rate 18, Sodium Level 134L, Potassium Level 3.8, Chloride Level 97L, Carbon Dioxide Level 31, Anion Gap 6, Blood Urea Nitrogen 19H, Creatinine 1.4H, Estimat Glomerular Filtration Rate 50.7, Glucose Level 323H, Calcium Level 8.0L, Total Bilirubin 0.7, Aspartate Amino Transf (AST/SGOT) 23, Alanine Aminotransferase (ALT/SGPT) 30, Alkaline Phosphatase 110, C-Reactive Protein, Quantitative 2.3H, Total Protein 6.6, Albumin 3.0L, Globulin 3.6, Albumin/Globulin Ratio 0.8L, Thyroid Stimulating Hormone (TSH) 4.082H 07/14/20 11:41: POC Whole Blood Glucose [Pending] 07/14/20 12:22: Vancomycin Level Trough 13.3H Current Medications Medications (Trade) Dose Ordered Sig/Anjel Route PRN Reason Start Time Stop Time Status Last Admin Dose Admin Albuterol/ Ipratropium (Albuterol/ Ipratropium) 3 ml Q4H PRN HHN Shortness of Breath 07/12/20 18:00 07/17/20 17:59 Amlodipine Besylate (Norvasc) 10 mg DAILY ORAL 07/13/20 09:00 08/12/20 08:59 07/14/20 08:17 Aspirin (Ecotrin) 81 mg DAILY ORAL 07/13/20 09:00 08/27/20 08:59 07/14/20 08:17 Atorvastatin Calcium (Lipitor) 40 mg BEDTIME ORAL 07/12/20 21:00 10/10/20 20:59 07/13/20 20:06 Cefepime HCl 2 gm/ Dextrose 50 ml @ 100 mls/hr DAILY IVPB 07/13/20 09:00 07/20/20 08:59 07/14/20 09:07 Chlorthalidone (Chlorthalidone) 25 mg DAILY ORAL 07/13/20 09:00 08/12/20 08:59 07/14/20 08:16 Dextrose (Dextrose 50%) 25 ml Q30M PRN IV Hypoglycemia 07/12/20 21:30 10/10/20 21:29 Dextrose (Dextrose 50%) 50 ml Q30M PRN IV Hypoglycemia 07/12/20 21:30 10/10/20 21:29 Furosemide (Lasix) 40 mg DAILY IV 07/15/20 09:00 08/14/20 08:59 Heparin Sodium (Porcine) (Heparin 5000 units/ml) 5,000 units EVERY 12 HOURS SUBQ 07/12/20 21:00 08/26/20 20:59 07/14/20 08:21 Hydrocortisone (Hydrocortisone) 1 applic TWICE A DAY TOPIC 07/12/20 20:00 10/10/20 19:59 07/14/20 08:53 Insulin Aspart (NovoLOG) BEFORE MEALS AND HS SUBQ 07/12/20 22:00 10/10/20 21:59 07/14/20 11:47 Insulin Aspart (NovoLOG) 3 units NOVOTIAC SUBQ 07/14/20 11:50 10/12/20 11:49 07/14/20 11:47 Insulin Detemir (Levemir) 8 units BEDTIME SUBQ 07/14/20 21:00 10/12/20 20:59 Magnesium Oxide (Mag-Ox 400mg) 400 mg BID ORAL 07/13/20 09:45 08/12/20 09:44 07/14/20 08:16 Methocarbamol (Robaxin) 750 mg TID ORAL 07/12/20 18:00 08/11/20 17:59 07/14/20 12:17 Nystatin (Nystop Powder) 1 applic THREE TIMES A DAY TOPIC 07/14/20 10:30 10/12/20 10:29 07/14/20 12:17 Pantoprazole (Protonix) 40 mg DAILY ORAL 07/13/20 09:00 08/12/20 08:59 07/14/20 08:17 Quetiapine Fumarate (SEROqueL) 200 mg QHS ORAL 07/12/20 21:30 08/26/20 21:29 07/13/20 20:06 Sertraline HCl (Zoloft) 100 mg DAILY ORAL 07/13/20 09:00 08/12/20 08:59 Tamsulosin HCl (Flomax) 0.4 mg BEDTIME ORAL 07/12/20 21:00 08/11/20 20:59 07/13/20 20:06 Vancomycin HCl (Vanco pharmacy to dose) 1 ea DAILY PRN MISC Per rx protocol 07/12/20 23:15 08/11/20 23:14 Vancomycin HCl 1 gm/Dextrose 275 ml @ 184 mls/hr Q12H IVPB 07/13/20 01:00 07/18/20 00:59 07/14/20 13:04 Assessment/Plan Assessment/Plan 1. Pulmonary edema. - cont diuresis 2. CHF. 3. COPD. - pt reports he is oxygen dependent at home and has to sit down every 2 minutes to catch his breath - pt strongly urges for the need for "portable oxygen" at home 4. Obesity. 5. abdominal wall cellulitis - Broad spectrum Abx per ID 6. Diabetes - BG monitoring 7. HTN - BP control 8. Respiratory distress - pt is a candidate for BiPAP - pt currently reluctant to initiate BiPAP We will follow carefully. The care of this patient was discussed with my supervising physician Time spent for this encounter was approximately 31 minutes The patient was seen and examined at bedside and all new and available data was reviewed in the patients chart. I agree with the above findings, impression, and plan. (Patient was seen earlier today. Signature timestamp does not reflect patient encounter time) Alexis Nava MD Jul 14, 2020 14:49 Delfin Degroot MD Jul 14, 2020 18:13
[2020-07-14 16:00] VITALS: BP 136/87
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
[2020-07-14 20:00] VITALS: BP 136/76
[2020-07-14] MEDS ORDERED: Levemir Flexpen SUBQ SCH (21:00)
[2020-07-14] MEDS: Tamsulosin 0.4mg cap ORAL SCH (21:05)
[2020-07-14] MEDS: QUEtiapine 200mg tab ORAL SCH (21:05)
[2020-07-14] MEDS: Atorvastatin 20mg tab ORAL SCH (21:05)
--- NOTE | 2020-07-14 21:48 | Infectious Diseases Prog Note ---
Assessment/Plan Assessment/Plan A) 1) abdominal wall cellulitis, bilateral leg cellulitis, ? infected wounds/scabs 2) chf, copd, dm, htn, HLD, bph, depression 3) hi 4) allergies - nkda, sh-neg, fh-nc, mar noted, d/w RN 5) notes and records were reviewed P) 1) vancomycin and cefepime - day # 3 abx 2) wound culture - negative, urine culture with yeast which is likely a colonizer 3) monitor labs, wound care per surgery 4) continue treatment per primary and consultants 5) clinically improving 6) will f/u Subjective Constitutional: Denies: fever HEENT: Denies: congestion Respiratory: Denies: shortness of breath Cardiovascular: Denies: chest pain Gastrointestinal/Abdominal: Denies: nausea, vomiting, diarrhea Genitourinary: Reports: other - no dixon ; Denies: dysuria, frequency Neurologic: Denies: headache Psychiatric: Denies: depression Skin: Denies: rash Hematologic: Denies: bleeding Musculoskeletal: Denies: pain Allergies: Coded Allergies: No Known Allergies (Unverified , 11/06/17) Objective Last 24 Hour Vital Signs Date Time Temp Pulse Resp B/P (MAP) Pulse Ox O2 Delivery O2 Flow Rate FiO2 07/14/20 19:25 97 Nasal Cannula 2.0 28 07/14/20 16:00 98.6 91 21 136/87 (103) 94 07/14/20 16:00 87 07/14/20 12:00 97.9 75 18 140/84 (102) 98 07/14/20 12:00 91 07/14/20 08:36 94 Nasal Cannula 2.0 28 07/14/20 08:24 Nasal Cannula 2.0 07/14/20 08:17 86 142/66 07/14/20 08:00 76 07/14/20 08:00 97.5 86 18 142/66 (91) 95 07/14/20 04:00 98.0 99 22 121/72 (88) 94 07/14/20 04:00 101 07/14/20 00:00 97.9 67 24 118/68 (85) 93 07/14/20 00:00 133 Height (Feet): 5 Height (Inches): 10.00 Weight (Pounds): 240 General Appearance: no acute distress HEENT: normocephalic, atraumatic, anicteric, supple, no JVD Respiratory/Chest: lungs clear, normal breath sounds, no respiratory distress, no accessory muscle use Cardiovascular: normal rate, regular rhythm, no gallop/murmur, no JVD Abdomen: normal bowel sounds, soft, non tender, no organomegaly, non distended Genitourinary: other - no dixon, no cva pain Extremities: no cyanosis Skin: other - less abdominal wall and leg redness 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 Comparison: Chest radiograph dated 02/13/2020 Findings: The cardiomediastinal silhouette is unchanged in appearance with persistent cardiomegaly. There is moderate pulmonary edema. No pneumothorax. Likely trace bilateral pleural effusions. There is biapical scarring. No acute osseous abnormality. IMPRESSION: Moderate pulmonary edema. Possibility of superimposed pneumonia should be excluded clinically. Microbiology Date/Time Source Procedure Growth Status 07/13/20 13:26 Leg Right Gram Stain - Final Resulted 07/13/20 13:26 Leg Right Wound Culture - Preliminary NO GROWTH Resulted 07/12/20 13:22 Urine,Clean Catch Urine Culture - Preliminary YEAST Resulted 07/12/20 11:25 Nasopharynx SARS-CoV-2 RdRp Gene Assay - Final Complete 07/12/20 11:25 Blood Blood Culture - Preliminary NO GROWTH AFTER 24 HOURS Resulted 07/12/20 11:10 Blood Blood Culture - Preliminary NO GROWTH AFTER 24 HOURS Resulted Laboratory Tests Test 07/14/20 05:52 07/14/20 11:41 07/14/20 12:22 07/14/20 21:02 White Blood Count 6.5 K/UL (4.8-10.8) Red Blood Count 4.46 M/UL (4.70-6.10) L Hemoglobin 13.0 G/DL (14.2-18.0) L Hematocrit 36.3 % (42.0-52.0) L Mean Corpuscular Volume 81 FL (80-99) Mean Corpuscular Hemoglobin 29.2 PG (27.0-31.0) Mean Corpuscular Hemoglobin Concent 35.9 G/DL (32.0-36.0) Red Cell Distribution Width 14.2 % (11.6-14.8) Platelet Count 256 K/UL (150-450) Mean Platelet Volume 7.6 FL (6.5-10.1) Neutrophils (%) (Auto) 72.9 % (45.0-75.0) Lymphocytes (%) (Auto) 17.8 % (20.0-45.0) L Monocytes (%) (Auto) 5.0 % (1.0-10.0) Eosinophils (%) (Auto) 3.3 % (0.0-3.0) H Basophils (%) (Auto) 1.1 % (0.0-2.0) Erythrocyte Sedimentation Rate 18 MM/HR (0-20) Sodium Level 134 MMOL/L (136-145) L Potassium Level 3.8 MMOL/L (3.5-5.1) Chloride Level 97 MMOL/L (98-107) L Carbon Dioxide Level 31 MMOL/L (21-32) Anion Gap 6 mmol/L (5-15) Blood Urea Nitrogen 19 mg/dL (7-18) H Creatinine 1.4 MG/DL (0.55-1.30) H Estimat Glomerular Filtration Rate 50.7 mL/min (>60) Glucose Level 323 MG/DL (74-106) H Calcium Level 8.0 MG/DL (8.5-10.1) L Total Bilirubin 0.7 MG/DL (0.2-1.0) Aspartate Amino Transf (AST/SGOT) 23 U/L (15-37) Alanine Aminotransferase (ALT/SGPT) 30 U/L (12-78) Alkaline Phosphatase 110 U/L (46-116) C-Reactive Protein, Quantitative 2.3 mg/dL (0.00-0.90) H Total Protein 6.6 G/DL (6.4-8.2) Albumin 3.0 G/DL (3.4-5.0) L Globulin 3.6 g/dL Albumin/Globulin Ratio 0.8 (1.0-2.7) L Thyroid Stimulating Hormone (TSH) 4.082 uiU/mL (0.358-3.740) POC Whole Blood Glucose Pending 223 MG/DL (74-106) H Vancomycin Level Trough 13.3 ug/mL (5.0-12.0) H Current Medications Medications (Trade) Dose Ordered Sig/Anjel Route PRN Reason Start Time Stop Time Status Last Admin Dose Admin Albuterol/ Ipratropium (Albuterol/ Ipratropium) 3 ml Q4H PRN HHN Shortness of Breath 07/12/20 18:00 07/17/20 17:59 Amlodipine Besylate (Norvasc) 10 mg DAILY ORAL 07/13/20 09:00 08/12/20 08:59 07/14/20 08:17 Aspirin (Ecotrin) 81 mg DAILY ORAL 07/13/20 09:00 08/27/20 08:59 07/14/20 08:17 Atorvastatin Calcium (Lipitor) 40 mg BEDTIME ORAL 07/12/20 21:00 10/10/20 20:59 07/14/20 21:05 Cefepime HCl 2 gm/ Dextrose 50 ml @ 100 mls/hr DAILY IVPB 07/13/20 09:00 07/20/20 08:59 07/14/20 09:07 Chlorthalidone (Chlorthalidone) 25 mg DAILY ORAL 07/13/20 09:00 08/12/20 08:59 07/14/20 08:16 Dextrose (Dextrose 50%) 25 ml Q30M PRN IV Hypoglycemia 07/12/20 21:30 10/10/20 21:29 Dextrose (Dextrose 50%) 50 ml Q30M PRN IV Hypoglycemia 07/12/20 21:30 10/10/20 21:29 Furosemide (Lasix) 40 mg DAILY IV 07/15/20 09:00 08/14/20 08:59 Heparin Sodium (Porcine) (Heparin 5000 units/ml) 5,000 units EVERY 12 HOURS SUBQ 07/12/20 21:00 08/26/20 20:59 07/14/20 21:06 Hydrocortisone (Hydrocortisone) 1 applic TWICE A DAY TOPIC 07/12/20 20:00 10/10/20 19:59 07/14/20 17:08 Insulin Aspart (NovoLOG) BEFORE MEALS AND HS SUBQ 07/12/20 22:00 10/10/20 21:59 07/14/20 21:08 Insulin Aspart (NovoLOG) 3 units NOVOTIAC SUBQ 07/14/20 11:50 10/12/20 11:49 07/14/20 16:35 Insulin Detemir (Levemir) 8 units BEDTIME SUBQ 07/14/20 21:00 10/12/20 20:59 07/14/20 21:07 Magnesium Oxide (Mag-Ox 400mg) 400 mg BID ORAL 07/13/20 09:45 08/12/20 09:44 07/14/20 17:07 Methocarbamol (Robaxin) 750 mg TID ORAL 07/12/20 18:00 08/11/20 17:59 07/14/20 17:08 Nystatin (Nystop Powder) 1 applic THREE TIMES A DAY TOPIC 07/14/20 10:30 10/12/20 10:29 07/14/20 17:08 Pantoprazole (Protonix) 40 mg DAILY ORAL 07/13/20 09:00 08/12/20 08:59 07/14/20 08:17 Quetiapine Fumarate (SEROqueL) 200 mg QHS ORAL 07/12/20 21:30 08/26/20 21:29 07/14/20 21:05 Sertraline HCl (Zoloft) 100 mg DAILY ORAL 07/13/20 09:00 08/12/20 08:59 Tamsulosin HCl (Flomax) 0.4 mg BEDTIME ORAL 07/12/20 21:00 08/11/20 20:59 07/14/20 21:05 Vancomycin HCl (Vanco pharmacy to dose) 1 ea DAILY PRN MISC Per rx protocol 07/12/20 23:15 08/11/20 23:14 Vancomycin HCl 1 gm/Dextrose 275 ml @ 184 mls/hr Q12H IVPB 07/13/20 01:00 07/18/20 00:59 07/14/20 13:04 Rodrigo Raygoza MD Jul 14, 2020 21:48
[2020-07-15] VITALS: BP 126/71
--- NOTE | 2020-07-15 00:01 | Consultation ---
DATE OF CONSULTATION: 07/12/2020 INFECTIOUS DISEASE CONSULTATION CONSULTING PHYSICIAN: Rodrigo Raygoza MD. ATTENDING PHYSICIAN: Jone García MD. REFERRING PHYSICIAN: Jone García MD. REASON FOR CONSULTATION: Abdominal wall cellulitis and bilateral leg cellulitis. CHIEF COMPLAINT: The patient's chief complaint coming in the hospital is cellulitis of abdominal wall and legs. HISTORY OF PRESENT ILLNESS: This is a very pleasant 64-year-old male who comes to [facility] because of worsening redness of bilateral lower extremities, especially the abdominal wall. The patient comes in because of abdominal wall cellulitis and bilateral leg cellulitis. In addition, the patient had acute renal failure. The patient had some shortness of breath and has CHF also. Because of the abdominal wall cellulitis and bilateral leg cellulitis, Infectious Disease consultation is requested. The patient has been followed by Dermatology in outpatient setting for itching. It is unclear what the treatment was for. He was also given by mouth antibiotics. The patient has scabbed over wounds. When I saw the patient, I put him on vancomycin and cefepime, which will be continued for the bilateral leg cellulitis and abdominal wall cellulitis. The patient has had off and on cellulitis for quite some time and symptoms intensified over the last several days prior to admission. MAR was noted. Orders were noted. Notes were reviewed. Case was discussed with RN. REVIEW OF SYSTEMS: CONSTITUTIONAL: Generalized fatigue and weakness. No focal changes. No fever, chills, or night sweats. HEAD AND NECK: No head pain, neck pain, thrush, dysphagia, or neck stiffness. CARDIAC: No chest pain or palpitations. PULMONARY: No hemoptysis or secretions. Mild cough, congestion, and shortness of breath. GASTROINTESTINAL: No nausea, vomiting, or diarrhea. No abdominal pain. GENITOURINARY: No dysuria or frequency. No CVA tenderness noted. No Quinones. SKIN: He has a chronic rash. Abdominal wall, he has redness and warmth and pain. LINE SITES: No central line. NEUROLOGIC: Generalized fatigue. No focal weakness. No seizure activity. PAST MEDICAL HISTORY: The patient has a past medical history of chronic rash, history of cellulitis in the past, possible chronic renal failure. The patient has history cellulitis, congestive heart failure, chronic obstructive pulmonary disease, diabetes, hypertension, hyperlipidemia, BPH, depression, abdominal cellulitis, and possible chronic renal failure. ALLERGIES: No known drug allergies. No antibiotic allergies. SOCIAL HISTORY: Positive for smoking in the past, but currently negative for smoking, alcohol, or drug abuse. FAMILY HISTORY: Noncontributory. Negative for tuberculosis or cancer. MEDICATIONS: Upon reviewing MAR, he is on following medications. He is on furosemide, insulin, nystatin, cefepime, vancomycin, pantoprazole, sertraline, aspirin, amlodipine, insulin, heparin, tamsulosin, atorvastatin, hydrocortisone cream. Outside medications noted and reconciliated. Antibiotics are vancomycin and cefepime. PHYSICAL EXAMINATION: VITAL SIGNS: Temperature 98.4, pulse rate 100, respiratory rate 20, blood pressure 162/73. Saturation 91% on room air. GENERAL: Alert, responsive, in no distress. HEAD AND NECK: Oral exam, no thrush. Eye exam, no icterus. Normocephalic. Neck is supple. No JVD. HEART: Regular. No gallop or murmur. No friction rub. LUNGS: Few bilateral rhonchi and crackles. ABDOMEN: Soft. Positive bowel sounds. Nontender. SKIN: He has scabbed over lesions. Abdominal wall has significant cellulitis, redness and warmth. MUSCULOSKELETAL: No effusions. No septic arthritis. Lower extremity exam, he has bilateral leg redness and warmth. PERIPHERAL VASCULAR: No gangrene. GENITOURINARY: No Quinones. No CVA tenderness. LINE SITES: Without phlebitis. NEUROLOGIC: Intact. Nonfocal. Alert and oriented. LABORATORY DATA: Sodium 134, creatinine 1.3. LFTs were noted. White count 7.3, hemoglobin 12.9. UA, 2 to 4 white cells. Cultures are pending. Wound culture and blood cultures have been ordered. COVID SARS testing is negative. Other cultures pending. IMAGING STUDIES: Chest x-ray consistent with pulmonary edema. ASSESSMENT AND PLAN: 1. The patient has abdominal wall cellulitis. In addition to abdominal wall cellulitis, the patient has bilateral leg cellulitis, questionable infected wounds versus scabbed over wounds. The patient has a chronic rash. At this time, we will place the patient on vancomycin and cefepime for MRSA gram-negative coverage. Continue vancomycin and cefepime for abdominal wall and bilateral leg cellulitis. Monitor the patient clinically. Wound care protocol. 2. CHF. 3. COPD. 4. Diabetes. 5. Hypertension. 6. Diabetes and hypertension treatment per primary consultants. 7. Hyperlipidemia. 8. BPH. 9. Depression. 10. Acute kidney injury. 11. No known drug allergies. 12. Social history is positive for smoking in the past, but currently is negative for smoking, alcohol, and drug abuse. 13. Family history is noncontributory. 14. MAR is noted. 15. Case discussed with RN. 16. Continue treatment per primary consultants. Rodrigo Raygoza M.D. DR: BRADY JOB#: [id number] CC:
[2020-07-15] MEDS: Vancomycin 1gm in D5W 275ml IVPB SCH ×2 (01:21→12:34)
[2020-07-15 04:00] VITALS: BP 137/71
[2020-07-15] MEDS: NovoLOG Insulin Flexpen SUBQ SCH ×7 (06:20→20:41)
[2020-07-15 08:00] VITALS: BP 152/82
[2020-07-15] MEDS: Magnesium Oxide 400mg tab ORAL SCH ×2 (09:15→17:24)
[2020-07-15] MEDS: Aspirin EC 81mg tab ORAL SCH (09:15)
[2020-07-15] MEDS: Methocarbamol 750mg tab ORAL SCH ×3 (09:16→17:24)
[2020-07-15] MEDS: Sertraline 100mg tab ORAL SCH (09:16)
[2020-07-15] MEDS: Hydrocortisone 1% Oint TOPIC SCH ×2 (09:17→17:25)
[2020-07-15] MEDS: Nystatin Powder 100,000 units/gm 15gm TOPIC SCH ×3 (09:17→17:25)
[2020-07-15] MEDS: Heparin 5000 units/ml inj SUBQ SCH ×2 (09:35→20:39)
[2020-07-15 09:45] LABS: BASOPHILS % (AUTO) 0.8 % (0.0-2.0); EOSINOPHILS % (AUTO) 2.9 % (0.0-3.0); HEMOGLOBIN 12.5 G/DL (14.2-18.0); LYMPHOCYTES % (AUTO) 17.6 % (20.0-45.0); MEAN CORPUSCULAR VOLUME 82 FL (80-99); MONOCYTES % (AUTO) 5.1 % (1.0-10.0); NEUTROPHILS % (AUTO) 73.6 % (45.0-75.0); PLATELET COUNT 265 K/UL (150-450); RED BLOOD COUNT 4.25 M/UL (4.70-6.10); RED CELL DISTRIBUTION WIDTH 14.2 % (11.6-14.8); WHITE BLOOD COUNT 6.1 K/UL (4.8-10.8)
[2020-07-15 10:07] LABS: CREATININE 1.4 MG/DL (0.55-1.30); POTASSIUM 3.8 MMOL/L (3.5-5.1)
--- NOTE | 2020-07-15 10:09 | Nephrology Progress Note ---
Assessment/Plan Plan #Acute hypoxemic respiratory failure due to COPD Exacerbation and CHF #LE cellulitis #HTN #HLD #DM #BPH - admit to tele - cardiology eval - ID eval - pulm eval - breathing tx - laix 40 IV daily - amlodipine 10mg daily - monitor UOP - daily weight - monitor electrolytes - monitor renal function - avoid nephroxins - resume home med Time spent 65 mn Subjective ROS Limited/Unobtainable: No Constitutional: Reports: weakness HEENT: Denies: no symptoms, eye pain, blurred vision, tearing, double vision, ear pain, ear discharge, nose pain, nose congestion, throat pain, throat swelling, mouth pain, mouth swelling, other Genitourinary: Denies: no symptoms, burning, discharge, frequency, flank pain, hematuria, incontinence, pain, urgency, other Neurologic/Psychiatric: Denies: no symptoms, anxiety, depressed, emotional problems, headache, numbness, paresthesia, pre-existing deficit, seizure, tingling, tremors, weakness, other Subjective SOB better Objective Objective Last 24 Hour Vital Signs Date Time Temp Pulse Resp B/P (MAP) Pulse Ox O2 Delivery O2 Flow Rate FiO2 07/15/20 09:15 97 152/82 07/15/20 08:00 96.9 97 20 152/82 (105) 95 07/15/20 04:00 84 07/15/20 04:00 97.2 84 20 137/71 (93) 95 07/15/20 00:00 96.6 89 22 126/71 (89) 95 07/15/20 00:00 97 07/14/20 21:00 Nasal Cannula 2.0 07/14/20 20:00 97.2 90 22 136/76 (96) 97 07/14/20 20:00 87 07/14/20 19:25 97 Nasal Cannula 2.0 28 07/14/20 16:00 98.6 91 21 136/87 (103) 94 07/14/20 16:00 87 07/14/20 12:00 97.9 75 18 140/84 (102) 98 07/14/20 12:00 91 Intake and Output 07/14/20 07/15/20 19:00 07:00 Intake Total 1095 ml Output Total 1300 ml 700 ml Balance -205 ml -700 ml Intake Oral 720 ml IV Total 375 ml Output Urine Total 1300 ml 700 ml # Voids 2 Laboratory Tests 07/14/20 11:41: POC Whole Blood Glucose [Pending] 07/14/20 12:22: Vancomycin Level Trough 13.3H 07/14/20 21:02: POC Whole Blood Glucose 223H 07/15/20 06:18: POC Whole Blood Glucose 373H 07/15/20 07:52: White Blood Count 6.1, Red Blood Count 4.25L, Hemoglobin 12.5L, Hematocrit 35.0L , Mean Corpuscular Volume 82, Mean Corpuscular Hemoglobin 29.5, Mean Corpuscular Hemoglobin Concent 35.8, Red Cell Distribution Width 14.2, Platelet Count 265, Mean Platelet Volume 7.2, Neutrophils (%) (Auto) 73.6, Lymphocytes (%) (Auto) 17.6L, Monocytes (%) (Auto) 5.1, Eosinophils (%) (Auto) 2.9, Basophils (%) (Auto) 0.8, Sodium Level 134L, Potassium Level 3.8, Chloride Level 97L, Carbon Dioxide Level 31, Anion Gap 6, Blood Urea Nitrogen 21H, Creatinine 1.4H, Estimat Glomerular Filtration Rate 50.7, Glucose Level 307H, Calcium Level 8.0L Height (Feet): 5 Height (Inches): 10.00 Weight (Pounds): 240 Jone García M.D. Jul 15, 2020 10:09
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
[2020-07-15 12:00] VITALS: BP 123/70
--- NOTE | 2020-07-15 14:22 | Pulmonology Progress Note ---
Subjective ROS Limited/Unobtainable: No Interval Events: none new Constitutional: Denies: fever HEENT: Repors: no symptoms Respiratory: Reports: shortness of breath, dyspnea at rest, dyspnea on exertion ; Denies: sputum, wheezing Cardiovascular: Reports: no symptoms Gastrointestinal/Abdominal: Denies: nausea, vomiting, diarrhea Psychiatric: Denies: depression Skin: Denies: rash Musculoskeletal: Denies: pain Allergies: Coded Allergies: No Known Allergies (Unverified , 11/06/17) Objective Last 24 Hour Vital Signs Date Time Temp Pulse Resp B/P (MAP) Pulse Ox O2 Delivery O2 Flow Rate FiO2 07/15/20 12:00 84 07/15/20 12:00 97.0 83 18 123/70 (87) 96 07/15/20 09:15 97 152/82 07/15/20 09:00 Nasal Cannula 2.0 07/15/20 08:00 77 07/15/20 08:00 96.9 97 20 152/82 (105) 95 07/15/20 04:00 84 07/15/20 04:00 97.2 84 20 137/71 (93) 95 07/15/20 00:00 96.6 89 22 126/71 (89) 95 07/15/20 00:00 97 07/14/20 21:00 Nasal Cannula 2.0 07/14/20 20:00 97.2 90 22 136/76 (96) 97 07/14/20 20:00 87 07/14/20 19:25 97 Nasal Cannula 2.0 28 07/14/20 16:00 98.6 91 21 136/87 (103) 94 07/14/20 16:00 87 Intake and Output 07/14/20 07/15/20 19:00 07:00 Intake Total 1095 ml Output Total 1300 ml 700 ml Balance -205 ml -700 ml Intake Oral 720 ml IV Total 375 ml Output Urine Total 1300 ml 700 ml # Voids 2 Objective 07/15/2020 sitting up in bed leaning on a side table; saturating well on 2 lpm NC; NAD; pt reports he wishes to be discharged tomorrow for a "dermatology appointment" 07/14/2020 sitting up in bed leaning on a side table; saturating well on 2 lpm NC; NAD General Appearance: WD/WN, no acute distress, other HEENT: normocephalic, atraumatic Respiratory: other - rales Cardiovascular: normal rate, regular rhythm Abdomen: soft, non tender Microbiology Date/Time Source Procedure Growth Status 07/13/20 13:26 Leg Left Gram Stain - Final Resulted 07/13/20 13:26 Leg Left Wound Culture Pending Resulted 07/13/20 13:26 Leg Right Gram Stain - Final Resulted 07/13/20 13:26 Wound Culture - Preliminary Gram Positive Cocci Resulted Laboratory Tests 07/14/20 21:02: POC Whole Blood Glucose 223H 07/15/20 06:18: POC Whole Blood Glucose 373H 07/15/20 07:52: White Blood Count 6.1, Red Blood Count 4.25L, Hemoglobin 12.5L, Hematocrit 35.0L , Mean Corpuscular Volume 82, Mean Corpuscular Hemoglobin 29.5, Mean Corpuscular Hemoglobin Concent 35.8, Red Cell Distribution Width 14.2, Platelet Count 265, Mean Platelet Volume 7.2, Neutrophils (%) (Auto) 73.6, Lymphocytes (%) (Auto) 17.6L, Monocytes (%) (Auto) 5.1, Eosinophils (%) (Auto) 2.9, Basophils (%) (Auto) 0.8, Sodium Level 134L, Potassium Level 3.8, Chloride Level 97L, Carbon Dioxide Level 31, Anion Gap 6, Blood Urea Nitrogen 21H, Creatinine 1.4H, Estimat Glomerular Filtration Rate 50.7, Glucose Level 307H, Calcium Level 8.0L 07/15/20 11:13: POC Whole Blood Glucose 272H Current Medications Medications (Trade) Dose Ordered Sig/Anjel Route PRN Reason Start Time Stop Time Status Last Admin Dose Admin Albuterol/ Ipratropium (Albuterol/ Ipratropium) 3 ml Q4H PRN HHN Shortness of Breath 07/12/20 18:00 07/17/20 17:59 Amlodipine Besylate (Norvasc) 10 mg DAILY ORAL 07/13/20 09:00 08/12/20 08:59 07/15/20 09:15 Aspirin (Ecotrin) 81 mg DAILY ORAL 07/13/20 09:00 08/27/20 08:59 07/15/20 09:15 Atorvastatin Calcium (Lipitor) 40 mg BEDTIME ORAL 07/12/20 21:00 10/10/20 20:59 07/14/20 21:05 Cefepime HCl 2 gm/ Dextrose 50 ml @ 100 mls/hr DAILY IVPB 07/13/20 09:00 07/20/20 08:59 07/15/20 09:17 Chlorthalidone (Chlorthalidone) 25 mg DAILY ORAL 07/13/20 09:00 08/12/20 08:59 07/15/20 09:15 Dextrose (Dextrose 50%) 25 ml Q30M PRN IV Hypoglycemia 07/12/20 21:30 10/10/20 21:29 Dextrose (Dextrose 50%) 50 ml Q30M PRN IV Hypoglycemia 07/12/20 21:30 10/10/20 21:29 Furosemide (Lasix) 40 mg DAILY IV 07/15/20 09:00 08/14/20 08:59 07/15/20 09:16 Heparin Sodium (Porcine) (Heparin 5000 units/ml) 5,000 units EVERY 12 HOURS SUBQ 07/12/20 21:00 08/26/20 20:59 07/15/20 09:35 Hydrocortisone (Hydrocortisone) 1 applic TWICE A DAY TOPIC 07/12/20 20:00 10/10/20 19:59 07/15/20 09:17 Insulin Aspart (NovoLOG) BEFORE MEALS AND HS SUBQ 07/12/20 22:00 10/10/20 21:59 07/15/20 12:41 Insulin Aspart (NovoLOG) 3 units NOVOTIAC SUBQ 07/14/20 11:50 10/12/20 11:49 07/15/20 12:42 Insulin Detemir (Levemir) 8 units BEDTIME SUBQ 07/14/20 21:00 10/12/20 20:59 07/14/20 21:07 Magnesium Oxide (Mag-Ox 400mg) 400 mg BID ORAL 07/13/20 09:45 08/12/20 09:44 07/15/20 09:15 Methocarbamol (Robaxin) 750 mg TID ORAL 07/12/20 18:00 08/11/20 17:59 07/15/20 12:34 Nystatin (Nystop Powder) 1 applic THREE TIMES A DAY TOPIC 07/14/20 10:30 10/12/20 10:29 07/15/20 12:35 Pantoprazole (Protonix) 40 mg DAILY ORAL 07/13/20 09:00 08/12/20 08:59 07/15/20 09:15 Quetiapine Fumarate (SEROqueL) 200 mg QHS ORAL 07/12/20 21:30 08/26/20 21:29 07/14/20 21:05 Sertraline HCl (Zoloft) 100 mg BEDTIME ORAL 07/15/20 21:00 08/12/20 08:59 Tamsulosin HCl (Flomax) 0.4 mg BEDTIME ORAL 07/12/20 21:00 08/11/20 20:59 07/14/20 21:05 Vancomycin HCl (Vanco pharmacy to dose) 1 ea DAILY PRN MISC Per rx protocol 07/12/20 23:15 08/11/20 23:14 Vancomycin HCl 1 gm/Dextrose 275 ml @ 184 mls/hr Q12H IVPB 07/13/20 01:00 07/18/20 00:59 07/15/20 12:34 Assessment/Plan Assessment/Plan 1. Pulmonary edema. - cont diuresis 2. CHF. 3. COPD. - pt reports he is oxygen dependent at home and has to sit down every 2 minutes to catch his breath - pt strongly urges for the need for "portable oxygen" at home 4. Obesity. 5. abdominal wall cellulitis - Broad spectrum Abx per ID 6. Diabetes - BG monitoring 7. HTN - BP control 8. Respiratory distress - pt is a candidate for BiPAP - pt currently reluctant to initiate BiPAP - currently on 2 lpm NC saturating well We will follow carefully. The care of this patient was discussed with my supervising physician Time spent for this encounter was approximately 31 minutes The patient was seen and examined at bedside and all new and available data was reviewed in the patients chart. I agree with the above findings, impression, and plan. (Patient was seen earlier today. Signature timestamp does not reflect patient encounter time) Alexis Nava MD Jul 15, 2020 14:22 Delfin Degroot MD Jul 15, 2020 17:05
[2020-07-15 16:00] VITALS: BP 137/75
--- NOTE | 2020-07-15 17:11 | General Progress Note ---
Subjective Date patient seen: Jul 15, 2020 Time patient seen: 08:34 ROS Limited/Unobtainable: No Constitutional: Denies: no symptoms, chills, diaphoresis, fever, malaise, weakness, other HEENT: Denies: no symptoms, eye pain, blurred vision, tearing, double vision, ear pain, ear discharge, nose pain, nose congestion, throat pain, throat swelling, mouth pain, mouth swelling, other Cardiovascular: Denies: no symptoms, chest pain, edema, irregular heart rate, lightheadedness, palpitations, syncope, other Respiratory: Denies: no symptoms, cough, orthopnea, shortness of breath, SOB with excertion, SOB at rest, sputum, stridor, wheezing, other Gastrointestinal/Abdominal: Denies: no symptoms, abdomen distended, abdominal pain, black stools, tarry stools, blood in stool, constipated, diarrhea, difficulty swallowing, nausea, poor appetite, poor fluid intake, rectal bleeding, vomiting, other Genitourinary: Denies: no symptoms, burning, discharge, frequency, flank pain, hematuria, incontinence, pain, urgency, other Neurologic/Psychiatric: Denies: no symptoms, anxiety, depressed, emotional problems, headache, numbness, paresthesia, pre-existing deficit, seizure, tingling, tremors, weakness, other Endocrine: Denies: no symptoms, excessive sweating, flushing, intolerance to co ld, intolerance to heat, increased hunger, increased thirst, increased urine, unexplained weight gain, unexplained weight loss, other Hematologic/Lymphatic: Denies: no symptoms, anemia, easy bleeding, easy bruising, other Allergies: Coded Allergies: No Known Allergies (Unverified , 11/06/17) Subjective Remains on 2L NC (patient's baseline) Continued on Antibiotics for concern for cellulitis Subjective complaints of increased redness near pannus groin folds that he says have improved with Nystatin Subjectively feeling better Objective Last 24 Hour Vital Signs Date Time Temp Pulse Resp B/P (MAP) Pulse Ox O2 Delivery O2 Flow Rate FiO2 07/15/20 16:00 97.2 80 20 137/75 (95) 97 07/15/20 12:00 84 07/15/20 12:00 97.0 83 18 123/70 (87) 96 07/15/20 09:15 97 152/82 07/15/20 09:00 Nasal Cannula 2.0 07/15/20 08:00 77 07/15/20 08:00 96.9 97 20 152/82 (105) 95 07/15/20 04:00 84 07/15/20 04:00 97.2 84 20 137/71 (93) 95 07/15/20 00:00 96.6 89 22 126/71 (89) 95 07/15/20 00:00 97 07/14/20 21:00 Nasal Cannula 2.0 07/14/20 20:00 97.2 90 22 136/76 (96) 97 07/14/20 20:00 87 07/14/20 19:25 97 Nasal Cannula 2.0 28 Intake and Output 07/14/20 07/15/20 19:00 07:00 Intake Total 1095 ml Output Total 1300 ml 700 ml Balance -205 ml -700 ml Intake Oral 720 ml IV Total 375 ml Output Urine Total 1300 ml 700 ml # Voids 2 Laboratory Tests 07/14/20 21:02: POC Whole Blood Glucose 223H 07/15/20 06:18: POC Whole Blood Glucose 373H 07/15/20 07:52: White Blood Count 6.1, Red Blood Count 4.25L, Hemoglobin 12.5L, Hematocrit 35.0L , Mean Corpuscular Volume 82, Mean Corpuscular Hemoglobin 29.5, Mean Corpuscular Hemoglobin Concent 35.8, Red Cell Distribution Width 14.2, Platelet Count 265, Mean Platelet Volume 7.2, Neutrophils (%) (Auto) 73.6, Lymphocytes (%) (Auto) 17.6L, Monocytes (%) (Auto) 5.1, Eosinophils (%) (Auto) 2.9, Basophils (%) (Auto) 0.8, Sodium Level 134L, Potassium Level 3.8, Chloride Level 97L, Carbon Dioxide Level 31, Anion Gap 6, Blood Urea Nitrogen 21H, Creatinine 1.4H, Estimat Glomerular Filtration Rate 50.7, Glucose Level 307H, Calcium Level 8.0L 07/15/20 11:13: POC Whole Blood Glucose 272H 07/15/20 16:23: POC Whole Blood Glucose [Pending] Height (Feet): 5 Height (Inches): 10.00 Weight (Pounds): 240 General Appearance: no apparent distress EENT: PERRL/EOMI Neck: supple Cardiovascular: normal rate, regular rhythm Respiratory/Chest: lungs clear, normal breath sounds Abdomen: non tender, soft Extremities: normal range of motion Neurologic: yard rigger II-XII grossly normal Skin: warm/dry, other - circular scabbed lesions on stomach and erythema on right LE, improving Assessment/Plan Status: stable Assessment/Plan: #Acute hypoxemic respiratory failure 2' CHF vs. COPD exacerbation - resolving #Acute on Chronic CHFpEF #Dyspnea - improving Patient presenting with dyspnea likely 2' CHF exacerbation. - CXR with vascular congestion - EKG NSR - Covid negative - Continue Diuresis - Strict I&O - Echo - EF 60% - Discussed bipap with patient, he is amenable to trying it today - Cardiology Consult, appreciate recs - Pulmonology following, appreciate recs #PAULINE #Lactic Acidosis Unclear of Creatinine baseline. - Continue Diuresis - UA wnl - Lytes repleted - Nephrology consulted #Hx of Cellulitis #Concern for abdominal cellulitis #Cellulitis of RLE - Previously on PO keflex as outpatient - Vancomycin and Cefepime (07/13 - ) - WC ngtd - BC ngtd - Continue abx - ID consult, appreciate recs #Likely candidal skin infection of groin folds - Nystatin powder TID #DM2 - Increased Levemir 12U qhs - 3U TID novolog with meals - Achs BG #HTn - Resume chlorthalidone - Lasix #HLD - Resume statin #Depression - Continue Sertraline and Seroquel Heparin Sq Carb Consistent Diet Full Code Dispo - Home tomorrow. Time spent is 35 minutes with approx 19 minutes with counseling and care coordination. D/w consultants and nurse. Time of note does not reflect time of encounter. Molly Leon M.D. Jul 15, 2020 17:11
[2020-07-15 20:00] VITALS: BP 143/82
[2020-07-15] MEDS: Atorvastatin 20mg tab ORAL SCH (20:34)
[2020-07-15] MEDS: Tamsulosin 0.4mg cap ORAL SCH (20:35)
[2020-07-15] MEDS: QUEtiapine 200mg tab ORAL SCH (20:35)
[2020-07-15] MEDS ORDERED: Levemir Flexpen SUBQ SCH (21:00)
[2020-07-15] MEDS ORDERED: Sertraline 100mg tab ORAL SCH (21:00)
[2020-07-16] VITALS: BP 126/78
[2020-07-16] MEDS: Vancomycin 1gm in D5W 275ml IVPB SCH ×3 (01:09→13:11)
[2020-07-16 04:00] VITALS: BP 135/69
[2020-07-16] MEDS: NovoLOG Insulin Flexpen SUBQ SCH ×4 (05:44→13:13)
[2020-07-16 08:00] VITALS: BP 154/89
--- NOTE | 2020-07-16 08:39 | Nephrology Progress Note ---
Assessment/Plan Plan #Acute hypoxemic respiratory failure due to COPD Exacerbation and CHF #LE cellulitis #HTN #HLD #DM #BPH - admit to tele - cardiology eval - ID eval - pulm eval - breathing tx - laix 40 IV daily - amlodipine 10mg daily - monitor UOP - daily weight - monitor electrolytes - monitor renal function - avoid nephroxins - resume home med Time spent 65 mn Subjective ROS Limited/Unobtainable: No Subjective SOB better Objective Objective Last 24 Hour Vital Signs Date Time Temp Pulse Resp B/P (MAP) Pulse Ox O2 Delivery O2 Flow Rate FiO2 07/16/20 04:00 89 07/16/20 04:00 98.0 74 20 135/69 (91) 07/16/20 00:00 99 07/16/20 00:00 98.9 100 18 126/78 (94) 07/15/20 21:00 Nasal Cannula 2.0 07/15/20 20:37 97 Nasal Cannula 2.0 28 07/15/20 20:00 83 07/15/20 20:00 98.0 76 18 143/82 (102) 97 07/15/20 16:00 97.2 80 20 137/75 (95) 97 07/15/20 16:00 90 07/15/20 12:00 84 07/15/20 12:00 97.0 83 18 123/70 (87) 96 07/15/20 09:15 97 152/82 07/15/20 09:00 Nasal Cannula 2.0 Intake and Output 07/15/20 07/16/20 19:00 07:00 Intake Total 600 ml Output Total 600 ml 600 ml Balance 0 ml -600 ml Intake Oral 600 ml Output Urine Total 600 ml 600 ml # Voids 2 # Bowel Movements 1 Laboratory Tests 07/15/20 11:13: POC Whole Blood Glucose 272H 07/15/20 16:23: POC Whole Blood Glucose [Pending] Height (Feet): 5 Height (Inches): 10.00 Weight (Pounds): 240 Jone García M.D. Jul 16, 2020 08:39
[2020-07-16] MEDS: Aspirin EC 81mg tab ORAL SCH (08:43)
[2020-07-16] MEDS: Magnesium Oxide 400mg tab ORAL SCH (08:44)
[2020-07-16] MEDS: Methocarbamol 750mg tab ORAL SCH ×2 (08:46→13:09)
[2020-07-16] MEDS: Nystatin Powder 100,000 units/gm 15gm TOPIC SCH ×2 (08:52→13:11)
[2020-07-16] MEDS: Hydrocortisone 1% Oint TOPIC SCH (08:52)
[2020-07-16 10:46] LABS: CALCIUM 8.5 MG/DL (8.5-10.1); CREATININE 1.4 MG/DL (0.55-1.30); PHOSPHORUS 2.6 MG/DL (2.5-4.9); POTASSIUM 3.6 MMOL/L (3.5-5.1)
[2020-07-16 12:00] VITALS: BP 136/66
--- NOTE | 2020-07-16 12:51 | Pulmonology Progress Note ---
Subjective ROS Limited/Unobtainable: No Interval Events: on walk test, his SaO2 dropped to 87% without oxygen support per RN Constitutional: Denies: fever HEENT: Repors: no symptoms Respiratory: Reports: dyspnea on exertion; Denies: sputum, wheezing Cardiovascular: Reports: no symptoms Gastrointestinal/Abdominal: Denies: nausea, vomiting, diarrhea Psychiatric: Denies: depression Skin: Denies: rash Musculoskeletal: Denies: pain Allergies: Coded Allergies: No Known Allergies (Unverified , 11/06/17) Objective Last 24 Hour Vital Signs Date Time Temp Pulse Resp B/P (MAP) Pulse Ox O2 Delivery O2 Flow Rate FiO2 07/16/20 09:00 Nasal Cannula 2.0 07/16/20 08:44 102 154/89 07/16/20 08:00 96.3 102 20 154/89 (110) 97 07/16/20 08:00 91 07/16/20 04:00 89 07/16/20 04:00 98.0 74 20 135/69 (91) 07/16/20 00:00 99 07/16/20 00:00 98.9 100 18 126/78 (94) 07/15/20 21:00 Nasal Cannula 2.0 07/15/20 20:37 97 Nasal Cannula 2.0 28 07/15/20 20:00 83 07/15/20 20:00 98.0 76 18 143/82 (102) 97 07/15/20 16:00 97.2 80 20 137/75 (95) 97 07/15/20 16:00 90 Intake and Output 07/15/20 07/16/20 18:59 06:59 Intake Total 600 ml Output Total 600 ml 600 ml Balance 0 ml -600 ml Intake Oral 600 ml Output Urine Total 600 ml 600 ml # Voids 2 # Bowel Movements 1 Objective 07/16/2020 sitting up in bed leaning on a side table eating lunch; saturating well on 2 lpm NC; he states he has " an important mental health appointment to [facility] at 11 am tomorrow" and expresses wish to be discharged today with portable oxygen; His appointment slip shows the follow info: [facility] [phone] [place] [id number]" 07/15/2020 sitting up in bed leaning on a side table; saturating well on 2 lpm NC; NAD; pt reports he wishes to be discharged tomorrow for a "dermatology appointment" 07/14/2020 sitting up in bed leaning on a side table; saturating well on 2 lpm NC; NAD General Appearance: WD/WN, no acute distress, other HEENT: normocephalic, atraumatic Respiratory: other - rales Cardiovascular: normal rate, regular rhythm Abdomen: soft, non tender Microbiology Date/Time Source Procedure Growth Status 07/13/20 13:26 Leg Left Gram Stain - Final Resulted 07/13/20 13:26 Wound Culture - Preliminary Gram Positive Cocci Gram Positive Other 1 Resulted 07/13/20 13:26 Leg Right Gram Stain - Final Resulted 07/13/20 13:26 Wound Culture - Preliminary Gram Positive Cocci Resulted Laboratory Tests 07/15/20 16:23: POC Whole Blood Glucose [Pending] 07/16/20 10:19: Sodium Level 133L, Potassium Level 3.6, Chloride Level 96L, Carbon Dioxide Level 33H, Anion Gap 4L, Blood Urea Nitrogen 20H, Creatinine 1.4H, Estimat Glomerular Filtration Rate 50.7, Glucose Level 243H, Calcium Level 8.5, Phosphorus Level 2.6, Magnesium Level 1.6L 07/16/20 12:26: POC Whole Blood Glucose 303H Current Medications Medications (Trade) Dose Ordered Sig/Anjel Route PRN Reason Start Time Stop Time Status Last Admin Dose Admin Albuterol/ Ipratropium (Albuterol/ Ipratropium) 3 ml Q4H PRN HHN Shortness of Breath 07/12/20 18:00 07/17/20 17:59 Amlodipine Besylate (Norvasc) 10 mg DAILY ORAL 07/13/20 09:00 08/12/20 08:59 07/16/20 08:44 Aspirin (Ecotrin) 81 mg DAILY ORAL 07/13/20 09:00 08/27/20 08:59 07/16/20 08:43 Atorvastatin Calcium (Lipitor) 40 mg BEDTIME ORAL 07/12/20 21:00 10/10/20 20:59 07/15/20 20:34 Cefepime HCl 2 gm/ Dextrose 50 ml @ 100 mls/hr DAILY IVPB 07/13/20 09:00 07/20/20 08:59 07/15/20 09:17 Chlorthalidone (Chlorthalidone) 25 mg DAILY ORAL 07/13/20 09:00 08/12/20 08:59 07/16/20 08:48 Dextrose (Dextrose 50%) 25 ml Q30M PRN IV Hypoglycemia 07/12/20 21:30 10/10/20 21:29 Dextrose (Dextrose 50%) 50 ml Q30M PRN IV Hypoglycemia 07/12/20 21:30 10/10/20 21:29 Furosemide (Lasix) 40 mg DAILY IV 07/15/20 09:00 08/14/20 08:59 07/16/20 08:48 Hydrocortisone (Hydrocortisone) 1 applic TWICE A DAY TOPIC 07/12/20 20:00 10/10/20 19:59 07/16/20 08:52 Insulin Aspart (NovoLOG) BEFORE MEALS AND HS SUBQ 07/12/20 22:00 10/10/20 21:59 07/16/20 05:44 Insulin Aspart (NovoLOG) 3 units NOVOTIAC SUBQ 07/14/20 11:50 10/12/20 11:49 07/16/20 05:45 Insulin Detemir (Levemir) 12 units BEDTIME SUBQ 07/15/20 21:00 10/13/20 20:59 07/15/20 20:40 Magnesium Oxide (Mag-Ox 400mg) 400 mg BID ORAL 07/13/20 09:45 08/12/20 09:44 07/16/20 08:44 Methocarbamol (Robaxin) 750 mg TID ORAL 07/12/20 18:00 08/11/20 17:59 07/16/20 08:46 Nystatin (Nystop Powder) 1 applic THREE TIMES A DAY TOPIC 07/14/20 10:30 10/12/20 10:29 07/16/20 08:52 Pantoprazole (Protonix) 40 mg DAILY ORAL 07/13/20 09:00 08/12/20 08:59 07/16/20 08:43 Quetiapine Fumarate (SEROqueL) 200 mg QHS ORAL 07/12/20 21:30 08/26/20 21:29 07/15/20 20:35 Sertraline HCl (Zoloft) 100 mg BEDTIME ORAL 07/15/20 21:00 08/12/20 08:59 07/15/20 20:35 Tamsulosin HCl (Flomax) 0.4 mg BEDTIME ORAL 07/12/20 21:00 08/11/20 20:59 07/15/20 20:35 Vancomycin HCl (Vanco pharmacy to dose) 1 ea DAILY PRN MISC Per rx protocol 07/12/20 23:15 08/11/20 23:14 Vancomycin HCl 1 gm/Dextrose 275 ml @ 184 mls/hr Q12H IVPB 07/13/20 01:00 07/18/20 00:59 07/16/20 01:09 Assessment/Plan Assessment/Plan 1. Pulmonary edema. - cont diuresis 2. CHF. 3. COPD. - pt reports he is oxygen dependent at home and has to sit down every 2 minut es to catch his breath; however saturations are 98% on low flow O2 4. Obesity. 5. abdominal wall cellulitis - Broad spectrum Abx per ID 6. Diabetes - BG monitoring 7. HTN - BP control 8. Respiratory distress - pt is a candidate for BiPAP - pt currently reluctant to initiate BiPAP - currently on 2 lpm NC saturating well - Walk test today showed desaturation down to 87% on walking on RA - Will qualify for home O2 We will follow carefully. The care of this patient was discussed with my supervising physician Time spent for this encounter was approximately 31 minutes The patient was seen and examined at bedside and all new and available data was reviewed in the patients chart. I agree with the above findings, impression, and plan. (Patient was seen earlier today. Signature timestamp does not reflect patient encounter time) Alexis Nava MD Jul 16, 2020 12:51 Delfin Degroot MD Jul 16, 2020 16:44
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
--- NOTE | 2020-07-22 11:30 | Discharge Summary ---
Discharge Summary Discharge Summary _ DATE OF ADMISSION: 07/12/2020 DATE OF DISCHARGE: 07/16/2020 DISCHARGED BY: Dr. Jone García CONSULTANTS: Dr. Smith Leon BRIEF HOSPITAL COURSE: Patient is a 64-year-old male with past medical history of CHF, hypertension, type 2 diabetes, presented with shortness of breath. Patient had been short of breath for few months but shortness of breath has worsened. He uses home O2. He stated he gets short of breath just walking from his daughter to the car. He needed to sit for a few minutes to catch his breath. He had a recent skin soft tissue infection for which she had been taking p.o. antibiotics. He had also seen a exchange architect recently for increased redness and itching on the abdomen. He used to smoke 1 pack/day but quit 20 years ago. He drinks 1 beer per week. Upon evaluation at ED, blood work did not show any leukocytosis. Hemoglobin 12.9, hematocrit 36. Electrolytes were normal. Troponin was negative. proBNP was 738. CRP 1.9. Chest x-ray showed pulmonary vascular congestion diffusely. No focal consolidation. No pleural effusion. EKG showed sinus rhythm with prolonged QTC. Left anterior fascicular block. No acute ST or T wave abnormality. Patient had evidence of CHF on chest x-ray with pulmonary vascular congestion. BNP was elevated. He was given 40 mg of Lasix IV. He initially had low oxygen saturation around 85% on room air. O2 saturation improved on 4 L nasal cannula with no evidence of respiratory distress. He had evidence of cellulitis on his abdomen as well as right lower extremity. Ultrasound of the right lower extremity was negative for acute DVT. He was given a dose of vancomycin. He was then admitted to telemetry. ID was consulted for abdominal wall and bilateral leg cellulitis. He was placed on vancomycin and cefepime. He was given Lasix 40 mg IV daily and was given amlodipine 10 mg daily and chlorthalidone for blood pressure control. He was placed on heparin for DVT prophylaxis. He was continued on sertraline and Seroquel for depression. Chest x-ray showed mild pulmonary edema. Discussed need for BiPAP. Patient was reluctant to initiate BiPAP therapy. Wound culture showed growth of Staphylococcus and Enterococcus. Urine culture with growth of yeast which is likely a colonizer. He complained of increased redness on pannus. He was given nystatin powder 3 times daily Patient is saturating well on nasal cannula. Walk test showed desaturation down to 87% on walking. Patient would qualify for home O2. Abdominal cellulitis did not show any fluid collection. No acute surgical intervention required. Patient was cleared for discharge. FINAL DIAGNOSES: Acute hypoxic respiratory failure due to COPD exacerbation and CHF Lower extremity cellulitis, abdominal wall cellulitis, present on admission Hypertension Hyperlipidemia Diabetes mellitus BPH Acute on chronic CHF with preserved ejection fraction Dyspnea Acute kidney injury Lactic acidosis Likely candidal skin infection of the groin folds Obesity Pulmonary edema DISPOSITION: Patient was discharged home with home health. DISCHARGE MEDICATIONS: Refer to Discharge Medication List. DISCHARGE INSTRUCTIONS: Follow-up in a week. I have been assigned to complete a discharge summary on this account, I was not involved with the patient's management.--YOLANDA Cruz Jacqueline Robles NP Jul 22, 2020 11:30
== END 2020-07-16 16:30 | disposition left against medical advice (07) | DRG 291 ==
LOC: EMR 11:43 → 2E 13:56 → EDBEDREQ 15:56
DX: I11.0 Hypertensive heart disease with heart failure (principal); J96.00 Acute respiratory failure, unspecified whether with hypoxia or hypercapnia; N17.9 Acute kidney failure, unspecified; E87.2 Acidosis; L03.311 Cellulitis of abdominal wall; L03.116 Cellulitis of left lower limb; L03.115 Cellulitis of right lower limb; J44.1 Chronic obstructive pulmonary disease with (acute) exacerbation; I50.33 Acute on chronic diastolic (congestive) heart failure; E11.9 Type 2 diabetes mellitus without complications; E78.5 Hyperlipidemia, unspecified; E66.9 Obesity, unspecified; Z87.891 Personal history of nicotine dependence; B86 Scabies; S39.012A Strain of muscle, fascia and tendon of lower back, initial encounter; V89.2XXA Person injured in unspecified motor-vehicle accident, traffic, initial encounter; S80.00XA Contusion of unspecified knee, initial encounter; N40.0 Benign prostatic hyperplasia without lower urinary tract symptoms; B37.2 Candidiasis of skin and nail
CPT/HCPCS: 36415; 71045; 80048; 80053; 80202; 81003; 82550; 82553; 82728; 82803; 82962; 83605; 83615; 83690; 83735; 83880; 84100; 84443; 84484; 85025; 85379; 85610; 85651; 85730; 86140; 87040; 87070; 87086; 87181; 87205; 93005; 93306; 93971; 96365; 96375; 99285; J1815; J8499; S5561; U0002

== ENCOUNTER 2020-09-20 13:38 | Emergency (ER) | payer OTHER ==
[~2020-09-20] VITALS: Ht 172.7 cm; Wt 117.9 kg
[~2020-09-20 13:38] MED LIST changes: +CEPHALEXIN500 MG ORAL; +CETIRIZINE HCL10 M1 PO; +MAGNESIUM OXID400 M1 ORAL; +METFORMIN HCL500 M1 ORAL
--- NOTE | 2020-09-20 14:32 | Emergency Room Report ---
History of Present Illness General Chief Complaint: Dyspnea/Respdistress Source: Patient Present Illness HPI Disclaimer: Please note that this report is being documented using [employer] technology. This can lead to erroneous entry secondary to incorrect interpretation by the dictating instrument. HPI: 65-year-old male history of CHF and morbid obesity presents for shortness of breath. He uses oxygen at home and states he has been increasingly short of breath and able to perform activities of daily living over the past few days. Reports nonproductive cough. Denies fever or chills. Last Covid test was over a month ago and this was negative. Denies nausea vomiting or diarrhea. Denies abdominal pain, chest pain. Patient is also complaining of itchiness over the abdomen for which she is already seen dermatology. Also complaining of chronic knee pain and lower back pain without new injury. Denies numbness or tingling or weakness in the lower extremities. Denies urinary retention or fecal incontinence. PMH: CHF, obesity, hypertension, hyperlipidemia, diabetes PSH: Reviewed Allergies: Reviewed Social Hx: Reviewed Allergies: Coded Allergies: No Known Allergies (Unverified , 11/06/17) COVID-19 Screening Contact w/high risk pt: No Recent Travel to affected area: No Experienced COVID-19 symptoms?: Yes COVID-19 symptoms experienced: Shortness of Breath COVID-19 Testing performed TOUR CONSULTANT: No Nursing Documentation-PMH Past Medical History: No History, Except For Hx Cardiac Problems: Yes - CHF Hx Hypertension: Yes Hx COPD: Yes Hx Diabetes: Yes Hx Cancer: No Hx Gastrointestinal Problems: No Hx Neurological Problems: No Review of Systems All Other Systems: negative except mentioned in HPI Physical Exam Vital Signs Date Time Temp Pulse Resp B/P (MAP) Pulse Ox O2 Delivery O2 Flow Rate FiO2 09/20/20 14:12 98.1 73 24 153/98 (116) 98 Nasal Cannula 3.0 General: Awake and alert, no acute distress HEENT: NC/AT. EOMI. Cardiovascular: RRR. S1 and S2 normal. No murmur appreciated Resp: Saturating 98% on 3 L nasal cannula. Normal work of breathing. Intermittent nonproductive cough. Abdomen: Morbidly obese abdomen. Abdomen is soft, nondistended. Nontender Skin: Intact. No abrasions, laceration or rash over the exposed skin. Mild erythema over the abdomen but no warmth, no fluctuance, no ulcers or skin breakdown MSK: Normal tone and bulk. Moving all extremities. No obvious deformity. Neuro: Awake and alert. Mentating appropriately. Medical Decision Making Diagnostic Impression: Primary Impression: CHF (congestive heart failure) Additional Impressions: Atrial fibrillation Left against medical advice ER Course 65-year-old male history of CHF morbid obesity presents for shortness of breath. Concern for CHF exacerbation, pneumonia, COVID-19 infection, bronchitis, emphysema among others. Chest x-ray shows bilateral pulmonary congestion and right-sided pleural effusion. EKG shows atrial fibrillation. On monitor patient goes up to 130 bpm and then will go down to about 100 bpm. It appears he is no longer taking Lasix at home. Dose given here in ER and the patient was diuresing. Attempted to ambulate however he quickly desaturated even with supplemental oxygen his heart rate went to 150 bpm. Will admit for CHF exacerbation as well as uncontrolled atrial fibrillation. Labs unremarkable otherwise. Covid antigen test negative. 1725: Informed by nursing staff that the patient wants to leave the hospital. He no longer wishes to be admitted. He understands that he needs further diuresis for congestive heart failure and treatment for atrial fibrillation. He states he can be treated for this at home and follow-up with his PMD. He does not want to stay in the hospital any longer. I explained to him that if these conditions go untreated he could rapidly deteriorate and cause significant morbidity and even mortality. He understands the risk and is of sound mind and able to make his own medical decisions. I will prescribe a short course of Lasix. Strongly advised him to follow-up with PMD as soon as possible and to return to the ER should he change his mind regarding admission. Laboratory Tests Test 09/20/20 14:35 White Blood Count 7.5 K/UL (4.8-10.8) Red Blood Count 4.93 M/UL (4.70-6.10) Hemoglobin 13.2 G/DL (14.2-18.0) L Hematocrit 39.7 % (42.0-52.0) L Mean Corpuscular Volume 81 FL (80-99) Mean Corpuscular Hemoglobin 26.8 PG (27.0-31.0) L Mean Corpuscular Hemoglobin Concent 33.2 G/DL (32.0-36.0) Red Cell Distribution Width 15.6 % (11.6-14.8) H Platelet Count 262 K/UL (150-450) Mean Platelet Volume 7.2 FL (6.5-10.1) Neutrophils (%) (Auto) 80.1 % (45.0-75.0) H Lymphocytes (%) (Auto) 12.5 % (20.0-45.0) L Monocytes (%) (Auto) 4.4 % (1.0-10.0) Eosinophils (%) (Auto) 1.9 % (0.0-3.0) Basophils (%) (Auto) 1.1 % (0.0-2.0) Sodium Level 134 MMOL/L (136-145) L Potassium Level 4.5 MMOL/L (3.5-5.1) Chloride Level 95 MMOL/L (98-107) L Carbon Dioxide Level 31 MMOL/L (21-32) Anion Gap 8 mmol/L (5-15) Blood Urea Nitrogen 11 mg/dL (7-18) Creatinine 1.1 MG/DL (0.55-1.30) Estimated Glomerular Filtration Rate > 60 mL/min (>60) Glucose Level 130 MG/DL (74-106) H Calcium Level 9.0 MG/DL (8.5-10.1) Total Bilirubin 0.9 MG/DL (0.2-1.0) Aspartate Amino Transferase (AST) 31 U/L (15-37) Alanine Aminotransferase (ALT) 26 U/L (12-78) Alkaline Phosphatase 162 U/L (46-116) H Troponin I 0.017 ng/mL (0.000-0.056) Pro-B-Type Natriuretic Peptide 1900 pg/mL (0-125) H Total Protein 7.2 G/DL (6.4-8.2) Albumin 3.4 G/DL (3.4-5.0) Globulin 3.8 g/dL Albumin/Globulin Ratio 0.9 (1.0-2.7) L Microbiology Date/Time Source Procedure Growth Status 09/20/20 14:35 Nasopharynx SARS-CoV-2 Antigen (Rapid)(SHERRY) - Final Complete EKG Diagnostic Results Troponin ordered: Yes When was troponin ordered?: Sep 20, 2020 EKG Time: 14:40 Rate: normal Rhythm: NSR ST Segments: no acute changes Other Impression Irregularly irregular rhythm consistent with atrial fib with borderline tachycardia. Left axis Rhythm Strip Diag. Results Rhythm Strip Time: 14:40 EP Interpretation: yes Rate: 100 Rhythm: other - Irregularly irregular rhythm Chest X-Ray Diagnostic Results Chest X-Ray Diagnostic Results : Chest X-Ray Ordered: Yes # of Views/Limited/Complete: 1 View Indication: Shortness of Breath EP Interpretation: Yes Interpretation: other - BilateralBilateral vascular congestion with right- sided pleural effusion Impression: Other - Bilateral pulmonary congestion and pleural effusion on right side Electronically Signed by: Electronically signed by Dr. Beny Vieyra MD Last Vital Signs Date Time Temp Pulse Resp B/P (MAP) Pulse Ox O2 Delivery O2 Flow Rate FiO2 09/20/20 14:12 98.1 73 24 153/98 (116) 98 Nasal Cannula 3.0 Disposition: AGAINST MEDICAL ADVICE Condition: Stable Scripts Furosemide* (LASIX*) 40 Mg Tablet 40 MG ORAL BID for 4 Days, #8 TAB Prov: Beny Vieyra MD 09/20/20 Referrals: Jone García M.D. (PCP) Beny Vieyra MD Sep 20, 2020 14:32
[2020-09-20 14:54] LABS: BASOPHILS % (AUTO) 1.1 % (0.0-2.0); EOSINOPHILS % (AUTO) 1.9 % (0.0-3.0); HEMATOCRIT 39.7 % (42.0-52.0); HEMOGLOBIN 13.2 G/DL (14.2-18.0); LYMPHOCYTES % (AUTO) 12.5 % (20.0-45.0); MEAN CORPUSCULAR VOLUME 81 FL (80-99); MONOCYTES % (AUTO) 4.4 % (1.0-10.0); NEUTROPHILS % (AUTO) 80.1 % (45.0-75.0); PLATELET COUNT 262 K/UL (150-450); RED BLOOD COUNT 4.93 M/UL (4.70-6.10); RED CELL DISTRIBUTION WIDTH 15.6 % (11.6-14.8); WHITE BLOOD COUNT 7.5 K/UL (4.8-10.8)
[2020-09-20 15:00] LABS: ANION GAP 8 mmol/L (5-15); BLOOD UREA NITROGEN 11 mg/dL (7-18); CARBON DIOXIDE 31 MMOL/L (21-32); CHLORIDE 95 MMOL/L (98-107); CREATININE 1.1 MG/DL (0.55-1.30); POTASSIUM 4.5 MMOL/L (3.5-5.1); SODIUM 134 MMOL/L (136-145)
[2020-09-20 15:11] LABS: ALANINE AMINOTRANSFERASE 26 U/L (12-78); ALBUMIN 3.4 G/DL (3.4-5.0); ALBUMIN/GLOBULIN RATIO 0.9 (1.0-2.7); ALKALINE PHOSPHATASE 162 U/L (46-116); ASPARTATE AMINO TRANSFERASE 31 U/L (15-37); BILIRUBIN,TOTAL 0.9 MG/DL (0.2-1.0)
[2020-09-20 15:42] VITALS: BP 159/79
--- NOTE | 2020-09-20 15:49 | NUR ---
ED Nurse Note: pt arrived for SOB. pt on home O2 4L NC. pt placed in private room, continuous religious education coordinator. IV placed, labs sent. pt states increasing sob for past year and increasing appetite. COVID negative. pt requesting diet pills for eating. MD at bedside, informed pt of plan.
--- NOTE | 2020-09-20 16:09 | Diagnostic Imaging Report ---
Indication: Shortness of breath Technique: One view of the chest Comparison: 07/12/2020 Findings: Bilateral interstitial disease appears similar or slightly worse than the prior exam. There is interim development of pleural fluid on the right. The heart is mildly enlarged. Impression: Cardiomegaly. Interstitial disease, likely reflecting pulmonary interstitial edema. Right pleural effusion
--- NOTE | 2020-09-20 16:28 | NUR ---
ED Nurse Note: pt ambulating in hallway on 4L NC. pt desat to 90%, cardiac rate increases to 150 when ambulating. pt visibly SOB with coughing, pt states unable to ambulate or stand for more than 2 minutes at home without needing to sit down. pt cardiac rhythm irregular. MD rubin notified.
[2020-09-20 16:45] VITALS: BP 178/69
[2020-09-20] MEDS ORDERED: FUROSEMIDE40 MG ORAL (17:25)
--- NOTE | 2020-09-20 17:41 | NUR ---
AMA: SEE AMA FORM. IV removed. pt A&Ox4, ambulatory. pt verbalizes understanding to return to ER if condition worsens. pt verbalizes understanding of risks of leaving. MD spoke with pt at bedside to inform of risks of leaving AMA.
[2020-09-20 18:00] VITALS: BP 178/69
== END 2020-09-20 19:00 | disposition home or self-care (01) ==
LOC: EMR 14:16
DX: I50.9 Heart failure, unspecified (principal); I11.0 Hypertensive heart disease with heart failure; Z53.29 Procedure and treatment not carried out because of patient's decision for other reasons; I48.91 Unspecified atrial fibrillation; J44.9 Chronic obstructive pulmonary disease, unspecified; E11.9 Type 2 diabetes mellitus without complications; E78.5 Hyperlipidemia, unspecified; E66.9 Obesity, unspecified; Z68.39 Body mass index [BMI] 39.0-39.9, adult
CPT/HCPCS: 36415; 71045; 80053; 83880; 84484; 85025; 93005; 96374; 99284; J1940

== ENCOUNTER 2020-10-01 16:30 | Inpatient (IN) | payer OTHER ==
[~2020-10-01] VITALS: Ht 172.7 cm; Wt 149.7 kg
--- NOTE | 2020-10-01 17:09 | Emergency Room Report ---
History of Present Illness General Chief Complaint: Dyspnea/Respdistress Source: Patient, Medical Record Present Illness HPI Disclaimer: Please note that this report is being documented using [employer] technology. This can lead to erroneous entry secondary to incorrect interpretation by the dictating instrument. HPI: 65-year-old male history of atrial fibrillation, CHF, morbid obesity presents with shortness of breath. Uses chronic oxygen at home and reports increased shortness of breath when ambulating but also when laying still. Bas jignesh cough reported. Denies fever or chills. Denies chest pain. Denies nausea vomiting or diarrhea. Patient is also complaining of itchiness over the abdomen for which he sees dermatology regularly. He states this pops up every now and then. Patient was seen with similar complaints 2 weeks ago diagnosed with CHF exacerbation but left the hospital AGAINST MEDICAL ADVICE. He did not follow-up with his PMD. Denies any changes to his medications. PMH: CHF, atrial fibrillation, obesity, hypertension, hyperlipidemia, diabetes PSH: Reviewed Allergies: Reviewed Social Hx: Reviewed Allergies: Coded Allergies: No Known Allergies (Unverified , 11/06/17) COVID-19 Screening Contact w/high risk pt: No Recent Travel to affected area: No Experienced COVID-19 symptoms?: No COVID-19 symptoms experienced: Shortness of Breath COVID-19 Testing performed MINE WIRER: No Nursing Documentation-PMH Hx Cardiac Problems: Yes - CHF Hx Hypertension: Yes Hx COPD: Yes Hx Diabetes: Yes Hx Cancer: No Hx Gastrointestinal Problems: No Hx Neurological Problems: No Review of Systems All Other Systems: negative except mentioned in HPI Physical Exam Vital Signs Date Time Temp Pulse Resp B/P (MAP) Pulse Ox O2 Delivery O2 Flow Rate FiO2 10/01/20 17:02 98.1 78 26 145/78 (100) 88 Room Air General: Awake and alert, no acute distress HEENT: NC/AT. EOMI. Cardiovascular: RRR. S1 and S2 normal. No murmur appreciated Resp: Normal work of breathing. No cough, wheezing or crackles appreciated Abdomen: Abdomen is soft, nondistended. Morbidly obese abdomen. Nontender Skin: Intact. Erythema over the abdomen multiple excoriations over the abdomen and extremities. No pustules. No ulcerations. MSK: Normal tone and bulk. Moving all extremities. No obvious deformity. Neuro: Awake and alert. Mentating appropriately. Medical Decision Making ER Course 65-year-old male history of atrial fibrillation, CHF, obesity presents for shortness of breath. He uses oxygen at home and reports increased shortness of both with ambulating at rest. Concern for CHF exacerbation, uncontrolled atrial fibrillation, pneumonia, pleural effusion among others. EKG shows atrial fibrillation consistent with his prior visits. Chest x-ray shows bilateral vascular congestion and may be trace pleural effusions. No white count. BN peptide elevated. Troponin negative. Patient will require admission for further diuresis. He has already received Lasix and is making good urine output. Admitted to his PMD, Dr. García. Laboratory Tests Test 10/01/20 17:36 White Blood Count 7.3 K/UL (4.8-10.8) Red Blood Count 5.07 M/UL (4.70-6.10) Hemoglobin 13.4 G/DL (14.2-18.0) L Hematocrit 40.1 % (42.0-52.0) L Mean Corpuscular Volume 79 FL (80-99) L Mean Corpuscular Hemoglobin 26.5 PG (27.0-31.0) L Mean Corpuscular Hemoglobin Concent 33.5 G/DL (32.0-36.0) Red Cell Distribution Width 16.3 % (11.6-14.8) H Platelet Count 323 K/UL (150-450) Mean Platelet Volume 6.7 FL (6.5-10.1) Neutrophils (%) (Auto) 76.9 % (45.0-75.0) H Lymphocytes (%) (Auto) 13.0 % (20.0-45.0) L Monocytes (%) (Auto) 4.9 % (1.0-10.0) Eosinophils (%) (Auto) 4.0 % (0.0-3.0) H Basophils (%) (Auto) 1.1 % (0.0-2.0) Sodium Level 136 MMOL/L (136-145) Potassium Level 3.8 MMOL/L (3.5-5.1) Chloride Level 97 MMOL/L (98-107) L Carbon Dioxide Level 34 MMOL/L (21-32) H Anion Gap 5 mmol/L (5-15) Blood Urea Nitrogen 12 mg/dL (7-18) Creatinine 1.1 MG/DL (0.55-1.30) Estimated Glomerular Filtration Rate > 60 mL/min (>60) Glucose Level 175 MG/DL (74-106) H Calcium Level 8.2 MG/DL (8.5-10.1) L Total Bilirubin 0.6 MG/DL (0.2-1.0) Aspartate Amino Transferase (AST) 23 U/L (15-37) Alanine Aminotransferase (ALT) 22 U/L (12-78) Alkaline Phosphatase 167 U/L (46-116) H Troponin I 0.029 ng/mL (0.000-0.056) Pro-B-Type Natriuretic Peptide 1685 pg/mL (0-125) H Total Protein 6.5 G/DL (6.4-8.2) Albumin 3.4 G/DL (3.4-5.0) Globulin 3.1 g/dL Albumin/Globulin Ratio 1.1 (1.0-2.7) EKG Diagnostic Results Troponin ordered: Yes When was troponin ordered?: Oct 01, 2020 EKG Time: 17:38 Rate: tachycardiac Other Impression Irregularly irregular rhythm consistent with atrial fibrillation. Slightly tachycardic. Rhythm Strip Diag. Results Rhythm Strip Time: 17:38 EP Interpretation: yes Rate: 110 Rhythm: other - Irregularly irregular rhythm consistent with atrial fibrillation. Chest X-Ray Diagnostic Results Chest X-Ray Diagnostic Results : Chest X-Ray Ordered: Yes # of Views/Limited/Complete: 1 View Indication: Shortness of Breath EP Interpretation: Yes Interpretation: no consolidation, no pneumothorax, other - Cardiomegaly, bilateral vascular congestion, possible effusion Impression: Other - Cardiomegaly and vascular congestion Electronically Signed by: Electronically signed by Dr. Beny Vieyra MD Last Vital Signs Date Time Temp Pulse Resp B/P (MAP) Pulse Ox O2 Delivery O2 Flow Rate FiO2 10/01/20 17:02 98.1 78 26 145/78 (100) 88 Room Air Disposition: ADMITTED INPATIENT Condition: Serious Beny Vieyra MD Oct 01, 2020 17:09
[2020-10-01 17:54] LABS: BASOPHILS % (AUTO) 1.1 % (0.0-2.0); HEMATOCRIT 40.1 % (42.0-52.0); HEMOGLOBIN 13.4 G/DL (14.2-18.0); MEAN CORPUSCULAR VOLUME 79 FL (80-99); MONOCYTES % (AUTO) 4.9 % (1.0-10.0); NEUTROPHILS % (AUTO) 76.9 % (45.0-75.0); PLATELET COUNT 323 K/UL (150-450); RED BLOOD COUNT 5.07 M/UL (4.70-6.10); RED CELL DISTRIBUTION WIDTH 16.3 % (11.6-14.8); WHITE BLOOD COUNT 7.3 K/UL (4.8-10.8)
[2020-10-01 18:00] LABS: ANION GAP 5 mmol/L (5-15); BLOOD UREA NITROGEN 12 mg/dL (7-18); CALCIUM 8.2 MG/DL (8.5-10.1); CARBON DIOXIDE 34 MMOL/L (21-32); CHLORIDE 97 MMOL/L (98-107); CREATININE 1.1 MG/DL (0.55-1.30); POTASSIUM 3.8 MMOL/L (3.5-5.1); SODIUM 136 MMOL/L (136-145)
[2020-10-01 18:13] LABS: ALANINE AMINOTRANSFERASE 22 U/L (12-78); ALBUMIN 3.4 G/DL (3.4-5.0); ALBUMIN/GLOBULIN RATIO 1.1 (1.0-2.7); ALKALINE PHOSPHATASE 167 U/L (46-116); ASPARTATE AMINO TRANSFERASE 23 U/L (15-37); BILIRUBIN,TOTAL 0.6 MG/DL (0.2-1.0)
--- NOTE | 2020-10-01 20:34 | Diagnostic Imaging Report ---
EXAM: XR Chest, 1 View CLINICAL HISTORY: SOB TECHNIQUE: Frontal view of the chest. COMPARISON: No relevant prior studies available. FINDINGS: Lungs: Prominent pulmonary vasculature with increased interstitial opacities bilaterally, compatible with interstitial pulmonary edema. Multifocal opacities more confluent at the lung bases may represent alveolar pulmonary edema with a superimposed infectious/inflammatory process not excluded. Pleural space: Possible small bilateral pleural effusions. No pneumothorax. Heart: Cardiomegaly. Mediastinum: Unremarkable. Bones/joints: Unremarkable. Other findings: Hypoventilatory exam. IMPRESSION: 1. Cardiomegaly with prominent pulmonary vasculature and increased interstitial opacities bilaterally, compatible with interstitial pulmonary edema. 2. Multifocal opacities, more confluent at the lung bases may represent alveolar pulmonary edema with a superimposed infectious/inflammatory process not excluded. 3. Possible small bilateral pleural effusions.
[2020-10-01 22:32] VITALS: BP 155/80
--- NOTE | 2020-10-01 23:29 | NUR ---
ED Nurse Note: Patient presented to ER with complaints of sob, hx of chf admitted to Tele for exacerbation, patient is stable aox4, ambulatory, patient belongings form filled all belongings sent with patient to the floor
--- NOTE | 2020-10-02 00:03 | NUR ---
ED Nurse Note: patients mckeon counted at bedside with Jackie RN patient declined offer to keep money in hospital safe, personal medications sealed and placed at Nurse's station on 2nd floor telemtry,
--- NOTE | 2020-10-02 00:10 | NUR ---
TRANSFER NOTES: Important Events on Shift: Pt admitted to [facility] 212-2 for CHF exacerbation per Raquel. A x O x 4, A fib; pt denies pain. No signs or symptoms of distress noted at this time. Will started plan of care and close monitoring Patient Status: full code Diet: CCHO Pending Orders: none Pending Results/Labs: CBC, BMP, mag, phos @ 1000 Pending MD notification: none Latest Vital Signs: Temperature 97.8 , Pulse 75 , B/P 137 /65 , Respiratory Rate 24 , O2 SAT 95 , nasal cannula, O2 Flow Rate 2.0 . Vital Sign Comment: stable throughout shift, EKG Rhythm: Atrial Fibrillation Rhythm change?: N Notified?: Ariella Burrell MD Response: Order Received& Read Back Latest Parra Fall Score: 35 Fall Risk: Medium Risk Safety Measures: Call light Within Reach, Bed Alarm Zone 1, Side Rails Side Rails x2, Bed position Low and Locked. Fall Precautions: Yellow Socks, Yellow Gown, Door Sign, Patient Fall Education
[2020-10-02 04:00] VITALS: BP 137/65
[2020-10-02] MEDS: NovoLOG Insulin Flexpen SUBQ SCH ×4 (06:30→20:44)
--- NOTE | 2020-10-02 06:35 | NUR ---
NURSE HAND-OFF REPORT: Important Events on Shift: Pt admitted to tele per Raquel. Pt in stable condition. BG 145, insulin held because pt is NPO. Patient Status: full code Diet: CCHO M Pending Orders: None Pending Results/Labs: cbc, bmp, phos, mag Pending MD notification: none Latest Vital Signs: Temperature 97.8 , Pulse 75 , B/P 137/65 , Respiratory Rate 24 , O2 SAT 95 , Room Air, O2 Flow Rate 2.0 . Vital Sign Comment: stable throughout shift EKG Rhythm: Atrial Fibrillation Rhythm change?: N Notified?: Ariella Burrell MD Response: Order Received& Read Back Latest Parra Fall Score: 35 Fall Risk: Medium Risk Safety Measures: Call light Within Reach, Bed Alarm Zone 1, Side Rails Side Rails x2, Bed position Low and Locked. Fall Precautions: Yellow Socks, Yellow Gown, Door Sign, Patient Fall Education Report to be given to Bessie Silverman RN
[2020-10-02 08:00] VITALS: BP 152/74
--- NOTE | 2020-10-02 08:38 | Cardiac Electrophysiology PN ---
Subjective Subjective Seen and xamined with RN. Consult dictated # [id number] Objective Last 24 Hour Vital Signs Date Time Temp Pulse Resp B/P (MAP) Pulse Ox O2 Delivery O2 Flow Rate FiO2 10/02/20 04:00 97.8 75 24 137/65 (89) 95 10/02/20 03:52 103 10/02/20 02:45 Nasal Cannula 2.0 10/01/20 22:32 98.1 96 24 155/80 95 Room Air 10/01/20 22:11 78 26 Room Air 10/01/20 17:02 98.1 78 26 145/78 (100) 88 Room Air Intake and Output 10/01/20 10/02/20 18:59 06:59 Intake Total 300 ml Output Total 400 ml Balance -100 ml Intake Oral 300 ml Output Urine Total 400 ml Laboratory Tests Test 10/01/20 17:36 10/02/20 06:24 10/02/20 06:46 White Blood Count 7.3 K/UL (4.8-10.8) Red Blood Count 5.07 M/UL (4.70-6.10) Hemoglobin 13.4 G/DL (14.2-18.0) L Hematocrit 40.1 % (42.0-52.0) L Mean Corpuscular Volume 79 FL (80-99) L Mean Corpuscular Hemoglobin 26.5 PG (27.0-31.0) L Mean Corpuscular Hemoglobin Concent 33.5 G/DL (32.0-36.0) Red Cell Distribution Width 16.3 % (11.6-14.8) H Platelet Count 323 K/UL (150-450) Mean Platelet Volume 6.7 FL (6.5-10.1) Neutrophils (%) (Auto) 76.9 % (45.0-75.0) H Lymphocytes (%) (Auto) 13.0 % (20.0-45.0) L Monocytes (%) (Auto) 4.9 % (1.0-10.0) Eosinophils (%) (Auto) 4.0 % (0.0-3.0) H Basophils (%) (Auto) 1.1 % (0.0-2.0) Sodium Level 136 MMOL/L (136-145) Potassium Level 3.8 MMOL/L (3.5-5.1) Chloride Level 97 MMOL/L (98-107) L Carbon Dioxide Level 34 MMOL/L (21-32) H Anion Gap 5 mmol/L (5-15) Blood Urea Nitrogen 12 mg/dL (7-18) Creatinine 1.1 MG/DL (0.55-1.30) Estimat Glomerular Filtration Rate > 60 mL/min (>60) Glucose Level 175 MG/DL (74-106) H Calcium Level 8.2 MG/DL (8.5-10.1) L Total Bilirubin 0.6 MG/DL (0.2-1.0) Aspartate Amino Transf (AST/SGOT) 23 U/L (15-37) Alanine Aminotransferase (ALT/SGPT) 22 U/L (12-78) Alkaline Phosphatase 167 U/L (46-116) H Troponin I 0.029 ng/mL (0.000-0.056) Pro-B-Type Natriuretic Peptide 1685 pg/mL (0-125) H Total Protein 6.5 G/DL (6.4-8.2) Albumin 3.4 G/DL (3.4-5.0) Globulin 3.1 g/dL Albumin/Globulin Ratio 1.1 (1.0-2.7) POC Whole Blood Glucose 145 MG/DL (74-106) H Hemoglobin A1c 7.9 % (4.3-6.0) H Siva Heath MD Oct 02, 2020 08:38
[2020-10-02] MEDS ORDERED: DiphenhydrAMINE & Zinc 28g Cream TOPIC PRN (09:00)
[2020-10-02] MEDS ORDERED: Heparin 5000 units/ml inj SUBQ SCH (09:00)
--- NOTE | 2020-10-02 09:14 | Consultation ---
DATE OF CONSULTATION: 10/02/2020 CARDIOLOGY CONSULTATION CONSULTING PHYSICIAN: Siva Heath MD. REFERRING PHYSICIAN: Jone García MD. REASON FOR CONSULTATION: Management of hypertension, congestive heart failure, as well as atrial fibrillation. HISTORY OF PRESENT ILLNESS: The patient is a 65-year-old gentleman with history of hypertension, congestive heart failure due to diastolic dysfunction, morbid obesity as well as atrial fibrillation who is chronically oxygen dependent at home presented due to increasing shortness of breath when ambulating and also when laying still. The patient was seen for similar complaint two weeks ago but left hospital against medical advice and followed up with his primary care doctor. The patient now is increasingly short of breath with increased swelling in his legs and abdomen. The patient also has multiple rashes all over his body that is suspicious for dry scabies. REVIEW OF SYSTEMS: Negative other than what is mentioned in the history of present illness. PAST MEDICAL HISTORY: As mentioned above. FAMILY HISTORY: Noncontributory. SOCIAL HISTORY: He lives at home. Denies smoking, using alcohol, or using any drugs. PHYSICAL EXAMINATION: VITAL SIGNS: Show blood pressure of 137/65, pulse is 110 atrial fibrillation, respirations 18. HEAD AND NECK: Positive JVD. LUNGS: Decreased breath sounds. CARDIOVASCULAR: Irregular S1 and S2 with no gallop. ABDOMEN: Morbidly obese. EXTREMITIES: A 2+ pitting edema as well as scrotal edema. LABORATORY AND DIAGNOSTIC DATA: His labs show white count of 7.3, hemoglobin 13.4, hematocrit of 40, and platelet count is 323. Sodium is 133, potassium 3.8, BUN of 12, creatinine 1.1, and glucose of 175. Troponin is negative. His BNP 1685. ASSESSMENT AND PLAN: 1. Congestive heart failure exacerbation. BNP is more than 1600. BUN and creatinine is within normal range. Start the patient on Lasix 40 mg IV b.i.d. and get an echocardiogram to evaluate for ejection fraction and wall motion abnormality. His last echocardiogram was July 13, 2020 that showed ejection fraction of 60% with diastolic dysfunction. 2. Atrial fibrillation with rapid ventricular response. We will add digoxin and metoprolol to his medical regimen for better rate control. The patient also to be started on Eliquis 5 mg b.i.d. for anticoagulation purposes. 3. Morbid obesity. 4. COPD. Further evaluation by Dr. Degroot. 5. History of diabetes. 6. Hyperlipidemia. Thank you very much for allowing me to participate in the care of this patient. Please do not hesitate to contact me if you have any questions regarding my evaluation. Sincerely, Siva Heath M.D. DR: Rachel JOB#: [id number] CC:
[2020-10-02] MEDS ORDERED: Digoxin 0.5mg/2ml Inj IVP SCH (09:30)
[2020-10-02] MEDS: Eliquis 2.5mg tablet ORAL SCH ×2 (09:47→18:10)
[2020-10-02] MEDS: Hydrocortisone 1% Cr TOPIC PRN ×2 (10:47→18:10)
--- NOTE | 2020-10-02 11:13 | Consultation ---
Consult Note Consult Note DATE OF CONSULTATION: 10/02/2020 CONSULTING PHYSICIAN: Delfin Degroot MD. ATTENDING PHYSICIAN: Dr. García REASON FOR CONSULTATION: COPD on home oxygen, respiratory distress HISTORY OF PRESENT ILLNESS: This is a 65-year-old male with past medical history of atrial fibrillation, CHF, COPD, and morbid obesity, who presented to the ED for evaluation of shortness of breath. Patient reports use of home oxygen 2 L all day except nighttime. Patient reported increased shortness of breath when ambulating but also when laying still. Patient reports chronic cough. Patient also complains of itchiness over the abdomen for which she sees a heel edge inker machine regularly. Of note, patient was seen here with similar complaints 2 weeks ago and was diagnosed with CHF exacerbation but left the hospital AGAINST MEDICAL ADVICE. Chest x-ray showed bilateral vascular congestion and trace pleural effusions. Patient was given Lasix and was admitted to the hospital for further management. Patient PAST MEDICAL HISTORY: Atrial fibrillation, CHF, COPD, morbid obesity MEDICATIONS: Amlodipine, aspirin, atorvastatin, Zyrtec, chlorthalidone, furosemide, lisinopril, magnesium oxide, Metformin, methocarbamol, pantoprazole, quetiapine fumarate, sertraline, tamsulosin ALLERGIES: No known allergies FAMILY HISTORY: Noncontributory REVIEW OF SYSTEMS: Negative except mentioned in the HPI PHYSICAL EXAMINATION: VITAL SIGNS: Blood pressure 136/66, heart rate 89, respiratory rate 20, weight 108 kg , height 177 cm. General: Patient sitting in a chair in his room, scratching his body, normal work of breathing on 2 L nasal cannula HEENT: Head exam reveals that the head is normocephalic, atraumatic without deformity or unusual swelling. Pupils are PERRLA. CHEST AND LUNGS: Rales in all lung [place], speaking full sentences CARDIOVASCULAR: Reveals normal S1, S2 without murmurs, rubs, or clicks. ABDOMEN: Soft with no tenderness or organomegaly. : Scrotal edema RECTAL: Deferred. MUSCULOSKELETAL: There is no tenderness to palpation. Range of motion is normal. NEUROLOGICAL: Alert and oriented x3 , nonfocal Skin: Diffuse erythema and induration and punctate regions of bleeding of the abdominal wall in the right lower extremity LABORATORY DATA: Laboratory testing shows hemoglobin 12.5, hematocrit 35.0. Chemistries show sodium 133, chloride 96, carbon dioxide 33, anion gap 4, BUN 20, creatinine 1.4, glucose 303, magnesium 1.6 D-dimer 0.43 Urinalysis shows 4+ glucose, 2+ leuk esterase, and urine yeast Assessment/Plan 1. CHF exacerbation with elevated BNP -On Lasix -Cardio following - w/u 2D Echo 2. COPD exacerbation -Continue supplemental oxygen; patient is on 2 L nasal cannula at baseline at home 3. Pulmonary edema -Continue Lasix 4. Possible small bilateral pleural effusions -Monitor; consider thoracentesis if effusions enlarge and/or become symptomatic 5. DVT ppx -On Eliquis per cardio The care for this patient was discussed with my supervising physician. Time spent for this case was approximately 31 minutes. Alexis Chinchilla Oct 02, 2020 11:13
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
[2020-10-02 12:00] VITALS: BP 150/78
--- NOTE | 2020-10-02 12:32 | History & Physical ---
History of Present Illness General Reason for Hospitalization: Dyspnea/Respdistress Present Illness Allergies: Coded Allergies: No Known Allergies (Unverified , 11/06/17) COVID-19 Screening Contact w/high risk pt: No Recent Travel to affected area: No Experienced COVID-19 symptoms?: No Coronavirus symptoms experienc: Shortness of Breath Medication History Scheduled Amlodipine Besylate* (Amlodipine Besylate*), 10 MG ORAL DAILY, (Reported) Aspirin* (Aspir 81*), 81 MG ORAL DAILY, (Reported) Atorvastatin Calcium* (Atorvastatin Calcium*), 40 MG ORAL BEDTIME, (Reported) Cefuroxime Axetil* (Cefuroxime*), 250 MG PO Q12HR Cephalexin* (Keflex*), 500 MG ORAL THREE TIMES A DAY, (Reported) Cetirizine Hcl (ZyrTEC*), 10 MG PO DAILY, (Reported) Chlorthalidone* (Chlorthalidone*), 25 MG ORAL DAILY, (Reported) Furosemide* (Lasix*), 40 MG ORAL DAILY Furosemide* (Lasix*), 40 MG ORAL TWICE A DAY, (Reported) Furosemide* (Lasix*), 40 MG ORAL BID Hydrocortisone Acetate (Anti-Itch), 1 APPLIC TOPIC TWICE A DAY Insulin Regular, Human* (Novolin R*), 0 SUBQ .SLIDING SCALE, (Reported) Lisinopril* (Lisinopril*), 40 MG ORAL DAILY, (Reported) Magnesium Oxide (Magnesium Oxide), 400 MG ORAL DAILY, (Reported) Metformin Hcl (Metformin Hydrochloride), 1,000 GM MC TWICE A DAY, (Reported) Metformin Hcl* (Metformin Hcl*), 1,000 MG ORAL TWICE A DAY, (Reported) Methocarbamol* (Robaxin-750*), 750 MG PO TID Pantoprazole* (Pantoprazole*), 40 MG ORAL DAILY, (Reported) Quetiapine Fumarate* (Quetiapine Fumarate*), 200 MG ORAL DAILY, (Reported) Sertraline Hcl* (Zoloft*), 100 MG PO DAILY, (Reported) Tamsulosin HCl (Flomax), 0.4 MG ORAL BEDTIME Miscellaneous Medications Ipratropium/Albuterol Sulfate (Combivent Respimat Inhal [place]), 4 GM IH, (Reported) Ipratropium/Albuterol Sulfate (Combivent Respimat Inhal [place]), 4 GM IH, (Reported) Patient History Healthcare decision maker N Resuscitation status Advanced Directive on File Family History Family History: FH: CAD (coronary artery disease) Review of Systems Review of Symptoms General ROS: no weight loss or fever Psychological ROS: no depression or mood changes, no memory loss Ophthalmic ROS: no visual changes or eye irritation ENT ROS: no nasal congestion, hearing loss, dizziness Allergy and Immunology ROS: no allergic symptoms or urticaria Hematological and Lymphatic ROS: no swollen glands, unusual bleeding or bruising Endocrine ROS: no polyuria, polydipsia, weight changes, temperature intolerance Respiratory ROS: no cough, shortness of breath, or wheezing Cardiovascular ROS: no chest pain or dyspnea on exertion Gastrointestinal ROS: denies abdominal pain, bright red blood in stool. Musculoskeletal ROS: no myalgias or arthralgias Neurological ROS: no TIA or stroke symptoms Dermatological ROS: no new or changing skin lesions, rashes or pruritis Physical Exam Physical Exam General appearance: alert, cooperative, no distress, appears stated age Head: Normocephalic, without obvious abnormality, atraumatic Eyes: conjunctivae/corneas clear. PERRL, EOM's intact. Fundi benign Throat: Lips, mucosa, and tongue normal. Teeth and gums normal Neck: supple, symmetrical, trachea midline, no adenopathy, thyroid: not enlarged, symmetric, no tenderness/mass/nodules, no carotid bruit and no JVD Lungs: clear to auscultation bilaterally Heart: regular rate and rhythm, S1, S2 normal, no murmur, click, rub or gallop Abdomen: soft, non-tender. Bowel sounds normal. No masses, no organomegaly Extremities: extremities normal, atraumatic, no cyanosis or edema Pulses: 2+ and symmetric Skin: Skin color, texture, turgor normal. No rashes or lesions Neurologic: Grossly normal Last 24 Hour Vital Signs Date Time Temp Pulse Resp B/P (MAP) Pulse Ox O2 Delivery O2 Flow Rate FiO2 10/02/20 10:16 97.8 10/02/20 09:48 97 10/02/20 09:47 98 152/74 10/02/20 04:00 97.8 75 24 137/65 (89) 95 10/02/20 03:52 103 10/02/20 02:45 Nasal Cannula 2.0 10/01/20 22:32 98.1 96 24 155/80 95 Room Air 10/01/20 22:11 78 26 Room Air 10/01/20 17:02 98.1 78 26 145/78 (100) 88 Room Air Intake and Output 10/01/20 10/02/20 19:00 07:00 Intake Total 300 ml Output Total 400 ml Balance -100 ml Intake Oral 300 ml Output Urine Total 400 ml Laboratory Tests Test 10/01/20 17:36 10/02/20 06:24 10/02/20 06:46 10/02/20 11:45 White Blood Count 7.3 K/UL (4.8-10.8) Red Blood Count 5.07 M/UL (4.70-6.10) Hemoglobin 13.4 G/DL (14.2-18.0) L Hematocrit 40.1 % (42.0-52.0) L Mean Corpuscular Volume 79 FL (80-99) L Mean Corpuscular Hemoglobin 26.5 PG (27.0-31.0) L Mean Corpuscular Hemoglobin Concent 33.5 G/DL (32.0-36.0) Red Cell Distribution Width 16.3 % (11.6-14.8) H Platelet Count 323 K/UL (150-450) Mean Platelet Volume 6.7 FL (6.5-10.1) Neutrophils (%) (Auto) 76.9 % (45.0-75.0) H Lymphocytes (%) (Auto) 13.0 % (20.0-45.0) L Monocytes (%) (Auto) 4.9 % (1.0-10.0) Eosinophils (%) (Auto) 4.0 % (0.0-3.0) H Basophils (%) (Auto) 1.1 % (0.0-2.0) Sodium Level 136 MMOL/L (136-145) Potassium Level 3.8 MMOL/L (3.5-5.1) Chloride Level 97 MMOL/L (98-107) L Carbon Dioxide Level 34 MMOL/L (21-32) H Anion Gap 5 mmol/L (5-15) Blood Urea Nitrogen 12 mg/dL (7-18) Creatinine 1.1 MG/DL (0.55-1.30) Estimat Glomerular Filtration Rate > 60 mL/min (>60) Glucose Level 175 MG/DL (74-106) H Calcium Level 8.2 MG/DL (8.5-10.1) L Total Bilirubin 0.6 MG/DL (0.2-1.0) Aspartate Amino Transf (AST/SGOT) 23 U/L (15-37) Alanine Aminotransferase (ALT/SGPT) 22 U/L (12-78) Alkaline Phosphatase 167 U/L (46-116) H Troponin I 0.029 ng/mL (0.000-0.056) Pending Pro-B-Type Natriuretic Peptide 1685 pg/mL (0-125) H Total Protein 6.5 G/DL (6.4-8.2) Albumin 3.4 G/DL (3.4-5.0) Globulin 3.1 g/dL Albumin/Globulin Ratio 1.1 (1.0-2.7) POC Whole Blood Glucose 145 MG/DL (74-106) H Hemoglobin A1c 7.9 % (4.3-6.0) H Height (Feet): 5 Height (Inches): 8.00 Weight (Pounds): 330 Medications Current Medications Medications (Trade) Dose Ordered Sig/Anjel Route PRN Reason Start Time Stop Time Status Last Admin Dose Admin Acetaminophen (Tylenol) 650 mg Q6H PRN ORAL For Headache 10/02/20 09:30 11/01/20 09:29 10/02/20 09:46 Apixaban (Eliquis) 5 mg BID ORAL 10/02/20 10:00 12/31/20 09:59 10/02/20 09:47 Dextrose (Dextrose 50%) 25 ml Q30M PRN IV Hypoglycemia 10/02/20 04:00 12/31/20 03:59 Dextrose (Dextrose 50%) 50 ml Q30M PRN IV Hypoglycemia 10/02/20 04:00 12/31/20 03:59 Digoxin (Lanoxin) 0.25 mg DAILY ORAL 10/03/20 09:00 01/01/21 08:59 Diphenhydramine HCl (Benadryl Cream) 1 applic THREE TIMES A DAY PRN TOPIC Itching 10/02/20 09:00 11/01/20 08:59 10/02/20 10:46 Furosemide (Lasix) 40 mg EVERY 12 HOURS IV 10/02/20 09:00 11/01/20 08:59 10/02/20 09:43 Hydrocortisone (Hydrocortisone) 1 applic Q6H PRN TOPIC Itching 10/02/20 09:00 12/31/20 08:59 10/02/20 10:47 Insulin Aspart (NovoLOG) BEFORE MEALS AND HS SUBQ 10/02/20 06:30 12/31/20 06:29 Metoprolol Tartrate (Lopressor) 50 mg Q12HR ORAL 10/02/20 10:00 12/31/20 09:59 10/02/20 09:47 [facility] Hospital declaration INPATIENT level of care is warranted for this patient because patient is a 89 year old with who presents with suspicion of . I have a high level of concern because . Patient is at high risk for . Plan of care/treatment include . Patient care is expected to be greater than 2 midnights. OBSERVATION level of care is warranted for this patient. Patient is a 89 year old with who presents with . Patient will be admitted for 1 midnight, but if additional night(s) is/are necessary, patient will be converted to inpatient status for the entire hospitalization Disposition: Once the patient is stable to leave the hospital, I anticipate the patient will likely be discharged to the following environment: Estimated discharge date: I spent 70 minutes on this patient's case, and minutes was dedicated to counseling and/or care coordination. MIPS ([employer]it-based Incentive Payment System) Applicable CPT: 81879, 35549 CHECK ALL THAT ARE MET: Measure #5 (CHF): All ages. Prescribe JANIE/ARB upon discharge for patients with left ventricular systolic dysfunction. If not, the reason is clearly documented in the medical chart. Measure #8 (CHF): All ages. Prescribe a beta edin upon discharge for patients with left ventricular systolic dysfunction. If not, the reason is clearly documented in the medical chart. Measure #47 Advance care plan or surrogate decision maker documented in the medical record. Measure #130 The provider has documented, updated, or reviewed the patients current medication list and has documented it in the patients note. Measure #374 (All): Send report to referring provider. Measure #407(Sepsis due to MSSA bacteremia): Age 18+ Patient treated with a beta-lactam antibiotic (Nafcillin, Oxacillin or Cefazolin) as definitive therapy. MEDICAL COMPLEXITY High complexity medical decision making (need 2/3 categories) Problem - need 4 points Acute/new problem with new plan for workup (4 points, 1 max) Acute/new problem without additional workup (3 points, 1 max) Unstable chronic problem actively being managed (2 point each, 2 max) Stable chronic problem actively being managed (1 point each, 2 max) Self-limited/transient process (constipation, muscle ache, etc) (1 point each, 2 max) Data - need 4 points Reviewed labs/imaging studies (1 points, 2 max) Independent review of imaging (EKG, xrays, etc) (2 points, 2 max) Discussed case with consult/other MD/RN (2 points, 2 max) High Risk - qualify if have one of the following: Severe exacerbation of acute problem, acute mental status change, IV narcotics, monitoring drug levels (vancomycin, INR, tacrolimus etc) Jone García M.D. Oct 02, 2020 12:32
[2020-10-02] MEDS ORDERED: HYDROcodone/Acetamin 5/325 tab ORAL PRN (13:30)
[2020-10-02] MEDS ORDERED: Albuterol/Ipratropium 3ml neb HHN SCH (15:00)
--- NOTE | 2020-10-02 15:00 | NUR ---
RESPIRATORY NOTES Unable to administer @1500 [place] due to PT not haven been tested for covid. RN Bessie aware and will contact .
--- NOTE | 2020-10-02 15:37 | Cardiology Report ---
APPROVED REPORT EXAM: Two-dimensional and M-mode echocardiogram with Doppler and color Doppler. INDICATION Atrial Fibrillation M-Mode DIMENSIONS IVSd1.4 (0.7-1.1cm)Left Atrium (MM)4.4 (1.6-4.0cm) LVDd5.4 (3.5-5.6cm)Aortic Root3.8 (2.0-3.7cm) PWd1.4 (0.7-1.1cm)Aortic Cusp Exc.1.5 (1.5-2.0cm) IVSs1.9 cmEPSS0.6 (>1.0cm) LVDs4.4 (2.5-4.0cm) PWs1.8 cm <Conclusion> Technically difficult study due to poor acoustical windows and pts body habitus. Normal left ventricular chamber size, systolic function to extent visualized. Left ventricular ejection fraction grossly estimated to be 60-65 %. Study quality precludes accurate assessment of regional wall motion. Mild to moderate left ventricular hypertrophy. Anterior Echo-free space, may be due to pericardial fat or effusion. All other cardiac chamber sizes are within normal limits. Focal aortic valve sclerosis with adequate cusp excursion. Thickened mitral valve leaflets with normal excursion. Mitral annulus and aortic root calcification. Pulmonic valve not well visualized. Tricuspid valve structure not well visualized. IVC at normal size with no physiological collapse. A color flow and spectral Doppler study was performed and revealed: Trace aortic insufficiency. Mild mitral regurgitation. Can not determine left ventricular diastolic function by mitral diastolic velocities due to atrial fibrillation. Trace tricuspid regurgitation. Tricuspid systolic velocities suggests peak right ventricular systolic pressure of 17 mmHg. Trace pulmonic regurgitation present.
--- NOTE | 2020-10-02 15:44 | Diagnostic Imaging Report ---
Indication: Partially edema Technique: Grayscale and duplex images of the bilateral lower extremity veins Comparison: None Findings: Bilaterally, grayscale and duplex images demonstrate no evidence of intraluminal thrombus. Normal phasic Doppler waveforms, demonstrating normal augmentation response and no evidence of valvular insufficiency. Greater saphenous vein(s) and tibial veins are patent. Normal compressibility. Impression: Negative for evidence of lower extremity deep venous thrombosis bilaterally
--- NOTE | 2020-10-02 15:45 | Cardiology Report ---
APPROVED REPORT EKG Measurement Heart [id number] <Conclusion> Atrial fibrillation with rapid ventricular response Pulmonary disease pattern Incomplete right bundle branch block Left anterior fascicular block Abnormal ECG
[2020-10-02 16:00] VITALS: BP 147/79
--- NOTE | 2020-10-02 16:12 | Diagnostic Imaging Report ---
Indication: Chest pain Technique: One view of the chest Comparison: 09/20/2020 Findings: Body habitus limits evaluation. The heart is enlarged. There are bilateral pleural effusions, increased on the right, new/increased on the left. Mild interstitial congestion appears similar in degree to the previous study Impression: Cardiomegaly with evidence of pulmonary edema and bilateral pleural effusions as described
--- NOTE | 2020-10-02 19:45 | NUR ---
NURSE HAND-OFF REPORT: Important Events on Shift:[]pt in stable condition, AB Us pending, pt may be able to do it more in the morning before breakfast on empty stomach Patient Status: []full Diet: []ccho Pending Orders: [] Pending Results/Labs:[] Pending MD notification:[] Latest Vital Signs: Temperature 97.2 , Pulse 72 , B/P 147 /79 , Respiratory Rate 22 , O2 SAT 96 , Room Air, O2 Flow Rate 2.0 . Vital Sign Comment: [] EKG Rhythm: Atrial Fibrillation Rhythm change?: N Notified?: Ariella Burrell MD Response: Order Received& Read Back Latest Parra Fall Score: 35 Fall Risk: Medium Risk Safety Measures: Call light Within Reach, Bed Alarm Zone 2, Side Rails Side Rails x2, Bed position Low and Locked. Fall Precautions: y Yellow Gown y Report given to []. Demi/BOGDAN
--- NOTE | 2020-10-02 19:46 | NUR ---
NURSE NOTES: Report received from BOGDAN La. Patient is awake on bed, alert and oriented x 4 in stable condition. Patient has oxygen on 2Lpm but refused to put it back on and states that he's feeling better at this time but RN will check his saturation. On CCHO (Medium), instructed and amenable. IV site is on left forearm g-20 saline locked that is patent and intact. Safety measures are in place, bed in lowest and locked position, side rails up x 2, call light button and bedside table within reach, instructed to call for any assistance needed.
[2020-10-02 20:00] VITALS: BP 154/85
[2020-10-02] MEDS ORDERED: Albuterol 90mcg Inhaler 8gm INH PRN (20:00)
[2020-10-02] MEDS: Atorvastatin 20mg tab ORAL SCH (20:18)
[2020-10-02] MEDS: QUEtiapine 200mg tab ORAL SCH (20:18)
[2020-10-03] VITALS: BP 151/81
[2020-10-03 03:17] LABS: BASOPHILS % (AUTO) 1.1 % (0.0-2.0); EOSINOPHILS % (AUTO) 5.3 % (0.0-3.0); HEMATOCRIT 42.4 % (42.0-52.0); HEMOGLOBIN 13.8 G/DL (14.2-18.0); MEAN CORPUSCULAR VOLUME 80 FL (80-99); NEUTROPHILS % (AUTO) 70.6 % (45.0-75.0); PLATELET COUNT 346 K/UL (150-450); RED BLOOD COUNT 5.29 M/UL (4.70-6.10); RED CELL DISTRIBUTION WIDTH 15.3 % (11.6-14.8); WHITE BLOOD COUNT 6.5 K/UL (4.8-10.8)
[2020-10-03 03:37] LABS: INR 1.3 (0.9-1.1)
[2020-10-03 03:51] LABS: ALBUMIN 3.1 G/DL (3.4-5.0); ALBUMIN/GLOBULIN RATIO 0.9 (1.0-2.7); BILIRUBIN,TOTAL 0.6 MG/DL (0.2-1.0); CALCIUM 8.4 MG/DL (8.5-10.1); CREATININE 1.3 MG/DL (0.55-1.30); POTASSIUM 3.4 MMOL/L (3.5-5.1)
[2020-10-03 03:52] LABS: PHOSPHORUS 3.5 MG/DL (2.5-4.9)
[2020-10-03 04:00] VITALS: BP 134/76
--- NOTE | 2020-10-03 05:00 | NUR ---
NURSE NOTES: Patient is schedule for ultrasound of whole abdomen today, instructed on nothing per [place] until the procedure is done.
[2020-10-03] MEDS: NovoLOG Insulin Flexpen SUBQ SCH ×4 (05:51→20:35)
--- NOTE | 2020-10-03 07:26 | NUR ---
NURSE HAND-OFF REPORT: Important Events on Shift: Patient has been resting well the whole shift with no complaints of pain nor shortness of breath. Patient repeatedly taking off his oxygen despite of reminding and intructed not to take it out, morning RN aware. Patient Status: Patient is asleep in stable condition. Plan of care endorsed. Diet: CCHO(Medium) Pending Orders: Abdominal ultrasound Pending Results/Labs:AM lab result Pending MD notification:none Latest Vital Signs: Temperature 97.4 , Pulse 72 , B/P 134 /76 , Respiratory Rate 23 , O2 SAT 94 , Room Air, O2 Flow Rate 2.0 . Vital Sign Comment: stable EKG Rhythm: Atrial Fibrillation Rhythm change?: N Notified?: Ariella Burrell MD Response: Order Received& Read Back Latest Parra Fall Score: 45 Fall Risk: High Risk Safety Measures: Call light Within Reach, Bed Alarm Zone 1, Side Rails Side Rails x2, Bed position Low and Locked. Fall Precautions: Yellow Gown Patient Fall Education Report given to BODGAN Arndt.
[2020-10-03 08:00] VITALS: BP_SYST 127; BP_SYST 143; BP_DIAS 74; BP_DIAS 85
[2020-10-03] MEDS ORDERED: Lisinopril 20mg tab ORAL SCH (09:00)
[2020-10-03] MEDS ORDERED: Magnesium Oxide 400mg tab ORAL SCH (09:00)
--- NOTE | 2020-10-03 09:42 | Internal Med Progress Note ---
Subjective Physician Name Jone García Attending Physician Jone García M.D. Current Medications Medications (Trade) Dose Ordered Sig/Anjel Route PRN Reason Start Time Stop Time Status Last Admin Dose Admin Acetaminophen (Tylenol) 650 mg Q6H PRN ORAL For Headache 10/02/20 09:30 11/01/20 09:29 10/02/20 09:46 Acetaminophen/ Hydrocodone Bitart ([place] 5/325) 1 tab Q6H PRN ORAL For Pain 10/02/20 13:30 10/09/20 13:29 Albuterol Sulfate (Proventil MDI) 2 puff Q6H PRN INH Shortness of Breath 10/02/20 20:00 12/31/20 19:59 Apixaban (Eliquis) 5 mg BID ORAL 10/02/20 10:00 12/31/20 09:59 10/02/20 18:10 Aspirin (ASA) 81 mg DAILY ORAL 10/03/20 09:00 11/17/20 08:59 Atorvastatin Calcium (Lipitor) 40 mg BEDTIME ORAL 10/02/20 21:00 12/31/20 20:59 10/02/20 20:18 Cetirizine HCl (ZyrTEC) 10 mg DAILY ORAL 10/03/20 09:00 01/01/21 08:59 Dextrose (Dextrose 50%) 25 ml Q30M PRN IV Hypoglycemia 10/02/20 04:00 12/31/20 03:59 Dextrose (Dextrose 50%) 50 ml Q30M PRN IV Hypoglycemia 10/02/20 04:00 12/31/20 03:59 Digoxin (Lanoxin) 0.25 mg DAILY ORAL 10/03/20 09:00 01/01/21 08:59 Diphenhydramine HCl (Benadryl) 25 mg Q6H PRN ORAL Itching 10/02/20 17:30 11/01/20 17:29 10/02/20 18:09 Furosemide (Lasix) 40 mg EVERY 12 HOURS IV 10/02/20 09:00 11/01/20 08:59 10/02/20 20:18 Hydrocortisone (Hydrocortisone) 1 applic Q6H PRN TOPIC Itching 10/02/20 09:00 12/31/20 08:59 10/02/20 18:10 Insulin Aspart (NovoLOG) BEFORE MEALS AND HS SUBQ 10/02/20 06:30 12/31/20 06:29 10/03/20 05:51 Lisinopril (PriniviL) 40 mg DAILY ORAL 10/03/20 09:00 11/02/20 08:59 Magnesium Oxide (Mag-Ox 400mg) 400 mg DAILY ORAL 10/03/20 09:00 11/02/20 08:59 Metoprolol Tartrate (Lopressor) 50 mg Q12HR ORAL 10/02/20 10:00 12/31/20 09:59 10/02/20 20:21 Pantoprazole (Protonix) 20 mg DAILY ORAL 10/03/20 09:00 11/02/20 08:59 Quetiapine Fumarate (SEROqueL) 200 mg DAILY ORAL 10/02/20 20:00 11/16/20 19:59 10/02/20 20:18 Allergies: Coded Allergies: No Known Allergies (Unverified , 11/06/17) ROS Limited/Unobtainable: No Constitutional: Reports: weakness HEENT: Denies: no symptoms, eye pain, blurred vision, tearing, double vision, ear pain, ear discharge, nose pain, nose congestion, throat pain, throat swelling, mouth pain, mouth swelling, other Cardiovascular: Denies: no symptoms, chest pain, edema, irregular heart rate, lightheadedness, palpitations, syncope, other Respiratory: Reports: shortness of breath Gastrointestinal/Abdominal: Denies: no symptoms, abdomen distended, abdominal pain, black stools, tarry stools, blood in stool, constipated, diarrhea, difficulty swallowing, nausea, poor appetite, poor fluid intake, rectal bleeding, vomiting, other Genitourinary: Denies: no symptoms, burning, discharge, frequency, flank pain, hematuria, incontinence, pain, urgency, other Neurologic/Psychiatric: Denies: no symptoms, anxiety, depressed, emotional problems, headache, numbness, paresthesia, pre-existing deficit, seizure, tingling, tremors, weakness, other Subjective SOB slowly improving complains of diffuse rash on oral triamcinolone on oral benadrly ivermectin given Objective Last Vital Signs Date Time Temp Pulse Resp B/P (MAP) Pulse Ox O2 Delivery O2 Flow Rate FiO2 10/03/20 08:00 98.1 87 20 127/74 (91) 96 10/02/20 21:00 Nasal Cannula 2.0 General Appearance: no apparent distress EENT: PERRL/EOMI, normal ENT inspection Cardiovascular: normal peripheral pulses, normal rate, regular rhythm Respiratory/Chest: lungs clear, normal breath sounds Abdomen: normal bowel sounds, non tender, soft Extremities: normal range of motion Edema: moderate edema Neurologic: alert, oriented x 3 Skin: rash Laboratory Tests Test 10/02/20 11:45 10/02/20 16:30 10/02/20 16:37 10/02/20 20:40 Troponin I 0.021 ng/mL (0.000-0.056) 0.024 ng/mL (0.000-0.056) POC Whole Blood Glucose Pending 245 MG/DL (74-106) H Test 10/03/20 03:00 White Blood Count 6.5 K/UL (4.8-10.8) Red Blood Count 5.29 M/UL (4.70-6.10) Hemoglobin 13.8 G/DL (14.2-18.0) L Hematocrit 42.4 % (42.0-52.0) Mean Corpuscular Volume 80 FL (80-99) Mean Corpuscular Hemoglobin 26.1 PG (27.0-31.0) L Mean Corpuscular Hemoglobin Concent 32.5 G/DL (32.0-36.0) Red Cell Distribution Width 15.3 % (11.6-14.8) H Platelet Count 346 K/UL (150-450) Mean Platelet Volume 7.1 FL (6.5-10.1) Neutrophils (%) (Auto) 70.6 % (45.0-75.0) Lymphocytes (%) (Auto) 17.0 % (20.0-45.0) L Monocytes (%) (Auto) 6.0 % (1.0-10.0) Eosinophils (%) (Auto) 5.3 % (0.0-3.0) H Basophils (%) (Auto) 1.1 % (0.0-2.0) Erythrocyte Sedimentation Rate 12 MM/HR (0-20) Prothrombin Time 14.2 SEC (9.30-11.50) H Prothromb Time International Ratio 1.3 (0.9-1.1) H Activated Partial Thromboplast Time 31 SEC (23-33) Sodium Level 135 MMOL/L (136-145) L Potassium Level 3.4 MMOL/L (3.5-5.1) L Chloride Level 98 MMOL/L (98-107) Carbon Dioxide Level 30 MMOL/L (21-32) Anion Gap 7 mmol/L (5-15) Blood Urea Nitrogen 17 mg/dL (7-18) Creatinine 1.3 MG/DL (0.55-1.30) Estimat Glomerular Filtration Rate 55.1 mL/min (>60) Glucose Level 254 MG/DL (74-106) H Lactic Acid Level 1.80 mmol/L (0.4-2.0) Calcium Level 8.4 MG/DL (8.5-10.1) L Phosphorus Level 3.5 MG/DL (2.5-4.9) Magnesium Level 1.1 MG/DL (1.8-2.4) L Total Bilirubin 0.6 MG/DL (0.2-1.0) Aspartate Amino Transf (AST/SGOT) 21 U/L (15-37) Alanine Aminotransferase (ALT/SGPT) 18 U/L (12-78) Alkaline Phosphatase 155 U/L (46-116) H Troponin I 0.031 ng/mL (0.000-0.056) C-Reactive Protein, Quantitative 2.3 mg/dL (0.00-0.90) H Pro-B-Type Natriuretic Peptide 2692 pg/mL (0-125) H Total Protein 6.5 G/DL (6.4-8.2) Albumin 3.1 G/DL (3.4-5.0) L Globulin 3.4 g/dL Albumin/Globulin Ratio 0.9 (1.0-2.7) L Amylase Level 84 U/L (25-115) Lipase 93 U/L (73-393) Thyroid Stimulating Hormone (TSH) 5.388 uiU/mL (0.358-3.740) Free Thyroxine 0.92 NG/DL (0.76-1.46) Intake and Output 10/02/20 10/03/20 19:00 07:00 Intake Total 360 ml 900 ml Output Total 500 ml 700 ml Balance -140 ml 200 ml Intake Oral 360 ml 900 ml Output Urine Total 500 ml 700 ml # Bowel Movements 1 Assessment/Plan Assessment/Plan # CHF exacerbation # COPD exacerbation #HTN #DM #HLD #Rash - admit inpatient - tele - pulm eval - cardiology eval - echo - IV diuresis - monitor lytes - topical steroid - oral ivermectin - oral benadryl - replJone Vaughan M.D. Oct 03, 2020 09:42
--- NOTE | 2020-10-03 09:48 | Pulmonology Progress Note ---
Subjective ROS Limited/Unobtainable: No Interval Events: none major reported per nursing Constitutional: Reports: no symptoms HEENT: Repors: no symptoms Respiratory: Reports: shortness of breath, dyspnea at rest, dyspnea on exertion Cardiovascular: Reports: no symptoms Gastrointestinal/Abdominal: Reports: no symptoms Skin: Reports: other - itchiness Allergies: Coded Allergies: No Known Allergies (Unverified , 11/06/17) Objective Last 24 Hour Vital Signs Date Time Temp Pulse Resp B/P (MAP) Pulse Ox O2 Delivery O2 Flow Rate FiO2 10/03/20 08:00 98.1 87 20 127/74 (91) 96 10/03/20 08:00 96.8 93 20 143/85 (104) 98 10/03/20 04:00 71 10/03/20 04:00 97.4 72 23 134/76 (95) 94 10/03/20 00:00 97.4 73 25 151/81 (104) 95 10/03/20 00:00 72 10/02/20 21:00 Nasal Cannula 2.0 10/02/20 20:21 70 154/85 10/02/20 20:00 97.8 70 23 154/85 (108) 94 10/02/20 20:00 72 10/02/20 16:00 97.2 99 22 147/79 (101) 96 10/02/20 16:00 72 10/02/20 12:00 97.7 97 20 150/78 (102) 94 10/02/20 12:00 80 10/02/20 10:16 97.8 10/02/20 09:48 97 10/02/20 09:47 98 152/74 Intake and Output 10/02/20 10/03/20 19:00 07:00 Intake Total 360 ml 900 ml Output Total 500 ml 700 ml Balance -140 ml 200 ml Intake Oral 360 ml 900 ml Output Urine Total 500 ml 700 ml # Bowel Movements 1 General Appearance: no acute distress HEENT: atraumatic Respiratory: decreased breath sounds Cardiovascular: no gallop/murmur, JVD Abdomen: soft, non tender Genitourinary: other - scrotal edema Extremities: other - 1-2+ b/l LE edema Laboratory Tests 10/02/20 11:45: Troponin I 0.021 10/02/20 16:30: Troponin I 0.024 10/02/20 16:37: POC Whole Blood Glucose [Pending] 10/02/20 20:40: POC Whole Blood Glucose 245H 10/03/20 03:00: White Blood Count 6.5, Red Blood Count 5.29, Hemoglobin 13.8L, Hematocrit 42.4, Mean Corpuscular Volume 80, Mean Corpuscular Hemoglobin 26.1L, Mean Corpuscular Hemoglobin Concent 32.5, Red Cell Distribution Width 15.3H, Platelet Count 346, Mean Platelet Volume 7.1, Neutrophils (%) (Auto) 70.6, Lymphocytes (%) (Auto) 17.0L, Monocytes (%) (Auto) 6.0, Eosinophils (%) (Auto) 5.3H, Basophils (%) (Auto) 1.1, Erythrocyte Sedimentation Rate 12, Prothrombin Time 14.2H, Prothromb Time International Ratio 1.3H, Activated Partial Thromboplast Time 31, Sodium Level 135L, Potassium Level 3.4L, Chloride Level 98, Carbon Dioxide Level 30, Anion Gap 7, Blood Urea Nitrogen 17, Creatinine 1.3, Estimat Glomerular Filtration Rate 55.1, Glucose Level 254H, Lactic Acid Level 1.80, Calcium Level 8.4L, Phosphorus Level 3.5, Magnesium Level 1.1L, Total Bilirubin 0.6, Aspartate Amino Transf (AST/SGOT) 21, Alanine Aminotransferase (ALT/SGPT) 18, Alkaline Phosphatase 155H, Troponin I 0.031, C-Reactive Protein, Quantitative 2.3H, Pro-B-Type Natriuretic Peptide 2692H, Total Protein 6.5, Albumin 3.1L, Globulin 3.4, Albumin/Globulin Ratio 0.9L, Amylase Level 84, Lipase 93, Thyroid Stimulating Hormone (TSH) 5.388H, Free Thyroxine 0.92 Current Medications Medications (Trade) Dose Ordered Sig/Anjel Route PRN Reason Start Time Stop Time Status Last Admin Dose Admin Acetaminophen (Tylenol) 650 mg Q6H PRN ORAL For Headache 10/02/20 09:30 11/01/20 09:29 10/02/20 09:46 Acetaminophen/ Hydrocodone Bitart ([place] 5/325) 1 tab Q6H PRN ORAL For Pain 10/02/20 13:30 10/09/20 13:29 Albuterol Sulfate (Proventil MDI) 2 puff Q6H PRN INH Shortness of Breath 10/02/20 20:00 12/31/20 19:59 Apixaban (Eliquis) 5 mg BID ORAL 10/02/20 10:00 12/31/20 09:59 10/02/20 18:10 Aspirin (ASA) 81 mg DAILY ORAL 10/03/20 09:00 11/17/20 08:59 Atorvastatin Calcium (Lipitor) 40 mg BEDTIME ORAL 10/02/20 21:00 12/31/20 20:59 10/02/20 20:18 Cetirizine HCl (ZyrTEC) 10 mg DAILY ORAL 10/03/20 09:00 01/01/21 08:59 Dextrose (Dextrose 50%) 25 ml Q30M PRN IV Hypoglycemia 10/02/20 04:00 12/31/20 03:59 Dextrose (Dextrose 50%) 50 ml Q30M PRN IV Hypoglycemia 10/02/20 04:00 12/31/20 03:59 Digoxin (Lanoxin) 0.25 mg DAILY ORAL 10/03/20 09:00 01/01/21 08:59 Diphenhydramine HCl (Benadryl) 25 mg Q6H PRN ORAL Itching 10/02/20 17:30 11/01/20 17:29 10/02/20 18:09 Furosemide (Lasix) 40 mg EVERY 12 HOURS IV 10/02/20 09:00 11/01/20 08:59 10/02/20 20:18 Hydrocortisone (Hydrocortisone) 1 applic Q6H PRN TOPIC Itching 10/02/20 09:00 12/31/20 08:59 10/02/20 18:10 Insulin Aspart (NovoLOG) BEFORE MEALS AND HS SUBQ 10/02/20 06:30 12/31/20 06:29 10/03/20 05:51 Lisinopril (PriniviL) 40 mg DAILY ORAL 10/03/20 09:00 11/02/20 08:59 Magnesium Oxide (Mag-Ox 400mg) 400 mg DAILY ORAL 10/03/20 09:00 11/02/20 08:59 Metoprolol Tartrate (Lopressor) 50 mg Q12HR ORAL 10/02/20 10:00 12/31/20 09:59 10/02/20 20:21 Pantoprazole (Protonix) 20 mg DAILY ORAL 10/03/20 09:00 11/02/20 08:59 Quetiapine Fumarate (SEROqueL) 200 mg DAILY ORAL 10/02/20 20:00 11/16/20 19:59 10/02/20 20:18 Assessment/Plan Assessment/Plan 1. CHF exacerbation with elevated BNP -On Lasix -Cardio following - 2D Echo: EF 60-65% 2. COPD exacerbation -Continue supplemental oxygen; patient is on 2 L nasal cannula at baseline at home - Breathing Tx -> needs COVID-19 testing -> Rapid swab ordered 3. Pulmonary edema -Continue Lasix 4. Possible small bilateral pleural effusions -Monitor; consider thoracentesis if effusions enlarge and/or become symptomatic 5. DVT ppx -On Eliquis per cardio The care for this patient was discussed with my supervising physician. Time spent for this case was approximately 31 minutes. Alexis Chinchilla Oct 03, 2020 09:48
[2020-10-03] MEDS: QUEtiapine 200mg tab ORAL SCH (09:58)
[2020-10-03] MEDS: Eliquis 2.5mg tablet ORAL SCH ×2 (09:59→18:00)
[2020-10-03] MEDS: Aspirin Baby 81mg ORAL SCH (10:00)
[2020-10-03] MEDS ORDERED: Sodium Chloride for KCL Premix x 2hrs IV SCH (10:30)
[2020-10-03 12:00] VITALS: BP 124/84
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
--- NOTE | 2020-10-03 13:29 | Cardiac Electrophysiology PN ---
Assessment/Plan Assessment/Plan 1. CHF exacerbation. BNP is more than 1600. BUN and creatinine is within normal range. On Lasix 40 mg Echocardiogram showed ejection fraction of 60% with diastolic dysfunction. 2. Atrial fibrillation with rapid ventricular response. On digoxin and metoprolol and Eliquis 5 mg b.i.d. 3. Morbid obesity. 4. COPD. Further evaluation by Dr. Degroot. 5. History of diabetes. 6. Hyperlipidemia. Subjective Subjective Feeling better with diuresis. Sitting in chair on NC Objective Last 24 Hour Vital Signs Date Time Temp Pulse Resp B/P (MAP) Pulse Ox O2 Delivery O2 Flow Rate FiO2 10/03/20 10:00 127/74 10/03/20 09:59 87 10/03/20 09:59 87 127/74 10/03/20 08:00 98.1 87 20 127/74 (91) 96 10/03/20 08:00 96.8 93 20 143/85 (104) 98 10/03/20 04:00 71 10/03/20 04:00 97.4 72 23 134/76 (95) 94 10/03/20 00:00 97.4 73 25 151/81 (104) 95 10/03/20 00:00 72 10/02/20 21:00 Nasal Cannula 2.0 10/02/20 20:21 70 154/85 10/02/20 20:00 97.8 70 23 154/85 (108) 94 10/02/20 20:00 72 10/02/20 16:00 97.2 99 22 147/79 (101) 96 10/02/20 16:00 72 Intake and Output 10/02/20 10/03/20 19:00 07:00 Intake Total 360 ml 900 ml Output Total 500 ml 700 ml Balance -140 ml 200 ml Intake Oral 360 ml 900 ml Output Urine Total 500 ml 700 ml # Bowel Movements 1 Laboratory Tests Test 10/02/20 16:30 10/02/20 16:37 10/02/20 20:40 10/03/20 03:00 Troponin I 0.024 ng/mL (0.000-0.056) 0.031 ng/mL (0.000-0.056) POC Whole Blood Glucose Pending 245 MG/DL (74-106) H White Blood Count 6.5 K/UL (4.8-10.8) Red Blood Count 5.29 M/UL (4.70-6.10) Hemoglobin 13.8 G/DL (14.2-18.0) L Hematocrit 42.4 % (42.0-52.0) Mean Corpuscular Volume 80 FL (80-99) Mean Corpuscular Hemoglobin 26.1 PG (27.0-31.0) L Mean Corpuscular Hemoglobin Concent 32.5 G/DL (32.0-36.0) Red Cell Distribution Width 15.3 % (11.6-14.8) H Platelet Count 346 K/UL (150-450) Mean Platelet Volume 7.1 FL (6.5-10.1) Neutrophils (%) (Auto) 70.6 % (45.0-75.0) Lymphocytes (%) (Auto) 17.0 % (20.0-45.0) L Monocytes (%) (Auto) 6.0 % (1.0-10.0) Eosinophils (%) (Auto) 5.3 % (0.0-3.0) H Basophils (%) (Auto) 1.1 % (0.0-2.0) Erythrocyte Sedimentation Rate 12 MM/HR (0-20) Prothrombin Time 14.2 SEC (9.30-11.50) H Prothromb Time International Ratio 1.3 (0.9-1.1) H Activated Partial Thromboplast Time 31 SEC (23-33) Sodium Level 135 MMOL/L (136-145) L Potassium Level 3.4 MMOL/L (3.5-5.1) L Chloride Level 98 MMOL/L (98-107) Carbon Dioxide Level 30 MMOL/L (21-32) Anion Gap 7 mmol/L (5-15) Blood Urea Nitrogen 17 mg/dL (7-18) Creatinine 1.3 MG/DL (0.55-1.30) Estimat Glomerular Filtration Rate 55.1 mL/min (>60) Glucose Level 254 MG/DL (74-106) H Lactic Acid Level 1.80 mmol/L (0.4-2.0) Calcium Level 8.4 MG/DL (8.5-10.1) L Phosphorus Level 3.5 MG/DL (2.5-4.9) Magnesium Level 1.1 MG/DL (1.8-2.4) L Total Bilirubin 0.6 MG/DL (0.2-1.0) Aspartate Amino Transf (AST/SGOT) 21 U/L (15-37) Alanine Aminotransferase (ALT/SGPT) 18 U/L (12-78) Alkaline Phosphatase 155 U/L (46-116) H C-Reactive Protein, Quantitative 2.3 mg/dL (0.00-0.90) H Pro-B-Type Natriuretic Peptide 2692 pg/mL (0-125) H Total Protein 6.5 G/DL (6.4-8.2) Albumin 3.1 G/DL (3.4-5.0) L Globulin 3.4 g/dL Albumin/Globulin Ratio 0.9 (1.0-2.7) L Amylase Level 84 U/L (25-115) Lipase 93 U/L (73-393) Thyroid Stimulating Hormone (TSH) 5.388 uiU/mL (0.358-3.740) Free Thyroxine 0.92 NG/DL (0.76-1.46) Test 10/03/20 12:02 POC Whole Blood Glucose 234 MG/DL (74-106) H Objective HEAD AND NECK: Positive JVD. LUNGS: Decreased breath sounds. CARDIOVASCULAR: Irregular S1 and S2 with no gallop. ABDOMEN: Morbidly obese. EXTREMITIES: A 2+ pitting edema as well as scrotal edema. Siva Heath MD Oct 03, 2020 13:29
--- NOTE | 2020-10-03 13:42 | Diagnostic Imaging Report ---
Indication: Abnormal liver function tests Technique: Kline-scale and duplex images of the upper abdomen were obtained Comparison: No comparison sonograms. Reference made to CT scan dated 01/09/2020 Findings: Gallbladder is nondistended, contains gallstones. No definite wall thickening or pericholecystic fluid. Sonographic Kimball's sign is negative. Common bile duct measures 4 mm in diameter. No intrahepatic biliary ductal dilatation. Liver demonstrates heterogeneously increased echogenicity, no focal abnormality. Portal vein and hepatic veins are patent. Pancreas is obscured by bowel gas. Spleen is enlarged, measuring 16.5 cm long axis dimension Left kidney measures 11.9 cm in length. Right kidney measures 11.2 cm length. Both kidneys demonstrate normal echogenicity. There is no hydronephrosis. No focal abnormality . Abdominal aorta is partially obscured by bowel gas, visualized portions are non-aneurysmal . Impression: Cholelithiasis. Mildly thick-walled gallbladder, probably an artifact of lack of distention by could indicate acute cholecystitis Negative for dilated bile ducts Increased hepatic echogenicity indicating parenchymal disease, and hepatomegaly Splenomegaly Note nonvisualization of the pancreas and portions of the abdominal aorta
--- NOTE | 2020-10-03 13:45 | NUR ---
This nurse went into patient's room to start second bag of potassium as ordered. Patient IV was sitting on his bedside table. Patient states that he took it out because it was burning. Advised patient that he should've notified nurse prior to pulling out IV. He states at that time he did not want to have another IV placed. The left antecubital site where patient removed IV is tender to touch and slightly swollen, the area is reddened but is not hot to the touch and the redness is not bigger than the insertion site. Pamela charge nurse notified. Notified Dr. García who advised to give the patient potassium orally and change furosemide to oral if patient does not agree to have a new IV. will continue to monitor.
[2020-10-03 16:00] VITALS: BP 127/66
--- NOTE | 2020-10-03 16:29 | NUR ---
INSURANCE [employer]ICALS FAXED TO [facility]#[phone] fax#[phone]
[2020-10-03] MEDS: Hydrocortisone 1% Cr TOPIC PRN (16:49)
--- NOTE | 2020-10-03 19:34 | NUR ---
NURSE NOTES: Report received from BOGDAN Arndt. Patient is awake on bed in stable condition. rules examiner is in place, shows Afib with HR of 80's. On oxygen via nasal cannula @ 2lpm, saturating 95% and no acute distress noted at this time. On CCHO (Medium), instructed and amenable. Patient is continent and uses his urinal at bedside. IV site is on left forearm G-20 saline locked that is patent and intact. Safety measures are in place, bed in lowest and locked position, side rails up x 2, call light button and bedside table within reach, instructed to call for any assistance needed. Will continue plan of care.
[2020-10-03 20:00] VITALS: BP 122/53
[2020-10-03] MEDS: Atorvastatin 20mg tab ORAL SCH (20:33)
[2020-10-03] MEDS: Miralax 17gm pkt ORAL SCH (20:41)
--- NOTE | 2020-10-03 20:47 | NUR ---
NURSE NOTES: Patient is agitated and apprehensive asking for his Seroquel, RN explained that he already had it this morning but still insisting that morning RN didn't give it to him, and requesting to have another dose for tonight and he prefers to have it daily at night time. Will inform Dr. García.
--- NOTE | 2020-10-03 20:53 | NUR ---
NURSE NOTES: Received an order from Dr. García, will carry out.
[2020-10-04] VITALS (7 sets, daily range): BP systolic 106–159; BP diastolic 52–78
[2020-10-04] MEDS: NovoLOG Insulin Flexpen SUBQ SCH ×4 (05:30→20:45)
[2020-10-04 06:12] LABS: BASOPHILS % (AUTO) 1.3 % (0.0-2.0); EOSINOPHILS % (AUTO) 5.9 % (0.0-3.0); HEMATOCRIT 42.9 % (42.0-52.0); HEMOGLOBIN 13.7 G/DL (14.2-18.0); LYMPHOCYTES % (AUTO) 14.8 % (20.0-45.0); MEAN CORPUSCULAR VOLUME 81 FL (80-99); PLATELET COUNT 338 K/UL (150-450); RED BLOOD COUNT 5.27 M/UL (4.70-6.10); RED CELL DISTRIBUTION WIDTH 15.4 % (11.6-14.8); WHITE BLOOD COUNT 6.3 K/UL (4.8-10.8)
[2020-10-04 06:32] LABS: CALCIUM 8.2 MG/DL (8.5-10.1); CREATININE 1.4 MG/DL (0.55-1.30); PHOSPHORUS 4.3 MG/DL (2.5-4.9); POTASSIUM 4.1 MMOL/L (3.5-5.1)
--- NOTE | 2020-10-04 07:23 | NUR ---
NURSE HAND-OFF REPORT: Important Events on Shift: Patient has been resting well with no complaints made, requested for a derma consult and DFr. 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 Vital Sign Comment: stable EKG Rhythm: Atrial Flutter Rhythm change?: N MD Notified?: Ariella Burrell MD Response: Order Received& Read Back Latest Parra Fall Score: 45 Fall Risk: High Risk Safety Measures: Call light Within Reach, Bed Alarm Zone 1, Side Rails Side Rails x2, Bed position Low and Locked. Fall Precautions: Yellow Gown Patient Fall Education Report given to BOGDAN Pickard.
--- NOTE | 2020-10-04 07:24 | NUR ---
NURSE NOTES: The patient is alert and oriented x4 , has some difficulty breathing with activities which could be related to his history of COPD exacerbation, however patient is on 2 liters of oxygen via NC well tolerated.The patient keeps a LFA 20g that is intact and asymptomatic. The bed in lowest level and call light within easy reach. will continue to monitor as indicated
--- NOTE | 2020-10-04 08:37 | Internal Med Progress Note ---
Subjective Physician Name Jone García Attending Physician Jone García M.D. Current Medications Medications (Trade) Dose Ordered Sig/Anjel Route PRN Reason Start Time Stop Time Status Last Admin Dose Admin Acetaminophen (Tylenol) 650 mg Q6H PRN ORAL For Headache 10/02/20 09:30 11/01/20 09:29 10/02/20 09:46 Acetaminophen/ Hydrocodone Bitart ([place] 5/325) 1 tab Q6H PRN ORAL For Pain 10/02/20 13:30 10/09/20 13:29 Albuterol Sulfate (Proventil MDI) 2 puff Q6H PRN INH Shortness of Breath 10/02/20 20:00 12/31/20 19:59 10/04/20 05:33 Apixaban (Eliquis) 5 mg BID ORAL 10/02/20 10:00 12/31/20 09:59 10/03/20 18:00 Aspirin (ASA) 81 mg DAILY ORAL 10/03/20 09:00 11/17/20 08:59 10/03/20 10:00 Atorvastatin Calcium (Lipitor) 40 mg BEDTIME ORAL 10/02/20 21:00 12/31/20 20:59 10/03/20 20:33 Cetirizine HCl (ZyrTEC) 10 mg DAILY ORAL 10/03/20 09:00 01/01/21 08:59 10/03/20 09:58 Dextrose (Dextrose 50%) 25 ml Q30M PRN IV Hypoglycemia 10/02/20 04:00 12/31/20 03:59 Dextrose (Dextrose 50%) 50 ml Q30M PRN IV Hypoglycemia 10/02/20 04:00 12/31/20 03:59 Digoxin (Lanoxin) 0.25 mg DAILY ORAL 10/03/20 09:00 01/01/21 08:59 10/03/20 09:59 Diphenhydramine HCl (Benadryl) 25 mg Q6H PRN ORAL Itching 10/02/20 17:30 11/01/20 17:29 10/02/20 18:09 Furosemide (Lasix) 40 mg EVERY 12 HOURS IV 10/02/20 09:00 11/01/20 08:59 10/03/20 20:32 Hydrocortisone (Hydrocortisone) 1 applic Q6H PRN TOPIC Itching 10/02/20 09:00 12/31/20 08:59 10/03/20 16:49 Insulin Aspart (NovoLOG) BEFORE MEALS AND HS SUBQ 10/02/20 06:30 12/31/20 06:29 10/04/20 05:30 Lisinopril (PriniviL) 40 mg DAILY ORAL 10/03/20 09:00 11/02/20 08:59 10/03/20 10:00 Magnesium Oxide (Mag-Ox 400mg) 400 mg DAILY ORAL 10/03/20 09:00 11/02/20 08:59 10/03/20 09:58 Metoprolol Tartrate (Lopressor) 50 mg Q12HR ORAL 10/02/20 10:00 12/31/20 09:59 10/03/20 20:32 Pantoprazole (Protonix) 20 mg DAILY ORAL 10/03/20 09:00 11/02/20 08:59 10/03/20 09:58 Polyethylene Glycol (Miralax) 17 gm BEDTIME ORAL 10/03/20 21:00 11/02/20 20:59 10/03/20 20:41 Quetiapine Fumarate (SEROqueL) 200 mg BEDTIME ORAL 10/04/20 21:00 11/16/20 20:59 Allergies: Coded Allergies: No Known Allergies (Unverified , 11/06/17) ROS Limited/Unobtainable: No Constitutional: Reports: weakness HEENT: Denies: no symptoms, eye pain, blurred vision, tearing, double vision, ear pain, ear discharge, nose pain, nose congestion, throat pain, throat swelling, mouth pain, mouth swelling, other Cardiovascular: Denies: no symptoms, chest pain, edema, irregular heart rate, lightheadedness, palpitations, syncope, other Respiratory: Denies: no symptoms, cough, orthopnea, shortness of breath, SOB with excertion, SOB at rest, sputum, stridor, wheezing, other Gastrointestinal/Abdominal: Denies: no symptoms, abdomen distended, abdominal pain, black stools, tarry stools, blood in stool, constipated, diarrhea, difficulty swallowing, nausea, poor appetite, poor fluid intake, rectal bleeding, vomiting, other Genitourinary: Denies: no symptoms, burning, discharge, frequency, flank pain, hematuria, incontinence, pain, urgency, other Neurologic/Psychiatric: Denies: no symptoms, anxiety, depressed, emotional problems, headache, numbness, paresthesia, pre-existing deficit, seizure, tingling, tremors, weakness, other Subjective SOB slowly improving complains of diffuse rash on oral triamcinolone on oral benadrly ivermectin given Objective Last Vital Signs Date Time Temp Pulse Resp B/P (MAP) Pulse Ox O2 Delivery O2 Flow Rate FiO2 10/04/20 04:00 97.2 75 22 122/61 (81) 95 10/03/20 21:00 Nasal Cannula 2.0 General Appearance: no apparent distress, alert EENT: PERRL/EOMI, normal ENT inspection Neck: non-tender, normal alignment, supple Cardiovascular: normal peripheral pulses, normal rate, regular rhythm Respiratory/Chest: chest wall non-tender, lungs clear, normal breath sounds Abdomen: normal bowel sounds, non tender Laboratory Tests Test 10/03/20 12:02 10/03/20 16:48 10/03/20 20:32 10/04/20 05:45 POC Whole Blood Glucose 234 MG/DL (74-106) H 265 MG/DL (74-106) H 211 MG/DL (74-106) H White Blood Count 6.3 K/UL (4.8-10.8) Red Blood Count 5.27 M/UL (4.70-6.10) Hemoglobin 13.7 G/DL (14.2-18.0) L Hematocrit 42.9 % (42.0-52.0) Mean Corpuscular Volume 81 FL (80-99) Mean Corpuscular Hemoglobin 25.9 PG (27.0-31.0) L Mean Corpuscular Hemoglobin Concent 31.8 G/DL (32.0-36.0) L Red Cell Distribution Width 15.4 % (11.6-14.8) H Platelet Count 338 K/UL (150-450) Mean Platelet Volume 7.3 FL (6.5-10.1) Neutrophils (%) (Auto) 72.0 % (45.0-75.0) Lymphocytes (%) (Auto) 14.8 % (20.0-45.0) L Monocytes (%) (Auto) 6.0 % (1.0-10.0) Eosinophils (%) (Auto) 5.9 % (0.0-3.0) H Basophils (%) (Auto) 1.3 % (0.0-2.0) Sodium Level 135 MMOL/L (136-145) L Potassium Level 4.1 MMOL/L (3.5-5.1) Chloride Level 98 MMOL/L (98-107) Carbon Dioxide Level 33 MMOL/L (21-32) H Anion Gap 4 mmol/L (5-15) L Blood Urea Nitrogen 21 mg/dL (7-18) H Creatinine 1.4 MG/DL (0.55-1.30) H Estimat Glomerular Filtration Rate 50.5 mL/min (>60) Glucose Level 240 MG/DL (74-106) H Calcium Level 8.2 MG/DL (8.5-10.1) L Phosphorus Level 4.3 MG/DL (2.5-4.9) Magnesium Level 1.5 MG/DL (1.8-2.4) L Microbiology Date/Time Source Procedure Growth Status 10/03/20 12:45 Nasopharynx SARS-CoV-2 Antigen (Rapid)(SHERRY) - Final Complete Intake and Output 10/03/20 10/04/20 19:00 07:00 Intake Total 600 ml Output Total 500 ml 650 ml Balance 100 ml -650 ml Intake Oral 600 ml Output Urine Total 500 ml 650 ml Assessment/Plan Assessment/Plan # CHF exacerbation # COPD exacerbation #HTN #DM #HLD #Rash - admit inpatient - tele - pulm eval - cardiology eval - echo - IV diuresis - monitor lytes - topical steroid - oral ivermectin - oral benadryl - replete Jone Frey M.D. Oct 04, 2020 08:37
[2020-10-04] MEDS ORDERED: Nystatin Powder 100,000 units/gm 15gm TOPIC PRN (09:00)
--- NOTE | 2020-10-04 09:01 | NUR ---
The patient has A- Flutter on the ECG, Dr. Heath was notified and an order for start EKG was entered. The patient is alert and is cooperative with his care. He remained on 2 liters of oxygen via nasal Cannular saturating at at 94% NC. Will continue to monitor as indicated.
[2020-10-04] MEDS: Magnesium Oxide 400mg tab ORAL SCH ×3 (09:09→17:38)
[2020-10-04] MEDS: Eliquis 2.5mg tablet ORAL SCH ×2 (09:10→17:38)
[2020-10-04] MEDS: Aspirin Baby 81mg ORAL SCH (09:13)
[2020-10-04] MEDS: Triamcinolone 0.1% 15gm Cr TOPIC SCH ×3 (09:41→17:38)
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
--- NOTE | 2020-10-04 10:26 | Pulmonology Progress Note ---
Subjective ROS Limited/Unobtainable: No Interval Events: none major reported per nursing Constitutional: Reports: no symptoms HEENT: Repors: no symptoms Respiratory: Reports: shortness of breath, dyspnea at rest, dyspnea on exertion Cardiovascular: Reports: no symptoms Gastrointestinal/Abdominal: Reports: no symptoms Skin: Reports: ulcer, other - itchiness Allergies: Coded Allergies: No Known Allergies (Unverified , 11/06/17) Objective Last 24 Hour Vital Signs Date Time Temp Pulse Resp B/P (MAP) Pulse Ox O2 Delivery O2 Flow Rate FiO2 10/04/20 09:12 73 10/04/20 09:11 73 122/61 10/04/20 08:00 97.1 72 20 125/72 (89) 94 10/04/20 08:00 74 10/04/20 04:00 97.2 75 22 122/61 (81) 95 10/04/20 04:00 73 10/04/20 00:00 74 10/04/20 00:00 97.3 76 22 106/52 (70) 93 10/03/20 21:00 Nasal Cannula 2.0 10/03/20 20:32 76 122/53 10/03/20 20:00 97.7 76 22 122/53 (76) 93 10/03/20 20:00 80 10/03/20 16:00 96.7 67 18 127/66 (86) 97 10/03/20 16:00 73 10/03/20 12:00 71 10/03/20 12:00 98.7 67 20 124/84 (97) 97 Intake and Output 10/03/20 10/04/20 19:00 07:00 Intake Total 600 ml Output Total 500 ml 650 ml Balance 100 ml -650 ml Intake Oral 600 ml Output Urine Total 500 ml 650 ml General Appearance: no acute distress HEENT: atraumatic Respiratory: decreased breath sounds Cardiovascular: no gallop/murmur, JVD Abdomen: soft, non tender Genitourinary: other - scrotal edema Extremities: other - 1-2+ b/l LE edema Microbiology Date/Time Source Procedure Growth Status 10/03/20 12:45 Nasopharynx SARS-CoV-2 Antigen (Rapid)(SHERRY) - Final Complete Laboratory Tests 10/03/20 12:02: POC Whole Blood Glucose 234H 10/03/20 16:48: POC Whole Blood Glucose 265H 10/03/20 20:32: POC Whole Blood Glucose 211H 10/04/20 05:45: White Blood Count 6.3, Red Blood Count 5.27, Hemoglobin 13.7L, Hematocrit 42.9, Mean Corpuscular Volume 81, Mean Corpuscular Hemoglobin 25.9L, Mean Corpuscular Hemoglobin Concent 31.8L, Red Cell Distribution Width 15.4H, Platelet Count 338, Mean Platelet Volume 7.3, Neutrophils (%) (Auto) 72.0, Lymphocytes (%) (Auto) 14.8L, Monocytes (%) (Auto) 6.0, Eosinophils (%) (Auto) 5.9H, Basophils (%) (Auto) 1.3, Sodium Level 135L, Potassium Level 4.1, Chloride Level 98, Carbon Dioxide Level 33H, Anion Gap 4L, Blood Urea Nitrogen 21H, Creatinine 1.4H, Estimat Glomerular Filtration Rate 50.5, Glucose Level 240H, Calcium Level 8.2L, Phosphorus Level 4.3, Magnesium Level 1.5L Current Medications Medications (Trade) Dose Ordered Sig/Anjel Route PRN Reason Start Time Stop Time Status Last Admin Dose Admin Acetaminophen (Tylenol) 650 mg Q6H PRN ORAL For Headache 10/02/20 09:30 11/01/20 09:29 10/02/20 09:46 Acetaminophen/ Hydrocodone Bitart ([place] 5/325) 1 tab Q6H PRN ORAL For Pain 10/02/20 13:30 10/09/20 13:29 Albuterol Sulfate (Proventil MDI) 2 puff Q6H PRN INH Shortness of Breath 10/02/20 20:00 12/31/20 19:59 10/04/20 05:33 Apixaban (Eliquis) 5 mg BID ORAL 10/02/20 10:00 12/31/20 09:59 10/04/20 09:10 Aspirin (ASA) 81 mg DAILY ORAL 10/03/20 09:00 11/17/20 08:59 10/04/20 09:13 Atorvastatin Calcium (Lipitor) 40 mg BEDTIME ORAL 10/02/20 21:00 12/31/20 20:59 10/03/20 20:33 Cetirizine HCl (ZyrTEC) 10 mg DAILY ORAL 10/03/20 09:00 01/01/21 08:59 10/04/20 09:11 Dextrose (Dextrose 50%) 25 ml Q30M PRN IV Hypoglycemia 10/02/20 04:00 12/31/20 03:59 Dextrose (Dextrose 50%) 50 ml Q30M PRN IV Hypoglycemia 10/02/20 04:00 12/31/20 03:59 Digoxin (Lanoxin) 0.25 mg DAILY ORAL 10/03/20 09:00 01/01/21 08:59 10/04/20 09:12 Diphenhydramine HCl (Benadryl) 25 mg Q6H PRN ORAL Itching 10/02/20 17:30 11/01/20 17:29 10/02/20 18:09 Furosemide (Lasix) 40 mg EVERY 12 HOURS IV 10/02/20 09:00 11/01/20 08:59 10/04/20 09:09 Hydrocortisone (Hydrocortisone) 1 applic Q6H PRN TOPIC Itching 10/02/20 09:00 12/31/20 08:59 10/03/20 16:49 Insulin Aspart (NovoLOG) BEFORE MEALS AND HS SUBQ 10/02/20 06:30 12/31/20 06:29 10/04/20 05:30 Magnesium Oxide (Mag-Ox 400mg) 400 mg THREE TIMES A DAY ORAL 10/04/20 09:00 11/03/20 08:59 10/04/20 09:09 Metoprolol Tartrate (Lopressor) 50 mg Q12HR ORAL 10/02/20 10:00 12/31/20 09:59 10/04/20 09:11 Nystatin (Nystop Powder) 1 applic TIDPRN PRN TOPIC Itching/Pruritis 10/04/20 09:00 01/02/21 08:59 Pantoprazole (Protonix) 20 mg DAILY ORAL 10/03/20 09:00 11/02/20 08:59 10/04/20 09:11 Polyethylene Glycol (Miralax) 17 gm BEDTIME ORAL 10/03/20 21:00 11/02/20 20:59 10/03/20 20:41 Quetiapine Fumarate (SEROqueL) 200 mg BEDTIME ORAL 10/04/20 21:00 11/16/20 20:59 Triamcinolone Acetonide (Kenalog) 1 applic THREE TIMES A DAY TOPIC 10/04/20 09:00 01/02/21 08:59 10/04/20 09:41 Assessment/Plan Assessment/Plan 1. CHF exacerbation with elevated BNP -On Lasix -Cardio following - 2D Echo: EF 60-65% 2. COPD exacerbation -Continue supplemental oxygen; patient is on 2 L nasal cannula at baseline at home - Breathing Tx - Rx Albuterol given for discharge 3. Pulmonary edema -Continue Lasix 4. Possible small bilateral pleural effusions -Monitor; consider thoracentesis if effusions enlarge and/or become symptomatic 5. DVT ppx -On Eliquis per cardio The care for this patient was discussed with my supervising physician. Time spent for this case was approximately 31 minutes. Alexis Chinchilla Oct 04, 2020 10:26
--- NOTE | 2020-10-04 10:32 | Cardiac Electrophysiology PN ---
Assessment/Plan Assessment/Plan 1. CHF exacerbation. BNP is more than 1600. BUN and creatinine is within normal range. On Lasix 40 mg iv bid Echocardiogram showed ejection fraction of 60% with diastolic dysfunction. 2. Atrial fibrillation with rapid ventricular response. On digoxin 0.25 and metoprolol 50 bid and Eliquis 5 mg b.i.d. Dig level in AM 3. Morbid obesity. 4. COPD. Further evaluation by Dr. Degroot. 5. History of diabetes. 6. Hyperlipidemia. Subjective Subjective Feeling better with diuresis. In persistent atrial flutter. Had RVR episodes as well. Objective Last 24 Hour Vital Signs Date Time Temp Pulse Resp B/P (MAP) Pulse Ox O2 Delivery O2 Flow Rate FiO2 10/04/20 09:12 73 10/04/20 09:11 73 122/61 10/04/20 08:00 97.1 72 20 125/72 (89) 94 10/04/20 08:00 74 10/04/20 04:00 97.2 75 22 122/61 (81) 95 10/04/20 04:00 73 10/04/20 00:00 74 10/04/20 00:00 97.3 76 22 106/52 (70) 93 10/03/20 21:00 Nasal Cannula 2.0 10/03/20 20:32 76 122/53 10/03/20 20:00 97.7 76 22 122/53 (76) 93 10/03/20 20:00 80 10/03/20 16:00 96.7 67 18 127/66 (86) 97 10/03/20 16:00 73 10/03/20 12:00 71 10/03/20 12:00 98.7 67 20 124/84 (97) 97 Intake and Output 10/03/20 10/04/20 19:00 07:00 Intake Total 600 ml Output Total 500 ml 650 ml Balance 100 ml -650 ml Intake Oral 600 ml Output Urine Total 500 ml 650 ml Laboratory Tests Test 10/03/20 12:02 10/03/20 16:48 10/03/20 20:32 10/04/20 05:45 POC Whole Blood Glucose 234 MG/DL (74-106) H 265 MG/DL (74-106) H 211 MG/DL (74-106) H White Blood Count 6.3 K/UL (4.8-10.8) Red Blood Count 5.27 M/UL (4.70-6.10) Hemoglobin 13.7 G/DL (14.2-18.0) L Hematocrit 42.9 % (42.0-52.0) Mean Corpuscular Volume 81 FL (80-99) Mean Corpuscular Hemoglobin 25.9 PG (27.0-31.0) L Mean Corpuscular Hemoglobin Concent 31.8 G/DL (32.0-36.0) L Red Cell Distribution Width 15.4 % (11.6-14.8) H Platelet Count 338 K/UL (150-450) Mean Platelet Volume 7.3 FL (6.5-10.1) Neutrophils (%) (Auto) 72.0 % (45.0-75.0) Lymphocytes (%) (Auto) 14.8 % (20.0-45.0) L Monocytes (%) (Auto) 6.0 % (1.0-10.0) Eosinophils (%) (Auto) 5.9 % (0.0-3.0) H Basophils (%) (Auto) 1.3 % (0.0-2.0) Sodium Level 135 MMOL/L (136-145) L Potassium Level 4.1 MMOL/L (3.5-5.1) Chloride Level 98 MMOL/L (98-107) Carbon Dioxide Level 33 MMOL/L (21-32) H Anion Gap 4 mmol/L (5-15) L Blood Urea Nitrogen 21 mg/dL (7-18) H Creatinine 1.4 MG/DL (0.55-1.30) H Estimat Glomerular Filtration Rate 50.5 mL/min (>60) Glucose Level 240 MG/DL (74-106) H Calcium Level 8.2 MG/DL (8.5-10.1) L Phosphorus Level 4.3 MG/DL (2.5-4.9) Magnesium Level 1.5 MG/DL (1.8-2.4) L Microbiology Date/Time Source Procedure Growth Status 10/03/20 12:45 Nasopharynx SARS-CoV-2 Antigen (Rapid)(SHERRY) - Final Complete Objective HEAD AND NECK: Positive JVD. LUNGS: Decreased breath sounds. CARDIOVASCULAR: Irregular S1 and S2 with no gallop. ABDOMEN: Morbidly obese. EXTREMITIES: A 2+ pitting edema as well as scrotal edema. Siva Heath MD Oct 04, 2020 10:32
--- NOTE | 2020-10-04 10:44 | NUR ---
NURSE NOTES: The patient was seen by Dr. kimball,The patient refused to be discharge to a [facility] and instead want to returned home. Dr. kimball left an order for discharged Meds in the patient chart to be fax to patient pharmacy. will continue to monitor
--- NOTE | 2020-10-04 19:12 | NUR ---
NURSE HAND-OFF REPORT: Important Events on Shift:apatient has A-Flutter is alert and cooperative Patient Status: Diet: Pending Orders: Pending Results/Labs: Pending MD notification: Latest Vital Signs: Temperature 98.3 , Pulse 74 , B/P 159 /78 , Respiratory Rate 21 , O2 SAT 97 , Room Air, O2 Flow Rate 2.0 . Vital Sign Comment: EKG Rhythm: Atrial Flutter Rhythm change?: N Notified?: Ariella Burrell MD Response: Order Received& Read Back Latest Parra Fall Score: 45 Fall Risk: High Risk Safety Measures: Call light Within Reach, Bed Alarm Zone 1, Side Rails Side Rails x2, Bed position Low and Locked. Fall Precautions: Yellow Gown Patient Fall Education Report given to .
[2020-10-04] MEDS: Miralax 17gm pkt ORAL SCH (20:26)
[2020-10-04] MEDS: Atorvastatin 20mg tab ORAL SCH (20:27)
[2020-10-04] MEDS ORDERED: QUEtiapine 200mg tab ORAL SCH (21:00)
--- NOTE | 2020-10-04 22:58 | NUR ---
NURSE NOTES: Patient is awake on the chair sitting . physics technician is in place, shows Afib with HR of 80's. On oxygen via nasal cannula @ 2lpm, saturating 95% and no acute distress noted at this time. On CCHO (Medium), instructed and amenable. Patient is continent and uses his urinal . IV site is on left forearm G-20 saline locked that is patent and intact. Safety measures are in place, call light button and bedside table within reach, instructed to call for any assistance needed. Will continue plan of care.
[2020-10-05] VITALS: BP 123/76
[2020-10-05 04:00] VITALS: BP 126/70
[2020-10-05] MEDS: NovoLOG Insulin Flexpen SUBQ SCH (06:47)
[2020-10-05 07:31] LABS: CALCIUM 8.1 MG/DL (8.5-10.1); CREATININE 1.5 MG/DL (0.55-1.30); PHOSPHORUS 3.8 MG/DL (2.5-4.9); POTASSIUM 4.1 MMOL/L (3.5-5.1)
[2020-10-05 07:33] LABS: EOSINOPHILS % (AUTO) 5.8 % (0.0-3.0); HEMATOCRIT 40.8 % (42.0-52.0); HEMOGLOBIN 13.1 G/DL (14.2-18.0); LYMPHOCYTES % (AUTO) 16.5 % (20.0-45.0); MEAN CORPUSCULAR VOLUME 81 FL (80-99); MONOCYTES % (AUTO) 5.4 % (1.0-10.0); NEUTROPHILS % (AUTO) 71.4 % (45.0-75.0); PLATELET COUNT 340 K/UL (150-450); RED BLOOD COUNT 5.01 M/UL (4.70-6.10); RED CELL DISTRIBUTION WIDTH 15.1 % (11.6-14.8); WHITE BLOOD COUNT 6.6 K/UL (4.8-10.8)
--- NOTE | 2020-10-05 07:54 | NUR ---
NURSE NOTES: dr kimball made aware that patient wants to sign AMA. Patient stated that hospital is not doing anything, and no residential assistant here in the hospital. patient stated that his main problem is his skin and wants to be treated.per dr kimball, ok to sign AMA.
[2020-10-05 08:00] VITALS: BP 145/76
--- NOTE | 2020-10-05 08:53 | NUR ---
AMA: patient refused to sign AMA. per patient, he wants to leave because hospital is not doing anything. patient also stated that he came here for his skin problem and there is no cyber analyst in this hospital. patient stated that even if the doctor says no, he will still go home. risks of signing AMA were explaing to the patient but still insisted on signing it. IV line removed, no bleeding noted. Patients VS is stable, not in acute distress, Satting 94% on RA. Dr Rodriguez made aware, per MD, OK to sign AMA, but patient he refused to sign the form. SEE AMA FORM.refused to sign.
--- NOTE | 2020-10-05 09:44 | Cardiac Electrophysiology PN ---
Assessment/Plan Assessment/Plan 1. CHF exacerbation. BNP is more than 1600. On Lasix 40 mg iv bid Echocardiogram showed ejection fraction of 60% with diastolic dysfunction. 2. Atrial fibrillation with rapid ventricular response. On digoxin 0.25, metoprolol 50 bid and Eliquis 5 mg b.i.d. Dig level 0.9 today 3. Morbid obesity. 4. COPD. Further evaluation by Dr. Degroot. 5. History of diabetes. 6. Hyperlipidemia. Leaving AMA AC RN Subjective Subjective In persistent atrial flutter. Leaving AMA. Objective Last 24 Hour Vital Signs Date Time Temp Pulse Resp B/P (MAP) Pulse Ox O2 Delivery O2 Flow Rate FiO2 10/05/20 08:00 80 10/05/20 08:00 97.5 76 20 145/76 (99) 96 10/05/20 04:00 98.0 76 21 126/70 (88) 97 10/05/20 04:00 75 10/05/20 00:00 97.4 74 21 123/76 (92) 97 10/04/20 21:00 Nasal Cannula 2.0 10/04/20 20:25 76 154/77 10/04/20 20:00 97.7 76 21 154/77 (102) 98 10/04/20 20:00 73 10/04/20 16:00 74 10/04/20 16:00 98.3 79 21 159/78 (105) 97 10/04/20 12:14 98.3 76 21 135/75 (95) 95 10/04/20 12:00 74 10/04/20 12:00 98.2 76 20 135/75 (95) 95 Intake and Output 10/04/20 10/05/20 19:00 07:00 Intake Total 480 ml 420 ml Output Total 700 ml Balance 480 ml -280 ml Intake Oral 480 ml 420 ml Output Urine Total 700 ml Laboratory Tests Test 10/05/20 06:33 White Blood Count 6.6 K/UL (4.8-10.8) Red Blood Count 5.01 M/UL (4.70-6.10) Hemoglobin 13.1 G/DL (14.2-18.0) L Hematocrit 40.8 % (42.0-52.0) L Mean Corpuscular Volume 81 FL (80-99) Mean Corpuscular Hemoglobin 26.1 PG (27.0-31.0) L Mean Corpuscular Hemoglobin Concent 32.0 G/DL (32.0-36.0) Red Cell Distribution Width 15.1 % (11.6-14.8) H Platelet Count 340 K/UL (150-450) Mean Platelet Volume 7.3 FL (6.5-10.1) Neutrophils (%) (Auto) 71.4 % (45.0-75.0) Lymphocytes (%) (Auto) 16.5 % (20.0-45.0) L Monocytes (%) (Auto) 5.4 % (1.0-10.0) Eosinophils (%) (Auto) 5.8 % (0.0-3.0) H Basophils (%) (Auto) 1.0 % (0.0-2.0) Sodium Level 136 MMOL/L (136-145) Potassium Level 4.1 MMOL/L (3.5-5.1) Chloride Level 97 MMOL/L (98-107) L Carbon Dioxide Level 34 MMOL/L (21-32) H Anion Gap 5 mmol/L (5-15) Blood Urea Nitrogen 20 mg/dL (7-18) H Creatinine 1.5 MG/DL (0.55-1.30) H Estimat Glomerular Filtration Rate 46.7 mL/min (>60) Glucose Level 240 MG/DL (74-106) H Calcium Level 8.1 MG/DL (8.5-10.1) L Phosphorus Level 3.8 MG/DL (2.5-4.9) Magnesium Level 1.5 MG/DL (1.8-2.4) L Digoxin Level 0.9 NG/ML (0.5-2.0) Microbiology Date/Time Source Procedure Growth Status 10/03/20 12:45 Nasopharynx SARS-CoV-2 Antigen (Rapid)([facility]) - Final Complete Objective HEAD AND NECK: Positive JVD. LUNGS: Decreased breath sounds. CARDIOVASCULAR: Irregular S1 and S2 with no gallop. ABDOMEN: Morbidly obese. EXTREMITIES: A 2+ pitting edema as well as scrotal edema. Siva Heath MD Oct 05, 2020 09:44
--- NOTE | 2020-10-05 11:11 | Internal Med Progress Note ---
Subjective Physician Name Jone García Attending Physician Jone García M.D. Allergies: Coded Allergies: No Known Allergies (Unverified , 11/06/17) Subjective SOB slowly improving complains of diffuse rash on oral triamcinolone on oral benadrly ivermectin given Objective Last Vital Signs Date Time Temp Pulse Resp B/P (MAP) Pulse Ox O2 Delivery O2 Flow Rate FiO2 10/05/20 08:00 80 10/05/20 08:00 97.5 20 145/76 (99) 96 10/04/20 21:00 Nasal Cannula 2.0 Laboratory Tests Test 10/05/20 06:33 White Blood Count 6.6 K/UL (4.8-10.8) Red Blood Count 5.01 M/UL (4.70-6.10) Hemoglobin 13.1 G/DL (14.2-18.0) L Hematocrit 40.8 % (42.0-52.0) L Mean Corpuscular Volume 81 FL (80-99) Mean Corpuscular Hemoglobin 26.1 PG (27.0-31.0) L Mean Corpuscular Hemoglobin Concent 32.0 G/DL (32.0-36.0) Red Cell Distribution Width 15.1 % (11.6-14.8) H Platelet Count 340 K/UL (150-450) Mean Platelet Volume 7.3 FL (6.5-10.1) Neutrophils (%) (Auto) 71.4 % (45.0-75.0) Lymphocytes (%) (Auto) 16.5 % (20.0-45.0) L Monocytes (%) (Auto) 5.4 % (1.0-10.0) Eosinophils (%) (Auto) 5.8 % (0.0-3.0) H Basophils (%) (Auto) 1.0 % (0.0-2.0) Sodium Level 136 MMOL/L (136-145) Potassium Level 4.1 MMOL/L (3.5-5.1) Chloride Level 97 MMOL/L (98-107) L Carbon Dioxide Level 34 MMOL/L (21-32) H Anion Gap 5 mmol/L (5-15) Blood Urea Nitrogen 20 mg/dL (7-18) H Creatinine 1.5 MG/DL (0.55-1.30) H Estimat Glomerular Filtration Rate 46.7 mL/min (>60) Glucose Level 240 MG/DL (74-106) H Calcium Level 8.1 MG/DL (8.5-10.1) L Phosphorus Level 3.8 MG/DL (2.5-4.9) Magnesium Level 1.5 MG/DL (1.8-2.4) L Digoxin Level 0.9 NG/ML (0.5-2.0) Microbiology Date/Time Source Procedure Growth Status 10/03/20 12:45 Nasopharynx SARS-CoV-2 Antigen (Rapid)([facility]) - Final Complete Intake and Output 10/04/20 10/05/20 19:00 07:00 Intake Total 480 ml 420 ml Output Total 700 ml Balance 480 ml -280 ml Intake Oral 480 ml 420 ml Output Urine Total 700 ml Assessment/Plan Assessment/Plan # CHF exacerbation # COPD exacerbation #HTN #DM #HLD #Rash - admit inpatient - tele - pulm eval - cardiology eval - echo - IV diuresis - monitor lytes - topical steroid - oral ivermectin - oral benadryl - replete Jone Frey M.D. Oct 05, 2020 11:11
--- NOTE | 2020-10-09 13:53 | Discharge Summary ---
Discharge Summary Discharge Summary _ Date of admission: 10/01/2020 Patient left AGAINST MEDICAL ADVICE on 10/05/2020 History of Present Illness and Brief Hospital Course Mr. Anderson is a 65-year-old male with past medical history of atrial fibrillation, CHF, COPD, and morbid obesity, who presented to ED for evaluation of shortness of breath. Patient reported using home oxygen 2 L nasal cannula all day except nighttime. Of note, patient was seen here with similar complaints 2 weeks ago and was diagnosed with CHF exacerbation but left the hospital AGAINST MEDICAL ADVICE. Chest x-ray showed bilateral vascular congestion and trace pleural effusions. Patient was given Lasix and was admitted to the hospital for further management. Patient was continued on Lasix given CHF exacerbation with elevated BNP. 2D echocardiogram revealed ejection fraction of 60-65% with diastolic dysfunction. Patient was also continued on low-flow oxygen given underlying COPD. Patient presented with abdominal distention. Abdominal ultrasound revealed cholelithiasis, hepatomegaly, and splenomegaly. Patient tolerated diet. Patient was noted to have atrial fibrillation with RVR. Patient was treated with digoxin, metoprolol, and Eliquis. According to the patient, one of the main concerns was his skin itchiness. No railroad auditor was available at the facility. Patient requested to leave the hospital AMA because " the hospital is not doing anything". Patient reported seeing a railroad auditor as an outpatient. Patient was advised against leaving AMA. He insisted on leaving but declined to sign AMA form. Patient left the hospital without signing the AMA form. Consultants: Cardiology Dr. Villela Surgery Dr. Mosley Pulmonology Dr. Degroot Final diagnoses CHF exacerbation Atrial fibrillation with RVR Morbid obesity COPD exacerbation History of diabetes Hyperlipidemia Skin rash Pulmonary edema Pleural effusions Cellulitis I have been assigned to dictate discharge summary for this account. Alexis Chinchilla Oct 09, 2020 13:53
== END 2020-10-05 08:50 | disposition left against medical advice (07) | DRG 190 ==
LOC: EMR 17:26 → 2E 18:50 → EDBEDREQ 20:36
DX: J44.1 Chronic obstructive pulmonary disease with (acute) exacerbation (principal); I50.33 Acute on chronic diastolic (congestive) heart failure; Z68.43 Body mass index [BMI] 50.0-59.9, adult; L03.311 Cellulitis of abdominal wall; L03.116 Cellulitis of left lower limb; L03.115 Cellulitis of right lower limb; I11.0 Hypertensive heart disease with heart failure; E66.01 Morbid (severe) obesity due to excess calories; I48.91 Unspecified atrial fibrillation; J44.9 Chronic obstructive pulmonary disease, unspecified; Z79.82 Long term (current) use of aspirin; Z79.4 Long term (current) use of insulin; R21 Rash and other nonspecific skin eruption; S39.012A Strain of muscle, fascia and tendon of lower back, initial encounter; X58.XXXA Exposure to other specified factors, initial encounter; B86 Scabies; Z79.84 Long term (current) use of oral hypoglycemic drugs
CPT/HCPCS: 36415; 71045; 76700; 80048; 80053; 80162; 82150; 82962; 83036; 83605; 83690; 83735; 83880; 84100; 84439; 84443; 84484; 85025; 85610; 85651; 85730; 86140; 93005; 93306; 93970; 96374; 99285; J1815; J8499